=== PATIENT | male | born 1955 | race Caucasian/White ===

== ENCOUNTER 2016-04-11 23:14 | Observation (INO) | payer BC, MEDICARE ==
[~2016-04-11] VITALS: Ht 182.9 cm; Wt 139.8 kg
[~2016-04-11 23:14] MED LIST: ACTO45TA6 PO; AMBI5TAB PO; AMOX250C3 PO; ASPI81TA85 PO; ATOR1TAB18 PO; GLIM2TA PO; GLUC1000 PO; HYDR-3719 PO; INSULADS SC; LASI20TA PO; MELO15TA4 PO; NEUR300C PO; NICO21DI5 TD; PRIL40CA PO; SOMA350T PO; TOPR50TA PO; TRAD5TAB PO; ZOCO40TA PO
[2016-04-11] MEDS ORDERED: ADENOSINE 6MG/2ML INJECTION (J0153) As Ordered ONE (23:24)
[2016-04-11] MEDS ORDERED: ATENOLOL 25 MG TAB As Ordered ONE (23:41)
[2016-04-11 23:51] LABS: BASO % 0.6 % (0.0-1.0); EOS # 0.1 K/mm3 (0.0-0.50); EOS % 1.9 % (0.0-3.0); LARGE UNSTAINED CELL # 0.2 K/mm3 (0.0-0.4); LARGE UNSTAINED CELL % 3.1 % (0.0-4.0); LYMPH # 1.8 K/mm3 (1.5-4.5); LYMPH % 24.6 % (24.0-44.0); MEAN CORPUSCULAR HEMOGLOBIN 28.9 pg (27.0-33.0); MEAN CORPUSCULAR HGB CONC 33.5 g/dl (32.0-36.5); MEAN CORPUSCULAR VOLUME 86.2 fl (80.0-96.0); MONO # 0.5 K/mm3 (0.0-0.8); NEUTROPHILS # 4.5 K/mm3 (1.8-7.7); NEUTROPHILS % 62.8 % (36.0-66.0); PLATELET COUNT, AUTOMATED 167 k/mm3 (150-450); RED CELL DISTRIBUTION WIDTH 14.7 % (11.5-14.5); WHITE BLOOD COUNT 7.2 K/mm3 (4.0-10.0)
[2016-04-12 00:19] LABS: CALCIUM LEVEL 8.4 MG/DL (8.5-10.1); CREATININE FOR GFR 1.63 MG/DL (0.70-1.30); FREE T4 1.12 NG/DL (0.76-1.46); GLOMERULAR FILTRATION RATE 46.5 (>56); MAGNESIUM LEVEL 1.4 MG/DL (1.8-2.4); POTASSIUM SERUM 4.4 MEQ/L (3.5-5.1)
[2016-04-12] MEDS ORDERED: MAGNESIUM OXIDE 400 MG TAB (MAG-OX) As Ordered ONE (00:32)
[2016-04-12] MEDS ORDERED: MAGNESIUM SULFATE 1 GM/100 ML D5W BAG (10MG/ML) (J3475) As Ordered ONE (00:33)
[2016-04-12] MEDS ORDERED: ACETAMINOPHEN TAB 650MG DOSE (2X325MG) PO PRN (04:15)
[2016-04-12] MEDS ORDERED: ONDANSETRON 4MG/2ML VIAL (J2405) IV PRN (04:15)
[2016-04-12] MEDS ORDERED: META800T82 PO (04:33)
[2016-04-12] MEDS ORDERED: JANU100T PO (04:33)
[2016-04-12] MEDS ORDERED: NEXI40CA PO (04:33)
[2016-04-12] MEDS ORDERED: LYRI200C PO (04:33)
[2016-04-12] MEDS ORDERED: TORS20TA2 PO (04:33)
[2016-04-12] MEDS ORDERED: PROA1AER INH (04:33)
[2016-04-12] MEDS ORDERED: VICO10TA11 PO (04:33)
[2016-04-12] MEDS ORDERED: ASPI81TAEC PO (04:33)
[2016-04-12] MEDS ORDERED: ATOR1TAB18 PO (04:33)
[2016-04-12] MEDS ORDERED: METAXALONE 800 MG TABLET PO PRN (05:30)
[2016-04-12] MEDS ORDERED: DEXTROSE 50% 50 ML SYRINGE IV PRN (05:30)
[2016-04-12] MEDS ORDERED: GLUCOSE 4 GM CHEW TABLET PO PRN (05:30)
[2016-04-12] MEDS ORDERED: GLUCAGON FOR INJ 1 MG VIAL (J1610) SC PRN (05:30)
[2016-04-12] MEDS ORDERED: ALBUTEROL 90 MCG/ACT 8GM HFA INHALER INH PRN (05:30)
--- NOTE | 2016-04-12 05:40 | EDDOCDS ---
Nurse's Notes [facility] Name: Giancarlo Altman Age: 60 yrs Sex: Male : 1955 Arrival Date: 04/11/2016 Time: 23:14 Bed 3 Private MD: Artie Diagnosis: Supraventricular tachycardia-elevation in troponin Presentation: 04/11 23:28 Presenting complaint: Patient states: Patient was sitting in bed watching TV and kas2 started having chest pain and noticed he was dizzy and his heart was racing so he woke his up to take him to the ER. Aspirin was not taken prior to arrival. Adult Sepsis Screening: The patient does not have new or worsening altered mentation. Patient's respiratory rate is less than 22. Systolic blood pressure is greater than 100. Patient has a qSOFA score of 0- Negative Sepsis Screen. Suicide/Homicide risk assessment- the patient denies having any suicidal and/or homicidal ideations and does not present with any other emotional, behavioral or mental health complaints. Status: Patient is not a answering service operator or dependent. Transition of care: patient was not received from another setting of care. 23:28 Acuity: KURTIS Level 2 kas2 23:28 Method Of Arrival: Walkin/Carried/Asstd kas2 Triage Assessment: 23:28 General: Appears in no apparent distress, uncomfortable, well nourished, well groomed, kas2 Behavior is appropriate for age, cooperative. Pain: Location: chest Pain currently is 9 out of 10 on a pain scale. Pt Declines HIV testing. Neurological: Level of Consciousness is awake, alert, Oriented to person, place, time. Cardiovascular: Capillary refill < 3 seconds Heart tones S1 S2 present Rhythm is SVT Chest pain is described as vague, radiates Does not radiate. episodes are continuous began 30 minutes prior to arrival. Respiratory: Airway is patent Respiratory effort is even, unlabored, Respiratory pattern is regular, symmetrical, Breath sounds are clear bilaterally. Derm: Skin is intact, is healthy with good turgor, Skin is dry, Skin is pink, warm & dry. Skin temperature is warm. 04/12 00:19 Cardiovascular: Respiratory: kas2 Historical: - Home Meds: 1. pregabalin 200 mg Oral cap 1 cap 3 times per day 2. metaxalone 800 mg oral tab 1 tab 3 times per day 3. pioglitazone 30 mg oral tab 1 tab once daily 4. vicodon 10/300 every 3 hours for pain PRN 5. aspirin 81 mg Oral tab 1 tab once daily 6. Lipitor 80 mg Oral tab 1 tab once daily 7. metformin 750 mg Oral Tb24 2 tabs once daily 8. torsemide 20 mg oral tab 1 tab once daily 9. meloxicam 15 mg oral tab 1 tab once daily 10. Januvia 100 mg oral tab 1 tab once daily 11. 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 No barriers to communication noted. - Family history: Not pertinent. - : The pt / caregiver states he / she is not on anticoagulants. Home medication list is obtained from the patient. - Exposure Risk Screening:: None identified. Screenin/18 23:38 Screening information is obtained from the patient. Fall risk: No risks identified. kas2 Assistance ADL's: requires no assistance with activities of daily living. Abuse/DV Screen: The patient / caregiver reports he/she is: not in a situation that causes fear, pain or injury. Nutritional screening: No deficits noted. Advance Directives: Currently, there is no health care proxy. There is no active DNR order. There is no living will. There is no Power of Account Development Manager. home support is adequate. Assessment: 23:31 General: Patient converted to P92. Patient denies chest pain at this time. No SOB or kas2 headache. No apparent distress noted. at bedside. Call diez within reach. Will continue to monitor.. 23:33 General: See triage note.. kas2 04/12 00:17 General: Appears in no apparent distress, comfortable, well nourished, well groomed, kas2 Behavior is appropriate for age, cooperative. Pain: Denies pain. Neurological: Level of Consciousness is awake, alert, Oriented to person, place, time. Cardiovascular: Capillary refill < 3 seconds Heart tones S1 S2 present Rhythm is sinus rhythm No ectopy. Respiratory: Airway is patent Respiratory effort is even, unlabored, Respiratory pattern is regular, symmetrical, Breath sounds are clear bilaterally. Derm: Skin is intact, is healthy with good turgor, Skin is dry, Skin is pink, warm & dry. Skin temperature is warm. 01:15 General: Appears in no apparent distress, comfortable, Behavior is appropriate for age, kas2 cooperative. Pain: Denies pain. Neurological: Level of Consciousness is awake, alert, Oriented to person, place, time. Cardiovascular: Capillary refill < 3 seconds Heart tones S1 S2 present Rhythm is sinus rhythm No ectopy. Respiratory: Airway is patent Respiratory effort is even, unlabored, Respiratory pattern is regular, symmetrical, Breath sounds are clear bilaterally. Derm: Skin is intact, is healthy with good turgor, Skin is dry, Skin is pink, warm & dry. Skin temperature is warm. 02:31 General: :Patient sitting up in bed with family at bedside. Denies pain or discomfort kas2 at this time. No apparent distress. Airway patent and respiratory effort even and unlabored. Call diez within reach. Will continue to monitor.. 03:40 General: Appears in no apparent distress, comfortable, Behavior is appropriate for age, kas2 cooperative. Pain: Denies pain. Neurological: Level of Consciousness is awake, alert, Oriented to person, place, time. Cardiovascular: Rhythm is sinus rhythm No ectopy. Respiratory: Airway is patent Respiratory effort is even, unlabored, Respiratory pattern is regular, symmetrical, Breath sounds are clear bilaterally. Derm: Skin is intact, Skin is dry, Skin is pink, warm & dry. Skin temperature is warm. 04:15 General: Patient resting in bed. Denies pain or discomfort at this time. No apparent kas2 distress. Airway patent and respiratory effort even and unlabored. Call diez within reach. Will continue to monitor.. Vital Signs: 04/11 23:17 BP 64 / 44; Pulse 190; Resp 20 S; Temp 96.7(O); Weight 138.35 kg (R); Height 6 ft. 0 gr2 in. (182.88 cm) (R); Pain 4/10; 23:25 BP 101 / 45 (auto/); kas2 23:25 Pulse 191 MON; kas2 23:30 BP 92 / 44 (auto/); kas2 23:30 Pulse 190 MON; Pulse Ox 94% ; kas2 23:33 BP 132 / 66 (auto/); kas2 23:33 Pulse 101 MON; Pulse Ox 94% ; kas2 23:45 BP 113 / 57 (auto/); kas2 23:45 Pulse 96 MON; Pulse Ox 94% ; kas2 04/12 00:00 BP 118 / 71 (auto/); kas2 00:00 Pulse 91 MON; Pulse Ox 94% ; kas2 00:15 BP 121 / 63 (auto/); kas2 00:15 Pulse Ox 92% ; kas2 00:30 BP 122 / 59 (auto/); kas2 00:30 Pulse 115 MON; kas2 00:45 BP 120 / 68 (auto/); kas2 00:45 Pulse 83 MON; Pulse Ox 93% ; kas2 01:00 BP 107 / 57 (auto/); kas2 01:00 Pulse 73 MON; Pulse Ox 90% ; kas2 01:15 BP 104 / 57 (auto/); kas2 01:15 Pulse 68 MON; Pulse Ox 92% ; kas2 01:30 BP 105 / 56 (auto/); kas2 01:30 Pulse 67 MON; Pulse Ox 91% ; kas2 01:45 BP 101 / 53 (auto/); kas2 01:45 Pulse 63 MON; Pulse Ox 91% ; kas2 02:09 BP 92 / 53 (auto/); kas2 02:09 Pulse 73 MON; Pulse Ox 87% ; kas2 02:09 Resp 18; Temp 98.2(O); kas2 02:39 BP 103 / 54 (auto/); kas2 02:39 Pulse 63 MON; Pulse Ox 91% ; kas2 03:09 BP 97 / 53 (auto/); kas2 03:09 Pulse 62 MON; Pulse Ox 91% ; kas2 03:39 BP 103 / 53 (auto/); kas2 03:39 Pulse 65 MON; Pulse Ox 92% ; kas2 04:39 BP 109 / 60 (auto/); kas2 04:39 Pulse 60 MON; Pulse Ox 92% ; kas2 04:39 BP 109 / 60; Pulse 60; Resp 18; Temp 97.3(O); Pulse Ox 92% on R/A; Pain 0/10; kas2 05:00 BP 109 / 60; Pulse 60; Resp 18; Temp 97.3; Pulse Ox 92% on R/A; Pain 0/10; kas2 04/11 23:17 Body Mass Index 41.37 (138.35 kg, 182.88 cm) gr2 Vitals: 04/11 23:17 Log In Time: April 11, 2016 at 23:17. RN notified that patient meets Red Flag gr2 criteria. ED Course: 23:15 bus driver/monitor on. Sitter at bedside. NIBP on. kas2 23:16 Patient visited by hNan Smart. gr2 23:16 Artie is Private Physician. gr2 23:16 Patient moved to Waiting gr2 23:20 Patient visited by Nhan Smart. gr2 23:20 Stacey Gonzalez RN is Primary Nurse. gr2 23:20 Elizabeth Nava RN is Primary Nurse. gr2 23:20 Favian Walls DO is Attending Physician. mm11 23:20 Patient visited by Favian Walls DO. mm11 23:20 Patient moved to 3 gr2 23:20 Inserted saline lock: 18 gauge in right antecubital area and blood collected. The kas2 patient tolerated the procedure well. No procedures done that require assistance. 23:29 Triage Initiated kas2 23:36 Patient visited by Favian Walls DO. mm11 23:36 Patient visited by Gio Amato PCA. mdr 23:36 EKG done. (by ED staff). Reviewed by Favian Walls DO. mdr 23:36 EKG done. (by ED staff). Reviewed by Favian Walls DO. mdr 23:43 TSH with Free T4 Sent. kas2 23:43 Magnesium Level Sent. kas2 23:43 Basic Metabolic Profile Sent. kas2 23:43 CBC with Diff Sent. kas2 23:43 Cardiac Injury Profile Sent. kas2 23:43 Troponin Sent. kas2 23:51 Primary Nurse role handed off by Stacey Gonzalez RN sls1 23:56 Patient visited by Elizabeth Nava RN. kas2 04/12 00:19 Patient visited by Elizabeth Nava RN. kas2 00:27 [facility] Payment Agreement was scanned into [employer] and attached to record. pm4 01:12 Patient visited by Elizabeth Nava RN. kas2 01:55 Patient visited by Elizabeth Nava RN. kas2 01:57 Patient visited by Gio Amato PCA. mdr 01:57 EKG done. (by ED staff). Reviewed by Favian Walls DO. mdr 01:58 Patient visited by Elizabeth Nava RN. kas2 01:59 Patient visited by Elizabeth Nava RN. kas2 02:10 TROPONIN Sent. mdr 02:10 CARDIAC INJURY PROFILE Sent. mdr 02:33 Patient visited by Elizabeth Nava RN. kas2 03:12 Patient visited by Favian Walls DO. mm11 03:37 Eligio Doe MD is Hospitalizing Provider. mm11 03:43 Patient visited by Gio Amato PCA. mdr 03:43 Diet: Patient given water. mdr 04:34 Patient visited by Elizabeth Nava RN. kas2 05:12 Patient visited by Elizabeth Nava RN. kas2 05:27 The patient / caregiver is instructed regarding the plan of care and ED course. [facility] Administered Medications: 04/11 23:29 Drug: Adenosine 6 mg [adenosine 3 mg/mL intravenous solution (2 mL)] Route: IVP; Site: [facility] right antecubital; 23:44 Drug: Atenolol 25 mg [atenolol 25 mg tablet (1 tabs)] Route: PO; kas2 04/12 01:11 Drug: Magnesium Oxide 400 mg [magnesium oxide 400 mg tablet (1 tabs)] Route: PO; [facility]2 01:37 Drug: Magnesium Sulfate 1 grams [magnesium sulfate 1 gram/100 mL in dextrose 5 % [facility] intravenous piggyback] {Co-Signature: nn1 (Javi Carlton RN).} Route: IVPB; Infused Over: 1 hrs; Site: right antecubital; Order Results: Lab Order: Basic Metabolic Profile; SPEC'M 04/11/16 23:27 Test: GLUCOSE, FASTING; Value: 157; Range: 70-105; Abnormal: Above high normal; Units: MG/DL; Status: F Test: BLOOD UREA NITROGEN; Value: 22; Range: 7-18; Abnormal: Above high normal; Units: MG/DL; Status: F Test: CREATININE FOR GFR; Value: 1.63; Range: 0.70-1.30; Abnormal: Above high normal; Units: MG/DL; Status: F Test: GLOMERULAR FILTRATION RATE; Value: 46.5; Range: >56; Abnormal: Below low normal; Status: F Test: SODIUM LEVEL; Value: 140; Range: 136-145; Units: MEQ/L; Status: F Test: POTASSIUM SERUM; Value: 4.4; Range: 3.5-5.1; Units: MEQ/L; Status: F Test: CHLORIDE LEVEL; Value: 103; Range: 98-107; Units: MEQ/L; Status: F Test: CARBON DIOXIDE LEVEL; Value: 28; Range: 21-32; Units: MEQ/L; Status: F Test: ANION GAP; Value: 9; Range: 8-16; Units: MEQ/L; Status: F Test: CALCIUM LEVEL; Value: 8.4; Range: 8.5-10.1; Abnormal: Below low normal; Units: MG/DL; Status: F Test Note: ; Units are mL/min/1.73 m2 Chronic Kidney Disease Staging per NKF: Stage I & II GFR >=60 Normal to Mildly Decreased Stage III GFR 30-59 Moderately Decreased Stage IV GFR 15-29 Severely Decreased Stage V GFR <15 Very Little GFR Left ESRD GFR <15 on MAINTENANCE DEPARTMENT MANAGER Lab Order: CBC with Diff; SPEC'M 04/11/16 23:27 Test: WHITE BLOOD COUNT; Value: 7.2; Range: 4.0-10.0; Units: K/mm3; Status: F Test: RED BLOOD COUNT; Value: 4.10; Range: 4.30-6.10; Abnormal: Below low normal; Units: M/mm3; Status: F Test: HEMOGLOBIN; Value: 11.8; Range: 14.0-18.0; Abnormal: Below low normal; Units: g/dl; Status: F Test: HEMATOCRIT; Value: 35.4; Range: 42.0-52.0; Abnormal: Below low normal; Units: %; Status: F Test: MEAN CORPUSCULAR VOLUME; Value: 86.2; Range: 80.0-96.0; Units: fl; Status: F Test: MEAN CORPUSCULAR HEMOGLOBIN; Value: 28.9; Range: 27.0-33.0; Units: pg; Status: F Test: MEAN CORPUSCULAR HGB CONC; Value: 33.5; Range: 32.0-36.5; Units: g/dl; Status: F Test: RED CELL DISTRIBUTION WIDTH; Value: 14.7; Range: 11.5-14.5; Abnormal: Above high normal; Units: %; Status: F Test: PLATELET COUNT, AUTOMATED; Value: 167; Range: 150-450; Units: k/mm3; Status: F Test: NEUTROPHILS %; Value: 62.8; Range: 36.0-66.0; Units: %; Status: F Test: LYMPH %; Value: 24.6; Range: 24.0-44.0; Units: %; Status: F Test: MONO %; Value: 7.0; Range: 0.0-5.0; Abnormal: Above high normal; Units: %; Status: F Test: EOS %; Value: 1.9; Range: 0.0-3.0; Units: %; Status: F Test: BASO %; Value: 0.6; Range: 0.0-1.0; Units: %; Status: F Test: LARGE UNSTAINED CELL %; Value: 3.1; Range: 0.0-4.0; Units: %; Status: F Test: NEUTROPHILS #; Value: 4.5; Range: 1.8-7.7; Units: K/mm3; Status: F Test: LYMPH #; Value: 1.8; Range: 1.5-4.5; Units: K/mm3; Status: F Test: MONO #; Value: 0.5; Range: 0.0-0.8; Units: K/mm3; Status: F Test: EOS #; Value: 0.1; Range: 0.0-0.50; Units: K/mm3; Status: F Test: BASO #; Value: 0.0; Range: 0.0-0.2; Units: K/mm3; Status: F Test: LARGE UNSTAINED CELL #; Value: 0.2; Range: 0.0-0.4; Units: K/mm3; Status: F Lab Order: Cardiac Injury Profile; SPEC'M 04/11/16 23:27 Test: CPK CREATINE PHOSPHOKINASE; Value: 109; Range: 39-308; Units: U/L; Status: F Test: CK-MB VALUE MASS; Value: 2.0; Range: 0.0-3.6; Units: NG/ML; Status: F Test: MB/CK RELATIVE INDEX; Value: 1.83; Range: < OR =4; Status: F Test Note: ; DIAGNOSIS CRITERIA MMB ng/ml Relative Index (RI) NON-AMI < or = 5 N/A JONES ZONE > 5 < or = 4 AMI > 5 > 4 Lab Order: Troponin; [facility] 04/11/16 23:27 Test: TROPONIN I; Value: 0.03; Range: < 0.10; Units: NG/ML; Status: F Test Note: ; Troponin I Reference Interval for [employer]: 99th Percentile= 0.00-0.045 ng/ml Risk Stratification: <= 0.10 ng/ml Decreased Risk for Adverse Clinical Events. 0.10-1.50 ng/ml Increased Risk for Adverse Clinical Events. Evaluation of additional criterion and/or repeat testing in 2-6 hours is suggested to rule out myocardial damage. >= 1.50 ng/ml Indicative of Myocardial Injury. Lab Order: Magnesium Level; [facility] 04/11/16 23: Test: MAGNESIUM LEVEL; Value: 1.4; Range: 1.8-2.4; Abnormal: Below low normal; Units: MG/DL; Status: F Lab Order: TSH with Free T4; [facility] 04/11/16: Test: THYROID STIMULATING HORMONE; Value: 4.700; Range: 0.358-3.740; Abnormal: Above high normal; Units: uIU/ML; Status: F Test: FREE T4; Value: 1.12; Range: 0.76-1.46; Units: NG/DL; Status: F Lab Order: CARDIAC INJURY PROFILE; [facility] 04/12/16 02:06 Test: CPK CREATINE PHOSPHOKINASE; Value: 100; Range: 39-308; Units: U/L; Status: F Test: CK-MB VALUE MASS; Value: 2.5; Range: 0.0-3.6; Units: NG/ML; Status: F Test: MB/CK RELATIVE INDEX; Value: 2.50; Range: < OR =4; Status: F Test Note: ; DIAGNOSIS CRITERIA MMB ng/ml Relative Index (RI) NON-AMI < or = 5 N/A JONES ZONE > 5 < or = 4 AMI > 5 > 4 Lab Order: TROPONIN; [facility] 04/12/16 02:06 Test: TROPONIN I; Value: 0.18; Range: < 0.10; Abnormal: High; Units: NG/ML; Status: F Test Note: ; Troponin I Reference Interval for [employer] [place] LOCI: 99th Percentile= 0.00-0.045 ng/ml Risk Stratification: <= 0.10 ng/ml Decreased Risk for Adverse Clinical Events. 0.10-1.50 ng/ml Increased Risk for Adverse Clinical Events. Evaluation of additional criterion and/or repeat testing in 2-6 hours is suggested to rule out myocardial damage. >= 1.50 ng/ml Indicative of Myocardial Injury. Outcome: 03:38 Decision to Hospitalize by Provider. 11 05:26 Discharge Assessment: patient administered narcotics - no. The following High Risk [facility] Discharge criteria are identified: None. Admitted to PCU accompanied by nurse, accompanied by tech, via stretcher, on monitor, with chart. Condition: good Condition: stable Condition: improved. No special radiology studies were completed. Property :Personal belongings accompany Pt. 05:39 Patient left the ED. [facility] Signatures: Favian Walls DO DO mm11 Sangeetha Golden RN RN sls1 Nhan Smart 2 Gio Amato, PARA PROFESSIONAL PARA PROFESSIONAL Elizabeth Boss RN RN [facility]2 Reji Mendoza, Reg Reg pm4 Javi Carlton RN nn1 [facility]
--- NOTE | 2016-04-12 05:40 | EDDOCDS ---
Physician Documentation [facility] Name: Giancarlo Altman Age: 60 yrs Sex: Male : 1955 Arrival Date: 04/11/2016 Time: 23:14 Bed 3 Private MD: Artie Disposition: 04/12/16 03:38 Hospitalization ordered by Eligio Doe for Inpatient Admission. Preliminary diagnosis is Supraventricular tachycardia - elevation in troponin. - Bed requested for PCU. - Status is Inpatient Admission. sls1 - Condition is Stable. - Problem is an ongoing problem. - Symptoms have improved. Historical: - Home Meds: 1. pregabalin 200 mg Oral cap 1 cap 3 times per day 2. metaxalone 800 mg oral tab 1 tab 3 times per day 3. pioglitazone 30 mg oral tab 1 tab once daily 4. vicodon 10/300 every 3 hours for pain PRN 5. aspirin 81 mg Oral tab 1 tab once daily 6. Lipitor 80 mg Oral tab 1 tab once daily 7. metformin 750 mg Oral Tb24 2 tabs once daily 8. torsemide 20 mg oral tab 1 tab once daily 9. meloxicam 15 mg oral tab 1 tab once daily 10. Januvia 100 mg oral tab 1 tab once daily 11. 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 No barriers to communication noted. - Family history: Not pertinent. - : The pt / caregiver states he / she is not on anticoagulants. Home medication list is obtained from the patient. - Exposure Risk Screening:: None identified. Vital Signs: 04/11 23:17 BP 64 / 44; Pulse 190; Resp 20 S; Temp 96.7(O); Weight 138.35 kg / 305.01 lbs (R); gr2 Height 6 ft. 0 in. (182.88 cm) (R); Pain 4/10; 23:25 BP 101 / 45 (auto/); kas2 23:25 Pulse 191 MON; kas2 23:30 BP 92 / 44 (auto/); kas2 23:30 Pulse 190 MON; Pulse Ox 94% ; kas2 23:33 BP 132 / 66 (auto/); kas2 23:33 Pulse 101 MON; Pulse Ox 94% ; kas2 23:45 BP 113 / 57 (auto/); kas2 23:45 Pulse 96 MON; Pulse Ox 94% ; kas2 04/12 00:00 BP 118 / 71 (auto/); kas2 00:00 Pulse 91 MON; Pulse Ox 94% ; kas2 00:15 BP 121 / 63 (auto/); kas2 00:15 Pulse Ox 92% ; kas2 00:30 BP 122 / 59 (auto/); kas2 00:30 Pulse 115 MON; kas2 00:45 BP 120 / 68 (auto/); kas2 00:45 Pulse 83 MON; Pulse Ox 93% ; kas2 01:00 BP 107 / 57 (auto/); kas2 01:00 Pulse 73 MON; Pulse Ox 90% ; kas2 01:15 BP 104 / 57 (auto/); kas2 01:15 Pulse 68 MON; Pulse Ox 92% ; kas2 01:30 BP 105 / 56 (auto/); kas2 01:30 Pulse 67 MON; Pulse Ox 91% ; kas2 01:45 BP 101 / 53 (auto/); kas2 01:45 Pulse 63 MON; Pulse Ox 91% ; kas2 02:09 BP 92 / 53 (auto/); kas2 02:09 Pulse 73 MON; Pulse Ox 87% ; kas2 02:09 Resp 18; Temp 98.2(O); kas2 02:39 BP 103 / 54 (auto/); kas2 02:39 Pulse 63 MON; Pulse Ox 91% ; kas2 03:09 BP 97 / 53 (auto/); kas2 03:09 Pulse 62 MON; Pulse Ox 91% ; kas2 03:39 BP 103 / 53 (auto/); kas2 03:39 Pulse 65 MON; Pulse Ox 92% ; kas2 04:39 BP 109 / 60 (auto/); kas2 04:39 Pulse 60 MON; Pulse Ox 92% ; kas2 04:39 BP 109 / 60; Pulse 60; Resp 18; Temp 97.3(O); Pulse Ox 92% on R/A; Pain 0/10; kas2 05:00 BP 109 / 60; Pulse 60; Resp 18; Temp 97.3; Pulse Ox 92% on R/A; Pain 0/10; kas2 04/11 23:17 Body Mass Index 41.37 (138.35 kg, 182.88 cm) gr2 MDM: 04/11 23:23 ECG WITH READING ER PHYS+CARDIAG ordered. EDMS 23:35 ECG WITH READING ER PHYS+CARDIAG ordered. EDMS 23:37 Ruby Engineer/Pulse Ox/q 30 min VS ordered. mm11 23:37 IV Saline Lock ordered. mm11 23:37 Rhythm Strip to chart ordered. mm11 23:37 Undress patient appropriately for examination ordered. mm11 23:37 Adenosine 6 mg IVP once ordered. mm11 23:38 Atenolol 25 mg PO once ordered. mm11 23:38 Basic Metabolic Profile Ordered. EDMS 23:38 CBC with Diff Ordered. EDMS 23:38 Cardiac Injury Profile Ordered. EDMS 23:38 Troponin Ordered. EDMS 23:38 Magnesium Level Ordered. EDMS 23:38 TSH with Free T4 Ordered. EDMS 23:38 portable chest Ordered. EDMS 04/12 00:19 Financial registration complete. pm4 00:20 Basic Metabolic Profile Reviewed. mm11 00:20 CBC with Diff Reviewed. mm11 00:20 Magnesium Level Reviewed. mm11 00:20 Troponin Reviewed. mm11 00:21 Magnesium Sulfate 1 grams IVPB once over 1 hrs; administer over at least 1 hour ordered.mm11 00:21 Magnesium Oxide 400 mg PO once ordered. mm11 00:24 TSH with Free T4 Reviewed. mm11 00:24 Cardiac Injury Profile Reviewed. mm11 00:26 Basic Metabolic Profile Reviewed. mm11 00:26 Magnesium Level Reviewed. mm11 00:26 TSH with Free T4 Reviewed. mm11 00:26 Cardiac Injury Profile Reviewed. mm11 00:26 Troponin Reviewed. mm11 00:27 [facility] [place] Agreement was scanned into [employer] and attached to record. pm4 01:23 Redraw CIP &Troponin (put time in details section) ordered. mm11 01:23 Repeat EKG (put time details section) ordered. mm11 01:36 ELECTROCARDIOGRAM ADULT ordered. EDMS 01:36 Repeat EKG (put time details section) complete. kb5 01:36 Redraw CIP &Troponin (put time in details section) complete. kb5 01:36 CARDIAC INJURY PROFILE Ordered. EDMS 01:36 TROPONIN Ordered. EDMS 03:06 TROPONIN Reviewed. mm11 03:06 CARDIAC INJURY PROFILE Reviewed. mm11 03:27 BED REQUEST+ADM ordered. EDMS 04:18 Admission / Observation Status ordered. EDMS 04:18 ELECTROCARDIOGRAM ADULT ordered. EDMS 04:18 CONSISTENT CARBOHYDRATES ordered. EDMS 04:22 COMPLETE BLOOD COUNT Ordered. EDMS 04:23 BASIC METABOLIC PROFILE Ordered. EDMS 04:23 MAGNESIUM LEVEL Ordered. EDMS 04:23 CARDIAC MARKER PANEL Ordered. EDMS Administered Medications: 04/11 23:29 Drug: Adenosine 6 mg [adenosine 3 mg/mL intravenous solution (2 mL)] Route: IVP; Site: [facility] right antecubital; 23:44 Drug: Atenolol 25 mg [atenolol 25 mg tablet (1 tabs)] Route: PO; [facility] 04/12 01:11 Drug: Magnesium Oxide 400 mg [magnesium oxide 400 mg tablet (1 tabs)] Route: PO; [facility] 01:37 Drug: Magnesium Sulfate 1 grams [magnesium sulfate 1 gram/100 mL in dextrose 5 % [facility] intravenous piggyback] {Co-Signature: nn1 (Javi Carlton RN).} Route: IVPB; Infused Over: 1 hrs; Site: right antecubital; Signatures: Dispatcher [employer] EDNY Gerri Acuna, RN RN Nathan Kiser, GEAR TOOTH LAPPING MACHINE OPERATOR GEAR TOOTH LAPPING MACHINE OPERATOR kb5 Favian Walls, DO mm11 Sangeetha Golden RN RN sls1 Elizabeth Nava RN RN kas2 Reji Mendoza, Reg Reg pm4 Javi Carlton RN nn1 The chart was reviewed and I authenticate all verbal orders and agree with the evaluation and treatment provided.Attachments: 00:27 [facility] Payment Agreement pm4 MTDD
[2016-04-12 05:45] VITALS: BP 120/59
[2016-04-12] MEDS ORDERED: SODIUM CHLORIDE 0.9% 1000 ML IV ONE (05:46)
[2016-04-12] MEDS: MAG SULF 1GM/100ML (MAG RUN) 1 GM in APPROPRIATE DILUENT 1 EA IV SCH ×2 (06:17→07:32)
[2016-04-12] MEDS ORDERED: AMMO12CR4 EXT (06:24)
[2016-04-12] MEDS ORDERED: CLOB0.0548 TOP (06:24)
--- NOTE | 2016-04-12 07:28 | REP ---
Clinical: Chest pain . Comparison: 02/23/2014 . Findings: The mediastinum and cardiac silhouette are stable and within normal limits for portable technique. The lung marin are clear without acute consolidation, effusion, or pneumothorax. Skeletal structures are intact. Impression: No acute cardiopulmonary process appreciated Signed by Roger Miramontes MD 04/12/2016 01:42 A
[2016-04-12] MEDS: HumaLOG INSULIN (NovoLOG) PER UNIT SC SCH ×3 (07:30→18:10)
--- NOTE | 2016-04-12 07:52 | HPE ---
DATE OF ADMISSION: 04/12/[address] Alva and [facility] CHIEF COMPLAINT: Chest pain. SUMMARY OF PRESENTATION: This is a 60-year-old who thought he was having a heart attack this evening. He was sitting in bed watching TV and he had sudden onset of chest pain. He came to the emergency department for evaluation and was found to have a rapid heart rate. He does have a history of supraventricular tachycardia (SVT). He was given Adenosine and converted to normal sinus rhythm. He did have an event similar to this in the past. He did not have a sensation of palpitations before, now or the last time. He just did not feel right. He did followup once with [facility] after that event, but not since. No known history of a stress test. He has been feeling well recently. No change in his activity level. He does not normally experience chest pain. He does take an aspirin daily. PAST MEDICAL HISTORY (Notable for): 1. Reactive airway disease or asthma. 2. Degenerative disc disease with chronic pain. He reports three bulging discs at C2, C3 and C5. 3. Diabetes mellitus, not on insulin. 4. Hyperlipidemia. 5. Gastroesophageal reflux disease. 6. Psoriasis. 7. Obstructive sleep apnea, sometimes compliant with his CPAP. 8. Enlarged testicles and a small urethra. PAST SURGICAL HISTORY (Notable for): 1. Hernia repair. 2. Cystoscopy done in the last few days. 3. Two surgeries on his nose after a fracture. 4. Left shoulder surgery. 5. Cervical spine surgery involving plating and then removing of the plate as it eroded through his esophagus. MEDICATIONS AT HOME (Listed as): - albuterol - aspirin - atorvastatin - Nexium - meloxicam - metaxalone - metformin - Lyrica - Januvia - torsemide - Vicodin ALLERGIES (Listed to): - NEURONTIN FAMILY HISTORY: Unknown as he was adopted. SOCIAL HISTORY: He continues to smoke off and on. He has not used alcohol in 20 years. REVIEW OF SYSTEMS: Notable for no headache. No visual changes. No runny nose. No sore throat. No cough. No fever. No chills. He did have chest discomfort today. No abdominal pain. No change in bowel or bladder habits. No focal weakness. No history of seizures. Otherwise unremarkable. PHYSICAL EXAMINATION: Blood pressure most recently is 92/53 with a pulse of 73, respiratory rate 18, temperature 98.2. He is awake, appropriately interactive, pleasantly conversant. He was able to sit up at bedside. Head is normocephalic. Sinuses are nontender. Pupils are equally round and reactive. Anicteric. Noninjected. Nasal septum is midline, apparently a portion of it has been removed. I am unable to visualize that directly. Mucous membranes moist. Neck supple, thick. Breathing is symmetrical, rested. I:E ratio 1:3. No costovertebral (CVA) tenderness. No sacral edema. Heart is in a regular rate and rhythm, distant sounding. Normal S1, S2. Abdomen soft, doughy, nontender. There is evidence of venous stasis changes on the bilateral lower extremities with associated small crater-like ulcers. The right leg is larger than the left, which apparently is chronic. He has normal mood and affect. There are labs available for me to review which include the following: White cell count 7.2, hemoglobin 11.8 and platelets of 167. Sodium 140, BUN 22, creatinine 1.63, calcium 8.4, magnesium 1.4. CK 109, repeat still 100. Troponin I of 0.03, repeat is 0.18. TSH is 4.7. Free T4 is 1.12. Chest x-ray shows no acute disease and is relatively under penetrated. ASSESSMENT: This is a 60-year-old with supraventricular tachycardia and elevated troponin. The patient will require a progressive care unit (PCU) stay to cycle his troponins and for cardiology consultation if deemed clinically necessary. PLAN: 1. Cardiovascular. The patient was given atenolol in the emergency department. Blood pressure is relatively low at the moment, although the patient is asymptomatic. Will continue to monitor the patient on telemetry. Will need some sort of beta blockade at time of discharge if his blood pressure tolerates it. 2. The patient has electrolyte abnormalities in the form of hypomagnesemia and hypocalcemia. Will add on a liver profile. His calcium level likely corrects to normal. Will repeat magnesium at 9:00 a.m. He has received one run of magnesium in the emergency department and will receive an additional run or two when admitted. 3. The patient has diabetes in the setting of what appears to be acute renal failure. Would withhold his oral antihypoglycemics. Will give the patient some IV fluids and again repeat labs. 4. The patient has gastroesophageal reflux disease (GERD). Continue his proton pump inhibitor (PPI). 5. The patient has chronic pain. Will continue his Lyrica and we do not have the dose of Vicodin he normally takes at home, but will attempt to replicate that in the form of [place]. 6. Deep vein thrombosis (DVT) prophylaxis is ordered.
[2016-04-12 08:00] VITALS: BP 129/59
[2016-04-12] MEDS: PREGABALIN 100 MG CAP (LYRICA) PO SCH ×3 (08:06→21:35)
[2016-04-12] MEDS: ASPIRIN 81 MG ENTERIC TAB PO SCH (08:07)
[2016-04-12] MEDS: PANTOPRAZOLE 40MG TAB (PROTONIX) PO SCH ×2 (08:07→21:35)
[2016-04-12] MEDS: ANEXSIA, NORCO 7.5MG/325MG TABLET(HYDROCODONE/APAP) PO PRN ×2 (08:10→15:19)
--- NOTE | 2016-04-12 08:40 | ECGEPIP ---
Stationary ECG Study [facility] - ED Test Date: 2016-04-11 Pat Name: KADE VALIENTE Department: Room: [place] [address] Gender: M Engineer Technician: : 1955 Requested By: VIBHA Barger Order Number: [id number] Reading MD: Yasir Roca Measurements Intervals [place] Rate: 188 P: [place]: 0 QRS: 85 QRSD: 90 T: -74 QT: 233 QTc: 413 Interpretive Statements SUPRAVENTRICULAR TACHYCARDIA ST DEVIATION AND MODERATE T-WAVE ABNORMALITY, RATE-RELATED VS ISCHEMIA Electronically Signed On 04-12-2016 8:39:45 EST by Yasir Roca
--- NOTE | 2016-04-12 08:41 | ECGEPIP ---
Stationary ECG Study 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
--- NOTE | 2016-04-12 08:41 | ECGEPIP ---
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
--- NOTE | 2016-04-12 08:47 | ECGEPIP ---
Stationary ECG Study [facility] Test Date: 2016-04-12 Pat Name: KADE VALIENTE Department: Room: [place] [address] Gender: M Specialty Molder: GARRISON : 1955 Requested By: BEVERLY Adam Order Number: [id number] Reading MD: Phil Christine Measurements Intervals [place] Rate: 66 P: 73 ID: [id number] QRS: 83 QRSD: 108 T: 68 QT: 382 QTc: 401 Interpretive Statements Normal sinus rhythm Inferior ST elevation--unchanged from 04/12/2016 Correlate clinically Electronically Signed On 04-12-2016 8:46:59 EST by Phil Christine
[2016-04-12] MEDS: ENOXAPARIN 40 MG/0.4 ML SYRINGE (J1650) SC SCH (09:00)
[2016-04-12 09:11] LABS: MEAN CORPUSCULAR HEMOGLOBIN 27.6 pg (27.0-33.0); MEAN CORPUSCULAR HGB CONC 31.4 g/dl (32.0-36.5); MEAN CORPUSCULAR VOLUME 87.9 fl (80.0-96.0); RED CELL DISTRIBUTION WIDTH 14.6 % (11.5-14.5); WHITE BLOOD COUNT 5.5 K/mm3 (4.0-10.0)
[2016-04-12] MEDS: SITagliptin 50 MG TAB (JANUVIA) PO SCH (09:35)
[2016-04-12 09:54] LABS: CALCIUM LEVEL 8.2 MG/DL (8.5-10.1); CREATININE FOR GFR 1.34 MG/DL (0.70-1.30); GLOMERULAR FILTRATION RATE 58.3 (>56); MAGNESIUM LEVEL 2.2 MG/DL (1.8-2.4); POTASSIUM SERUM 4.5 MEQ/L (3.5-5.1)
--- NOTE | 2016-04-12 10:51 | CR.PDOC ---
[facility] Cardiology Consultation Date of Consultation 04/12/16 Cadiology Consultation REFERRING PHYSICIAN: Dr. Houston REASON FOR REFERRAL: SVT HISTORY OF PRESENT ILLNESS: Mr Altman is a 60 y/o male who presented to the emergency department with the complaint of chest pain, the patient was found to be in SVT on arrival and was given adenosine therapy which broke rhythm. PAST MEDICAL: History of SVT Diabetes mellitus, not on insulin, noncompliant to medical therapy. Hyperlipidemia GERD Psoriasis LINDA intermittently compliant with CPAP Asthma Degenerative disc disease/chronic pain PAST SURGICAL HISTORY: Cystoscopy procedure within the last week Surgery after fracture Left shoulder surgery Hernia repair Cervical spine surgery FAMILY HISTORY: non-contributory due to patient being adopted SOCIAL HISTORY: He does continue to smoke, denies using alcohol in greater than 15 years, denies illicit drug use. REVIEW OF SYSTEMS: All other 10 point review of systems questions negative. Cardiovascular: Patient denied chest pain, palpitations or feelings of dizziness Respiratory: Patient denied SOB, cough or wheeze GI/: Denied changes in bowel or urinary habits. HEENT: Denied headache or blurred vision PHYSICAL EXAMINATION: VITAL SIGNS: Please see below. GENERAL APPEARANCE: He appears comfortable, is sitting in a bedside chair eating his breakfast, in no apparent distress, conversant, pleasant. EYES: EOMI ENT/Mouth: Moist mucous membranes, tongue midline. NECK: No appreciable JVD, supple EXTREMITIES: Minimal swelling +1 bilateral lower extremity, otherwise no cyanosis or clubbing. SKIN: Intact NEUROLOGIC/PSYCHOLOGIC: No focal deficit appreciated, affect is appropriate. HEART: Normal S1, S2, no murmurs, gallops, rubs appreciated. Heart sounds are distant due to body habitus. ARTERIAL PULSES: +2 radial bilaterally ABDOMEN: Nondistended, nontender, obese. ALLERGIES: Please see below. HOME MEDICATIONS: Please see below. CURRENT MEDICATIONS: Please see below. Electrocardiogram: 04-12-16 Normal sinus rhythm Inferior ST elevation--unchanged from 04/12/2016 04-12-16 Normal sinus rhythm Short [place] interval Inferior ST elevation Compared to prior tracing of 04/11/2016, heart rate is slower and ST elevation is new--correlate clinically 04-11-16 SINUS TACHYCARDIA WITH SHORT AL INTERVAL 04-11-[address] DEVIATION AND MODERATE T-WAVE ABNORMALITY, RATE-RELATED VS ISCHEMIA LABORATORY DATA: Please see below. IMAGIN-18-17 No acute cardiopulmonary process appreciated ASSESSMENT/PLAN: The patient states that he was initially taking metoprolol for SVT but this was discontinued as he was having episodes of orthostatic hypotension. His heart rate has been in the 50s to 60s with blood pressure stable 120/60 range. He currently denies any shortness of breath, chest pain or experiencing palpitations. 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 Thus the patient may benefit from ablative therapy in the future, this can be discussed in further investigated on outpatient follow-up. Recommend digoxin therapy 0.125 daily. The patient did have an increase in troponin from 0.18 to 2.52, would like to see these trend down before discharge. Patient admits that he recently had cardiac catheterization in [facility] and was "" clean as a whistle". The patient did demonstrate signs of coronary ischemia on EKG, but this is not uncommon with concomitant SVT and often times does not indicate true coronary ischemic disease. However given the rise in troponin, it is advisable to keep the patient in the hospital until a downward trend in troponin is seen. No further recommendations at this time. Thank you kindly for asking me to participate in the care of your patient. 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 There is mild troponin elevation and so I recommend monitoring until the level declines. He had virtually identical presentation in 2013 followed by angiogram revealing minimal CAD. He was on BB but the medication had to be discontinued b/o hypotension. Would utilize digoxin until we can arrange for ablation. D/w the patient. Vital Signs/I&O Vital Signs Date Time Temp Pulse Resp B/P Pulse Ox O2 Delivery O2 Flow Rate FiO2 04/12/16 10:10 54 04/12/16 09:00 18 04/12/16 08:10 Room Air 04/12/16 08:00 96.0 129/59 95 I&O- Last 24 Hours up to 6 AM 04/12/16 06:00 Intake Total 0 ml Output Total 0 ml Balance 0 ml Laboratory Data Labs 24H Laboratory Tests 2 04/11/16 23:27: Anion Gap 9, White Blood Count 7.2, Red Blood Count 4.10L, Hemoglobin 11.8L, Hematocrit 35.4L, Mean Corpuscular Volume 86.2, Mean Corpuscular Hemoglobin 28.9 , Mean Corpuscular Hemoglobin Concent 33.5, Red Cell Distribution Width 14.7H, Platelet Count 167, Neutrophils (%) (Auto) 62.8, Lymphocytes (%) (Auto) 24.6, Monocytes (%) (Auto) 7.0H, Eosinophils (%) (Auto) 1.9, Basophils (%) (Auto) 0.6 , Neutrophils # (Auto) 4.5, Lymphocytes # (Auto) 1.8, Monocytes # (Auto) 0.5, Eosinophils # (Auto) 0.1, Basophils # (Auto) 0.0, Blood Urea Nitrogen 22H, Creatinine 1.63H, Sodium Level 140, Potassium Level 4.4, Chloride Level 103, Carbon Dioxide Level 28, Calcium Level 8.4L, Total Creatine Kinase 109, Creatine Kinase MB 2.0, Creatine Kinase MB Relative Index 1.83, Free Thyroxine 1.12, Glomerular Filtration Rate 46.5L, Large Unclassified Cells # 0.2, Large Unclassified Cells % 3.1, Magnesium Level 1.4L, Thyroid Stimulating Hormone (TSH ) 4.700H, Troponin I 0.03 04/12/16 02:06: Total Creatine Kinase 100, Creatine Kinase MB 2.5, Creatine Kinase MB Relative Index 2.50, Troponin I 0.18#H 04/12/16 09:01: Anion Gap 8, Blood Urea Nitrogen 20H, Creatinine 1.34H, Sodium Level 140, Potassium Level 4.5, Chloride Level 106, Carbon Dioxide Level 26, Calcium Level 8.2L, Total Creatine Kinase 109, Creatine Kinase MB 3.6, Creatine Kinase MB Relative Index 3.30, Glomerular Filtration Rate 58.3, Magnesium Level 2.2, Troponin I 0.52#H CBC/BMP Laboratory Tests 04/11/16 23:27 Calcium Level 8.4 L, Total Creatine Kinase 109, Red Blood Count 4.10 L, Mean Corpuscular Volume 86.2, Mean Corpuscular Hemoglobin 28.9, Mean Corpuscular Hemoglobin Concent 33.5, Red Cell Distribution Width 14.7 H, Neutrophils (%) ( Auto) 62.8, Lymphocytes (%) (Auto) 24.6, Monocytes (%) (Auto) 7.0 H, Eosinophils (%) (Auto) 1.9, Basophils (%) (Auto) 0.6, Neutrophils # (Auto) 4.5, Lymphocytes # (Auto) 1.8, Monocytes # (Auto) 0.5, Eosinophils # (Auto) 0.1, Basophils # (Auto) 0.0 04/12/16 09:01 Calcium Level 8.2 L, Total Creatine Kinase 109, Red Blood Count 3.72 L, Mean Corpuscular Volume 87.9, Mean Corpuscular Hemoglobin 27.6, Mean Corpuscular Hemoglobin Concent 31.4 L, Red Cell Distribution Width 14.6 H Home Medications Scheduled (Ammonium Lactate) 12 % Cre 1 DOSE EXT DAILY (Reported) USES AFTER SHOWER ON ARMS AND LEGS Alfuzosin Hydrochloride (Alfuzosin HCl ER) 10 Mg Tab 10 MG PO DAILY (Reported) Aspirin (Aspirin EC) 81 Mg Tabec 81 MG PO DAILY (Reported) Atorvastatin Calcium (Atorvastatin Calcium) 80 Mg Tab 80 MG PO DAILY (Reported ) AFTER DINNERTIME Clobetasol Propionate (Clobetasol Propionate E) 0.05 % Cre 1 DOSE TOP BID ( Reported) USES ON ARMS FOR PSORIASIS Clopidogrel Bisulfate (Clopidogrel) 75 Mg Tab 75 MG PO DAILY Digoxin (Digoxin) 0.125 Mg Tab 0.125 MG PO DAILY Meloxicam (Meloxicam) 15 Mg Tab 15 MG PO DAILY (Reported) Metformin Hydrochloride (Glucophage) 1,000 Mg Tab 1,500 MG PO DAILY (Reported) AFTER DINNERTIME Pantoprazole Sodium Sesquihydr (Protonix) 40 Mg Tab 40 MG PO DAILY Pregabalin (Lyrica) 200 Mg Cap 200 MG PO TID (Reported) Sitagliptin Phosphate (Januvia) 100 Mg Tab 100 MG PO DAILY (Reported) Torsemide (Torsemide) 20 Mg Tab 20 MG PO DAILY (Reported) Scheduled PRN Acetaminophen/Hydrocodone (Vicodin Hp 10-300 mg) 1 Tab Tab 1 TAB PO Q3HP PRN PRN PAIN (Reported) Albuterol Sulfate (Proair Hfa) 108 Mcg/Act Aer 2 PUFF INH Q4H PRN PRN SHORTNESS OF BREATH (Reported) Metaxalone (Metaxalone) 800 Mg Tab 800 MG PO TID PRN PRN MUSCLE SPASMS (Reported ) Current Medications Current Medications Acetaminophen (Tylenol) 650 mg Q4HP PRN PO MILD PAIN OR FEVER; Start 04/12/16 at 04:15; Stop 05/12/16 at 04:14 Acetaminophen/ Hydrocodone Bitart (Anexsia, [place] 7.5mg/325mg) 2 tab Q4HP PRN PO SEVERE PAIN (PS 8-10) Last administered on 04/12/16 08:10; Start 04/12/16 at 04:30; Stop 04/19/16 at 04:29 Adenosine (Adenocard) 18 mg STK-MED ONCE As Ordered ; Start 04/11/16 at 23:24; Stop 04/11/16 at 23:25; Status DC Albuterol Sulfate (Proventil, Ventolin Hfa) 2 puff Q4H PRN INH SHORTNESS OF BREATH; Start 04/12/16 at 05:30; Stop 05/12/16 at 05:29 Aspirin (Ecotrin) 81 mg DAILY PO Last administered on 04/12/16 08:07; Start at 09:00; Stop 05/12/16 at 08:59 Atenolol (Tenormin) 25 mg STK-MED ONCE As Ordered ; Start 04/11/16 at 23:41; Stop 04/11/16 at 23:42; Status DC Atorvastatin Calcium (Lipitor) 80 mg DAILY@18 PO ; Start 04/12/16 at 18:00; Stop 05/12/16 at 17:59 Dextrose (Dextrose 50%) 25 ml ASDIRECTED PRN IV SEE LABEL COMMENTS; Start 04/12 at 05:30; Stop 05/12/16 at 05:29 Digoxin (Lanoxin) 0.125 mg DAILY PO ; Start 04/12/16 at 09:00; Stop 05/12/16 at 08:59 Enoxaparin Sodium 40 mg 40 mg DAILY SC ; Start 04/12/16 at 09:00; Stop 04/17/16 at 08:59 Glucagon (Glucagon) 1 mg ASDIRECTED PRN SC SEE LABEL COMMENTS; Start 04/12/16 at 05:30; Stop 05/12/16 at 05:29 Glucose (Glucose) 16 GM ASDIRECTED PRN PO SEE LABEL COMMENTS; Start 04/12/16 at 05:30; Stop 05/12/16 at 05:29 Insulin Human Lispro (HumaLOG INSULIN) SEE PROTOCOL TABLE AC SC ; Start at 07:30; Stop 05/12/16 at 07:29 Insulin Human Lispro (HumaLOG INSULIN) SEE PROTOCOL TABLE QHS SC ; Start at 21:00; Stop 05/12/16 at 20:59 Magnesium Oxide (Mag-Ox) 400 mg STK-MED ONCE As Ordered ; Start 04/12/16 at 00: 32; Stop 04/12/16 at 00:33; Status DC Magnesium Sulfate/ Dextrose (Mag Sulf 1gm/ 100ml (Mag Run)) 1 gm STK-MED ONCE As Ordered ; Start 04/12/16 at 00:33; Stop 04/12/16 at 00:34; Status DC Magnesium Sulfate/ Dextrose/IV Miscellaneous Supplies (Mag Sulf 1gm/ 100ml (Mag Run)) 100 ml @ 100 mls/hr 1T@06,07 IV Last administered on 04/12/16 07:32; Start 04/12/16 at 06:00; Stop 04/12/16 at 12:00 Metaxalone (Skelaxin) 800 mg TID PRN PO MUSCLE SPASMS; Start 04/12/16 at 05:30 ; Stop 05/12/16 at 05:29 Ondansetron HCl (Zofran) 4 mg Q6HP PRN IV NAUSEA OR VOMITING; Start 04/12/16 at 04:15; Stop 05/12/16 at 04:14 Pantoprazole Sodium (Protonix) 40 mg BID PO Last administered on 04/12/16 08: 07; Start 04/12/16 at 09:00; Stop 05/12/16 at 08:59 Pregabalin (Lyrica) 200 mg TID PO Last administered on 04/12/16 08:06; Start 04/12/16 at 09:00; Stop 04/19/16 at 08:59 Sitagliptin Phosphate (Januvia) 100 mg DAILY PO Last administered on 04/12/16 09:35; Start 04/12/16 at 09:00; Stop 05/12/16 at 08:59 Sodium Chloride (Nacl 0.9%) 500 ml BOLUS ONCE IV ; Start 04/12/16 at 05:46; Stop 04/12/16 at 05:47; Status DC Allergies Allergies: Coded Allergies: Gabapentin (Unverified Adverse Reaction, Severe, DROPS BLOOD PRESSURE, ) GME ATTESTATION GME ATTESTATION My preceptor for this patient encounter was physically present in the building during the encounter and was fully available. As needed, all aspects of the patient interview, examination, medical decision making process, and medical care plan development were reviewed and approved by the preceptor. Preceptor is aware and concurs with the plan as stated in the body of this note and will attest to such by his/her cosignature. CHARU FRAIRE DO Apr 12, 2016 10:50 Jose Miguel Singh MD Apr 14, 2016 11:27
[2016-04-12] MEDS: DIGOXIN 0.125 MG TAB PO SCH (10:57)
[2016-04-12 12:00] VITALS: BP 117/71
[2016-04-12 16:00] VITALS: BP 168/72
[2016-04-12] MEDS ORDERED: ATORVASTATIN 20 MG TAB PO SCH (18:00)
[2016-04-12] MEDS ORDERED: ALFUZOSIN 10 MG PO SCH (18:00)
[2016-04-12] MEDS ORDERED: ALFU10TA2 PO (18:18)
--- NOTE | 2016-04-12 19:02 | IPN ---
DATE: 04/12/2016 The patient is seen and examined. Currently reported back to baseline. Denies any fevers, chills, chest pain, pressure or discomfort. Wanting to be discharged. Unfortunately, the patient's cardiac enzymes, troponin still trending. VITAL SIGNS: Temperature 96, pulse 56, respirations 18, blood pressure 168/72, pulse oximetry 93% on room air. LABORATORY DATA: WBC 5.5, hemoglobin and hematocrit 10.3/32.7, platelets 167. Chemistry: Sodium 140, potassium 4.5, chloride 106, bicarbonate 26, BUN 20, creatinine 1.34. Troponin 0.03, 0.18, 0.52, 0.73. PHYSICAL EXAMINATION: GENERAL: The patient is morbidly obese, pleasant, in no acute distress. HEENT: Normocephalic, atraumatic. PULMONARY: Bilaterally clear to auscultation. CARDIAC: Regular. S1, S2. ABDOMEN: Obese, soft, nontender, nondistended. EXTREMITIES: No edema in bilateral lower extremities. ASSESSMENT AND PLAN: This is a 60-year-old male patient with underlying medical history of asthma, degenerative disc disease with chronic pain, bulging discs at C2, C3, C5, [id number] diabetes with diabetic neuropathy, dyslipidemia, gastroesophageal reflux disease (GERD), psoriasis, obstructive sleep apnea on continuous positive airway pressure (CPAP), occasional compliance, benign prostatic hypertrophy (BPH) , who presented with chest pain and found to have SVT. 1. 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 Case discussed with cardiology, Dr. Singh, and Dr. Escobar has been consulted. The patient currently is asymptomatic. Followup cardiac enzymes. As per patient's history, the patient does not tolerate beta solomon given the patient will become severe orthostatic. The patient's current blood pressure is stable. Recommending starting the patient on digoxin, as per cardiology. Telemetry monitoring. Serial cardiac enzymes. 2. Troponin leak. Case discussed with cardiology, likely secondary to tachycardia and demand ischemia. Trend troponin to peak. 3. Hypomagnesemia. Supplement magnesium. Continue to follow electrolytes. 4. Diabetes with diabetic neuropathy. Holding metformin. Continue Januvia and insulin as per protocol. 5. Dyslipidemia. Continue statin. 6. Coronary arterial disease. Continue aspirin and statin. 7. Diabetic neuropathy. Continue current medications. 8. Chronic pain. Continue current medications. 9. Gastroesophageal reflux disease (GERD). Continue proton pump inhibitor. 10. Poor compliance. Counseling provided. The patient refused diabetic consistent carbohydrate diet and wanted to drink Pepsi. Risk has been discussed with the patient. 11. Deep vein thrombosis (DVT) prophylaxis. Lovenox subcutaneously. DISPOSITION: Trend cardiac enzymes to peak. If cardiac enzymes continue to increase, we will consider transfer to [facility] for possible catheterization. If the cardiac enzymes improve, the patient could potentially be discharged tomorrow.
[2016-04-12 20:20] VITALS: BP 145/65
[2016-04-12] MEDS ORDERED: HumaLOG INSULIN (NovoLOG) PER UNIT SC SCH (21:00)
[2016-04-12 23:21] VITALS: BP 104/54
[2016-04-13 04:21] VITALS: BP 107/65
[2016-04-13 06:00] LABS: MEAN CORPUSCULAR HEMOGLOBIN 27.7 pg (27.0-33.0); MEAN CORPUSCULAR HGB CONC 31.5 g/dl (32.0-36.5); MEAN CORPUSCULAR VOLUME 87.9 fl (80.0-96.0); RED CELL DISTRIBUTION WIDTH 14.8 % (11.5-14.5); WHITE BLOOD COUNT 5.9 K/mm3 (4.0-10.0)
[2016-04-13 06:20] LABS: ANION GAP 5 MEQ/L (8-16); BLOOD UREA NITROGEN 17 MG/DL (7-18); CALCIUM LEVEL 9.1 MG/DL (8.5-10.1); CARBON DIOXIDE LEVEL 31 MEQ/L (21-32); CHLORIDE LEVEL 108 MEQ/L (98-107); CREATININE FOR GFR 1.18 MG/DL (0.70-1.30); GLOMERULAR FILTRATION RATE > 60.0 (>56); GLUCOSE, FASTING 155 MG/DL (70-105); MAGNESIUM LEVEL 2.1 MG/DL (1.8-2.4); SODIUM LEVEL 144 MEQ/L (136-145)
[2016-04-13] MEDS: PANTOPRAZOLE 40MG TAB (PROTONIX) PO SCH (07:54)
[2016-04-13] MEDS: PREGABALIN 100 MG CAP (LYRICA) PO SCH (07:54)
[2016-04-13] MEDS: ASPIRIN 81 MG ENTERIC TAB PO SCH (07:54)
[2016-04-13] MEDS: SITagliptin 50 MG TAB (JANUVIA) PO SCH (07:54)
[2016-04-13] MEDS: ANEXSIA, NORCO 7.5MG/325MG TABLET(HYDROCODONE/APAP) PO PRN (07:57)
[2016-04-13] MEDS: HumaLOG INSULIN (NovoLOG) PER UNIT SC SCH (07:59)
[2016-04-13 08:00] VITALS: BP 135/70
[2016-04-13] MEDS: DIGOXIN 0.125 MG TAB PO SCH (08:01)
[2016-04-13] MEDS: ENOXAPARIN 40 MG/0.4 ML SYRINGE (J1650) SC SCH (08:01)
[2016-04-13] MEDS ORDERED: CLOPIDOGREL 75 MG TAB PO SCH (09:00)
[2016-04-13] MEDS ORDERED: DIGO0.12 PO (09:01)
[2016-04-13] MEDS ORDERED: CLOP75TA2 PO (09:01)
[2016-04-13] MEDS ORDERED: PROT1TAB2 PO (09:01)
--- NOTE | 2016-04-13 09:16 | IPNPDOC ---
[facility] Cardiology Progress Note Date of Service/Time The patient was seen on 04/13/16 at 09:05. Cardiology Progress Note SUBJECTIVE: Mr. Altman was seen and examined at bedside this morning, he was sitting in his bed chair, seemed pleasant and conversant, was in no distress. OBJECTIVE: PHYSICAL EXAMINATION: VITAL SIGNS: Please see below. GENERAL APPEARANCE: seemed pleasant, conversant, anxious to go home, in no distress, HEENT: NCAT, EOMI, nares patent b/l, moist mucus membranes LUNGS: CTA b/l, no wheezing, rhonchi or rales appreciated HEART: normal s1 and s1, no murmurs, rubs or gallops appreciated ABDOMEN: soft, non-tender, obese SKIN: intact EXTREMITIES: no cyanosis or clubbing, some minimal edema in LE b/l NEUROLOGICAL: no focal deficit appreciated PSYCHIATRIC: normal affect, appropriate LABORATORY WORK: Please see below. ASSESSMENT AND PLAN: Although he did have an elevation one day prior of his troponin, this is most likely secondary to his rapid heart rate and less likely to do with ischemic disease. His troponins today are.67 from .66 one day prior, his hear rate has been stable in the 50-60's and so have his blood pressure's. Would suggest he is okay to d/c from cardiac stand point, would recommend outpatient stress testing. Would also put him on aspirin, and also to begin plavix therapy for a month, would continue his current digoxin therapy. No further recommendations at this time. Vital Signs/I&O VS/I&O Vital Signs Date Time Temp Pulse Resp B/P Pulse Ox O2 Delivery O2 Flow Rate FiO2 04/13/16 08:01 70 04/13/16 08:00 Room Air 04/13/16 07:57 18 04/13/16 04:21 94.9 107/65 96 I&O- Last 24 Hours up to 6 AM 04/13/16 06:00 Intake Total 1340 ml Output Total 525 ml Balance 815 ml Laboratory Data 24H LABS Laboratory Tests 2 04/12/16 15:03: Creatine Kinase MB 4.0H, Creatine Kinase MB Relative Index 3.96, Total Creatine Kinase 101, Troponin I 0.73#H 04/12/16 18:03: Bedside Glucose (Misc Panel) 192H 04/12/16 20:12: Bedside Glucose (Misc Panel) 212H 04/12/16 21:52: Creatine Kinase MB 2.6, Creatine Kinase MB Relative Index 2.95, Total Creatine Kinase 88, Troponin I 0.66H 04/13/16 05:37: Anion Gap 5L, Blood Urea Nitrogen 17, Creatinine 1.18, Sodium Level 144, Potassium Level 5.0, Chloride Level 108H, Carbon Dioxide Level 31, Calcium Level 9.1, Total Creatine Kinase 80, Creatine Kinase MB 2.2, Creatine Kinase MB Relative Index 2.75, Glomerular Filtration Rate > 60.0, Magnesium Level 2.1, Troponin I 0.67H CBC/BMP Laboratory Tests 04/13/16 05:37 Calcium Level 9.1, Total Creatine Kinase 80, Red Blood Count 4.01 L, Mean Corpuscular Volume 87.9, Mean Corpuscular Hemoglobin 27.7, Mean Corpuscular Hemoglobin Concent 31.5 L, Red Cell Distribution Width 14.8 H FSBS Laboratory Tests Test 04/12/16 18:03 04/12/16 20:12 Range/Units Bedside Glucose (Misc Panel) 192 212 70-105 MG/DL GME ATTESTATION GME ATTESTATION My preceptor for this patient encounter was physically present in the building during the encounter and was fully available. As needed, all aspects of the patient interview, examination, medical decision making process, and medical care plan development were reviewed and approved by the preceptor. Preceptor is aware and concurs with the plan as stated in the body of this note and will attest to such by his/her cosignature. CHARU FRAIRE DO Apr 13, 2016 09:16
--- NOTE | 2016-04-14 06:40 | EDDOCDS ---
Physician Documentation [facility] Name: Giancarlo Altman Age: 60 yrs Sex: Male : 1955 Arrival Date: 04/11/2016 Time: 23:14 Bed 3 Private MD: Artie Disposition: 04/12/16 03:38 Hospitalization ordered by Eligio Doe for Inpatient Admission. Preliminary diagnosis is Supraventricular tachycardia - elevation in troponin. - Bed requested for PCU. - Status is Inpatient Admission. sls1 - Condition is Stable. - Problem is an ongoing problem. - Symptoms have improved. Historical: - Home Meds: 1. pregabalin 200 mg Oral cap 1 cap 3 times per day 2. metaxalone 800 mg oral tab 1 tab 3 times per day 3. pioglitazone 30 mg oral tab 1 tab once daily 4. vicodon 10/300 every 3 hours for pain PRN 5. aspirin 81 mg Oral tab 1 tab once daily 6. Lipitor 80 mg Oral tab 1 tab once daily 7. metformin 750 mg Oral Tb24 2 tabs once daily 8. torsemide 20 mg oral tab 1 tab once daily 9. meloxicam 15 mg oral tab 1 tab once daily 10. Januvia 100 mg oral tab 1 tab once daily 11. 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 No barriers to communication noted. - Family history: Not pertinent. - : The pt / caregiver states he / she is not on anticoagulants. Home medication list is obtained from the patient. - Exposure Risk Screening:: None identified. Vital Signs: 04/11 23:17 BP 64 / 44; Pulse 190; Resp 20 S; Temp 96.7(O); Weight 138.35 kg / 305.01 lbs (R); gr2 Height 6 ft. 0 in. (182.88 cm) (R); Pain 4/10; 23:25 BP 101 / 45 (auto/); kas2 23:25 Pulse 191 MON; kas2 23:30 BP 92 / 44 (auto/); kas2 23:30 Pulse 190 MON; Pulse Ox 94% ; kas2 23:33 BP 132 / 66 (auto/); kas2 23:33 Pulse 101 MON; Pulse Ox 94% ; kas2 23:45 BP 113 / 57 (auto/); kas2 23:45 Pulse 96 MON; Pulse Ox 94% ; kas2 04/12 00:00 BP 118 / 71 (auto/); kas2 00:00 Pulse 91 MON; Pulse Ox 94% ; kas2 00:15 BP 121 / 63 (auto/); kas2 00:15 Pulse Ox 92% ; kas2 00:30 BP 122 / 59 (auto/); kas2 00:30 Pulse 115 MON; kas2 00:45 BP 120 / 68 (auto/); kas2 00:45 Pulse 83 MON; Pulse Ox 93% ; kas2 01:00 BP 107 / 57 (auto/); kas2 01:00 Pulse 73 MON; Pulse Ox 90% ; kas2 01:15 BP 104 / 57 (auto/); kas2 01:15 Pulse 68 MON; Pulse Ox 92% ; kas2 01:30 BP 105 / 56 (auto/); kas2 01:30 Pulse 67 MON; Pulse Ox 91% ; kas2 01:45 BP 101 / 53 (auto/); kas2 01:45 Pulse 63 MON; Pulse Ox 91% ; kas2 02:09 BP 92 / 53 (auto/); kas2 02:09 Pulse 73 MON; Pulse Ox 87% ; kas2 02:09 Resp 18; Temp 98.2(O); kas2 02:39 BP 103 / 54 (auto/); kas2 02:39 Pulse 63 MON; Pulse Ox 91% ; kas2 03:09 BP 97 / 53 (auto/); kas2 03:09 Pulse 62 MON; Pulse Ox 91% ; kas2 03:39 BP 103 / 53 (auto/); kas2 03:39 Pulse 65 MON; Pulse Ox 92% ; kas2 04:39 BP 109 / 60 (auto/); kas2 04:39 Pulse 60 MON; Pulse Ox 92% ; kas2 04:39 BP 109 / 60; Pulse 60; Resp 18; Temp 97.3(O); Pulse Ox 92% on R/A; Pain 0/10; kas2 05:00 BP 109 / 60; Pulse 60; Resp 18; Temp 97.3; Pulse Ox 92% on R/A; Pain 0/10; kas2 04/11 23:17 Body Mass Index 41.37 (138.35 kg, 182.88 cm) gr2 MDM: 04/11 23:23 ECG WITH READING ER PHYS+CARDIAG ordered. EDMS 23:35 ECG WITH READING ER PHYS+CARDIAG ordered. EDMS 23:37 Side Laster Tack/Pulse Ox/q 30 min VS ordered. mm11 23:37 IV Saline Lock ordered. mm11 23:37 Rhythm Strip to chart ordered. mm11 23:37 Undress patient appropriately for examination ordered. mm11 23:37 Adenosine 6 mg IVP once ordered. mm11 23:38 Atenolol 25 mg PO once ordered. mm11 23:38 Basic Metabolic Profile Ordered. EDMS 23:38 CBC with Diff Ordered. EDMS 23:38 Cardiac Injury Profile Ordered. EDMS 23:38 Troponin Ordered. EDMS 23:38 Magnesium Level Ordered. EDMS 23:38 TSH with Free T4 Ordered. EDMS 23:38 portable chest Ordered. EDMS 04/12 00:19 Financial registration complete. pm4 00:20 Basic Metabolic Profile Reviewed. mm11 00:20 CBC with Diff Reviewed. mm11 00:20 Magnesium Level Reviewed. mm11 00:20 Troponin Reviewed. mm11 00:21 Magnesium Sulfate 1 grams IVPB once over 1 hrs; administer over at least 1 hour ordered.mm11 00:21 Magnesium Oxide 400 mg PO once ordered. mm11 00:24 TSH with Free T4 Reviewed. mm11 00:24 Cardiac Injury Profile Reviewed. mm11 00:26 Basic Metabolic Profile Reviewed. mm11 00:26 Magnesium Level Reviewed. mm11 00:26 TSH with Free T4 Reviewed. mm11 00:26 Cardiac Injury Profile Reviewed. mm11 00:26 Troponin Reviewed. mm11 00:27 [facility] [place] Payment Agreement was scanned into [employer] and attached to record. pm4 01:23 Redraw CIP &Troponin (put time in details section) ordered. mm11 01:23 Repeat EKG (put time details section) ordered. mm11 01:36 ELECTROCARDIOGRAM ADULT ordered. EDMS 01:36 Repeat EKG (put time details section) complete. kb5 01:36 Redraw CIP &Troponin (put time in details section) complete. kb5 01:36 CARDIAC INJURY PROFILE Ordered. EDMS 01:36 TROPONIN Ordered. EDMS 03:06 TROPONIN Reviewed. mm11 03:06 CARDIAC INJURY PROFILE Reviewed. mm11 03:27 BED REQUEST+ADM ordered. EDMS 04:18 Admission / Observation Status ordered. EDMS 04:18 ELECTROCARDIOGRAM ADULT ordered. EDMS 04:18 CONSISTENT CARBOHYDRATES ordered. EDMS 04:22 COMPLETE BLOOD COUNT Ordered. EDMS 04:23 BASIC METABOLIC PROFILE Ordered. EDMS 04:23 MAGNESIUM LEVEL Ordered. EDMS 04:23 CARDIAC MARKER PANEL Ordered. EDMS 10:16 T-Sheet-- Draft Copy was scanned into [employer]media and attached to record. gb 10:16 ECG/EKG was scanned into [employer] and attached to record. gb Administered Medications: 04/11 23:29 Drug: Adenosine 6 mg [adenosine 3 mg/mL intravenous solution (2 mL)] Route: IVP; Site: [facility] right antecubital; 23:44 Drug: Atenolol 25 mg [atenolol 25 mg tablet (1 tabs)] Route: PO; [facility] 04/12 01:11 Drug: Magnesium Oxide 400 mg [magnesium oxide 400 mg tablet (1 tabs)] Route: PO; [facility] 01:37 Drug: Magnesium Sulfate 1 grams [magnesium sulfate 1 gram/100 mL in dextrose 5 % [facility] intravenous piggyback] {Co-Signature: nn1 (Javi Carlton RN).} Route: IVPB; Infused Over: 1 hrs; Site: right antecubital; Signatures: Dispatcher MedHost EDCT Gerri Acuna, RN Brenda James, Reg Reg gb Nathan Yen, KASI INTERPRETER AND TRANSLATOR kb5 Favian Walls, DO mm11 Sangeetha Golden RN RN [facility] Elizabeth Nava RN RN [facility] Reji Mendoza, Reg Reg pm4 Javi Carlton RN nn1 The chart was reviewed and I authenticate all verbal orders and agree with the evaluation and treatment provided.Attachments: 00:27 [facility] Payment Agreement pm4 10:16 T-Sheet-- Draft Copy gb 10:16 ECG/EKG gb Chart Complete MTDD
--- NOTE | 2016-04-14 06:40 | EDDOCDS ---
Physician Documentation [facility] Name: Giancarlo Altman Age: 60 yrs Sex: Male : 1955 Arrival Date: 04/11/2016 Time: 23:14 Bed 3 Private MD: Artie Disposition: 04/12/16 03:38 Hospitalization ordered by Eligio Doe for Inpatient Admission. Preliminary diagnosis is Supraventricular tachycardia - elevation in troponin. - Bed requested for PCU. - Status is Inpatient Admission. sls1 - Condition is Stable. - Problem is an ongoing problem. - Symptoms have improved. Historical: - Home Meds: 1. pregabalin 200 mg Oral cap 1 cap 3 times per day 2. metaxalone 800 mg oral tab 1 tab 3 times per day 3. pioglitazone 30 mg oral tab 1 tab once daily 4. vicodon 10/300 every 3 hours for pain PRN 5. aspirin 81 mg Oral tab 1 tab once daily 6. Lipitor 80 mg Oral tab 1 tab once daily 7. metformin 750 mg Oral Tb24 2 tabs once daily 8. torsemide 20 mg oral tab 1 tab once daily 9. meloxicam 15 mg oral tab 1 tab once daily 10. Januvia 100 mg oral tab 1 tab once daily 11. 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 No barriers to communication noted. - Family history: Not pertinent. - : The pt / caregiver states he / she is not on anticoagulants. Home medication list is obtained from the patient. - Exposure Risk Screening:: None identified. Vital Signs: 04/11 23:17 BP 64 / 44; Pulse 190; Resp 20 S; Temp 96.7(O); Weight 138.35 kg / 305.01 lbs (R); gr2 Height 6 ft. 0 in. (182.88 cm) (R); Pain 4/10; 23:25 BP 101 / 45 (auto/); kas2 23:25 Pulse 191 MON; kas2 23:30 BP 92 / 44 (auto/); kas2 23:30 Pulse 190 MON; Pulse Ox 94% ; kas2 23:33 BP 132 / 66 (auto/); kas2 23:33 Pulse 101 MON; Pulse Ox 94% ; kas2 23:45 BP 113 / 57 (auto/); kas2 23:45 Pulse 96 MON; Pulse Ox 94% ; kas2 04/12 00:00 BP 118 / 71 (auto/); kas2 00:00 Pulse 91 MON; Pulse Ox 94% ; kas2 00:15 BP 121 / 63 (auto/); kas2 00:15 Pulse Ox 92% ; kas2 00:30 BP 122 / 59 (auto/); kas2 00:30 Pulse 115 MON; kas2 00:45 BP 120 / 68 (auto/); kas2 00:45 Pulse 83 MON; Pulse Ox 93% ; kas2 01:00 BP 107 / 57 (auto/); kas2 01:00 Pulse 73 MON; Pulse Ox 90% ; kas2 01:15 BP 104 / 57 (auto/); kas2 01:15 Pulse 68 MON; Pulse Ox 92% ; kas2 01:30 BP 105 / 56 (auto/); kas2 01:30 Pulse 67 MON; Pulse Ox 91% ; kas2 01:45 BP 101 / 53 (auto/); kas2 01:45 Pulse 63 MON; Pulse Ox 91% ; kas2 02:09 BP 92 / 53 (auto/); kas2 02:09 Pulse 73 MON; Pulse Ox 87% ; kas2 02:09 Resp 18; Temp 98.2(O); kas2 02:39 BP 103 / 54 (auto/); kas2 02:39 Pulse 63 MON; Pulse Ox 91% ; kas2 03:09 BP 97 / 53 (auto/); kas2 03:09 Pulse 62 MON; Pulse Ox 91% ; kas2 03:39 BP 103 / 53 (auto/); kas2 03:39 Pulse 65 MON; Pulse Ox 92% ; kas2 04:39 BP 109 / 60 (auto/); kas2 04:39 Pulse 60 MON; Pulse Ox 92% ; kas2 04:39 BP 109 / 60; Pulse 60; Resp 18; Temp 97.3(O); Pulse Ox 92% on R/A; Pain 0/10; kas2 05:00 BP 109 / 60; Pulse 60; Resp 18; Temp 97.3; Pulse Ox 92% on R/A; Pain 0/10; kas2 04/11 23:17 Body Mass Index 41.37 (138.35 kg, 182.88 cm) gr2 MDM: 04/11 23:23 ECG WITH READING ER PHYS+CARDIAG ordered. EDMS 23:35 ECG WITH READING ER PHYS+CARDIAG ordered. EDMS 23:37 Residential Appliance Repair Technician/Pulse Ox/q 30 min VS ordered. mm11 23:37 IV Saline Lock ordered. mm11 23:37 Rhythm Strip to chart ordered. mm11 23:37 Undress patient appropriately for examination ordered. mm11 23:37 Adenosine 6 mg IVP once ordered. mm11 23:38 Atenolol 25 mg PO once ordered. mm11 23:38 Basic Metabolic Profile Ordered. EDMS 23:38 CBC with Diff Ordered. EDMS 23:38 Cardiac Injury Profile Ordered. EDMS 23:38 Troponin Ordered. EDMS 23:38 Magnesium Level Ordered. EDMS 23:38 TSH with Free T4 Ordered. EDMS 23:38 portable chest Ordered. EDMS 04/12 00:19 Financial registration complete. pm4 00:20 Basic Metabolic Profile Reviewed. mm11 00:20 CBC with Diff Reviewed. mm11 00:20 Magnesium Level Reviewed. mm11 00:20 Troponin Reviewed. mm11 00:21 Magnesium Sulfate 1 grams IVPB once over 1 hrs; administer over at least 1 hour ordered.mm11 00:21 Magnesium Oxide 400 mg PO once ordered. mm11 00:24 TSH with Free T4 Reviewed. mm11 00:24 Cardiac Injury Profile Reviewed. mm11 00:26 Basic Metabolic Profile Reviewed. mm11 00:26 Magnesium Level Reviewed. mm11 00:26 TSH with Free T4 Reviewed. mm11 00:26 Cardiac Injury Profile Reviewed. mm11 00:26 Troponin Reviewed. mm11 00:27 [facility] Agreement was scanned into [employer] and attached to record. pm4 01:23 Redraw CIP &Troponin (put time in details section) ordered. mm11 01:23 Repeat EKG (put time details section) ordered. mm11 01:36 ELECTROCARDIOGRAM ADULT ordered. EDMS 01:36 Repeat EKG (put time details section) complete. kb5 01:36 Redraw CIP &Troponin (put time in details section) complete. kb5 01:36 CARDIAC INJURY PROFILE Ordered. EDMS 01:36 TROPONIN Ordered. EDMS 03:06 TROPONIN Reviewed. mm11 03:06 CARDIAC INJURY PROFILE Reviewed. mm11 03:27 BED REQUEST+ADM ordered. EDMS 04:18 Admission / Observation Status ordered. EDMS 04:18 ELECTROCARDIOGRAM ADULT ordered. EDMS 04:18 CONSISTENT CARBOHYDRATES ordered. EDMS 04:22 COMPLETE BLOOD COUNT Ordered. EDMS 04:23 BASIC METABOLIC PROFILE Ordered. EDMS 04:23 MAGNESIUM LEVEL Ordered. EDMS 04:23 CARDIAC MARKER PANEL Ordered. EDMS 10:16 T-Sheet-- Draft Copy was scanned into [employer] and attached to record. gb 10:16 ECG/EKG was scanned into [employer] and attached to record. gb Administered Medications: 04/11 23:29 Drug: Adenosine 6 mg [adenosine 3 mg/mL intravenous solution (2 mL)] Route: IVP; Site: [facility] right antecubital; 23:44 Drug: Atenolol 25 mg [atenolol 25 mg tablet (1 tabs)] Route: PO; [facility] 04/12 01:11 Drug: Magnesium Oxide 400 mg [magnesium oxide 400 mg tablet (1 tabs)] Route: PO; [facility] 01:37 Drug: Magnesium Sulfate 1 grams [magnesium sulfate 1 gram/100 mL in dextrose 5 % [facility] intravenous piggyback] {Co-Signature: nn1 (Javi Carlton RN).} Route: IVPB; Infused Over: 1 hrs; Site: right antecubital; Signatures: Dispatcher MedHost EDMO Gerri Acuna, RN Brenda James, Reg Reg gb Nathan Yen, KASI EPOXY FABRICATION SUPERVISOR kb5 Favian Walls, DO mm11 Sangeetha Golden RN RN [facility] Elizabeth Nava RN RN [facility] Reji Mendoza, Reg Reg pm4 Javi Carlton RN nn1 The chart was reviewed and I authenticate all verbal orders and agree with the evaluation and treatment provided.Attachments: 00:27 [facility] Payment Agreement pm4 10:16 T-Sheet-- Draft Copy gb 10:16 ECG/EKG gb Chart Complete MTDD
--- NOTE | 2016-04-14 06:40 | EDDOCDS ---
Nurse's Notes [facility] Name: Giancarlo Altman Age: 60 yrs Sex: Male : 1955 Arrival Date: 04/11/2016 Time: 23:14 Bed 3 Private MD: Artie Diagnosis: Supraventricular tachycardia-elevation in troponin Presentation: 04/11 23:28 Presenting complaint: Patient states: Patient was sitting in bed watching TV and kas2 started having chest pain and noticed he was dizzy and his heart was racing so he woke his up to take him to the ER. Aspirin was not taken prior to arrival. Adult Sepsis Screening: The patient does not have new or worsening altered mentation. Patient's respiratory rate is less than 22. Systolic blood pressure is greater than 100. Patient has a qSOFA score of 0- Negative Sepsis Screen. Suicide/Homicide risk assessment- the patient denies having any suicidal and/or homicidal ideations and does not present with any other emotional, behavioral or mental health complaints. 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 Transition of care: patient was not received from another setting of care. 23:28 Acuity: KURTIS Level 2 kas2 23:28 Method Of Arrival: Walkin/Carried/Asstd kas2 Triage Assessment: 23:28 General: Appears in no apparent distress, uncomfortable, well nourished, well groomed, kas2 Behavior is appropriate for age, cooperative. Pain: Location: chest Pain currently is 9 out of 10 on a pain scale. Pt Declines HIV testing. Neurological: Level of Consciousness is awake, alert, Oriented to person, place, time. Cardiovascular: Capillary refill < 3 seconds Heart tones S1 S2 present Rhythm is SVT Chest pain is described as vague, radiates Does not radiate. episodes are continuous began 30 minutes prior to arrival. Respiratory: Airway is patent Respiratory effort is even, unlabored, Respiratory pattern is regular, symmetrical, Breath sounds are clear bilaterally. Derm: Skin is intact, is healthy with good turgor, Skin is dry, Skin is pink, warm & dry. Skin temperature is warm. 04/12 00:19 Cardiovascular: Respiratory: kas2 Historical: - Home Meds: 1. pregabalin 200 mg Oral cap 1 cap 3 times per day 2. metaxalone 800 mg oral tab 1 tab 3 times per day 3. pioglitazone 30 mg oral tab 1 tab once daily 4. vicodon 10/300 every 3 hours for pain PRN 5. aspirin 81 mg Oral tab 1 tab once daily 6. Lipitor 80 mg Oral tab 1 tab once daily 7. metformin 750 mg Oral Tb24 2 tabs once daily 8. torsemide 20 mg oral tab 1 tab once daily 9. meloxicam 15 mg oral tab 1 tab once daily 10. Januvia 100 mg oral tab 1 tab once daily 11. 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 No barriers to communication noted. - Family history: Not pertinent. - : The pt / caregiver states he / she is not on anticoagulants. Home medication list is obtained from the patient. - Exposure Risk Screening:: None identified. Screenin/18 23:38 Screening information is obtained from the patient. Fall risk: No risks identified. kas2 Assistance ADL's: requires no assistance with activities of daily living. Abuse/DV Screen: The patient / caregiver reports he/she is: not in a situation that causes fear, pain or injury. Nutritional screening: No deficits noted. Advance Directives: Currently, there is no health care proxy. There is no active DNR order. There is no living will. There is no Power of Personnel Associate. home support is adequate. Assessment: 23:31 General: Patient converted to P92. Patient denies chest pain at this time. No SOB or kas2 headache. No apparent distress noted. at bedside. Call diez within reach. Will continue to monitor.. 23:33 General: See triage note.. kas2 04/12 00:17 General: Appears in no apparent distress, comfortable, well nourished, well groomed, kas2 Behavior is appropriate for age, cooperative. Pain: Denies pain. Neurological: Level of Consciousness is awake, alert, Oriented to person, place, time. Cardiovascular: Capillary refill < 3 seconds Heart tones S1 S2 present Rhythm is sinus rhythm No ectopy. Respiratory: Airway is patent Respiratory effort is even, unlabored, Respiratory pattern is regular, symmetrical, Breath sounds are clear bilaterally. Derm: Skin is intact, is healthy with good turgor, Skin is dry, Skin is pink, warm & dry. Skin temperature is warm. 01:15 General: Appears in no apparent distress, comfortable, Behavior is appropriate for age, kas2 cooperative. Pain: Denies pain. Neurological: Level of Consciousness is awake, alert, Oriented to person, place, time. Cardiovascular: Capillary refill < 3 seconds Heart tones S1 S2 present Rhythm is sinus rhythm No ectopy. Respiratory: Airway is patent Respiratory effort is even, unlabored, Respiratory pattern is regular, symmetrical, Breath sounds are clear bilaterally. Derm: Skin is intact, is healthy with good turgor, Skin is dry, Skin is pink, warm & dry. Skin temperature is warm. 02:31 General: :Patient sitting up in bed with family at bedside. Denies pain or discomfort kas2 at this time. No apparent distress. Airway patent and respiratory effort even and unlabored. Call diez within reach. Will continue to monitor.. 03:40 General: Appears in no apparent distress, comfortable, Behavior is appropriate for age, kas2 cooperative. Pain: Denies pain. Neurological: Level of Consciousness is awake, alert, Oriented to person, place, time. Cardiovascular: Rhythm is sinus rhythm No ectopy. Respiratory: Airway is patent Respiratory effort is even, unlabored, Respiratory pattern is regular, symmetrical, Breath sounds are clear bilaterally. Derm: Skin is intact, Skin is dry, Skin is pink, warm & dry. Skin temperature is warm. 04:15 General: Patient resting in bed. Denies pain or discomfort at this time. No apparent kas2 distress. Airway patent and respiratory effort even and unlabored. Call diez within reach. Will continue to monitor.. Vital Signs: 04/11 23:17 BP 64 / 44; Pulse 190; Resp 20 S; Temp 96.7(O); Weight 138.35 kg (R); Height 6 ft. 0 gr2 in. (182.88 cm) (R); Pain 4/10; 23:25 BP 101 / 45 (auto/); kas2 23:25 Pulse 191 MON; kas2 23:30 BP 92 / 44 (auto/); kas2 23:30 Pulse 190 MON; Pulse Ox 94% ; kas2 23:33 BP 132 / 66 (auto/); kas2 23:33 Pulse 101 MON; Pulse Ox 94% ; kas2 23:45 BP 113 / 57 (auto/); kas2 23:45 Pulse 96 MON; Pulse Ox 94% ; kas2 04/12 00:00 BP 118 / 71 (auto/); kas2 00:00 Pulse 91 MON; Pulse Ox 94% ; kas2 00:15 BP 121 / 63 (auto/); kas2 00:15 Pulse Ox 92% ; kas2 00:30 BP 122 / 59 (auto/); kas2 00:30 Pulse 115 MON; kas2 00:45 BP 120 / 68 (auto/); kas2 00:45 Pulse 83 MON; Pulse Ox 93% ; kas2 01:00 BP 107 / 57 (auto/); kas2 01:00 Pulse 73 MON; Pulse Ox 90% ; kas2 01:15 BP 104 / 57 (auto/); kas2 01:15 Pulse 68 MON; Pulse Ox 92% ; kas2 01:30 BP 105 / 56 (auto/); kas2 01:30 Pulse 67 MON; Pulse Ox 91% ; kas2 01:45 BP 101 / 53 (auto/); kas2 01:45 Pulse 63 MON; Pulse Ox 91% ; kas2 02:09 BP 92 / 53 (auto/); kas2 02:09 Pulse 73 MON; Pulse Ox 87% ; kas2 02:09 Resp 18; Temp 98.2(O); kas2 02:39 BP 103 / 54 (auto/); kas2 02:39 Pulse 63 MON; Pulse Ox 91% ; kas2 03:09 BP 97 / 53 (auto/); kas2 03:09 Pulse 62 MON; Pulse Ox 91% ; kas2 03:39 BP 103 / 53 (auto/); kas2 03:39 Pulse 65 MON; Pulse Ox 92% ; kas2 04:39 BP 109 / 60 (auto/); kas2 04:39 Pulse 60 MON; Pulse Ox 92% ; kas2 04:39 BP 109 / 60; Pulse 60; Resp 18; Temp 97.3(O); Pulse Ox 92% on R/A; Pain 0/10; kas2 05:00 BP 109 / 60; Pulse 60; Resp 18; Temp 97.3; Pulse Ox 92% on R/A; Pain 0/10; kas2 04/11 23:17 Body Mass Index 41.37 (138.35 kg, 182.88 cm) gr2 Vitals: 04/11 23:17 Log In Time: April 11, 2016 at 23:17. RN notified that patient meets Red Flag gr2 criteria. ED Course: 23:15 monitoring coordinator on. Sitter at bedside. NIBP on. kas2 23:16 Patient visited by Nhan Smart. gr2 23:16 Artie is Private Physician. gr2 23:16 Patient moved to Waiting gr2 23:20 Patient visited by Nhan Smart. gr2 23:20 Stacey Gonzalez RN is Primary Nurse. gr2 23:20 Elizabeth Nava RN is Primary Nurse. gr2 23:20 Favian Walls DO is Attending Physician. mm11 23:20 Patient visited by Favian Walls DO. mm11 23:20 Patient moved to 3 gr2 23:20 Inserted saline lock: 18 gauge in right antecubital area and blood collected. The kas2 patient tolerated the procedure well. No procedures done that require assistance. 23:29 Triage Initiated kas2 23:36 Patient visited by Favian Walls DO. mm11 23:36 Patient visited by Gio Amato PCA. mdr 23:36 EKG done. (by ED staff). Reviewed by Favian Walls DO. mdr 23:36 EKG done. (by ED staff). Reviewed by Favian Walls DO. mdr 23:43 TSH with Free T4 Sent. kas2 23:43 Magnesium Level Sent. kas2 23:43 Basic Metabolic Profile Sent. kas2 23:43 CBC with Diff Sent. kas2 23:43 Cardiac Injury Profile Sent. kas2 23:43 Troponin Sent. kas2 23:51 Primary Nurse role handed off by Stacey Gonzalez RN sls1 23:56 Patient visited by Elizabeth Nava RN. kas2 04/12 00:19 Patient visited by Elizabeth Nava RN. kas2 00:27 [facility] Payment Agreement was scanned into [employer] and attached to record. pm4 01:12 Patient visited by Elizabeth Nava RN. kas2 01:55 Patient visited by Elizabeth Nava RN. kas2 01:57 Patient visited by Gio Amato PCA. mdr 01:57 EKG done. (by ED staff). Reviewed by Favian Walls DO. mdr 01:58 Patient visited by Elizabeth Nava RN. kas2 01:59 Patient visited by Elizabeth Nava RN. kas2 02:10 TROPONIN Sent. mdr 02:10 CARDIAC INJURY PROFILE Sent. mdr 02:33 Patient visited by Elizabeth Nava RN. kas2 03:12 Patient visited by Favian Walls DO. mm11 03:37 Eligio Doe MD is Hospitalizing Provider. mm11 03:43 Patient visited by Gio Amato PCA. mdr 03:43 Diet: Patient given water. mdr 04:34 Patient visited by Elizabeth Nava RN. kas2 05:12 Patient visited by Elizabeth Nava RN. kas2 05:27 The patient / caregiver is instructed regarding the plan of care and ED course. kas2 10:16 T-Sheet-- Draft Copy was scanned into [employer] and attached to record. gb 10:16 ECG/EKG was scanned into [employer] and attached to record. gb Administered Medications: 04/11 23:29 Drug: Adenosine 6 mg [adenosine 3 mg/mL intravenous solution (2 mL)] Route: IVP; Site: [facility] right antecubital; 23:44 Drug: Atenolol 25 mg [atenolol 25 mg tablet (1 tabs)] Route: PO; [facility] 04/12 01:11 Drug: Magnesium Oxide 400 mg [magnesium oxide 400 mg tablet (1 tabs)] Route: PO; [facility] 01:37 Drug: Magnesium Sulfate 1 grams [magnesium sulfate 1 gram/100 mL in dextrose 5 % [facility] intravenous piggyback] {Co-Signature: nn1 (Javi Carlton RN).} Route: IVPB; Infused Over: 1 hrs; Site: right antecubital; Order Results: Lab Order: Basic Metabolic Profile; SPEC'M 04/11/16 23:27 Test: GLUCOSE, FASTING; Value: 157; Range: 70-105; Abnormal: Above high normal; Units: MG/DL; Status: F Test: BLOOD UREA NITROGEN; Value: 22; Range: 7-18; Abnormal: Above high normal; Units: MG/DL; Status: F Test: CREATININE FOR GFR; Value: 1.63; Range: 0.70-1.30; Abnormal: Above high normal; Units: MG/DL; Status: F Test: GLOMERULAR FILTRATION RATE; Value: 46.5; Range: >56; Abnormal: Below low normal; Status: F Test: SODIUM LEVEL; Value: 140; Range: 136-145; Units: MEQ/L; Status: F Test: POTASSIUM SERUM; Value: 4.4; Range: 3.5-5.1; Units: MEQ/L; Status: F Test: CHLORIDE LEVEL; Value: 103; Range: 98-107; Units: MEQ/L; Status: F Test: CARBON DIOXIDE LEVEL; Value: 28; Range: 21-32; Units: MEQ/L; Status: F Test: ANION GAP; Value: 9; Range: 8-16; Units: MEQ/L; Status: F Test: CALCIUM LEVEL; Value: 8.4; Range: 8.5-10.1; Abnormal: Below low normal; Units: MG/DL; Status: F Test Note: ; Units are mL/min/1.73 m2 Chronic Kidney Disease Staging per NKF: Stage I & II GFR >=60 Normal to Mildly Decreased Stage III GFR 30-59 Moderately Decreased Stage IV GFR 15-29 Severely Decreased Stage V GFR <15 Very Little GFR Left ESRD GFR <15 on BOAT CREW DECK HAND Lab Order: CBC with Diff; SPEC'M 04/11/16 23:27 Test: WHITE BLOOD COUNT; Value: 7.2; Range: 4.0-10.0; Units: K/mm3; Status: F Test: RED BLOOD COUNT; Value: 4.10; Range: 4.30-6.10; Abnormal: Below low normal; Units: M/mm3; Status: F Test: HEMOGLOBIN; Value: 11.8; Range: 14.0-18.0; Abnormal: Below low normal; Units: g/dl; Status: F Test: HEMATOCRIT; Value: 35.4; Range: 42.0-52.0; Abnormal: Below low normal; Units: %; Status: F Test: MEAN CORPUSCULAR VOLUME; Value: 86.2; Range: 80.0-96.0; Units: fl; Status: F Test: MEAN CORPUSCULAR HEMOGLOBIN; Value: 28.9; Range: 27.0-33.0; Units: pg; Status: F Test: MEAN CORPUSCULAR HGB CONC; Value: 33.5; Range: 32.0-36.5; Units: g/dl; Status: F Test: RED CELL DISTRIBUTION WIDTH; Value: 14.7; Range: 11.5-14.5; Abnormal: Above high normal; Units: %; Status: F Test: PLATELET COUNT, AUTOMATED; Value: 167; Range: 150-450; Units: k/mm3; Status: F Test: NEUTROPHILS %; Value: 62.8; Range: 36.0-66.0; Units: %; Status: F Test: LYMPH %; Value: 24.6; Range: 24.0-44.0; Units: %; Status: F Test: MONO %; Value: 7.0; Range: 0.0-5.0; Abnormal: Above high normal; Units: %; Status: F Test: EOS %; Value: 1.9; Range: 0.0-3.0; Units: %; Status: F Test: BASO %; Value: 0.6; Range: 0.0-1.0; Units: %; Status: F Test: LARGE UNSTAINED CELL %; Value: 3.1; Range: 0.0-4.0; Units: %; Status: F Test: NEUTROPHILS #; Value: 4.5; Range: 1.8-7.7; Units: K/mm3; Status: F Test: LYMPH #; Value: 1.8; Range: 1.5-4.5; Units: K/mm3; Status: F Test: MONO #; Value: 0.5; Range: 0.0-0.8; Units: K/mm3; Status: F Test: EOS #; Value: 0.1; Range: 0.0-0.50; Units: K/mm3; Status: F Test: BASO #; Value: 0.0; Range: 0.0-0.2; Units: K/mm3; Status: F Test: LARGE UNSTAINED CELL #; Value: 0.2; Range: 0.0-0.4; Units: K/mm3; Status: F Lab Order: Cardiac Injury Profile; SPEC'M 04/11/16 23:27 Test: CPK CREATINE PHOSPHOKINASE; Value: 109; Range: 39-308; Units: U/L; Status: F Test: CK-MB VALUE MASS; Value: 2.0; Range: 0.0-3.6; Units: NG/ML; Status: F Test: MB/CK RELATIVE INDEX; Value: 1.83; Range: < OR =4; Status: F Test Note: ; DIAGNOSIS CRITERIA MMB ng/ml Relative Index (RI) NON-AMI < or = 5 N/A JONES ZONE > 5 < or = 4 AMI > 5 > 4 Lab Order: Troponin; [facility] 04/11/16 23: Test: TROPONIN I; Value: 0.03; Range: < 0.10; Units: NG/ML; Status: F Test Note: ; Troponin I Reference Interval for Siemens [place] LOCI: 99th Percentile= 0.00-0.045 ng/ml Risk Stratification: <= 0.10 ng/ml Decreased Risk for Adverse Clinical Events. 0.10-1.50 ng/ml Increased Risk for Adverse Clinical Events. Evaluation of additional criterion and/or repeat testing in 2-6 hours is suggested to rule out myocardial damage. >= 1.50 ng/ml Indicative of Myocardial Injury. Lab Order: Magnesium Level; [facility] 04/11/16 23: Test: MAGNESIUM LEVEL; Value: 1.4; Range: 1.8-2.4; Abnormal: Below low normal; Units: MG/DL; Status: F Lab Order: TSH with Free T4; [facility] 04/11/16 23:27 Test: THYROID STIMULATING HORMONE; Value: 4.700; Range: 0.358-3.740; Abnormal: Above high normal; Units: uIU/ML; Status: F Test: FREE T4; Value: 1.12; Range: 0.76-1.46; Units: NG/DL; Status: F Lab Order: CARDIAC INJURY PROFILE; [facility] 04/12/16 02:06 Test: CPK CREATINE PHOSPHOKINASE; Value: 100; Range: 39-308; Units: U/L; Status: F Test: CK-MB VALUE MASS; Value: 2.5; Range: 0.0-3.6; Units: NG/ML; Status: F Test: MB/CK RELATIVE INDEX; Value: 2.50; Range: < OR =4; Status: F Test Note: ; DIAGNOSIS CRITERIA MMB ng/ml Relative Index (RI) NON-AMI < or = 5 N/A JONES ZONE > 5 < or = 4 AMI > 5 > 4 Lab Order: TROPONIN; [facility] 04/12/16 02:06 Test: TROPONIN I; Value: 0.18; Range: < 0.10; Abnormal: High; Units: NG/ML; Status: F Test Note: ; Troponin I Reference Interval for Siemens [employer] LOCI: 99th Percentile= 0.00-0.045 ng/ml Risk Stratification: <= 0.10 ng/ml Decreased Risk for Adverse Clinical Events. 0.10-1.50 ng/ml Increased Risk for Adverse Clinical Events. Evaluation of additional criterion and/or repeat testing in 2-6 hours is suggested to rule out myocardial damage. >= 1.50 ng/ml Indicative of Myocardial Injury. Outcome: 03:38 Decision to Hospitalize by Provider. mm11 05:26 Discharge Assessment: patient administered narcotics - no. The following High Risk [facility] Discharge criteria are identified: None. Admitted to PCU accompanied by nurse, accompanied by tech, via stretcher, on monitor, with chart. Condition: good Condition: stable Condition: improved. No special radiology studies were completed. Property :Personal belongings accompany Pt. 05:39 Patient left the ED. [facility] Signatures: Brenda Chung, Reg Reg gb Favian Walls, DO DO mm11 Sangeetha Golden, RN RN sls1 Nhan Smart gr2 Gio Amato, GLUE SIZE MACHINE OPERATOR GLUE SIZE MACHINE OPERATOR Elizabeth Boss,MARIVEL RN [facility]2 Reji Mendoza, Reg Reg pm4 Javi Carlton RN nn1 Chart Complete MTDD
--- NOTE | 2016-04-14 08:57 | ECGEPIP ---
Stationary ECG Study [facility] Test Date: 2016-04-13 Pat Name: KADE VALIENTE Department: Room: [place] [address] Gender: M Billing Supervisor: GARRISON : 1955 Requested By: CHARU FRAIRE Order Number: [id number] Reading MD: Phil Christine Measurements Intervals [place] Rate: 53 P: 26 [place]: 115 QRS: 79 QRSD: 113 T: 60 QT: 393 QTc: 371 Interpretive Statements Sinus bradycardia Inferior ST elevation is unchanged from 04/12/2016 Electronically Signed On 04-14-2016 8:57:12 EST by Phil Christine
--- NOTE | 2016-04-14 09:26 | DSES ---
DATE OF ADMISSION: 04/12/2016 DATE OF DISCHARGE: 04/13/2016 BLASTING MACHINE OPERATOR: Dr. Singh PRIMARY CARE PROVIDER: Dr. 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 Troponin leak secondary to demand ischemia. Hypomagnesemia. Type 2 diabetes with diabetic neuropathy. Dyslipidemia. Coronary arterial disease. Diabetic neuropathy. Chronic pain. Gastroesophageal reflux disease (GERD). Poor compliance. HISTORY OF PRESENT ILLNESS: This is a 60-year-old male patient with underlying medical history of asthma, degenerative disc disease with chronic pain, type 2 diabetes, not on insulin with diabetic neuropathy, dyslipidemia, GERD, psoriasis, obstructive sleep apnea, occasional compliance with CPAP, enlarged testicles and small urethra, and history of tachycardia. The patient thought he was having a heart attack this evening. He was sitting in bed watching TV and had sudden onset chest pain, came to the emergency room for evaluation and found to have rapid heart rate. Has a history of supraventricular tachycardia and was given Adenosine and converted to normal sinus rhythm. He did have an event similar to this in the past, was initially prescribed on beta blockers as per patient, though was really orthostatic. Subsequently, beta solomon was discontinued. The patient denies any palpitation at this time or prior, but just reported that he did not feel right. Denies history of having a stress test. No change in recent activities. He does take an aspirin daily. HOSPITAL COURSE: The patient was admitted to the hospital, telemetry monitoring was done. The patient was placed on digoxin. Cardiac enzyme was trend to peak. Cardiology, Dr. Singh was consulted. Plavix was added to the patient's regimen. The patient received consistent carbohydrate diet, wanted a regular diet and Pepsi, stating that he is aware of the risk of diabetes, he is not going change his habits and lifestyle. The patient initially demanded to be signed out against medical advise. After a conversation, the patient is agreeable to stay for close monitoring of the cardiac enzymes. Currently, the patient is comfortable, asymptomatic, back on sinus. Case was discussed with cardiology, Dr. Singh. The patient will need outpatient followup with cardiology for possible stress test and possible ablation. Subsequently, the patient is ready for discharge. Reported back to baseline. Tolerating oral. VITAL SIGNS: Temperature 96.8, pulse 70, respirations 18, blood pressure 135/70, pulse oximetry 98% on room air. LABORATORY: WBC 5.9, hemoglobin and hematocrit 11.1 over 35.3. Platelets 167. Chemistry: Sodium 144, potassium 5, chloride 108, bicarbonate 31, BUN 17, creatinine 1.18. DISCHARGE MEDICATIONS: - Plavix 75 mg by mouth daily - digoxin 0.125 mg by mouth daily - Protonix 40 mg by mouth daily - Vicodin 300 mg, one tablet by mouth every 3 hours as needed - ProAir inhalation every 4 hours as needed - alfuzosin 10 mg by mouth daily - ammonia lactate 12% cream external use - aspirin 81 mg by mouth daily - Lipitor 80 mg by mouth daily - clobetasol cream 0.05% topical twice a day - Meloxicam 15 mg by mouth daily - metaxalone 800 mg by mouth three times a day as needed - metformin 1500 mg by mouth daily - Lyrica 200 mg by mouth three times a day - Januvia 100 mg by mouth daily - torsemide 20 mg by mouth daily - Nexium discontinued, switch to Protonix for possible interaction with Plavix. DISCHARGE INSTRUCTIONS: The patient is instructed to followup with primary care provider in 7 days. Followup with pie crust mixer in 7 to 10 days for further followup and treatment of patient's supraventricular tachycardia (SVT) and possible ablation and also possible cardiac stress test. Return to the hospital if symptoms return.
== END 2016-04-13 10:15 | disposition home or self-care (01) ==
LOC: M ED 23:14 → M ED INP 23:15 → UNDOADMOB 04-12 04:13 → M ED INP 04-12 04:13 → M PCU 04-12 05:40 → M ED INP 04-12 05:40 → UNDODISOB 04-13 10:15
PROVIDERS: ADMIT Internal Medicine; ATTEND Hospitalist
DX: I49.8 Other specified cardiac arrhythmias (principal); I24.8 Other forms of acute ischemic heart disease; E87.6 Hypokalemia; E11.21 Type 2 diabetes mellitus with diabetic nephropathy; E78.5 Hyperlipidemia, unspecified; I25.10 Atherosclerotic heart disease of native coronary artery without angina pectoris; G89.29 Other chronic pain; K21.9 Gastro-esophageal reflux disease without esophagitis; J45.909 Unspecified asthma, uncomplicated; Z79.82 Long term (current) use of aspirin; Z79.899 Other long term (current) drug therapy; Z79.02 Long term (current) use of antithrombotics/antiplatelets; F17.210 Nicotine dependence, cigarettes, uncomplicated
CPT/HCPCS: 36415; 71010; 80048; 82550; 82553; 83735; 84439; 84443; 85025; 85027; 93005; 93041; 96374; 96375; 99285; J0153; J3475

== ENCOUNTER → 2016-05-15 | Outpatient (REF) | payer BC, MEDICARE ==
[~2016-05-15] MED LIST changes: +ALFU10TA2 PO; +AMMO12CR4 EXT; +ASPI81TAEC PO; +CLOB0.0548 TOP; +CLOP75TA2 PO; +DIGO0.12 PO; +JANU100T PO; +LYRI200C PO; +META800T82 PO; +NEXI40CA PO; +PROA1AER INH; +PROT1TAB2 PO; +TORS20TA2 PO; +VICO10TA11 PO
== END ==
LOC: M LAB REF 16:26
PROVIDERS: ATTEND Nurse Practitioner Adult Health
DX: I47.1 Supraventricular tachycardia (principal); I83.009 Varicose veins of unspecified lower extremity with ulcer of unspecified site

== ENCOUNTER → 2016-05-28 | Outpatient (REF) | payer BC, MEDICARE | LOC: M LAB REF 09:38 | PROVIDERS: ATTEND Nurse Practitioner Adult Health | DX: L02.212 Cutaneous abscess of back [any part, except buttock and flank] (principal) ==

== ENCOUNTER → 2016-08-15 | Outpatient (REF) | payer BC, MEDICARE | LOC: M LAB REF 16:20 | PROVIDERS: ATTEND Nurse Practitioner Adult Health | DX: L02.212 Cutaneous abscess of back [any part, except buttock and flank] (principal) ==

== ENCOUNTER → 2018-10-27 | Outpatient (CLI) | payer BC, MEDICARE ==
[~2018-10-27] MED LIST changes: +ACTO45TA12 PO; -ACTO45TA6 PO; -AMMO12CR4 EXT; +AMMO12CR7 EXT; -ATOR1TAB18 PO; +ATOR80TA59 PO; -GLIM2TA PO; +GLIM2TAB29 PO; -LASI20TA PO; +LASI20TA3 PO; +MELO15TA28 PO; -MELO15TA4 PO; +META1TAB22 PO; -META800T82 PO; -NICO21DI5 TD; +NICO21DI6 TD; -PROA1AER INH; +PROAAER10 INH
--- NOTE | 2018-11-05 01:48 | ECWPNPC ---
PATIENT NAME: KADE VALIENTE : 1955 GENDER: MALE VISIT DATE: 10/27/2018 DISCHARGE DATE: 10/27/18 1048 VISIT LOCKED DATE TIME: PHYSICIAN: NESTOR SAMANO MD RESOURCE: NESTOR SAMANO MD REASON FOR APPOINTMENT 1. REFER FOR INJECTIONS HISTORY OF PRESENT ILLNESS PAIN SCREENING: PATIENT HAS A COMPLAINT OF ACUTE OR CHRONIC PAIN :YES 63 YEAR OLD MALE PATIENT WITH A HISTORY OF CHRONIC LOW BACK AND LEG PAIN. THE PATIENT DESCRIBES THE PAIN SHARP, SHOOTING, AND INTERMITTENT WITH A PAIN SCORE OF 4-9/10 DEPENDING ON PHYSICAL ACTIVITY. THE PATIENT STATES HIS PAIN BEGINS IN HIS LOW BACK AND RADIATES DOWN MAINLY HIS RIGHT LEG. THE PATIENT SAYS HE HAS BEEN SUFFERING FROM THIS PAIN FOR MANY YEARS. THE PATIENT SAYS HIS PAIN INCREASES WITH ACTIVITIES AND THE MORE HE MOVES THE MORE HIS PAIN INCREASES. THE PATIENT SAYS HIS PAIN MAKES IT DIFFICULT TO PERFORM HIS DAILY ACTIVITIES SUCH CLEANING, WALKING, AND SITTING, WHERE HE OFTEN NEEDS HELP FROM OTHERS TO GET BACK UP. THE PATIENT SAYS HE HAS DIABETES. PATIENT DENIES UNEXPLAINABLE WEIGHT LOSS, FEVER, CHILLS, NEW CHANGES ON HIS URINARY OR BOWEL CONTROL. FALL RISK SCREENING: SCREENING :NO FALLS REPORTED IN THE LAST YEAR CURRENT MEDICATIONS TAKING JANUVIA 100 MG TABLET 1 TABLET ORALLY ONCE A DAY TAKING GLIMEPIRIDE 2 MG TABLET 1 TABLET WITH BREAKFAST OR THE FIRST MAIN MEAL OF THE DAY ORALLY ONCE A DAY TAKING PIOGLITAZONE HCL 30 MG TABLET 1 TABLET ORALLY ONCE A DAY TAKING PANTOPRAZOLE SODIUM 40 MG TABLET DELAYED RELEASE 1 TABLET ORALLY ONCE A DAY TAKING ALFUZOSIN HCL ER 10 MG TABLET EXTENDED RELEASE 24 HOUR 1 TABLET IMMEDIATELY AFTER THE SAME MEAL ORALLY ONCE A DAY TAKING METFORMIN HCL 1000 MG TABLET 1 TABLET WITH A MEAL ORALLY BID TAKING ASPIR-LOW 81 MG TABLET DELAYED RELEASE 1 TABLET ORALLY ONCE A DAY TAKING PREGABALIN 200 MG CAPSULE 1 CAPSULE 1 TO 3 HOURS BEFORE BEDTIME ORALLY TID TAKING CLOPIDOGREL BISULFATE 75 MG TABLET 1 TABLET ORALLY ONCE A DAY TAKING LASIX 20 MG TABLET 1 TABLET ORALLY ONCE A DAY TAKING ATORVASTATIN CALCIUM 80 MG TABLET 1 TABLET ORALLY ONCE A DAY TAKING NORCO 10-325 MG TABLET 1 TABLET NEEDED ORALLY EVERY 6 HRS TAKING ANORO ELLIPTA 62.5-25 MCG/INH AEROSOL POWDER BREATH ACTIVATED 1 PUFF INHALATION ONCE A DAY TAKING NOVOLOG 100 UNIT/ML SOLUTION DIRECTED SUBCUTANEOUS TAKING LANTUS 100 UNIT/ML SOLUTION DIRECTED SUBCUTANEOUS MEDICATION LIST REVIEWED AND RECONCILED WITH THE PATIENT PAST MEDICAL HISTORY GERD BPH DM HYPERLIPIDEMIA HTN INSOMNIA LOOP RECORDER SLEEP APNEA ALLERGIES GABAPENTIN: LIGHTHEADED - SIDE EFFECTS FENTANYL: FEELS LIKE HES GOING TO - ALLERGY SURGICAL HISTORY SOFT PALATE/THROAT BX CARDIAC CATH ABLATION CERVICAL VERTEBRAL FUSION C4-5 DEBRIDMENT OF CERVICAL SPINE TISSUE HERNIA REPAIR LOOP RECORDER INSERTION AND REMOVAL NASAL SEPTAL DEVIATION REPAIR LEFT SHOULDER REPAIR LEFT WRIST SKIN TRANSPLANTATION AUGMENTATION FAMILY HISTORY FATHER: MOTHER: 3DAUGHTER(S) - HEALTHY. PT IS ADOPTED. SOCIAL HISTORY GENERAL: TOBACCO USE ARE YOU A:CURRENT SMOKER ARE YOU INTERESTED IN QUITTING?NOT READY TO QUIT COUNSELED THE PATIENT ON SMOKING EFFECTS, EDUCATION [id number] HOW MANY CIGARETTES A DAY DO YOU SMOKE?31 OR MORE PAIN CLINIC PFS, CLERGY, PUBLIC HEALTH REFERRALS HAS THE PATIENT BEEN EDUCATED REGARDING HIS/HER PLAN OF CARE?YES HAS THE PATIENT BEEN EDUCATED REGARDING PAIN, THE RISK FOR PAIN, THE IMPORTANCE OF EFFECTIVE PAIN MANAGEMENT, AND THE PAIN ASSESSMENT PROCESS?YES ADVANCE DIRECTIVE ADVANCE DIRECTIVE DISCUSSED WITH PATIENT:YES DECLINED FAITH [id number] CATHOLIC LANGUAGE LANGUAGES SPOKEN:BELARUSIAN LEARNING BARRIERS / SPECIAL NEEDS BARRIERS TO LEARNING?NO HEARING IMPAIRED?NO VISION IMPAIRED?YES :CORRECTIVE LENSES COGNITIVELY IMPAIRED?NO READINESS TO LEARN?YES LEARNING PREFERENCES?NO LEARNING CAPABILITIES PRESENT?YES EMOTIONAL BARRIERS?NO SPECIAL DEVICES?YES :CANE HOSPITALIZATION/MAJOR DIAGNOSTIC PROCEDURE SURGERIES REVIEW OF SYSTEMS REVIEWED BY: PROVIDER: NESTOR SAMANO MD . CONSTITUTIONAL: ANY CHANGE IN YOUR MEDICAL CONDITION? NO . CHILLS NO . FEVER NO . INFECTION: DO YOU HAVE NEW INFECTIONS? NO . DO YOU HAVE HISTORY OF MRSA? NO . MUSCULOSKELETAL: ANY NEW PATTERNS OF PAIN OR NUMBNESS? NO . SYTEMIC LUPUS NO . GASTROENTEROLOGY: ANY NEW CHANGE IN BOWEL CONTROL? NO . BARRETTS ESOPHAGUS NO . CIRRHOSIS NO . HEPATITIS NO . LIVER FAILURE NO . ACID REFLUX YES . UNEXPLAINED WEIGHT LOSS NO . GENITOURINARY: ANY NEW CHANGE IN BLADDER CONTROL? YES, HX OF NOCTURNAL URINATION W/O WAKING UP IN BED, BUT HAS STOPPED . IS THERE A CHANCE YOU COULD BE ? NO . HEMATOLOGY/LYMPH: DO YOU TAKE ANY BLOOD THINNERS? (FOR EXAMPLE- COUMADIN, PLAVIX, AGGRENOX, PLATEL, PRADAXA, OR XARELTO) YES, PLAVIX . WHEN WAS YOUR LAST DOSE? DATE: TIME: . LOW PLATELET COUNT NO . SICKLE CELL DISEASE NO . VON WILLIEBRANDS NO . FACTOR V LEIDEN NO . THALLASEMIA NO . ANEMIA NO . EASY BRUISING NO . NEUROLOGY: HAVE YOU FALLEN IN THE PAST 12 MONTHS? YES, FELL 2 WEEKS AGO FROM LOSS OF BALANCE PT DENIES INJURIES . ANY NEW EXTREMITY NUMBNESS OR WEAKNESS? YES, SOMETIMES WAKES UP AND ARMA ARE NUMB . HEAD INJURY NO . DEMENTIA NO . CEREBRAL PALSY NO . MULTIPLE SCLEROSIS NO . DIZZINESS NO . HEADACHE NO . STROKES NO . VERTIGO NO . CARDIOLOGY: DO YOU HAVE A PACEMAKER OR DEFIBRILLATOR? NO . ANGINA NO . HEART ATTACK NO . HEART SURGERY NO . CONGESTIVE HEART FAILURE/FLUID OVERLOAD NO . CHEST PAIN NO . HIGH BLOOD PRESSURE ON MEDICATION(S) . IRREGULAR HEART BEAT NO, CARDIAC ABLATION DONE, PT ON PLAVIX . RESPIRATORY: HAVE YOU BEEN SICK IN THE PAST WEEK? YES, URI RESOLVED . FEVER NO . FLU LIKE SYMPTOMS? NO . CPAP YES ,ITS BROKEN AND HES GETTING A NEW ONE . BYPAP NO . ASTHMA NO . EMPHYSEMA NO . CHRONIC LUNG DISEASES NO . SHORTNESS OF BREATH ON EXERTION NO . COUGH YES, WHITE SPUTUM . SNORING NO . INTEGUMENTARY: DO YOU HAVE ANY RASHES OR OPEN SORES? YES, BLISTERS TO BILAT LOWER LEGS BLISTERS POP AND LEAK FLUID . ALLERGIC/IMMUNO: ARE YOU ALLERGIC TO IV DYE? NO . ANY NEW ALLERGIES? NO . PSYCHIATRIC: DO YOU HAVE THOUGHTS OF HURTING YOURSELF OR SOMEONE ELSE? NO . ARE YOU ABUSED, NEGLECTED, OR IN AN UNSAFE ENVIRONMENT? NO . ENDOCRINOLOGY: ARE YOU DIABETIC? YES . THYROID DISORDER NO . OTHER: DO YOU NEED ANY PRESCRIPTIONS? YES, TO DISCUSS WITH DR SAMANO . IF YES, PLEASE LIST: ____ . ANY NEW PROBLEMS WITH YOUR MEDICATIONS? NO . WHEN DID YOU LAST EAT? ____ . WHEN DID YOU LAST DRINK? ____ . WHAT DID YOU LAST DRINK? ____ . NAME OF PERSON DRIVING YOU HOME? ____ . DO YOU HAVE ANY OTHER QUESTIONS OR CONCERNS NO . VITAL SIGNS WT 258.4 LBS, HT 60 IN, BMI 50.46 INDEX, BMI PERCENTILE 104/51, HR 70 /MIN, RR 20 /MIN, TEMP 97.5 F, OXYGEN SAT % 90%, NA INITIALS AW 0945, REVIEWED BY: EM. EXAMINATION GENERAL EXAMINATION: PATIENT IS ALERT O X 3 AND COOPERATIVE. LUNGS CLEAR, TO AUSCULTATION. HEART: NO MURMURS OR GALLOPS; FACIAL CRANIAL NERVES ARE GROSSLY NORMAL. GOOD SYMMETRY OF FACIAL MUSCLE MOVEMENT. NORMAL VISUAL HOOK. ANTALGIC WALK. PATIENT IS LIMPING FROM THE LEFT LEG. EVIDENCE OF SOME ULCERS IN BOTH LEGS. RIGHT LEG IS WEAKER AT EXTENSION AND FLEXION. STRAIGHT LEG RAISE OF THE RIGHT LEG IS POSITIVE AT 50 DEGREES. MRI OF THE LUMBAR SPINE DONE ON 08/06/2018 SHOWS RIGHT FORAMINAL NARROWING AT L4-L5 AND DISC PROTRUSION AT MULTIPLE LEVELS THAT HAVE PROGRESSED SINCE 2015. 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 VALIENTE'S PAIN MANAGEMENT CASE. DUE TO THE LUMBAR RADICULOPATHY, I WOULD LIKE TO MOVE FORWARD WITH A LUMBAR EPIDURAL STEROID INJECTION AT THIS TIME. WE DISCUSSED THE BENEFITS, RISKS, AND ALTERNATIVES OF THE INJECTION AND THE PATIENT WOULD LIKE TO PROCEED. WE DISCUSSED THE DIFFERENT APPROACHES AND AGREED ON GOING WITH THE INTRALAMINAR APPROACH FOR THE PROCEDURE. WE MAY CONSIDER A TRANSFORAMINAL INJECTION IN THE FUTURE. THE PATIENT WAS ADVISED TO ENSURE HIS ULCERS ARE HEALED BEFORE HIS PROCEDURE DAY, OTHERWISE HIS PROCEDURE WILL HAVE TO BE RESCHEDULED. THE PATIENT WILL FOLLOW UP IN SEVERAL WEEKS AFTER HIS PROCEDURE. INSTRUCTIONS WERE GIVEN, QUESTIONS WERE ANSWERED, PATIENT REPORTS UNDERSTANDING AND AGREES WITH THE PLAN. I, RICK MARTINEZ, DOCUMENTED THE ABOVE INFORMATION ACTING A SCRIBE FOR DR. SAMANO. I HAVE REVIEWED THE ABOVE DOCUMENT, WRITTEN BY RICK SAWYERIBGrupo AND I VERIFY THAT IT IS ACCURATE. DEAR ANIKA SCHWAB ANP: THANK YOU FOR YOUR KIND REFERRAL OF KADE VALIENTE. IF YOU WANT TO DISCUSS HIS CASE WITH ME PLEASE CALL ME AT THE [facility]IN [facility]ENTER AT [phone]. SINCERELY, NESTOR SAMANO MD PAIN MEDICINE . OTHERS NOTES: LUMBAR EPIDURAL STEROID INFORMATION REVIEWED AND A COPY GIVEN TO PT. OLGA LIDIA ORTA. PROCEDURE CODES FA211 ESTABILISHED PATIENT [facility] CHARGE G8427 CURRENT MEDS W/DOSAGES DOCUMENTED G0930 PAIN ASSESS POS TOOL F/U PLAN DOC DISPOSITION & COMMUNICATION FOLLOW UP 3 WEEKS (REASON: LESI) ELECTRONICALLY SIGNED BY NESTOR SAMANO MD, MD ON 11/04/2018 AT 12:47 PM EDT DISCLAIMER : THIS IS A VISIT SUMMARY EXTRACTED FROM THE [employer] CHART. IT IS NOT A COPY OF THE [employer] PROGRESS NOTE. [place]
== END ==
LOC: M PAIN 09:30
PROVIDERS: ATTEND Anesthesiology
DX: M51.16 Intervertebral disc disorders with radiculopathy, lumbar region (principal); M51.17 Intervertebral disc disorders with radiculopathy, lumbosacral region; G89.29 Other chronic pain; Z86.39 Personal history of other endocrine, nutritional and metabolic disease; K21.9 Gastro-esophageal reflux disease without esophagitis; E11.9 Type 2 diabetes mellitus without complications; E78.5 Hyperlipidemia, unspecified; I10 Essential (primary) hypertension; G47.00 Insomnia, unspecified; G47.30 Sleep apnea, unspecified; F17.210 Nicotine dependence, cigarettes, uncomplicated; Z88.5 Allergy status to narcotic agent; Z88.8 Allergy status to other drugs, medicaments and biological substances; E66.01 Morbid (severe) obesity due to excess calories; Z68.43 Body mass index [BMI] 50.0-59.9, adult; Z79.82 Long term (current) use of aspirin; Z79.51 Long term (current) use of inhaled steroids; Z79.4 Long term (current) use of insulin; Z79.899 Other long term (current) drug therapy

== ENCOUNTER 2018-12-03 12:11 | Observation (INO) | payer BC, MEDICARE ==
[~2018-12-03] VITALS: Ht 182.9 cm; Wt 180.4 kg
[~2018-12-03 12:11] MED LIST changes: -AMMO12CR7 EXT; +AMMO12CR7 TOP
[2018-12-03] MEDS ORDERED: GLIM2TAB29 PO (12:40)
[2018-12-03] MEDS ORDERED: CYCL5TAB PO (12:40)
[2018-12-03] MEDS ORDERED: PIOG1TAB37 PO (12:40)
[2018-12-03] MEDS ORDERED: FURO20TA2 PO (12:40)
[2018-12-03 13:33] LABS: BASO % 0.6 % (0.0-1.0); EOS % 0.2 % (0.0-3.0); HEMATOCRIT 33.2 % (42.0-52.0); LYMPH # 0.6 10^3/uL (1.5-5.0); LYMPH % 12.5 % (24.0-44.0); MEAN CORPUSCULAR HEMOGLOBIN 28.1 pg (27.0-33.0); MEAN CORPUSCULAR HGB CONC 30.1 g/dl (32.0-36.5); MEAN CORPUSCULAR VOLUME 93.3 fl (80.0-96.0); MONO # 0.5 10^3/uL (0.0-0.8); MONO % 10.3 % (0.0-5.0); NEUTROPHILS # 3.8 10^3/uL (1.5-8.5); NEUTROPHILS % 75.6 % (36.0-66.0); PLATELET COUNT, AUTOMATED 189 10^3/uL (150-450); RED BLOOD COUNT 3.56 10^6/uL (4.30-6.10)
[2018-12-03 13:46] LABS: CALCIUM LEVEL 8.8 MG/DL (8.8-10.2); CK-MB VALUE MASS 3.4 NG/ML (<3.6); CREATININE FOR GFR 1.39 MG/DL (0.70-1.30); GLOMERULAR FILTRATION RATE 55.3 (>49); MB/CK RELATIVE INDEX 2.02 (< OR =4); POTASSIUM SERUM 5.5 MEQ/L (3.5-5.1); TROPONIN I 0.13 NG/ML (< 0.10)
[2018-12-03 14:03] LABS: ABG BASE EXCESS 6.8 (-2.0-2.0); ABG HCO3 32.6 MEQ/L (22.0-26.0); ABG O2 SATURATION 77.5 % (95.0-99.0); ABG PARTIAL PRESSURE CO2 52.8 mmHg (35.0-45.0); ABG STANDARD HCO3 30.3 MEQ/L (22.0-26.0); ABG TOTAL CO2 34.3 MEQ/L (23.0-31.0); ABG pH (ARTERIAL) 7.409 UNITS (7.350-7.450)
[2018-12-03 14:06] LABS: ABG PARTIAL PRESSURE O2 42.4 mmHg (75.0-100.0)
[2018-12-03] MEDS ORDERED: FUROSEMIDE 40 MG/4 ML VIAL (J1940) IV ONE (14:15)
--- NOTE | 2018-12-03 14:51 | REP ---
PORTABLE CHEST X-RAY: Single view. HISTORY: Dyspnea and cough. COMPARISON CHEST X-RAY: April 11, 2016. FINDINGS: The patient is rotated to the right. The inferior pleural angles are excluded from the field of view. There is increased density in the right base which may be fluid, atelectasis, and/or infiltrate. Heart is enlarged. Left lung is clear. IMPRESSION: The patient is rotated and the lateral pleural angles are excluded from the field of view. There is increased density in the right base. Atelectasis versus infiltrate with some fissural fluid suspected. Recommend chest x-ray or repeat portable exam. Electronically Signed by Anthony Benson MD 12/03/2018 03:28 P
--- NOTE | 2018-12-03 15:10 | REP ---
CT of the head without contrast Indication: AMS. Comparison: None Technique: Axial CT of the head was performed without contrast. Findings: There is no visible soft tissue swelling or calvarial fracture. There is no evidence of acute intracranial hemorrhage or extra-axial fluid collection. There are scattered hypodensities within the periventricular and subcortical white matter which are nonspecific but suggestive of microvascular ischemic disease in a patient of this age. There is no mass effect or midline shift. The basal cisterns are patent. There is no hydrocephalus. The visualized paranasal sinuses and mastoid air cells are clear. Impression: No acute intracranial hemorrhage. Nonspecific white matter changes. Electronically Signed by Ar Barth MD 12/03/2018 03:02 P
--- NOTE | 2018-12-03 18:32 | REP ---
CT chest without contrast: History: Question right lower lobe infiltrate. Comparison is made with today's chest x-ray. Comparison is also made with prior PET-CT from June 30, 2015. CT findings: There is a small right pleural effusion layering posteriorly. There is coarse discoid atelectasis visible in the right lower lobe and right middle lobe. No focal infiltrate is appreciated. There is no pleural effusion visible on the left. The diaphragms are somewhat flattened. There is some vascular calcification. No mass or adenopathy is seen. No bony destructive lesion is seen. No pericardial effusion is seen. No adrenal lesion is observed. The visualized upper abdominal structures are unremarkable. Impression: Small right pleural effusion with atelectatic changes in the right lower lobe and to a lesser extent right middle lobe. Electronically Signed by Anthony Benson MD 12/04/2018 07:52 A
[2018-12-03] MEDS ORDERED: LANTINJ4 SC (18:47)
[2018-12-03] MEDS ORDERED: HYDR-4517 PO (18:47)
[2018-12-03] MEDS ORDERED: INSUHUMDS SC (18:47)
[2018-12-03] MEDS ORDERED: PROAAER10 INH (18:47)
[2018-12-03] MEDS ORDERED: TREL1AER PO (18:47)
[2018-12-03] MEDS ORDERED: PLAV1TAB2 PO (18:47)
[2018-12-03] MEDS ORDERED: PROT1TAB2 PO (18:47)
[2018-12-03] MEDS ORDERED: ALBU83IN NEB (18:47)
[2018-12-03] MEDS ORDERED: IPRATROPIUM 0.5MG/ALBUTEROL 2.5MG INH SOL UD 3ML (DUONEB)(J7620) NEB PRN (19:15)
[2018-12-03] MEDS ORDERED: GLUCOSE 4 GM CHEW TABLET PO PRN (19:45)
[2018-12-03] MEDS ORDERED: GLUCAGON FOR INJ 1 MG VIAL (J1610) SC PRN (19:45)
[2018-12-03] MEDS ORDERED: CLOBETASOL PROPIONATE EMOLLIENT 0.05% CR 60 GM TOP PRN (19:45)
[2018-12-03] MEDS ORDERED: DEXTROSE 50% 50 ML SYRINGE IV PRN (19:45)
[2018-12-03] MEDS ORDERED: MELOXICAM (MOBIC) 7.5 MG TAB PO PRN (19:45)
[2018-12-03] MEDS: IPRATROPIUM 0.5MG/ALBUTEROL 2.5MG INH SOL UD 3ML (DUONEB)(J7620) NEB SCH (20:00)
--- NOTE | 2018-12-03 20:36 | HPEPDOC ---
General Date of Admission 12/03/2018 Date of Service: Dec 03, 2018 Attending Physician: ANAHI LAZARO MD Chief Complaint The patient is a 63-year-old male admitted with a reason for visit of Shortness Of Breath. Source: Patient, Family Exam Limitations: Clinical conditions Timing/Duration: Getting worse Associated Symptoms: Shortness of breath, Mechanical fall, Other History of Present Illness 63 year old morbidly obese man with insulin dependent diabetes, LINDA non complia nt on CPAP (reports that it is broken), OHS, COPD, diabetic neuropathy on lyrica, multiple muscle relaxants, chronic pain in hydrocodone who presents with family reporting a recent history of increasing frequent falls, somnolence, shortness of breath and declining exercise tolerance. In addition the family (daughter and ) also report increased LE edema and abdominal girth despite his daily 20mg of lasix. Due to his falls he has several abrasions and skin tears and the family was concerned for his safety given the countless falls as well as increasing dyspnea and sleepiness thus the decision to bring him in. Pertinent positives in review of systems are noted above. He otherwise denied any recent fever, chills, URI, cough, chest pain, palpitations, dizziness/vertigo, ringing in his ears, headaches, visual changes. The family is very concerned about his multiple pain medications having a cumulative psychotropic effect and contributing to his somnolence and possibly falls. Home Medications Scheduled Alfuzosin HCl (Alfuzosin HCl ER) 10 Mg Tab, 10 MG PO DAILY, (Reported) Ammonium Lactate (Ammonium Lactate) 12 % Cre, 1 APPLIC TOP DAILY, (Reported) USES AFTER SHOWER ON ARMS AND LEGS Aspirin (Aspirin EC) 81 Mg Tabec, 81 MG PO DAILY, (Reported) Atorvastatin Calcium (Atorvastatin Calcium) 80 Mg Tab, 80 MG PO DAILY, (Reported) AFTER DINNERTIME Clopidogrel Bisulfate (Plavix) 75 Mg Tablet, 75 MG PO DAILY, (Reported) Fluticasone/Umeclidin/Vilanter (Trelegy Ellipta 100-62.5-25) 1 Each Blst.w.dev, 1 PUFF PO DAILY, (Reported) Furosemide (Furosemide) 20 Mg Tablet, 10 MG PO DAILY, (Reported) Glimepiride (Glimepiride) 2 Mg Tablet, 2 MG PO DAILY, (Reported) Insulin Glargine,Hum.rec.anlog (Lantus Solostar) 100 Unit/1 Ml Insuln.pen, 40 UNITS SC QAM, (Reported) Insulin Human Lispro (Humalog) 100 Unit/1 Ml Vial, SC QPM, (Reported) PER SLIDING SCALE Metformin HCl (Glucophage) 1,000 Mg Tab, 2,000 MG PO QPM, (Reported) AFTER DINNERTIME Pantoprazole Sodium (Protonix) 40 Mg Tablet.dr, 40 MG PO DAILY, (Reported) Pioglitazone HCl (Pioglitazone HCl) 30 Mg Tablet, 30 MG PO DAILY, (Reported) Pregabalin (Lyrica) 200 Mg Cap, 200 MG PO TID, (Reported) Sitagliptin Phosphate (Januvia) 100 Mg Tab, 100 MG PO DAILY, (Reported) Scheduled PRN Albuterol Sulf (Albuterol Sulfate) 2.5 Mg/3 Ml Vial.neb, 1 VIAL NEB Q4H PRN for SOB/WHEEZING, (Reported) Albuterol Sulfate (Proair Hfa) 8.5 Gm Hfa.aer.ad, 2 PUFF INH Q4H PRN for SOB/WHEEZING, (Reported) Clobetasol Propionate/Emoll (Clobetasol Emollient 0.05% Crm) 0.05 % Cre, 1 APPLIC TOP BID PRN for PSORIASIS, (Reported) USES ON ARMS FOR PSORIASIS Cyclobenzaprine HCl (Cyclobenzaprine HCl) 5 Mg Tablet, 5 MG PO QPM PRN for muscle spasms, (Reported) Hydrocodone/Acetaminophen (Hydrocodone-Acetamin 10-325 mg) 1 Each Tablet, 1 TAB PO 5XD PRN for PAIN, (Reported) Meloxicam (Meloxicam) 15 Mg Tab, 15 MG PO DAILY PRN for PAIN, (Reported) Metaxalone (Metaxalone) 800 Mg Tab, 800 MG PO TID PRN for MUSCLE SPASMS, (Reported) Allergies Coded Allergies: gabapentin (Verified Adverse Reaction, Mild, Lowers Blood pressure, 12/03/18) Past Medical History Medical History SVTs L inguinal hernia Enlarged testicles Hypertension Hyperlipidemia Diabetes mellitus Smoker Asthma COPD Psoriasis Toe, finger nad nose fractures Surgical History Neck mass surgery L inguinal hernia surgery L shoulder arthroscopy Family History Significant Family History: No pertinent family hx Social History * Smoker: current smoker Alcohol: Denies Drugs: denies Recent Travel/Sick Contacts: Denies: Recent travel, Recent sick contacts A-FIB/CHADSVASC A-FIB History Current/History of A-Fib/PAF?: No Current PO Anticoag Therapy: No Age/Risk Factor Scoring CHADSVASC: CHADSVASC Response (Comments) Value Age Risk Factor Age < 65 years old 0 Gender Risk Factor Male 0 Hx of CHF Yes 1 Hx of HTN Yes 1 Hx of Diabetes Yes 1 Hx of Vascular Disease Yes 1 Total 4 Treatment Treatment ordered: NONE Reason Anticoagulant not given: Not indicated/[id number] Review of Systems Constitutional: Reports: Lethargy; Denies: Chills, Fever, Night Sweats Eyes: Denies: Pain, Vision change ENT: Denies: Head Aches, Ear Pain, Dysphagia, Sinus Congestion, Post Nasal Drip, Sore Throat Skin: Reports: Rash, Lesions, Bruising, Dry, Breakdown, Nail Changes Pulmonary: Reports: Dyspnea, Cough; Denies: Pleuritic Chest Pain Cardiovascular: Reports: Orthopnea, Edema; Denies: Chest Pain, Palpitations, Paroxysmal Noc. Dyspnea, Lt Headedness Gastrointestinal: Reports: Nausea; Denies: Vomiting, Abdominal Pain, Diarrhea, Constipation, Melena, Hematochezia, Other Symptoms Genitourinary: Denies: Dysuria, Frequency, Incontinence, Hematuria, Retention, Other Symptoms Hematologic: Reports: Bruising; Denies: Bleeding Excessively, Petecchia, Purpura, Enlarged Lymph Nodes, Other Hematologic Endocrine: Denies: Polydipsia, Polyphagia, Polyuria, Heat Intolerance, Cold Intolerance Musculoskeletal: Reports: Back Pain, Leg Pain, Foot Pain, Muscle Pain, Spasms; Denies: Neck Pain, Shoulder Pain, Arm Pain, Hand Pain, Joint Pain, Other Symptoms Neurological: Reports: Other Symptoms (increasingly somnolent) Psych: Reports: Mood Normal; Denies: Anxiety, Depression, Memory Issues, Thoughts of Self Harm, Anger, Thoughts of Harming Other Physical Examination General Exam: Positive: Alert (however, falls asleep while we are conversing), Cooperative, No Acute Distress; Negative: Mild Distress, Moderate Distress, Severe Distress Eye Exam: Positive: PERRLA, Conjunctiva & lids normal, EOMI; Negative: Sclera icteric, Ptosis ENT Exam: Positive: Mucous membr. moist/pink; Negative: Pinna Normal (R ear with significant brusing and laceration from a fall) Neck Exam: Positive: Other (thick, difficult to assess JVD) Chest Exam: Positive: Rales, Wheezing, Diminished (at the bases) Heart Exam: Positive: Rate Normal, Regular Rhythm, Normal S1, Normal S2; Negative: Murmurs Abdomen Exam: Positive: Normal bowel sounds, Soft; Negative: Tenderness Extremity Exam: Positive: Edema, Swelling, Other (skin breakdown with some hemosiderosis) Skin Exam: Positive: Rash, Breakdown, Lesion Neuro Exam: Positive: Normal Speech, Normal Tone, Cranial Nerves 3-12 NL, Other (strength 5/5 in UE, not moving LE well in the bed due to body habitus); Negative: Sensation Intact Psych Exam: Positive: Mental status NL, Oriented x 3 Vital Signs Vital Signs Date Time Temp Pulse Resp B/P (MAP) Pulse Ox O2 Delivery O2 Flow Rate FiO2 12/03/18 19:20 85 20 149/67 (94) 98 Nasal Cannula 3.0 12/03/18 12:49 97.9 Laboratory Data Labs 24H Laboratory Tests 2 12/03/18 12:27: Immature Granulocyte % (Auto) 0.8, White Blood Count 5.0, Red Blood Count 3.56L, Hemoglobin 10.0L, Hematocrit 33.2L, Mean Corpuscular Volume 93.3, Mean Corpuscular Hemoglobin 28.1, Mean Corpuscular Hemoglobin Concent 30.1L, Red Cell Distribution Width 20.1H, Platelet Count 189, Neutrophils (%) (Auto) 75.6H, Lymphocytes (%) (Auto) 12.5L, Monocytes (%) (Auto) 10.3H, Eosinophils (%) (Auto) 0.2, Basophils (%) (Auto) 0.6, Neutrophils # (Auto) 3.8, Lymphocytes # (Auto) 0.6L, Monocytes # (Auto) 0.5, Eosinophils # (Auto) 0.0, Basophils # (Auto) 0.0, Nucleated Red Blood Cells % (auto) 0.6H, Anion Gap 5L, Glomerular Filtration Rate 55.3, Lactic Acid Level 1.5, Blood Urea Nitrogen 21H, Creatinine 1.39H, Sodium Level 139, Potassium Level 5.5H, Chloride Level 101, Carbon Dioxide Level 33H, Calcium Level 8.8, Total Creatine Kinase 168, Creatine Kinase MB 3.4, Creatine Kinase MB Relative Index 2.02, Troponin I 0.13H, RI-Bmg-A-Type Natriuretic Peptide 5490H 12/03/18 13:46: Blood Gas Bicarbonate Standard 30.3H, Arterial Blood pH 7.409, Arterial Blood Partial Pressure CO2 52.8H, Arterial Blood Partial Pressure O2 42.4*L, Arterial Blood Total CO2 34.3H, Arterial Blood HCO3 32.6H, Arterial Blood Base Excess 6.8H, Arterial Blood Oxygen Saturation 77.5L 12/03/18 19:27: Bedside Glucose (Misc Panel) 90 CBC/BMP Laboratory Tests 12/03/18 12:27 Red Blood Count 3.56 L, Mean Corpuscular Volume 93.3, Mean Corpuscular Hemoglobin 28.1, Mean Corpuscular Hemoglobin Concent 30.1 L, Red Cell Distribution Width 20.1 H, Neutrophils (%) (Auto) 75.6 H, Lymphocytes (%) (Auto) 12.5 L, Monocytes (%) (Auto) 10.3 H, Eosinophils (%) (Auto) 0.2, Basophils (%) (Auto) 0.6, Neutrophils # (Auto) 3.8, Lymphocytes # (Auto) 0.6 L, Monocytes # (Auto) 0.5, Eosinophils # (Auto) 0.0, Basophils # (Auto) 0.0, Calcium Level 8.8, Total Creatine Kinase 168 Microbiology Microbiology 12/03/18 Blood Culture, Received Pending 12/03/18 Blood Culture, Received Pending Assessment/Plan 63 year old morbidly obese man with insulin dependent diabetes, LINDA non compliant on CPAP (reports that it is broken), presumed OHS, COPD, diabetic neuropathy on lyrica, chronic pain on hydrocodone and multiple muscle relaxants, history if SVTs who presents with family reporting a recent history of inc reasing frequent falls, somnolence, shortness of breath and declining exercise tolerance with worsening LE edema and abdominal girth despite his daily 20mg of lasix. Mr. Altman has two prominent issues 1. polypharmacy leading to significant somnolence and falls 2. Volume overload that suggests decompensated heart failure in this gentleman with a history of SVTs, HTN and hyperlipidemia. Somnolence with frequent falls: -non con head CT was negative for acute intracranial abnormality -Blood gas that was per ED physician actually a VBG only had a CO2 in the 40s making it unlikely to be due to hypercarbia -LINDA and probable OHS without CPAP at home likely contribute and so will start CPAP -Loss of proprioception in the setting of diabetic neuropathy could possibly contribute to falls, though more likely is polypharmacy -Therefore, hold lyrica, hydrocodone and muscle relaxants for now Volume overload: Abdominal girth, noted pleural effusions, crackles and LE edema -Lasix 40 IV in the ED, expect to dose higher doses on the floor -TTE to evaluate pump, valves and wall motion abnormalities in the setting of new onset volume overload at baseline diuretic dosing -Monitor lytes and replete PRN Pulm: Duonebs Q6H while awake Albuterol nebs Q4H PRN for wheezing Hold home inhalers for now Supplemental oxygen CPAP at 8 at night Diabetes: -continue home levemir -continue januvia -SSI -hypoglycemia panel -FSBG AC/HS -hold metformin Hyperlipidemia and CAD? -ASA -lipitor -plavix (indication still to be noted) DVT prophylaxis: heparin Q8H Diet: Consistent carb, 2g salt Plan / VTE VTE Prophylaxis Ordered?: Yes VTE Exclusion Mechanical Proph: N/A:VTE Prophy Ordered VTE Exclusion Pharmacological: N/A:VTE Prophy Ordered Plan Activity: Encourage Ambulation Therapy: PT, OT, Wound Consult Diagnostics: Repeat Labs in AM, EKG, ALEXANDRA ANAHI LAZARO MD Dec 03, 2018 20:35
[2018-12-03 21:45] VITALS: BP 138/74
[2018-12-03] MEDS: HumaLOG INSULIN (NovoLOG) PER UNIT SC SCH (22:21)
[2018-12-03] MEDS: HEPARIN SOD (PORCINE) 5000 UNITS/ML VIAL SC SCH (22:32)
[2018-12-03] MEDS: ATORVASTATIN 20 MG TAB PO SCH (22:33)
[2018-12-04] MEDS: IPRATROPIUM 0.5MG/ALBUTEROL 2.5MG INH SOL UD 3ML (DUONEB)(J7620) NEB SCH ×5 (01:34→23:37)
[2018-12-04 06:00] VITALS: BP 148/81
[2018-12-04 06:41] LABS: HEMATOCRIT 33.2 % (42.0-52.0); MEAN CORPUSCULAR HEMOGLOBIN 27.2 pg (27.0-33.0); MEAN CORPUSCULAR HGB CONC 30.1 g/dl (32.0-36.5); MEAN CORPUSCULAR VOLUME 90.5 fl (80.0-96.0); PLATELET COUNT, AUTOMATED 169 10^3/uL (150-450); RED BLOOD COUNT 3.67 10^6/uL (4.30-6.10); WHITE BLOOD COUNT 5.6 10^3/uL (4.0-10.0)
[2018-12-04] MEDS: HEPARIN SOD (PORCINE) 5000 UNITS/ML VIAL SC SCH ×3 (06:55→22:28)
[2018-12-04 07:21] LABS: ALBUMIN 2.5 GM/DL (3.2-5.2); ALT/SGPT 20 U/L (12-78); BILIRUBIN,TOTAL 0.6 MG/DL (0.2-1.0); BLOOD UREA NITROGEN 26 MG/DL (7-18); CALCIUM LEVEL 8.8 MG/DL (8.8-10.2); CARBON DIOXIDE LEVEL 32 MEQ/L (21-32); CHLORIDE LEVEL 101 MEQ/L (98-107); CREATININE FOR GFR 1.28 MG/DL (0.70-1.30); GLOMERULAR FILTRATION RATE > 60.0 (>49); GLUCOSE, FASTING 134 MG/DL (70-100); POTASSIUM SERUM 5.3 MEQ/L (3.5-5.1); SODIUM LEVEL 139 MEQ/L (136-145)
--- NOTE | 2018-12-04 07:23 | ECGEPIP ---
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
--- NOTE | 2018-12-04 08:52 | ECGEPIP ---
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
[2018-12-04] MEDS: LEVEMIR (INSULIN DETEMIR) 1 UNITS/0.01ML SC SCH (09:33)
[2018-12-04] MEDS: ASPIRIN 81 MG ENTERIC TAB PO SCH (09:33)
[2018-12-04] MEDS: SITagliptin 50 MG TAB (JANUVIA) PO SCH (09:33)
[2018-12-04] MEDS: PANTOPRAZOLE 40MG TAB (PROTONIX) PO SCH (09:33)
[2018-12-04] MEDS: CLOPIDOGREL 75 MG TAB PO SCH (09:33)
[2018-12-04] MEDS: HumaLOG INSULIN (NovoLOG) PER UNIT SC SCH ×5 (09:34→21:00)
[2018-12-04] MEDS: LACTIC ACID 12% LOTION 225 GM BTL TOP SCH (09:37)
[2018-12-04] MEDS ORDERED: oxyCODONE 5MG TAB PO PRN (13:00)
[2018-12-04 14:00] VITALS: BP 149/65
[2018-12-04] MEDS ORDERED: FUROSEMIDE 100 MG/10 ML VIAL (J1940) IV ONE (14:00)
[2018-12-04 14:09] LABS: VENOUS BASE EXCESS 8.2 (-2.0-2.0); VENOUS HCO3 33.4 MEQ/L (23.0-27.0); VENOUS O2 SATURATION 99.7 % (60.0-80.0); VENOUS PARTIAL PRESSURE CO2 49.9 mmHg (38.0-50.0); VENOUS PARTIAL PRESSURE O2 265.3 mmHg (30.0-50.0); VENOUS PH 7.444 UNITS (7.330-7.430)
--- NOTE | 2018-12-04 19:04 | ECHO ---
DATE OF PROCEDURE:12/04/2018 REFERRING PHYSICIAN: Dr. Rocha DIAGNOSIS: Edema. Height 182 cm Weight 158 kg. DIMENSIONS: IVS 1.5 LV 5.0 LVPW 1.5 LA 4.9 Aorta 3.3 IVC 2.6 Mitral E wave velocity 80, A wave 118 E prime septal 8.1 E prime lateral 9.9 FINDINGS: The study is a very limited technical quality. It was only sitting examination. The patient is in sinus rhythm. Left ventricle is normal size. Moderate left ventricular hypertrophy is noted. LV systolic function is hyperdynamic, LV EF around 70-75%. I certainly cannot rule out segmental wall motion abnormalities. Right ventricle was poorly visualized. Left atrium is at least moderately enlarged. Right atrium was not well seen. Aortic and mitral valve both exhibit mild degenerative abnormalities. Right-sided heart valves were not well visualized. No pericardial effusion is noted. Inferior vena cava is dilated, indicative of likely very high central venous pressure. Aortic root is normal. Aortic arch and abdominal aorta were not visualized. Doppler interrogation of aortic valve reveals no significant stenosis or insufficiency. Same applies to mitral valve. Mitral inflow pattern and tissue Doppler imaging of mitral annulus reveal grade 1 diastolic dysfunction. CONCLUSIONS: 1. Study is of markedly limited technical quality corresponding to patient's body habitus and only sitting exam being performed. 2. Normal LV size with moderate left ventricular hypertrophy and likely hyperdynamic LV systolic function. Grade 1 diastolic dysfunction. 3. No significant aortic and mitral valvular disease. 4. Right-sided heart chambers and valves were not well seen. 5. Very high central venous pressure. COMMENT: SBE prophylaxis is not recommended. The study is consistent with hypertensive heart disease. MTDD
[2018-12-04] MEDS: oxyCODONE 5MG TAB PO PRN (20:10)
[2018-12-04 22:00] VITALS: BP 119/54
[2018-12-04] MEDS: ATORVASTATIN 20 MG TAB PO SCH (22:28)
--- NOTE | 2018-12-04 23:50 | IPNPDOC ---
Text Note Date of Service The patient was seen on 12/04/18. NOTE Subjective: Continues to be somnolent and falling asleep during conversation from time to time despite holding all typical psychotropes Did not complaint about pain this morning but asked for medication by mid afternoon. Objective: Vitals: See below General Exam: Alert (however, falls asleep while we are conversing), Cooperative, No Acute Distress; Eye Exam: PERRLA, Conjunctiva & lids normal, EOMI; ENT Exam: Mucous membr. moist/pink; Pinna Normal (R ear with significant brusing and laceration from a fall) Chest Exam: Basilar crackles, Wheezing, Diminished (at the bases) Heart Exam: RRR, no murmurs Abdomen Exam: Obese, nontender, normal bowel sounds Extremity Exam: Edema, Swelling, skin breakdown with some hemosiderosis Skin Exam: Has multiple places with rash, Breakdown, Lesion Neuro Exam: Positive: Normal Speech, Normal Tone, Cranial Nerves 3-12 NL, Other (strength 5/5 in UE, not moving LE well in the bed due to body habitus); Psych Exam: Mental status NL, Oriented x 3 Labs: see below Imaging: pending TTE read 63 year old morbidly obese man with insulin dependent diabetes, LINDA non compliant on CPAP (reports that it is broken), presumed OHS, COPD, diabetic neuropathy on lyrica, chronic pain on hydrocodone and multiple muscle relaxants, history if SVTs who presents with family reporting a recent history of increasing frequent falls, somnolence, shortness of breath and declining exercise tolerance with worsening LE edema and abdominal girth despite his daily 20mg of lasix. Mr. Altman has two prominent issues 1. polypharmacy leading to significant somnolence and falls 2. Volume overload that suggests decompensated heart failure in this gentleman with a history of SVTs, HTN and hyperlipidemia. Somnolence with frequent falls: -non con head CT was negative for acute intracranial abnormality -Blood gas that was per ED physician actually a VBG only had a CO2 in the 40s making it unlikely to be due to hypercarbia -LINDA and probable OHS without CPAP at home likely contribute and so will start CPAP -Loss of proprioception in the setting of diabetic neuropathy could possibly contribute to falls, though more likely is polypharmacy -Therefore, hold lyrica, hydrocodone and muscle relaxants for now -Had to restart patient on oxycodone 5Q6H PRN for pain Volume overload: Abdominal girth, noted pleural effusions, crackles and LE edema -Lasix 40 IV in the ED, expect to dose higher doses on the floor -TTE to evaluate pump, valves and wall motion abnormalities in the setting of new onset volume overload at baseline diuretic dosing -Monitor lytes and replete PRN Pulm: Duonebs Q6H while awake Albuterol nebs Q4H PRN for wheezing Hold home inhalers for now Supplemental oxygen CPAP at 8 at night Diabetes: -continue home levemir -continue januvia -SSI -hypoglycemia panel -FSBG AC/HS -hold metformin Hyperlipidemia and CAD? -ASA -lipitor -plavix (indication still to be noted) DVT prophylaxis: heparin Q8H Diet: Consistent carb, 2g salt VS,Fishbone, I+O VS, Fishbone, I+O Laboratory Tests 12/04/18 05:43 Red Blood Count 3.67 L, Mean Corpuscular Volume 90.5, Mean Corpuscular Hemoglobin 27.2, Mean Corpuscular Hemoglobin Concent 30.1 L, Red Cell Distribution Width 19.6 H, Calcium Level 8.8, Aspartate Amino Transf (AST/SGOT) 23, Alanine Aminotransferase (ALT/SGPT) 20, Alkaline Phosphatase 81, Total Bilirubin 0.6, Total Protein 6.0 L, Albumin 2.5 L Vital Signs Date Time Temp Pulse Resp B/P (MAP) Pulse Ox O2 Delivery O2 Flow Rate FiO2 12/04/18 20:40 20 12/04/18 20:10 3.0 12/04/18 14:00 98.0 91 149/65 (93) 95 12/03/18 21:05 Nasal Cannula I&O- Last 24 Hours up to 6 AM 12/04/18 06:00 Intake Total 150 ml Output Total 0 ml Balance 150 ml ANAHI LAZARO MD Dec 04, 2018 23:50
[2018-12-05] MEDS: oxyCODONE 5MG TAB PO PRN ×2 (02:55→11:39)
[2018-12-05 06:00] VITALS: BP 118/55
[2018-12-05] MEDS: HEPARIN SOD (PORCINE) 5000 UNITS/ML VIAL SC SCH ×2 (06:02→13:17)
[2018-12-05] MEDS: IPRATROPIUM 0.5MG/ALBUTEROL 2.5MG INH SOL UD 3ML (DUONEB)(J7620) NEB SCH ×2 (07:18→13:28)
[2018-12-05] MEDS: HumaLOG INSULIN (NovoLOG) PER UNIT SC SCH ×2 (07:30→13:17)
[2018-12-05] MEDS: PANTOPRAZOLE 40MG TAB (PROTONIX) PO SCH (08:24)
[2018-12-05] MEDS: SITagliptin 50 MG TAB (JANUVIA) PO SCH (08:24)
[2018-12-05] MEDS: ASPIRIN 81 MG ENTERIC TAB PO SCH (08:24)
[2018-12-05] MEDS: CLOPIDOGREL 75 MG TAB PO SCH (08:24)
[2018-12-05] MEDS: LEVEMIR (INSULIN DETEMIR) 1 UNITS/0.01ML SC SCH (08:25)
[2018-12-05] MEDS: LACTIC ACID 12% LOTION 225 GM BTL TOP SCH (08:25)
[2018-12-05] MEDS ORDERED: FURO20TA2 PO (15:02)
--- NOTE | 2018-12-05 16:42 | DS.PDOC ---
Discharge Summary General Date of Admission Dec 03, 2018 at 12:12 Date of Discharge 12/05/2018 Attending Physician: ANAHI LAZARO MD Discharge Summary PROCEDURES PERFORMED DURING STAY: [None]. ADMITTING DIAGNOSES: 1. Altered mental status DISCHARGE DIAGNOSES: 1. metabolic encephalopathy secondary to polypharmacy 2. Volume overload with diastolic heart failure 3. diabetes mellitus 4. diabetic neuropathy 5. COPD 6. SOTO 7. Hypertension 8. Hyperlipidemia 9. Chronic back pain COMPLICATIONS/CHIEF COMPLAINT: Ams,Noncompliance,Soto,Obesity Hypoventilation Synd. HISTORY OF PRESENT ILLNESS: 63 year old morbidly obese man with insulin depend ent diabetes, SOTO non compliant on CPAP (reports that it is broken), OHS, COPD, diabetic neuropathy on lyrica, multiple muscle relaxants, chronic pain in hydrocodone who presented to the ED with family reporting a recent history of increasing frequent falls, somnolence, shortness of breath and declining exercise tolerance. In addition the family (daughter and ) also reported in creased LE edema and abdominal girth despite his daily 20mg of lasix, later admitted that he was taking only 1/2 of the dose. Due to his falls he has several abrasions and skin tears and the family was concerned for his safety given the countless falls as well as increasing dyspnea and sleepiness thus the decision to bring him in. Pertinent positives in review of systems are noted above. He otherwise denied any recent fever, chills, URI, cough, chest pain, palpitations, dizziness/vertigo, ringing in his ears, headaches, visual changes. The family was very concerned about his multiple pain medications having a cumulative psychotropic effect and contributing to his somnolence and possibly falls. HOSPITAL COURSE: On admission, all lyrica, vicodin, flexeril were held. He was placed on supplemental oxygen and diuresed with 40 IV lasix daily with eventual improvement of his mentation and alertness. He was non compliant with the idea of CPAP and outright declined to use it. He was therefore offered a nasal cannula that he tolerated well and used consistently. On day 2 of his admission he requested his pain medication that we discussed at length and decided to give one time doses of oxycodone 5mg. He is now fully awake, and breathing comfortably on his baseline home 3L and we discussed that he will be discharged with just the Lyrica for his diabetic neuropathy and the muscle relaxant but will discontinue vicodin altogether. The rest of his hospital course by issue was as follows: Metabolic encephalopathy with frequent falls: -non con head CT was negative for acute intracranial abnormality -VBG per ED physician only had a CO2 in the 40s making it unlikely to be due to hypercarbia -SOTO and probable OHS without CPAP at home likely contribute but he declined CPAP -Loss of proprioception in the setting of diabetic neuropathy could possibly contribute to falls, though more likely culprit is polypharmacy in this scenario -We therefore held lyrica, hydrocodone and muscle relaxants throughout the hospitalization, and restarted the lyrica and flexeril at discharge but decided with the patient's permission to discontinue hydrocodone altogether. Volume overload: Abdominal girth, noted pleural effusions, crackles and LE edema -Had TTE to evaluate pump, valves and wall motion abnormalities in the setting of volume overload. TTE showed mild diastolic dysfunction but otherwise unrevealing. -Responded well to diuresis with 40 IV lasix daily and felt great by discharge. Now discharging home to take 20 lasix PO daily, double of what he was actually taking which was 10mg daily. Pulm: Duonebs Q6H while awake Albuterol nebs Q4H PRN for wheezing Hold home inhalers for now Supplemental oxygen CPAP at 8 at night Diabetes: -continued home levemir -continued januvia -started a SSI -held metformin Hyperlipidemia and CAD -continued home ASA -continued home lipitor -continued home plavix DISCHARGE MEDICATIONS: Please see below. ALLERGIES: Please see below. PHYSICAL EXAMINATION ON DISCHARGE: VITAL SIGNS: Please see below. LABORATORY DATA: Please see below. IMAGIN/11: CT chest with no contrast: Small right pleural effusion with atelectatic changes in the right lower lobe and to a lesser extent right middle lobe. 12/03: CXR: The inferior pleural angles are excluded from the field of view. There is increased density in the right base which may be fluid, atelectasis, and/or infiltrate. Heart is enlarged. Left lung is clear. 12/03: CT head, no contrast: No acute intracranial hemorrhage. Nonspecific white matter changes. 12/03: TTE FINDINGS: The study is a very limited technical quality. It was only sitting examination. The patient is in sinus rhythm. Left ventricle is normal size. Moderate left ventricular hypertrophy is noted. Overall LVEF is likely hyperdynamic around 70-75%. I certainly cannot rule out segmental wall motion abnormalities. Right ventricle was poorly visualized. Left atrium is at least moderately enlarged. Right atrium was not well seen. Aortic and mitral valve both exhibit mild degenerative abnormalities. Right-alfred ed heart valves were not well visualized. No pericardial effusion is noted. Inferior vena cava is dilated, indicative of likely very high central venous pressure. Aortic root is normal. Aortic arch and abdominal aorta were not visualized. Doppler interrogation of aortic valve reveals no significant stenosis or insufficiency. Same applies to mitral valve. Mitral inflow pattern and tissue Doppler imaging of mitral annulus reveal grade 1 diastolic dysfunction. PROGNOSIS: Good ACTIVITY: As tolerated DIET: Cardiac , consistent carb DISCHARGE PLAN: Home with PCP follow up DISPOSITION: 01 Home, Self-Care. DISCHARGE INSTRUCTIONS: 1. TO have PCP follow up within 1 week of discharge ITEMS TO FOLLOWUP ON ON OUTPATIENT: 1. Pain management - To discuss alternatives to reduce psychotropic sedating medications as they are providing detrimental to his wellness 2. Morbid obesity 3. Volume overload with hypertensive disease and diastolic dysfunction DISCHARGE CONDITION: [Stable]. TIME SPENT ON DISCHARGE: Greater than 45 minutes. Vital Signs/I&Os Vital Signs Date Time Temp Pulse Resp B/P (MAP) Pulse Ox O2 Delivery O2 Flow Rate FiO2 12/05/18 12:10 18 2.0 12/05/18 06:00 97.1 80 118/55 (76) 94 12/03/18 21:05 Nasal Cannula I&O- Last 24 Hours up to 6 AM 12/05/18 06:00 Intake Total 1325 ml Output Total 0 ml Balance 1325 ml Laboratory Data Labs 24H Laboratory Tests 2 12/04/18 16:51: Bedside Glucose (Misc Panel) 129H 12/04/18 20:53: Bedside Glucose (Misc Panel) 156H 12/05/18 06:26: Bedside Glucose (Misc Panel) 161H 12/05/18 11:42: Methicillin-Resist S.aureus DNA PCR NOT DETECTED 12/05/18 12:03: Bedside Glucose (Misc Panel) 144H FSBS Laboratory Tests Test 12/04/18 16:51 12/04/18 20:53 12/05/18 06:26 12/05/18 12:03 Range/Units Bedside Glucose (Misc Panel) 129 156 161 144 80-115 MG/DL Microbiology Microbiology 12/03/18 Blood Culture - Preliminary, Resulted No Growth after 48 hours. All Specime... 12/03/18 Blood Culture - Preliminary, Resulted No Growth after 48 hours. All Specime... Discharge Medications Scheduled Alfuzosin HCl (Alfuzosin HCl ER) 10 Mg Tab, 10 MG PO DAILY, (Reported) Ammonium Lactate (Ammonium Lactate) 12 % Cre, 1 APPLIC TOP DAILY, (Reported) USES AFTER SHOWER ON ARMS AND LEGS Aspirin (Aspirin EC) 81 Mg Tabec, 81 MG PO DAILY, (Reported) Atorvastatin Calcium (Atorvastatin Calcium) 80 Mg Tab, 80 MG PO DAILY, (Reported) AFTER DINNERTIME Clopidogrel Bisulfate (Plavix) 75 Mg Tablet, 75 MG PO DAILY, (Reported) Fluticasone/Umeclidin/Vilanter (Trelegy Ellipta 100-62.5-25) 1 Each Blst.w.dev, 1 PUFF PO DAILY, (Reported) Furosemide (Furosemide) 20 Mg Tablet, 20 MG PO DAILY Glimepiride (Glimepiride) 2 Mg Tablet, 2 MG PO DAILY, (Reported) Insulin Glargine,Hum.rec.anlog (Lantus Solostar) 100 Unit/1 Ml Insuln.pen, 40 UNITS SC QAM, (Reported) Insulin Human Lispro (Humalog) 100 Unit/1 Ml Vial, SC QPM, (Reported) PER SLIDING SCALE Metformin HCl (Glucophage) 1,000 Mg Tab, 2,000 MG PO QPM, (Reported) AFTER DINNERTIME Pantoprazole Sodium (Protonix) 40 Mg Tablet.dr, 40 MG PO DAILY, (Reported) Pioglitazone HCl (Pioglitazone HCl) 30 Mg Tablet, 30 MG PO DAILY, (Reported) Pregabalin (Lyrica) 200 Mg Cap, 200 MG PO TID, (Reported) Sitagliptin Phosphate (Januvia) 100 Mg Tab, 100 MG PO DAILY, (Reported) Scheduled PRN Albuterol Sulf (Albuterol Sulfate) 2.5 Mg/3 Ml Vial.neb, 1 VIAL NEB Q4H PRN for SOB/WHEEZING, (Reported) Albuterol Sulfate (Proair Hfa) 8.5 Gm Hfa.aer.ad, 2 PUFF INH Q4H PRN for SOB/WHEEZING, (Reported) Clobetasol Propionate/Emoll (Clobetasol Emollient 0.05% Crm) 0.05 % Cre, 1 APPLIC TOP BID PRN for PSORIASIS, (Reported) USES ON ARMS FOR PSORIASIS Cyclobenzaprine HCl (Cyclobenzaprine HCl) 5 Mg Tablet, 5 MG PO QPM PRN for muscle spasms, (Reported) Meloxicam (Meloxicam) 15 Mg Tab, 15 MG PO DAILY PRN for PAIN, (Reported) Metaxalone (Metaxalone) 800 Mg Tab, 800 MG PO TID PRN for MUSCLE SPASMS, (Reported) Allergies Coded Allergies: gabapentin (Verified Adverse Reaction, Mild, Lowers Blood pressure, 12/03/18) ANAHI LAZARO MD Dec 05, 2018 16:42
== END 2018-12-05 15:51 | disposition home or self-care (01) ==
LOC: M ED 12:11 → M ED INP 12:12 → M MSPAV 21:39
PROVIDERS: ADMIT Internal Medicine; ATTEND Internal Medicine
DX: G93.41 Metabolic encephalopathy (principal); E87.70 Fluid overload, unspecified; E11.40 Type 2 diabetes mellitus with diabetic neuropathy, unspecified; J44.9 Chronic obstructive pulmonary disease, unspecified; I25.10 Atherosclerotic heart disease of native coronary artery without angina pectoris; I11.0 Hypertensive heart disease with heart failure; I50.30 Unspecified diastolic (congestive) heart failure; E78.49 Other hyperlipidemia; M54.5 Low back pain; Z79.4 Long term (current) use of insulin; E66.2 Morbid (severe) obesity with alveolar hypoventilation; Z91.128 Patient's intentional underdosing of medication regimen for other reason; Z91.19 Patient's noncompliance with other medical treatment and regimen; Z79.899 Other long term (current) drug therapy; Z79.84 Long term (current) use of oral hypoglycemic drugs; Z79.02 Long term (current) use of antithrombotics/antiplatelets; Z88.8 Allergy status to other drugs, medicaments and biological substances; L40.9 Psoriasis, unspecified; F17.210 Nicotine dependence, cigarettes, uncomplicated; R29.6 Repeated falls
CPT/HCPCS: 36415; 36600; 70450; 71045; 71250; 80048; 80053; 82140; 82550; 82553; 82803; 83605; 83880; 84484; 85025; 85027; 87040; 87641; 93005; 93041; 93306; 94640; 96372; 96374; 96376; 97116; 97161; 97165; 97530; 99285; J1940

== ENCOUNTER 2019-04-15 15:22 | Inpatient (IN) | payer BC, MEDICARE ==
[~2019-04-15] VITALS: Ht 182.9 cm; Wt 154.2 kg
[~2019-04-15 15:22] MED LIST changes: +ALBU83IN NEB; -ALFU10TA2 PO; +ALFU10TA3 PO; +CYCL5TAB PO; +FURO20TA2 PO; +HYDR-4517 PO; +INSUHUMDS SC; +LANTINJ4 SC; +PIOG1TAB37 PO; +PLAV1TAB2 PO; +TREL1AER PO
[2019-04-15 16:09] LABS: BASO % 0.5 % (0.0-1.0); EOS % 0.4 % (0.0-3.0); HEMATOCRIT 36.8 % (42.0-52.0); LYMPH # 0.9 10^3/uL (1.5-5.0); LYMPH % 15.2 % (24.0-44.0); MEAN CORPUSCULAR HGB CONC 27.2 g/dl (32.0-36.5); MONO # 0.4 10^3/uL (0.0-0.8); MONO % 7.1 % (0.0-5.0); NEUTROPHILS # 4.3 10^3/uL (1.5-8.5); NEUTROPHILS % 75.9 % (36.0-66.0); PLATELET COUNT, AUTOMATED 112 10^3/uL (150-450); WHITE BLOOD COUNT 5.6 10^3/uL (4.0-10.0)
[2019-04-15 16:17] LABS: INR 1.11
[2019-04-15] MEDS ORDERED: IPRATROPIUM 0.5MG/ALBUTEROL 2.5MG INH SOL UD 3ML (DUONEB)(J7620) NEB ONE (16:30)
--- NOTE | 2019-04-15 16:31 | REP ---
Portable chest x-ray: Single view. History: Dyspnea and cough. Comparison chest x-ray: December 03, 2018. Findings: There is hazy opacity in the right base on today's chest x-ray consistent with an infiltrate, and/or effusion. There is slight blunting of the right lateral pleural angle. The left lung is free of infiltrate. Pulmonary vasculature is cephalized. The heart is mildly enlarged. Impression: Infiltrate versus effusion and right base. Cardiomegaly. Vascular cephalization. Electronically Signed by Anthony Benson MD 04/15/2019 07:07 P
[2019-04-15 16:44] LABS: ALBUMIN 2.7 GM/DL (3.2-5.2); BILIRUBIN,DIRECT 0.4 MG/DL (0.0-0.2); BILIRUBIN,TOTAL 0.8 MG/DL (0.2-1.0); CALCIUM LEVEL 8.4 MG/DL (8.8-10.2); CK-MB VALUE MASS 2.7 NG/ML (<3.6); CREATININE FOR GFR 1.3 MG/DL (0.70-1.30); GLOMERULAR FILTRATION RATE 59.7 (>49); POTASSIUM SERUM 5.1 MEQ/L (3.5-5.1); THYROID STIMULATING HORMONE 3.17 uIU/ML (0.358-3.740); TOTAL PROTEIN 6.2 GM/DL (6.4-8.2); TROPONIN I 0.19 NG/ML (< 0.10)
[2019-04-15] MEDS ORDERED: FUROSEMIDE 40 MG/4 ML VIAL (J1940) IV ONE (16:45)
[2019-04-15] MEDS ORDERED: FURO20TA2 PO (17:05)
[2019-04-15] MEDS ORDERED: DICL1GEL3 TOP ×2 (17:05)
[2019-04-15] MEDS ORDERED: MAGN64TASA PO (17:05)
[2019-04-15] MEDS ORDERED: NITR4TASL SL (17:05)
[2019-04-15] MEDS ORDERED: HYDR-3713 PO (17:05)
[2019-04-15] MEDS ORDERED: GLUCAGON FOR INJ 1 MG VIAL (J1610) SC PRN ×2 (17:45→18:15)
[2019-04-15] MEDS ORDERED: MOM 30ML SUSPENSION UDC PO PRN (17:45)
[2019-04-15] MEDS ORDERED: GLUCOSE 4 GM CHEW TABLET PO PRN ×2 (17:45→18:15)
[2019-04-15] MEDS ORDERED: IPRATROPIUM 0.5MG/ALBUTEROL 2.5MG INH SOL UD 3ML (DUONEB)(J7620) NEB PRN (17:45)
[2019-04-15] MEDS ORDERED: ACETAMINOPHEN TAB 650MG DOSE (2X325MG) PO PRN (17:45)
[2019-04-15] MEDS ORDERED: MAALOX 30 ML SUSP *UDC PO PRN (17:45)
[2019-04-15] MEDS ORDERED: DEXTROSE 50% 50 ML SYRINGE IV PRN ×2 (17:45→18:15)
[2019-04-15] MEDS ORDERED: NITROGLYCERIN 0.4 MG SUBL TABLET SL PRN (18:00)
--- NOTE | 2019-04-15 18:10 | HPEPDOC ---
General Date of Admission 04/15/19 Date of Service: Apr 15, 2019 Primary Care Physician: Angelina Braswell Chief Complaint The patient is a 63-year-old male admitted with a reason for visit of General Medical Complaint. Source: Family, RN/MD, Old records, Caregiver Exam Limitations: Other Timing/Duration: Other Severity: Other (she is clinically status) Associated Symptoms: Other (, frequent falls, lethargy, visual hallucinations) History of Present Illness This is a 63 years old, morbidly obese, white male with past medical history of diabetes mellitus, insulin-requiring, obstructive sleep apnea, noncompliant with CPAP. Also noncompliant with the insulin regimen, COPD, diabetic neuropathy, chronic pain syndrome, frequent falls, hyperlipidemia, asthma, COPD, psoriasis was sent from his PMDs office with the chief complaints of possible CHF. As as per patient's and 2 daughters. He has been weak, lethargic, increased somnolence sleeping 20 hours a day, also has a visual hallucination seeing people in his room, decreased appetite since last few days and also has frequent falls staggering walk since last few weeks and 2 weeks ago he fell with this, hitting his head, but no loss of consciousness. Unable to obtained history from patient as he is lethargic and somnolent. History was obtained from patient's , 2 daughters, M.D., in ED and reviewing his medical records including previous admissions. Home Medications Scheduled Alfuzosin HCl (Alfuzosin HCl ER) 10 Mg Tab, 10 MG PO QPM, (Reported) Ammonium Lactate (Ammonium Lactate) 12 % Cre, 1 DOSE TOP BID, (Reported) APPLY TO LEGS Aspirin (Aspirin EC) 81 Mg Tabec, 81 MG PO DAILY, (Reported) Atorvastatin Calcium (Atorvastatin Calcium) 80 Mg Tab, 80 MG PO QPM, (Reported) Clopidogrel Bisulfate (Plavix) 75 Mg Tablet, 75 MG PO DAILY, (Reported) Diclofenac Sodium (Diclofenac Sodium) 1% 100GM Gel..gram., 2 GM TOP QHS, (Reported) APPLY TO SHOULDERS AND BACK OF NECK Fluticasone/Umeclidin/Vilanter (Trelegy Ellipta 100-62.5-25) 1 Each Blst.w.dev, 1 PUFF PO DAILY, (Reported) Furosemide (Furosemide) 20 Mg Tablet, 20 MG PO DAILY, (Reported) Glimepiride (Glimepiride) 2 Mg Tablet, 2 MG PO DAILY, (Reported) Insulin Glargine,Hum.rec.anlog (Lantus Solostar) 100 Unit/1 Ml Insuln.pen, 40 UNITS SC DAILY, (Reported) HAS NOT BEEN USING Insulin Human Lispro (Humalog) 100 Unit/1 Ml Vial, 6 UNITS SC ACS, (Reported) Magnesium Chloride (Mag64) 64 Mg Tablet.dr, 64 MG PO TID, (Reported) Metformin HCl (Glucophage) 1,000 Mg Tab, 1,000 MG PO BID, (Reported) Pantoprazole Sodium (Protonix) 40 Mg Tablet.dr, 40 MG PO DAILY, (Reported) Pioglitazone HCl (Pioglitazone HCl) 30 Mg Tablet, 30 MG PO DAILY, (Reported) Pregabalin (Lyrica) 200 Mg Cap, 200 MG PO TID, (Reported) Sitagliptin Phosphate (Januvia) 100 Mg Tab, 100 MG PO DAILY, (Reported) Scheduled PRN Albuterol Sulf (Albuterol Sulfate) 2.5 Mg/3 Ml Vial.neb, 1 VIAL NEB Q4H PRN for SOB/WHEEZING, (Reported) Albuterol Sulfate (Proair Hfa) 8.5 Gm Hfa.aer.ad, 2 PUFF INH Q4H PRN for SOB/WHEEZING, (Reported) Clobetasol Propionate/Emoll (Clobetasol Emollient 0.05% Crm) 0.05 % Cre, 1 APPLI C TOP BID PRN for PSORIASIS, (Reported) USES ON ARMS FOR PSORIASIS Cyclobenzaprine HCl (Cyclobenzaprine HCl) 5 Mg Tablet, 5 MG PO TID PRN for MUSCLE SPASMS, (Reported) Diclofenac Sodium (Diclofenac Sodium) 1% 100GM Gel..gram., 2 GRAM TOP BID PRN for PAIN, (Reported) APPLY TO SHOULDERS AND NECK Hydrocodone/Acetaminophen (Hydrocodone-Acetamin 5-325 mg) 1 Each Tablet, 1 TAB PO Q4H PRN for PAIN, (Reported) Metaxalone (Metaxalone) 800 Mg Tab, 800 MG PO TID PRN for MUSCLE SPASMS, (Reported) Nitroglycerin (Nitrostat) 0.4 Mg Tab.subl, 0.4 MG SL NITRO PRN for CHEST PAIN, (Reported) Allergies Coded Allergies: gabapentin (Verified Adverse Reaction, Mild, Lowers Blood pressure, ) Past Medical History Medical History SVT, hypertension, hyperlipidemia, diabetes mellitus, asthma, COPD, psoriasis Surgical History Neck mass surgery, left inguinal hernia surgery a left shoulder arthroscopic Family History Significant Family History: No pertinent family hx Social History * Smoker: Denies, other Alcohol: other (none, as per family) Drugs: other (, none as per family) A-FIB/CHADSVASC A-FIB History Current/History of A-Fib/PAF?: No Review of Systems Constitutional: Reports: Other (, unable to obtained review of systems second perfecto to patient's mental and physical status) Physical Examination General Exam: Positive: Other (. Patient is somnolent and lethargic, very difficult to arouse) Eye Exam: Positive: Other Eye Symptoms (. Pupils are equal, sluggish to light) ENT Exam: Positive: Atraumatic, Mucous membr. moist/pink Chest Exam: Positive: Other (wheezing audible on the left side of the lung with decreased breath sounds bilaterally) Heart Exam: Positive: Rate Normal, Normal S1, Normal S2 Abdomen Exam: Positive: Normal bowel sounds, Soft Extremity Exam: Positive: Other (, chronic skin changes in bilateral lower extremities) Skin Exam: Positive: Other skin issue (. As above) Neuro Exam: Positive: Other Psych Exam: Positive: Other (unable to do psych exam) Vital Signs Vital Signs Date Time Temp Pulse Resp B/P (MAP) Pulse Ox O2 Delivery O2 Flow Rate FiO2 04/15/19 17:03 131/60 (83) 04/15/19 17:00 97 04/15/19 16:45 89 Nasal Cannula 2.0 04/15/19 15:23 97.0 20 Laboratory Data Labs 24H Laboratory Tests 2 04/15/19 15:53: Immature Granulocyte % (Auto) 0.9, Neutrophils (%) (Auto) 75.9H, Lymphocytes (%) (Auto) 15.2L, Monocytes (%) (Auto) 7.1H, Eosinophils (%) (Auto) 0.4, Basophils (%) (Auto) 0.5, Neutrophils # (Auto) 4.3, Lymphocytes # (Auto) 0.9L, Monocytes # (Auto) 0.4, Eosinophils # (Auto) 0.0, Basophils # (Auto) 0.0, Nucleated Red Blood Cells % (auto) 0.4H, Prothrombin Time 14.0, Prothromb Time International Ratio 1.11, Anion Gap 5L, Glomerular Filtration Rate 59.7, Lactic Acid Level 1.7, Calcium Level 8.4L, Total Bilirubin 0.8, Direct Bilirubin 0.4H, Aspartate Amino Transf (AST/SGOT) 9, Alanine Aminotransferase (ALT/SGPT) 11L, Alkaline P hosphatase 85, Total Creatine Kinase 54, Creatine Kinase MB 2.7, Creatine Kinase MB Relative Index 5.00H, Troponin I 0.19H, YT-Hoz-B-Type Natriuretic Peptide 7403H, Total Protein 6.2L, Albumin 2.7L, Albumin/Globulin Ratio 0.77L, Thyroid Stimulating Hormone (TSH) 3.170 04/15/19 16:01: POC pH (Misc Panel) 7.318L, POC Base Excess (Misc Panel) 13.0H, POC Saturated Percent O2 (Misc) 94L, POC pO2 (Misc Panel) 82.0, POC pCO2 (Misc Panel) 76.9*H, POC HCO3 (Misc Panel) 39.5H, POC Total CO2 (Misc Panel) 42.0H CBC/BMP Laboratory Tests 04/15/19 15:53 Microbiology Microbiology 04/15/19 Respiratory Virus Panel (PCR) ([facility]) - Final, Complete 04/15/19 Blood Culture, Received Pending Problems (1) Acute and chronic respiratory failure with hypercapnia Status: Acute Problem Text: Acute on chronic respiratory failure, most likely secondary to ob structive sleep apnea, COPD and CHF Patient chest x-ray is consistent with infiltrate versus effusion and right base, cardiomegaly, vascular cephalization Blood gas shows pH 7.31, PCO2 82, PCO2 76.9 and 94% on 2 L nasal cannula Patient is noncompliant to CPAP 5, his optic to sleep apnea at home and also noncompliant to many of his meds including needing insulin as well his diet Admit patient to PCU with telemetry monitoring Oxygen support by 2 L nasal cannula to keep pulse ox about 88% DuoNeb every 4-6 hours and every 2 hours when necessary Patient will be started on Rocephin 1 g IV every 24 hours and Zithromax 5 mg IV every 24 hours for questionable infiltrate at right base on chest x-ray . Also patient will be started on Lasix 60 mg IV every 12 hours for possible CHF . We will do daily weights, I&O's and continuous pulse ox Pro calcitonin also has been ordered. If is negative, then we'll DC antibiotics Patient needs a CT of the chest without contrast to further assess the pathology and his lungs DVT prophylaxis with heparin Consistent carbohydrate diet Activity out of bed to bathroom Continue home meds except multiple muscle relaxants and lyrica (2) Acute on chronic diastolic (congestive) heart failure Status: Acute Problem Text: Patient had a 2-D echo done on 12/04/2018 which showed normal LV size with moderate left ventricular hypertrophy and likely hyperdynamic left ventricle systolic function, grade 1 diastolic dysfunction Chest x-ray is consistent with the vascular cephalization CT of the chest has been ordered to further assess infiltrate versus CHF Start Lasix 60 mg IV twice a day patient already got one dose of Lasix 40 mg IV in ED Oxygen support There is a slight elevation in fast troponin which was 0.19, most likely secondary to demand ischemia, but will trend the troponins and monitor patient clinically Daily weights I&O's (3) Altered mental status Status: Acute Problem Text: As per family, patient began having increasing lethargy, somnolence sleeping more than 20 hours a day since last 2 weeks with a stat walking and falls Patient is on multiple muscle relaxants, narcotics and lyrica, which can cause all these neurological symptoms including visual hallucination and I will hold all his medication at the present time MRI of the brain without contrast to rule out any bleed or a stroke Neuro check every 4 hours for 24 hours Pro calcitonin order to rule out pneumonia. UA ordered to rule out UTI as cause of altered mental status Urine for urine tox screen Follow-up MRI of the brain and CT of the chest Will monitor clinically (4) HTN (hypertension) Status: Chronic Problem Text: Continue home meds EKG is normal sinus rhythm, no acute ST-T changes (5) Diabetes mellitus Status: Chronic Problem Text: Fingerstick blood sugar Yesterday and a chest Will restart her basal insulin once he is awake, alert, and a eating regular diet Fingerstick blood sugars every 6 hours with coverage. In the meantime (6) COPD (chronic obstructive pulmonary disease) Status: Chronic Problem Text: DuoNeb every 4-6 hours and every 2 hours when necessary (7) LINDA (obstructive sleep apnea) Status: Chronic Problem Text: Will group home counselor patient regarding use of CPAP. Once he is awake, alert Monitor pulse ox O2 support (8) Morbid obesity Status: Chronic Plan / VTE VTE Prophylaxis Ordered?: Yes DONNA DEL TORO MD Apr 15, 2019 18:10
--- NOTE | 2019-04-15 18:37 | REPVR ---
PROCEDURE INFORMATION: Exam: CT Chest Without Contrast Exam date and time: 04/15/2019 5:59 PM Age: 63 years old Clinical indication: Chest pain; Additional info: Pna vs chf TECHNIQUE: Imaging protocol: Computed tomography of the chest without contrast. 3D rendering: MIP and/or 3D reconstructed images were created by the technologist. Radiation optimization: All CT scans at this facility use at least one of these dose optimization techniques: automated exposure control; mA and/or kV adjustment per patient size (includes targeted exams where dose is matched to clinical indication); or iterative reconstruction. COMPARISON: CT Chest without contrast 12/03/2018 4:02 PM FINDINGS: Lungs: Compressive atelectasis of the right lung base. No pneumothorax is demonstrated which might suggest a pneumonitis although pneumonia or occult mass is not excluded. Mild pleural thickening and compressive atelectasis left lung base. Pleural space: Moderate right pleural effusion. Heart: There is mild atherosclerotic calcification of the coronary arteries. Aorta: The aorta demonstrates mild atherosclerotic calcification. Lymph nodes: Unremarkable. No enlarged lymph nodes. Bones/joints: The spine demonstrates mild degenerative changes. Soft tissues: Unremarkable. IMPRESSION: 1. Moderate right pleural effusion. 2. Compressive atelectasis of the right lung base. No pneumothorax is demonstrated which might suggest a pneumonitis although pneumonia or occult mass is not excluded. Follow-up after treatment is suggested. Electronically signed by: Reji Cloud On 04/15/2019 18:36:41 PM
[2019-04-15] MEDS: IPRATROPIUM 0.5MG/ALBUTEROL 2.5MG INH SOL UD 3ML (DUONEB)(J7620) NEB SCH (20:00)
--- NOTE | 2019-04-15 20:07 | ECGEPIP ---
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
[2019-04-15] MEDS ORDERED: HumaLOG INSULIN (NovoLOG) PER UNIT SC SCH (21:00)
--- NOTE | 2019-04-15 21:01 | REPVR ---
PROCEDURE INFORMATION: Exam: MR Head Without Contrast Exam date and time: 04/15/2019 8:38 PM Age: 63 years old Clinical indication: Alteration of consciousness and coma or unconsciousness; Transient alteration of awareness; Patient HX: PT is in and out of consciousness and confusion, best images due to PT condition and pain; Additional info: AMS TECHNIQUE: Imaging protocol: MR of the head without contrast. COMPARISON: CT Head without contrast 12/03/2018 2:46 PM FINDINGS: Brain: Diffusion-weighted images demonstrate the 'so called' bright cerebellar sign. Increased cortical signal demonstrated in the occipital lobes and posterior parietal lobe on the right and more superiorly in both centrum semiovale and subcortical white matter regions. Increased signal also demonstrated in the basal ganglia bilaterally. Findings are worrisome for anoxic brain injury. No significant abnormalities demonstrated on T1, FLAIR, or T2 weighted imaging. Ventricles: Normal. No ventriculomegaly. Bones/joints: Unremarkable. Soft tissues: Unremarkable. Sinuses: Normal as visualized. No acute sinusitis. Mastoid air cells: Normal as visualized. No mastoid effusion. Orbits: Unremarkable. IMPRESSION: Diffusion-weighted images demonstrate the 'so called' bright cerebellar sign. Increased cortical signal demonstrated in the occipital lobes and posterior parietal lobe on the right and more superiorly in both centrum semiovale and subcortical white matter regions. Increased signal also demonstrated in the basal ganglia bilaterally. Findings are worrisome for anoxic brain injury. Electronically signed by: Reji Cloud On 04/15/2019 21:01:42 PM
[2019-04-15 21:30] VITALS: BP 143/61
[2019-04-15 22:00] VITALS: O2SAT 93
[2019-04-15] MEDS: cefTRIAXone SOD 1 GM in D5W MINI-BAG PLUS 50 ML IV SCH (22:00)
[2019-04-15] MEDS: HEPARIN SOD (PORCINE) 5000 UNITS/ML VIAL SC SCH (22:01)
[2019-04-15] MEDS: DOCUSATE SODIUM 100 MG CAP PO SCH (22:04)
[2019-04-15] MEDS: ATORVASTATIN 20 MG TAB PO SCH (22:05)
[2019-04-15] MEDS: HumaLOG INSULIN (NovoLOG) PER UNIT SC SCH (22:09)
[2019-04-15 23:00] VITALS: O2SAT 92
[2019-04-16] VITALS (19 sets, daily range): BP systolic 117–141; BP diastolic 55–71; O2SAT 91–96
[2019-04-16] MEDS: AZITHROMYCIN INJ 500 MG, VIAL MATE ADAPTER 1 EACH in D5W 250 ML IV SCH ×2 (00:41→19:53)
[2019-04-16 01:06] LABS: ABG BASE EXCESS 10.9 (-2.0-2.0); ABG HCO3 40.8 MEQ/L (22.0-26.0); ABG O2 SATURATION 92.7 % (95.0-99.0); ABG PARTIAL PRESSURE O2 70.6 mmHg (75.0-100.0); ABG STANDARD HCO3 34.6 MEQ/L (22.0-26.0); ABG TOTAL CO2 43.5 MEQ/L (23.0-31.0)
[2019-04-16 01:07] LABS: ABG PARTIAL PRESSURE CO2 90.8 mmHg (35.0-45.0)
[2019-04-16 01:39] LABS: AMPHETAMINES LEVEL URINE NEGATIVE (NEGATIVE); BARBITURATES URINE NEGATIVE (NEGATIVE); BENZODIAZEPINES URINE NEGATIVE (NEGATIVE); CANNABINOIDS URINE NEGATIVE (NEGATIVE); COCAINE METABOLITE URINE NEGATIVE (NEGATIVE); METHADONE URINE NEGATIVE (NEGATIVE); OPIATES URINE POSITIVE (NEGATIVE); PHENCYCLIDINE URINE NEGATIVE (NEGATIVE)
[2019-04-16] MEDS: IPRATROPIUM 0.5MG/ALBUTEROL 2.5MG INH SOL UD 3ML (DUONEB)(J7620) NEB SCH ×4 (02:31→19:30)
[2019-04-16 03:25] LABS: ABG BASE EXCESS 13.1 (-2.0-2.0); ABG HCO3 42.6 MEQ/L (22.0-26.0); ABG O2 SATURATION 97.2 % (95.0-99.0); ABG PARTIAL PRESSURE O2 102.8 mmHg (75.0-100.0); ABG STANDARD HCO3 36.8 MEQ/L (22.0-26.0); ABG TOTAL CO2 45.3 MEQ/L (23.0-31.0); ABG pH (ARTERIAL) 7.299 UNITS (7.350-7.450)
[2019-04-16 03:26] LABS: ABG PARTIAL PRESSURE CO2 88.7 mmHg (35.0-45.0)
[2019-04-16 04:39] LABS: HEMATOCRIT 37.7 % (42.0-52.0); HEMOGLOBIN 10.1 g/dl (13.5-17.5); MEAN CORPUSCULAR HEMOGLOBIN 24.5 pg (27.0-33.0); MEAN CORPUSCULAR HGB CONC 26.8 g/dl (32.0-36.5); MEAN CORPUSCULAR VOLUME 91.5 fl (80.0-96.0); RED BLOOD COUNT 4.12 10^6/uL (4.30-6.10)
[2019-04-16 05:10] LABS: ALBUMIN 2.7 GM/DL (3.2-5.2); ALT/SGPT 10 U/L (12-78); BILIRUBIN,TOTAL 0.7 MG/DL (0.2-1.0); BLOOD UREA NITROGEN 24 MG/DL (7-18); CALCIUM LEVEL 8.1 MG/DL (8.8-10.2); CARBON DIOXIDE LEVEL 38 MEQ/L (21-32); CHLORIDE LEVEL 99 MEQ/L (98-107); CREATININE FOR GFR 1.14 MG/DL (0.70-1.30); GLOMERULAR FILTRATION RATE > 60.0 (>49); GLUCOSE, FASTING 65 MG/DL (70-100); MAGNESIUM LEVEL 1.4 MG/DL (1.8-2.4); POTASSIUM SERUM 5.1 MEQ/L (3.5-5.1); SODIUM LEVEL 140 MEQ/L (136-145); TOTAL PROTEIN 5.9 GM/DL (6.4-8.2); TROPONIN I 0.17 NG/ML (< 0.10)
[2019-04-16 05:30] LABS: PLATELET COUNT, AUTOMATED 98 10^3/uL (150-450)
[2019-04-16] MEDS: HumaLOG INSULIN (NovoLOG) PER UNIT SC SCH ×5 (06:00→23:32)
[2019-04-16] MEDS ORDERED: HumaLOG INSULIN (NovoLOG) PER UNIT SC SCH (07:30)
[2019-04-16] MEDS: PANTOPRAZOLE 40MG TAB (PROTONIX) PO SCH (08:50)
[2019-04-16] MEDS: ASPIRIN 81 MG ENTERIC TAB PO SCH (08:50)
[2019-04-16] MEDS: CLOPIDOGREL 75 MG TAB PO SCH (08:50)
[2019-04-16] MEDS: DOCUSATE SODIUM 100 MG CAP PO SCH ×2 (08:50→19:57)
[2019-04-16 08:52] LABS: ABG O2 SATURATION 93.2 % (95.0-99.0)
[2019-04-16 08:55] LABS: ABG BASE EXCESS 13.5 (-2.0-2.0); ABG HCO3 40.8 MEQ/L (22.0-26.0); ABG PARTIAL PRESSURE O2 67.1 mmHg (75.0-100.0); ABG STANDARD HCO3 37.2 MEQ/L (22.0-26.0); ABG TOTAL CO2 42.9 MEQ/L (23.0-31.0); ABG pH (ARTERIAL) 7.396 UNITS (7.350-7.450)
[2019-04-16] MEDS: HEPARIN SOD (PORCINE) 5000 UNITS/ML VIAL SC SCH (09:00)
[2019-04-16] MEDS ORDERED: FUROSEMIDE 100 MG/10 ML VIAL (J1940) IV SCH (09:00)
[2019-04-16] MEDS ORDERED: LEVEMIR (INSULIN DETEMIR) 1 UNITS/0.01ML SC SCH (09:00)
[2019-04-16] MEDS ORDERED: SITagliptin 50 MG TAB (JANUVIA) PO SCH (09:00)
--- NOTE | 2019-04-16 09:30 | IPNPDOC ---
Date Seen The patient was seen on 04/16/19. Progress Note I was called by nursing at 0047 this morning for there was a change in mentation, for he was more somnolent, and barely responsive to sternal rub. Stat ABG was ordered and pH was 7.27 and PCO2 was 90.8. He transferred to ICU for BIPAP managment and Dr. Faustin was called as consult for management of NIPPV. VS, I&O, 24H, Fishbone Vital Signs/I&O Vital Signs Date Time Temp Pulse Resp B/P (MAP) Pulse Ox O2 Delivery O2 Flow Rate FiO2 04/16/19 08:11 75 25 04/16/19 08:11 30 04/16/19 06:00 96 BIPAP/CPAP 04/16/19 04:00 97.8 140/57 (84) 04/16/19 01:15 15.0 I&O- Last 24 Hours up to 6 AM 04/16/19 06:00 Intake Total 0 ml Output Total 1425 ml Balance -1425 ml Laboratory Data 24H LABS Laboratory Tests 2 04/15/19 15:53: Immature Granulocyte % (Auto) 0.9, Neutrophils (%) (Auto) 75.9H, Lymphocytes (%) (Auto) 15.2L, Monocytes (%) (Auto) 7.1H, Eosinophils (%) (Auto) 0.4, Basophils (%) (Auto) 0.5, Neutrophils # (Auto) 4.3, Lymphocytes # (Auto) 0.9L, Monocytes # (Auto) 0.4, Eosinophils # (Auto) 0.0, Basophils # (Auto) 0.0, Nucleated Red Blood Cells % (auto) 0.4H, Prothrombin Time 14.0, Prothromb Time International Ratio 1.11, Anion Gap 5L, Glomerular Filtration Rate 59.7, Lactic Acid Level 1.7, Calcium Level 8.4L, Total Bilirubin 0.8, Direct Bilirubin 0.4H, Aspartate Amino Transf (AST/SGOT) 9, Alanine Aminotransferase (ALT/SGPT) 11L, Alkaline Phosphatase 85, Total Creatine Kinase 54, Creatine Kinase MB 2.7, Creatine Kinase MB Relative Index 5.00H, Troponin I 0.19H, TK-Kbx-[id number]-Type Natriuretic Peptide 7403H, Total Protein 6.2L, Albumin 2.7L, Albumin/Globulin Ratio 0.77L, Thyroid Stimulating Hormone (TSH) 3.170 04/15/19 16:01: POC pH (Misc Panel) 7.318L, POC Base Excess (Misc Panel) 13.0H, POC Saturated Percent O2 (Misc) 94L, POC pO2 (Misc Panel) 82.0, POC pCO2 (Misc Panel) 76.9*H, POC HCO3 (Misc Panel) 39.5H, POC Total CO2 (Misc Panel) 42.0H 04/15/19 21:00: Troponin I 0.17H 04/15/19 21:46: Bedside Glucose (Misc Panel) 64L 04/15/19 22:24: Bedside Glucose (Misc Panel) 100 04/16/19 00:50: Bedside Glucose (Misc Panel) 84 04/16/19 01:00: Urine Color STRAW, Urine Appearance CLEAR, Urine pH 5.0, Urine Specific [place] 1.008, Urine Protein NEGATIVE, Urine Glucose (UA) NEGATIVE, Urine Ketones NEGATIVE, Urine Blood 1+H, Urine Nitrite NEGATIVE, Urine Bilirubin NEGATIVE, Urine Urobilinogen 0.2, Urine Leukocyte Esterase NEGATIVE, Urine WBC (Auto) 0, Urine RBC (Auto) 3, Urine Hyaline Casts (Auto) 0, Urine Bacteria (Auto) NEGATIVE, Urine Squamous Epithelial Cells 0, Urine Mucus (Auto) SMALL, Urine Sperm (Auto) , Urine Opiates Screen POSITIVEH, Urine Methadone Screen NEGATIVE, Urine Barbiturates Screen NEGATIVE, Urine Phencyclidine Screen NEGATIVE, Urine Amphetamines Screen NEGATIVE, Urine Benzodiazepines Screen NEGATIVE, Urine Cocaine Metabolite Screen NEGATIVE, Urine Cannabinoids Screen NEGATIVE 04/16/19 01:01: Blood Gas Bicarbonate Standard 34.6H, Arterial Blood pH 7.270L, Arterial Blood Partial Pressure CO2 90.8*H, Arterial Blood Partial Pressure O2 70.6L, Arterial Blood Total CO2 43.5H, Arterial Blood HCO3 40.8H, Arterial Blood Base Excess 10.9H, Arterial Blood Oxygen Saturation 92.7L 04/16/19 03:05: Blood Gas Bicarbonate Standard 36.8H, Arterial Blood pH 7.299L, Arterial Blood Partial Pressure CO2 88.7*H, Arterial Blood Partial Pressure O2 102.8H, Arterial Blood Total CO2 45.3H, Arterial Blood HCO3 42.6H, Arterial Blood Base Excess 13.1H, Arterial Blood Oxygen Saturation 97.2 04/16/19 04:21: Nucleated Red Blood Cells % (auto) 0.6H, Immature Platelet Fraction 4.0, Anion Gap 3L, Glomerular Filtration Rate > 60.0, Calcium Level 8.1L, Magnesium Level 1.4L, Total Bilirubin 0.7, Aspartate Amino Transf (AST/SGOT) 18, Alanine Aminotransferase (ALT/SGPT) 10L, Alkaline Phosphatase 73, Ammonia 19, Troponin I 0.17H, Total Protein 5.9L, Albumin 2.7L, Albumin/Globulin Ratio 0.84L 04/16/19 06:20: Bedside Glucose (Misc Panel) 72L 04/16/19 08:40: Blood Gas Bicarbonate Standard 37.2H, Arterial Blood pH 7.396, Arterial Blood Partial Pressure CO2 68.0*H, Arterial Blood Partial Pressure O2 67.1L, Arterial Blood Total CO2 42.9H, Arterial Blood HCO3 40.8H, Arterial Blood Base Excess 13.5H, Arterial Blood Oxygen Saturation 93.2L CBC/BMP Laboratory Tests 04/15/19 15:53 04/16/19 04:21 Microbiology Microbiology 04/15/19 Blood Culture, Received Pending 04/15/19 Respiratory Virus Panel (PCR) ([facility]) - Final, Complete 04/15/19 Blood Culture, Received Pending GME ATTESTATION GME ATTESTATION My faculty preceptor for this patient encounter was physically present during the encounter and was fully available. All aspects of the patient interview, examination, medical decision making process, and medical care plan development were reviewed and approved by the faculty preceptor. The faculty preceptor is aware and concurs with the plan as stated in the body of this note and will attest to such by his/her cosignature. ATTENDING NOTE patient was moved to the ICU for BiPAP after noted somnolence acidosis with significant hypercarbia on ABG. Dr. Faustin was made aware. SHERLEY BRANDT DO Apr 16, 2019 09:30 ANAHI LAZARO MD Apr 17, 2019 06:57
--- NOTE | 2019-04-16 10:49 | CCN ---
DATE: 04/16/2019 START TIME: 944 STOP TIME: 10:20 I attended Giancarlo Altman here in the intensive care unit. Patient has been examined and the chart reviewed. I spoke at length with the nurse at bedside as well as the patient and family. In essence, he is a gentleman with diabetes and sleep apnea with underlying congestive heart failure and long-standing tobacco abuse with morbid obesity. He said he has been noncompliant with CPAP as his machine broke and he has been unable to get it repaired or to get supplies. He is supposed to be on CPAP of 11 he tells me. He is anxious to get back to wearing it. He recently quite smoking. He was admitted with increasing shortness of breath and somnolence. He was being treated for heart failure. Through the evening, he had a further decline in his mental status and a blood gas was done at that point. A pH of 7.270, pCO2 90.8, pO2 70. He was placed on noninvasive mask. Repeat blood gas showed a pH of 7.299, pO2 80.7 and pO2 102.8. Changes were made and repeat blood gas now at 0840 is pH 7.396, pCO2 68.0 and a pO2 of 67. Currently on exam, he is awake, alert, and appropriate. We have taken him off noninvasive support for now. Plan for that is with nighttime and naps. Maximum temperature (T-max) overnight 97.9, blood pressure 120-140s systolic, heart rate generally 60-70s, respiratory rate currently about 16-18 and unlabored. Pupils do react. Sclerae are clear. Trachea is midline. Chest shows some dependent crackles though with decreased breath sound intensity. There are rare areas of rhonchi that clear with cough. No other focal adventitious breath sounds are identified. Cardiac exam distant, generally regular. Peripheral pulse is markedly diminished. There at least 2-3+ pitting lower extremity edema bilaterally with chronic venostasis changes. Abdomen morbidly obese, soft with active bowel sounds. Extremities: No cyanosis or clubbing. Neurologically, he is awake, alert and appropriate. Psychiatric exam currently with normal mood and affect. All laboratories have been reviewed and are in the electronic record. Chest x-ray clearly shows decreased vasculature. CT scan of the chest shows a right-sided pleural effusion and I do believe atelectasis or early consolidation at the right base. Most pressing problems requiring my presence at the bedside include: 1. Acute on chronic respiratory failure with hypoxemia and hypercapnic. 2. Obstructive sleep apnea (LINDA) with what is most likely unintentional noncompliance. 3. Longstanding continued tobacco abuse. 4. Congestive heart failure. 5. Chronic venostasis changes. 6. Heart failure decompensated. At this point, we will monitor him on and off the noninvasive support. It would be beneficial to have him out-of-bed at the table. Smoking cessation needs to be discussed. I am in agreement with the rest of his regimen as outlined above. He currently is on empiric antibiotics in the form of Rocephin and azithromycin and I believe this is not at all unreasonable. At this point, we will proceed as outlined above. I left the bedside at 1020. 35 minutes of critical care time was at the bedside not including procedures.
--- NOTE | 2019-04-16 12:27 | IPNPDOC ---
Subjective Date Seen The patient was seen on 04/16/19. Subjective Chief Complaint/HPI Patient is much better. He is more awake, alert, oriented 3. After the bypass therapy General: Denies: ROS Unobtainable, Chills, Night Sweats, Fatigue, Malaise, Normal Appetite, Other Symptoms Constitutional: Denies: Chills, Fever, Malaise, Night Sweats, Weakness, Fatigue, Weight Loss, Lethargy, Other Pulmonary: Denies: Dyspnea, Cough, Pleuritic Chest Pain, Other Symptoms Cardiovascular: Denies: Chest Pain, Palpitations, Orthopnea, Paroxysmal Noc. Dyspnea, Edema, Lt Headedness, Other Symptoms Gastrointestinal: Denies: Nausea, Vomiting, Abdominal Pain, Diarrhea, Constipation, Melena, Hematochezia, Other Symptoms Musculoskeletal: Denies: Neck Pain, Back Pain, Shoulder Pain, Arm Pain, Hand Pain, Leg Pain, Foot Pain, Joint Pain, Muscle Pain, Spasms, Other Symptoms Neurological: Denies: Weakness, Numbness, Incoordination, Change in speech, Confusion, Seizures, Other Symptoms Objective Physical Examination General Exam: Positive: Alert, Cooperative Eye Exam: Positive: PERRLA, Conjunctiva & lids normal ENT Exam: Positive: Atraumatic, Mucous membr. moist/pink Neck Exam: Positive: Supple Chest Exam: Positive: Clear to auscultation, Wheezing (. Scattered wheezing) Heart Exam: Positive: Rate Normal, Normal S1, Normal S2 Abdomen Exam: Positive: Normal bowel sounds, Soft Extremity Exam: Positive: Normal pulses Skin Exam: Positive: Nl turgor and temperature Neuro Exam: Positive: Cranial Nerves 3-12 NL Psych Exam: Positive: Mental status NL, Oriented x 3 Assessment /Plan Problems (1) Acute and chronic respiratory failure with hypercapnia Status: Acute Problem Text: Improving very well with BiPAP . Continue nebs and steroids as per orders Continue IV antibiotics Further, as per pulmonary's recommendations (2) Acute on chronic diastolic (congestive) heart failure Status: Acute Problem Text: CT chest shows a right pleural effusion and atelectasis right base, plus no congestion Was DC IV diuresis Will monitor clinically (3) LINDA (obstructive sleep apnea) Status: Chronic Problem Text: Patient needs to start his CPAP during sleep as he has not used it in last 2 years Try to arrange CPAP at home before he is discharged (4) HTN (hypertension) Status: Chronic Problem Text: Under control. Continue present meds (5) Morbid obesity Status: Chronic Problem Text: Weight loss. Counseling done with family around (6) Diabetes mellitus Status: Chronic Problem Text: Fingerstick blood sugars every before meals and at bedtime with coverage (7) COPD (chronic obstructive pulmonary disease) Status: Chronic Problem Text: Continue present meds, improving (8) Acute metabolic encephalopathy Status: Resolved Problem Text: Patient presented with acute metabolic encephalopathy which was multifactorial secondary to multiple medications, COPD, chronic respiratory failure as well as adverse effects of multiple muscle relaxant and pain medications Metabolic encephalopathy has resolved with BiPAP and patient is awake, alert, oriented at the present time Pulmonary consultation appreciated Plan/VTE VTE Prophylaxis Ordered?: Yes VS, I&O, 24H, Fishbone Vital Signs/I&O Vital Signs Date Time Temp Pulse Resp B/P (MAP) Pulse Ox O2 Delivery O2 Flow Rate FiO2 04/16/19 08:11 75 25 04/16/19 08:11 30 04/16/19 06:00 96 BIPAP/CPAP 04/16/19 04:00 97.8 140/57 (84) 04/16/19 01:15 15.0 I&O- Last 24 Hours up to 6 AM 04/16/19 06:00 Intake Total 0 ml Output Total 1425 ml Balance -1425 ml Laboratory Data 24H LABS Laboratory Tests 2 04/15/19 15:53: Immature Granulocyte % (Auto) 0.9, Neutrophils (%) (Auto) 75.9H, Lymphocytes (%) (Auto) 15.2L, Monocytes (%) (Auto) 7.1H, Eosinophils (%) (Auto) 0.4, Basophils (%) (Auto) 0.5, Neutrophils # (Auto) 4.3, Lymphocytes # (Auto) 0.9L, Monocytes # (Auto) 0.4, Eosinophils # (Auto) 0.0, Basophils # (Auto) 0.0, Nucleated Red Blood Cells % (auto) 0.4H, Prothrombin Time 14.0, Prothromb Time International Ratio 1.11, Anion Gap 5L, Glomerular Filtration Rate 59.7, Lactic Acid Level 1.7, Calcium Level 8.4L, Total Bilirubin 0.8, Direct Bilirubin 0.4H, Aspartate Amino Transf (AST/SGOT) 9, Alanine Aminotransferase (ALT/SGPT) 11L, Alkaline Phosphatase 85, Total Creatine Kinase 54, Creatine Kinase MB 2.7, Creatine Kinase MB Relative Index 5.00H, Troponin I 0.19H, VM-Edd-E-Type Natriuretic P eptide 7403H, Total Protein 6.2L, Albumin 2.7L, Albumin/Globulin Ratio 0.77L, Thyroid Stimulating Hormone (TSH) 3.170 04/15/19 16:01: POC pH (Misc Panel) 7.318L, POC Base Excess (Misc Panel) 13.0H, POC Saturated Percent O2 (Misc) 94L, POC pO2 (Misc Panel) 82.0, POC pCO2 (Misc Panel) 76.9*H, POC HCO3 (Misc Panel) 39.5H, POC Total CO2 (Misc Panel) 42.0H 04/15/19 21:00: Troponin I 0.17H 04/15/19 21:46: Bedside Glucose (Misc Panel) 64L 04/15/19 22:24: Bedside Glucose (Misc Panel) 100 04/16/19 00:50: Bedside Glucose (Misc Panel) 84 04/16/19 01:00: Urine Color STRAW, Urine Appearance CLEAR, Urine pH 5.0, Urine Specific [place] 1.008, Urine Protein NEGATIVE, Urine Glucose (UA) NEGATIVE, Urine Ketones NEGATIVE, Urine Blood 1+H, Urine Nitrite NEGATIVE, Urine Bilirubin NEGATIVE, Urine Urobilinogen 0.2, Urine Leukocyte Esterase NEGATIVE, Urine WBC (Auto) 0, Urine RBC (Auto) 3, Urine Hyaline Casts (Auto) 0, Urine Bacteria (Auto) NEGATIVE, Urine Squamous Epithelial Cells 0, Urine Mucus (Auto) SMALL, Urine Sperm (Auto) , Urine Opiates Screen POSITIVEH, Urine Methadone Screen NEGATIVE, Urine Barbiturates Screen NEGATIVE, Urine Phencyclidine Screen NEGATIVE, Urine Amphetamines Screen NEGATIVE, Urine Benzodiazepines Screen NEGATIVE, Urine Cocaine Metabolite Screen NEGATIVE, Urine Cannabinoids Screen NEGATIVE 04/16/19 01:01: Blood Gas Bicarbonate Standard 34.6H, Arterial Blood pH 7.270L, Arterial Blood Partial Pressure CO2 90.8*H, Arterial Blood Partial Pressure O2 70.6L, Arterial Blood Total CO2 43.5H, Arterial Blood HCO3 40.8H, Arterial Blood Base Excess 10.9H, Arterial Blood Oxygen Saturation 92.7L 04/16/19 03:05: Blood Gas Bicarbonate Standard 36.8H, Arterial Blood pH 7.299L, Arterial Blood Partial Pressure CO2 88.7*H, Arterial Blood Partial Pressure O2 102.8H, Arterial Blood Total CO2 45.3H, Arterial Blood HCO3 42.6H, Arterial Blood Base Excess 13.1H, Arterial Blood Oxygen Saturation 97.2 04/16/19 04:21: Nucleated Red Blood Cells % (auto) 0.6H, Immature Platelet Fraction 4.0, Anion Gap 3L, Glomerular Filtration Rate > 60.0, Calcium Level 8.1L, Magnesium Level 1.4L, Total Bilirubin 0.7, Aspartate Amino Transf (AST/SGOT) 18, Alanine Aminotransferase (ALT/SGPT) 10L, Alkaline Phosphatase 73, Ammonia 19, Troponin I 0.17H, Total Protein 5.9L, Albumin 2.7L, Albumin/Globulin Ratio 0.84L 04/16/19 06:20: Bedside Glucose (Misc Panel) 72L 04/16/19 08:40: Blood Gas Bicarbonate Standard 37.2H, Arterial Blood pH 7.396, Arterial Blood Partial Pressure CO2 68.0*H, Arterial Blood Partial Pressure O2 67.1L, Arterial Blood Total CO2 42.9H, Arterial Blood HCO3 40.8H, Arterial Blood Base Excess 13.5H, Arterial Blood Oxygen Saturation 93.2L 04/16/19 11:43: Bedside Glucose (Misc Panel) 72L CBC/BMP Laboratory Tests 04/15/19 15:53 04/16/19 04:21 Microbiology Microbiology 04/15/19 Blood Culture, Received Pending 04/15/19 Respiratory Virus Panel (PCR) ([facility]) - Final, Complete 04/15/19 Blood Culture, Received Pending DONNA DEL TORO MD Apr 16, 2019 12:27
[2019-04-16] MEDS: PREGABALIN 100 MG CAP (LYRICA) PO SCH ×3 (13:21→20:30)
[2019-04-16] MEDS: cefTRIAXone SOD 1 GM in D5W MINI-BAG PLUS 50 ML IV SCH (18:31)
[2019-04-16] MEDS: ATORVASTATIN 20 MG TAB PO SCH (20:30)
[2019-04-17] VITALS: BP 120/60
[2019-04-17] MEDS: IPRATROPIUM 0.5MG/ALBUTEROL 2.5MG INH SOL UD 3ML (DUONEB)(J7620) NEB SCH ×4 (02:00→20:10)
[2019-04-17 04:00] VITALS: BP 113/68; O2SAT 94
[2019-04-17 04:19] LABS: BASO % 0.5 % (0.0-1.0); EOS % 0.2 % (0.0-3.0); HEMATOCRIT 36.7 % (42.0-52.0); LYMPH # 0.8 10^3/uL (1.5-5.0); LYMPH % 13.5 % (24.0-44.0); MEAN CORPUSCULAR HGB CONC 27.2 g/dl (32.0-36.5); MEAN CORPUSCULAR VOLUME 91.8 fl (80.0-96.0); MONO # 0.5 10^3/uL (0.0-0.8); MONO % 8.9 % (0.0-5.0); NEUTROPHILS # 4.3 10^3/uL (1.5-8.5); NEUTROPHILS % 76.2 % (36.0-66.0); PLATELET COUNT, AUTOMATED 100 10^3/uL (150-450); WHITE BLOOD COUNT 5.7 10^3/uL (4.0-10.0)
[2019-04-17 04:44] LABS: ALBUMIN 2.5 GM/DL (3.2-5.2); ALT/SGPT 10 U/L (12-78); BILIRUBIN,TOTAL 0.7 MG/DL (0.2-1.0); BLOOD UREA NITROGEN 19 MG/DL (7-18); CALCIUM LEVEL 8.1 MG/DL (8.8-10.2); CARBON DIOXIDE LEVEL 40 MEQ/L (21-32); CHLORIDE LEVEL 100 MEQ/L (98-107); CREATININE FOR GFR 1.02 MG/DL (0.70-1.30); GLOMERULAR FILTRATION RATE > 60.0 (>49); GLUCOSE, FASTING 138 MG/DL (70-100); POTASSIUM SERUM 4.4 MEQ/L (3.5-5.1); SODIUM LEVEL 141 MEQ/L (136-145); TOTAL PROTEIN 6.1 GM/DL (6.4-8.2)
[2019-04-17] MEDS: HumaLOG INSULIN (NovoLOG) PER UNIT SC SCH ×5 (05:35→20:14)
[2019-04-17 06:03] LABS: ABG BASE EXCESS 14.3 (-2.0-2.0); ABG HCO3 41.9 MEQ/L (22.0-26.0); ABG O2 SATURATION 94.9 % (95.0-99.0); ABG PARTIAL PRESSURE O2 75.8 mmHg (75.0-100.0); ABG TOTAL CO2 44.1 MEQ/L (23.0-31.0); ABG pH (ARTERIAL) 7.385 UNITS (7.350-7.450)
[2019-04-17 06:08] LABS: ABG PARTIAL PRESSURE CO2 71.7 mmHg (35.0-45.0)
--- NOTE | 2019-04-17 07:54 | REP ---
Portable chest, 06:59 a.m., single AP view with the patient semi upright: Comparison is 04/15/2019. There is a right pleural effusion. The left lung is clear. Cardiac size is normal. The donavan, mediastinum, skeletal structures are unremarkable. Next line impression: Right pleural effusion. Electronically Signed by Chuy Gomez MD 04/17/2019 07:46 A
[2019-04-17 08:00] VITALS: BP 136/68
[2019-04-17] MEDS ORDERED: FUROSEMIDE 20 MG TAB PO SCH (09:00)
[2019-04-17] MEDS ORDERED: metFORMIN (GLUCOPHAGE) 1000 MG TABLET PO SCH ×2 (09:00→18:00)
[2019-04-17] MEDS ORDERED: CLOBETASOL PROPIONATE EMOLLIENT 0.05% CR 60 GM TOP PRN (09:00)
[2019-04-17] MEDS: MAGNESIUM CHLORIDE 64 MG TABCR (SLO MAG) PO SCH ×3 (09:13→20:12)
[2019-04-17] MEDS: ASPIRIN 81 MG ENTERIC TAB PO SCH (09:14)
[2019-04-17] MEDS: DOCUSATE SODIUM 100 MG CAP PO SCH ×2 (09:14→20:13)
[2019-04-17] MEDS: PREGABALIN 100 MG CAP (LYRICA) PO SCH ×3 (09:15→20:13)
[2019-04-17] MEDS: PANTOPRAZOLE 40MG TAB (PROTONIX) PO SCH (09:15)
[2019-04-17] MEDS: GLIMEPIRIDE 2 MG TAB PO SCH (09:16)
[2019-04-17] MEDS: CLOPIDOGREL 75 MG TAB PO SCH (09:16)
[2019-04-17] MEDS: HEPARIN SOD (PORCINE) 5000 UNITS/ML VIAL SC SCH ×2 (10:09→20:13)
--- NOTE | 2019-04-17 11:59 | IPNPDOC ---
Subjective Date Seen The patient was seen on 04/17/19. Subjective Chief Complaint/HPI pt offers no complaints, feels a lot better with O2 support, sitting in her chair. General: Denies: ROS Unobtainable, Chills, Night Sweats, Fatigue, Malaise, Normal Appetite, Other Symptoms Skin: Denies: Rash, Lesions, Jaundice, Bruising, Itching, Dry, Breakdown, Nail Changes, Other Pulmonary: Denies: Dyspnea, Cough, Pleuritic Chest Pain, Other Symptoms Cardiovascular: Denies: Chest Pain, Palpitations, Orthopnea, Paroxysmal Noc. Dyspnea, Edema, Lt Headedness, Other Symptoms Gastrointestinal: Denies: Nausea, Vomiting, Abdominal Pain, Diarrhea, Constipation, Melena, Hematochezia, Other Symptoms Endocrine: Denies: Polydipsia, Polyphagia, Polyuria, Heat Intolerance, Cold Intolerance, Other Endocrine Sx Musculoskeletal: Denies: Neck Pain, Back Pain, Shoulder Pain, Arm Pain, Hand Pain, Leg Pain, Foot Pain, Joint Pain, Muscle Pain, Spasms, Other Symptoms Neurological: Denies: Weakness, Numbness, Incoordination, Change in speech, Confusion, Seizures, Other Symptoms Objective Physical Examination ENT Exam: Positive: Atraumatic, Mucous membr. moist/pink Neck Exam: Positive: Supple Chest Exam: Positive: Clear to auscultation, Wheezing (no more wheezing) Heart Exam: Positive: Rate Normal, Normal S1, Normal S2 Abdomen Exam: Positive: Normal bowel sounds, Soft Extremity Exam: Positive: Normal pulses Skin Exam: Positive: Nl turgor and temperature Neuro Exam: Positive: Cranial Nerves 3-12 NL Assessment /Plan Problems (1) Acute and chronic respiratory failure with hypercapnia Status: Acute Problem Text: Patient is improved very well. He is off BiPAP. He is awake, aler t, oriented 3. His oxygenation is very well with SUPPORT. He tends to drop his pulse ox when he is ambulating Continue nebs and steroids as per orders Continue present IV antibiotics Is for her to [facility] floor Possible DC in a.m. once the home CPAP has been secured Patient also has his home oxygen and oxygen concentrator which he will start using once discharged (2) Acute on chronic diastolic (congestive) heart failure Status: Acute Problem Text: CT chest shows a right pleural effusion and atelectasis right base, plus no congestion Was DC IV diuresis Restarted by mouth diuretics. We'll continue all his present meds Clinically stable, not decompensated (3) LINDA (obstructive sleep apnea) Status: Chronic Problem Text: Patient needs to start his CPAP during sleep as he has not used it in last 2 years CPAP in the process of being arranged before his discharge (4) HTN (hypertension) Status: Chronic Problem Text: Under control. Continue present meds (5) Morbid obesity Status: Chronic Problem Text: Weight loss. Counseling done with family around (6) Diabetes mellitus Status: Chronic Problem Text: Fingerstick blood sugars every before meals and at bedtime with coverage (7) COPD (chronic obstructive pulmonary disease) Status: Chronic Problem Text: Continue present meds, improving (8) Acute metabolic encephalopathy Status: Resolved Problem Text: Patient presented with acute metabolic encephalopathy which was m ultifactorial secondary to multiple medications, COPD, chronic respiratory failure as well as adverse effects of multiple muscle relaxant and pain medications Metabolic encephalopathy has resolved with BiPAP and patient is awake, alert, oriented at the present time Pulmonary consultation appreciated Plan/VTE VTE Prophylaxis Ordered?: Yes VS, I&O, 24H, Fishbone Vital Signs/I&O Vital Signs Date Time Temp Pulse Resp B/P (MAP) Pulse Ox O2 Delivery O2 Flow Rate FiO2 04/17/19 08:00 3.0 04/17/19 04:00 97.8 87 24 113/68 (83) 94 Nasal Cannula 04/17/19 04:00 30 I&O- Last 24 Hours up to 6 AM 04/17/19 05:59 Intake Total 2165 ml Output Total 2300 ml Balance -135 ml Laboratory Data 24H LABS Laboratory Tests 2 04/16/19 18:04: Bedside Glucose (Misc Panel) 91 04/16/19 23:31: Bedside Glucose (Misc Panel) 136H 04/17/19 04:05: Immature Granulocyte % (Auto) 0.7, Neutrophils (%) (Auto) 76.2H, Lymphocytes (%) (Auto) 13.5L, Monocytes (%) (Auto) 8.9H, Eosinophils (%) (Auto) 0.2, Basophils (%) (Auto) 0.5, Neutrophils # (Auto) 4.3, Lymphocytes # (Auto) 0.8L, Monocytes # (Auto) 0.5, Eosinophils # (Auto) 0.0, Basophils # (Auto) 0.0, Nucleated Red Blo od Cells % (auto) 0.0, Anion Gap 1L, Glomerular Filtration Rate > 60.0, Calcium Level 8.1L, Total Bilirubin 0.7, Aspartate Amino Transf (AST/SGOT) 8, Alanine Aminotransferase (ALT/SGPT) 10L, Alkaline Phosphatase 71, Total Protein 6.1L, Albumin 2.5L, Albumin/Globulin Ratio 0.69L 04/17/19 05:51: Blood Gas Bicarbonate Standard 38.0H, Arterial Blood pH 7.385, Arterial Blood Partial Pressure CO2 71.7*H, Arterial Blood Partial Pressure O2 75.8, Arterial Blood Total CO2 44.1H, Arterial Blood HCO3 41.9H, Arterial Blood Base Excess 14.3H, Arterial Blood Oxygen Saturation 94.9L CBC/BMP Laboratory Tests 04/17/19 04:05 Microbiology Microbiology 04/15/19 Blood Culture - Preliminary, Resulted No growth after 24 hours . All specim... 04/15/19 Respiratory Virus Panel (PCR) ([facility]) - Final, Complete 04/15/19 Blood Culture - Preliminary, Resulted No growth after 24 hours . All specim... DONNA DEL TORO MD Apr 17, 2019 11:59
[2019-04-17 12:00] VITALS: BP 104/51
--- NOTE | 2019-04-17 12:19 | IPN ---
DATE: Subjectively the patient reports he is feeling much better today. He was able to sleep about 5-6 hours last night on the BiPAP at the settings of 18/4. He reports "I slept like a log." He is not having any increased shortness of breath (SOB) at rest this morning. He is not having any dyspnea as well. There were no fevers, chills reports from overnight. He is seen ambulating the halls with his nurse and with physical therapy this morning and he states he is eager to go home. His is present in the room with him and reports that she is working with P[facility]ja to have another CPAP delivered to the hospital and they are eager to know what the settings will be and how to set it up properly. According to him he had his last sleep study 5 years ago in [place] and he did do a titration study as well, but his CPAP has been broken for the past 4 years or so, so he has not been using it. Otherwise, he has no complaints this morning, and he is likely suitable to be transferred out of the ICU. Objectively, is vitals overnight were temperature 97.8, pulse 87 and regular, respiratory rate of 24, blood pressure 113/68, pulse oximetry 94% on 3 liters nasal cannula. Generally, he appears to be doing well. He is sitting up in the chair. He is calm, pleasant, not using any accessory muscles, looks comfortable. HEENT: He has moist mucous membranes. His extraocular movements are intact. Pupils are equally, round and reactive to light. NECK: Supple with no lymphadenopathy or thyromegaly. RESPIRATORY EXAM: He has some scattered rhonchi in the left lower lobe, otherwise clear to auscultation bilaterally. His expiratory phase and greater than his inspiratory phase. No accessory muscles, speaking full sentences. CARDIAC EXAM: Regular rate and rhythm with no murmurs, rubs or gallops. Jugular venous distention (JVD) is somewhat elevated at 7 cm above the sternal border. ABDOMINAL EXAM: Obese, protuberant, soft, nontender to palpation. Positive bowel sounds. No discernible organomegaly although difficult to determine due to his size and no lymphadenopathy. EXTREMITIES: Lower extremities are very tense, edematous, evidence of chronic lower extremity edema bilaterally. Very red, thickened skin changes. Painful to palpation and 2+ pitting edema bilaterally. SKIN: No new rashes, lumps or bumps. LYMPHATICS: No enlarged lymph nodes. ENDOCRINE: He does report decreased tolerability to cold temperatures. Otherwise normal. LABORATORIES: Labs today CBC demonstrates a white blood cell count of 5.7, hemoglobin of 10.0, hematocrit of 36.7, and a platelet count of 100. His chemistries demonstrate a sodium of 141, potassium 4.4, chloride of 100, CO2 40, and his BUN is 19 and creatinine is 1.02. Fasting glucose was 138, calcium was 8.1. His most recent blood gas drawn this morning at 5:51 a.m. show a pH of 7.385, pCO2 of 71.7, pO2 of 75.8, bicarb of 41.9 with a base excess of +14.3. His blood sugars have been ranging 70 to 84 to 91 and now 136. On imaging he did get a chest x-ray done this morning at 6 a.m. which demonstrated that the left lung is clear. There is still a right pleural effusion, but it is smaller compared to the chest x-ray done on April 15. His cardiac size is normal. The donavan, mediastinum, skeletal structures are all unremarkable. Therefore the impression shows a right pleural effusion which is improved since admission. ASSESSMENT: 1. Acute on chronic respiratory failure with hypoxemia and hypercapnia. 2. Obstructive sleep apnea. 3. Diastolic congestive heart failure. 4. Chronic venous stasis changes. 5. Continued tobacco abuse. PLAN: At this point the patient's respiratory failure and hypoxemia seems to have resolved. His ABG this morning demonstrates normal pH and his CO2 has gone down with the use of the BiPAP. BiPAP settings that were used were 18/14. I do not know what his settings were at home on his CPAP which he has not been using for several years since it was broken. In speaking with the patient, as stated before, his last sleep study was done 5 years and [facility] [place] is sending him a new CPAP machine to the hospital today. We will attempt to titrate the settings of the CPAP so that he can be sent home on the proper settings, however this patient most likely will need another in-lab formal sleep study, as his last one was so long ago. In addition, we do believe that he has more to go in the way of aggressive diuresis due to his decompensated congestive heart failure. He may benefit from an increased dose of Lasix as he is only 4 liters out at this time and he is on 20 mg by mouth Lasix at this time. He may benefit from increased dose, perhaps 40 mg daily or 20 mg twice daily. We will increase it. We have also stopped his azithromycin and Rocephin as this is less likely a pneumonia picture and more likely an LINDA versus COPD exacerbation and most likely the diastolic congestive heart failure. As shown on the chest x-ray his right pleural effusion has significantly decreased, however he still does have some fluid in his lungs bilaterally that needs to be diuresed. Other than that, we discussed with the patient his need to quit smoking at this time and to remain compliant with his CPAP. He may also benefit from being referred to pulmonology in the outpatient setting. Otherwise, the patient is suitable to be transferred out of the ICU. He is ambulating well on his home dose of oxygen which is 3 liters, so it seems as though his hospitalization will now focus on the use of his CPAP and adjusting of his settings and with aggressive diuresis. I (Dr. Ozuna) have seen the patient and participated in the reyes aspects of the history, physical, and decision making. He is significantly improved, has been up ambulating in the [facility]. I suspect there is still significant fluid overload and would continue diuresis. His home CPAP will be set to 18 which has been working for him here. He can be transferred out of ICU anytime. [place]
[2019-04-17] MEDS: SLF 3 ML SYR IV SCH ×2 (14:50→22:42)
[2019-04-17] MEDS ORDERED: SLF 3 ML SYR IV PRN (15:00)
[2019-04-17] MEDS: NORCO, ANEXSIA 5/325MG TABLET (HYDROcodone/ACETAMINOPHEN) PO PRN (15:04)
[2019-04-17 16:00] VITALS: BP 97/69
[2019-04-17 20:00] VITALS: BP 127/57
[2019-04-17] MEDS: ATORVASTATIN 20 MG TAB PO SCH (20:13)
[2019-04-17] MEDS ORDERED: LEVEMIR (INSULIN DETEMIR) 1 UNITS/0.01ML SC SCH (21:00)
[2019-04-18] VITALS: BP 129/58
[2019-04-18] MEDS: IPRATROPIUM 0.5MG/ALBUTEROL 2.5MG INH SOL UD 3ML (DUONEB)(J7620) NEB SCH ×2 (02:03→07:15)
[2019-04-18 04:00] VITALS: BP 100/50
[2019-04-18 04:49] LABS: BASO % 0.9 % (0.0-1.0); EOS % 0.2 % (0.0-3.0); HEMATOCRIT 32.5 % (42.0-52.0); HEMOGLOBIN 9.3 g/dl (13.5-17.5); LYMPH # 0.9 10^3/uL (1.5-5.0); LYMPH % 20.4 % (24.0-44.0); MEAN CORPUSCULAR HEMOGLOBIN 25.5 pg (27.0-33.0); MEAN CORPUSCULAR HGB CONC 28.6 g/dl (32.0-36.5); MONO # 0.4 10^3/uL (0.0-0.8); MONO % 9.2 % (0.0-5.0); NEUTROPHILS # 3.1 10^3/uL (1.5-8.5); NEUTROPHILS % 68.6 % (36.0-66.0); PLATELET COUNT, AUTOMATED 106 10^3/uL (150-450); RED BLOOD COUNT 3.65 10^6/uL (4.30-6.10); WHITE BLOOD COUNT 4.5 10^3/uL (4.0-10.0)
[2019-04-18 05:11] LABS: ALBUMIN 2.6 GM/DL (3.2-5.2); ALT/SGPT 11 U/L (12-78); BILIRUBIN,TOTAL 0.5 MG/DL (0.2-1.0); BLOOD UREA NITROGEN 20 MG/DL (7-18); CALCIUM LEVEL 7.9 MG/DL (8.8-10.2); CARBON DIOXIDE LEVEL 37 MEQ/L (21-32); CHLORIDE LEVEL 102 MEQ/L (98-107); CREATININE FOR GFR 0.98 MG/DL (0.70-1.30); GLOMERULAR FILTRATION RATE > 60.0 (>49); GLUCOSE, FASTING 73 MG/DL (70-100); SODIUM LEVEL 143 MEQ/L (136-145); TOTAL PROTEIN 5.7 GM/DL (6.4-8.2)
[2019-04-18] MEDS: NORCO, ANEXSIA 5/325MG TABLET (HYDROcodone/ACETAMINOPHEN) PO PRN (06:26)
[2019-04-18] MEDS: SLF 3 ML SYR IV SCH (06:27)
[2019-04-18] MEDS: HumaLOG INSULIN (NovoLOG) PER UNIT SC SCH (07:30)
[2019-04-18 08:00] VITALS: BP 120/85
[2019-04-18] MEDS: CLOPIDOGREL 75 MG TAB PO SCH (08:19)
[2019-04-18] MEDS: MAGNESIUM CHLORIDE 64 MG TABCR (SLO MAG) PO SCH (08:19)
[2019-04-18] MEDS: PREGABALIN 100 MG CAP (LYRICA) PO SCH (08:19)
[2019-04-18] MEDS: ASPIRIN 81 MG ENTERIC TAB PO SCH (08:19)
[2019-04-18] MEDS: DOCUSATE SODIUM 100 MG CAP PO SCH (08:20)
[2019-04-18] MEDS: GLIMEPIRIDE 2 MG TAB PO SCH (08:20)
[2019-04-18] MEDS: HEPARIN SOD (PORCINE) 5000 UNITS/ML VIAL SC SCH (08:20)
[2019-04-18] MEDS: PANTOPRAZOLE 40MG TAB (PROTONIX) PO SCH (08:20)
[2019-04-18] MEDS ORDERED: FUROSEMIDE 40 MG TAB PO SCH (09:00)
--- NOTE | 2019-04-18 11:20 | DS.PDOC ---
Discharge Summary General Date of Admission Apr 15, 2019 at 17:36 Date of Discharge 04/18/19 Discharge Summary PROCEDURES PERFORMED DURING STAY: None. ADMITTING DIAGNOSES: 1. Acute on chronic respiratory failure with hypercapnia Chronic Diastolic Heart Failure. DISCHARGE DIAGNOSES: 1. Acute on chronic respiratory failure with hypercapnia, acute on chronic diastolic congestive heart failure, obstructive sleep apnea, hypertension, morbid obesity, diabetes mellitus, COPD, acute metabolic encephalopathy. COMPLICATIONS/CHIEF COMPLAINT: Lethargy, shortness of breath HISTORY OF PRESENT ILLNESS: This is a 63 years old, morbidly obese, white male with past medical history of diabetes mellitus, insulin-requiring, obstructive sleep apnea, noncompliant with CPAP. Also noncompliant with the insulin regimen, COPD, diabetic neuropathy, chronic pain syndrome, frequent falls, hyperlipidemia, asthma, COPD, psoriasis was sent from his PMDs office with the chief complaints of possible CHF. As as per patient's and 2 daughters. He has been weak, lethargic, increased somnolence sleeping 20 hours a day, also has a visual hallucination seeing people in his room, decreased appetite since last few days and also has frequent falls staggering walk since last few weeks and 2 weeks ago he fell with this, hitting his head, but no loss of consciousness. Unable to obtained history from patient as he is lethargic and somnolent. History was obtained from patient's , 2 daughters, M.D., in ED and reviewing his medical records including previous admissions.. HOSPITAL COURSE: Acute and chronic respiratory failure with hypercapnia Patient is a history of chronic respiratory failure with hypercapnia and he has not used his CPAP since last 2 years was brought in with lethargy and acute metabolic encephalopathy. She was subsequently admitted to ICU, And is started on BiPAP support, also HAS muscle relaxant and narcotic medications were placed on hold Patient is improved very well. He is off BiPAP. He is awake, alert, oriented 3. His oxygenation is very well with SUPPORT. He tends to drop his pulse ox when he is ambulating Spoke with [facility] and CPAP has been arranged in her outpatient pt will be discharged home today on all his present medications, except muscle relaxants and follow with Dr. Bledsoe as an outpatient Patient will continue using his home oxygen to keep pulse ox more than 88% and CPAP during naps and sleeping Further, as per pulmonary as an outpatient Acute on chronic diastolic (congestive) heart failure CT chest shows a right pleural effusion and atelectasis right base, plus no congestion Patient is to initially was started IV diuresed diuresis, but there was no evidence of pulmonary condition has much changed back to's by mouth diuretic dose Clinically stable, not decompensated, will continue his present meds and follow with his PCP LINDA (obstructive sleep apnea) Patient needs to start his CPAP during sleep as he has not used it in last 2 years CPAP in the process of being arranged before his discharge HTN (hypertension) Under control. Continue present med Morbid Obesity Weight loss. Counseling done with family around Diabetes mellitus Fingerstick blood sugars every before meals and at bedtime with coverage COPD (chronic obstructive pulmonary disease) Continue present meds, improving Acute metabolic encephalopathy Patient presented with acute metabolic encephalopathy which was multifactorial secondary to multiple medications, COPD, chronic respiratory failure as well as adverse effects of multiple muscle relaxant and pain medications Metabolic encephalopathy has resolved with BiPAP and patient is awake, alert, oriented at the present time, MRI was considered with possible anoxic encephalopathy. Again patient was highly stressed that he needs to use this supplemental oxygen and CPAP at all times and follow with pulmonary as soon as possible . DISCHARGE MEDICATIONS: Please see below. ALLERGIES: Please see below. PHYSICAL EXAMINATION ON DISCHARGE: VITAL SIGNS: Please see below. GENERAL: Normal. Afebrile HEENT: Janett extraocular muscles intact NECK: Supple CARDIOVASCULAR EXAMINATION: S1, S2, regular RESPIRATORY EXAMINATION: Decreased breath sounds bilaterally but no wheezing, rales or rhonchi ABDOMINAL EXAMINATION: Benign EXTREMITIES: Minimal bipedal edema SKIN: Normal NEUROLOGICAL EXAMINATION: . No focal motor sensory deficit PSYCHIATRIC EXAMINATION: Normal LABORATORY DATA: Please see below. IMAGING: Chest x-ray:There is a right pleural effusion. The left lung is clear. Cardiac size is normal. The donavan, mediastinum, skeletal structures are unremarkable. Next line impression: Right pleural effusion PROGNOSIS: Good ACTIVITY: As tolerated. DIET: Diabetic diet DISCHARGE PLAN: Follow with Dr. Bledsoe as an outpatient DISPOSITION: 01 Home, Self-Care. DISCHARGE INSTRUCTIONS: 1. As per discharge instructions. ITEMS TO FOLLOWUP ON ON OUTPATIENT: 1. Also Dr. Bledsoe as outpatient. DISCHARGE CONDITION: Stable. TIME SPENT ON DISCHARGE: 45 minutes. Vital Signs/I&Os Vital Signs Date Time Temp Pulse Resp B/P (MAP) Pulse Ox O2 Delivery O2 Flow Rate FiO2 04/18/19 08:00 98.3 85 18 120/85 (97) 98 Nasal Cannula 3.0 04/17/19 04:00 30 I&O- Last 24 Hours up to 6 AM 04/18/19 06:00 Intake Total 1680 ml Output Total 0 ml Balance 1680 ml Laboratory Data Labs 24H Laboratory Tests 2 04/17/19 12:01: Bedside Glucose (Misc Panel) 113 04/17/19 16:53: Bedside Glucose (Misc Panel) 112 04/17/19 19:54: Bedside Glucose (Misc Panel) 114 04/18/19 04:19: Immature Granulocyte % (Auto) 0.7, Neutrophils (%) (Auto) 68.6H, Lymphocytes (%) (Auto) 20.4L, Monocytes (%) (Auto) 9.2H, Eosinophils (%) (Auto) 0.2, Basophils (%) (Auto) 0.9, Neutrophils # (Auto) 3.1, Lymphocytes # (Auto) 0.9L, Monocytes # (Auto) 0.4, Eosinophils # (Auto) 0.0, Basophils # (Auto) 0.0, Nucleated Red Blood Cells % (auto) 0.0, Anion Gap 4L, Glomerular Filtration Rate > 60.0, Calcium Level 7.9L, Total Bilirubin 0.5, Aspartate Amino Transf (AST/SGOT) 8, Alanine Aminotransferase (ALT/SGPT) 11L, Alkaline Phosphatase 68, Total Protein 5.7L, Albumin 2.6L, Albumin/Globulin Ratio 0.84L 04/18/19 07:38: Bedside Glucose (Misc Panel) 89 CBC/BMP Laboratory Tests 04/18/19 04:19 FSBS Laboratory Tests Test 04/17/19 12:01 04/17/19 16:53 04/17/19 19:54 04/18/19 07:38 Range/Units Bedside Glucose (Misc Panel) 113 112 114 89 80-115 MG/DL Microbiology Microbiology 04/15/19 Blood Culture - Preliminary, Resulted No Growth after 48 hours. All Specime... 04/15/19 Respiratory Virus Panel (PCR) ([facility]) - Final, Complete 04/15/19 Blood Culture - Preliminary, Resulted No Growth after 48 hours. All Specime... Discharge Medications Scheduled Alfuzosin HCl (Alfuzosin HCl ER) 10 Mg Tab, 10 MG PO QPM, (Reported) Ammonium Lactate (Ammonium Lactate) 12 % Cre, 1 DOSE TOP BID, (Reported) APPLY TO LEGS Aspirin (Aspirin EC) 81 Mg Tabec, 81 MG PO DAILY, (Reported) Atorvastatin Calcium (Atorvastatin Calcium) 80 Mg Tab, 80 MG PO QPM, (Reported) Clopidogrel Bisulfate (Plavix) 75 Mg Tablet, 75 MG PO DAILY, (Reported) Diclofenac Sodium (Diclofenac Sodium) 1% 100GM Gel..gram., 2 GM TOP QHS, (Reported) APPLY TO SHOULDERS AND BACK OF NECK Fluticasone/Umeclidin/Vilanter (Trelegy Ellipta 100-62.5-25) 1 Each Blst.w.dev, 1 PUFF PO DAILY, (Reported) Furosemide (Furosemide) 20 Mg Tablet, 20 MG PO DAILY, (Reported) Glimepiride (Glimepiride) 2 Mg Tablet, 2 MG PO DAILY, (Reported) Insulin Glargine,Hum.rec.anlog (Lantus Solostar) 100 Unit/1 Ml Insuln.pen, 40 UNITS SC DAILY, (Reported) HAS NOT BEEN USING Insulin Human Lispro (Humalog) 100 Unit/1 Ml Vial, 6 UNITS SC ACS, (Reported) Magnesium Chloride (Mag64) 64 Mg Tablet.dr, 64 MG PO TID, (Reported) Metformin HCl (Glucophage) 1,000 Mg Tab, 1,000 MG PO BID, (Reported) Pantoprazole Sodium (Protonix) 40 Mg Tablet.dr, 40 MG PO DAILY, (Reported) Pioglitazone HCl (Pioglitazone HCl) 30 Mg Tablet, 30 MG PO DAILY, (Reported) Pregabalin (Lyrica) 200 Mg Cap, 200 MG PO TID, (Reported) Sitagliptin Phosphate (Januvia) 100 Mg Tab, 100 MG PO DAILY, (Reported) Scheduled PRN Albuterol Sulf (Albuterol Sulfate) 2.5 Mg/3 Ml Vial.neb, 1 VIAL NEB Q4H PRN for SOB/WHEEZING, (Reported) Albuterol Sulfate (Proair Hfa) 8.5 Gm Hfa.aer.ad, 2 PUFF INH Q4H PRN for SOB /WHEEZING, (Reported) Clobetasol Propionate/Emoll (Clobetasol Emollient 0.05% Crm) 0.05 % Cre, 1 APPLIC TOP BID PRN for PSORIASIS, (Reported) USES ON ARMS FOR PSORIASIS Diclofenac Sodium (Diclofenac Sodium) 1% 100GM Gel..gram., 2 GRAM TOP BID PRN for PAIN, (Reported) APPLY TO SHOULDERS AND NECK Hydrocodone/Acetaminophen (Hydrocodone-Acetamin 5-325 mg) 1 Each Tablet, 1 TAB PO Q4H PRN for PAIN, (Reported) Nitroglycerin (Nitrostat) 0.4 Mg Tab.subl, 0.4 MG SL NITRO PRN for CHEST PAIN, (Reported) Allergies Coded Allergies: gabapentin (Verified Adverse Reaction, Mild, Lowers Blood pressure, 12/03/18) DONNA DEL TORO MD Apr 18, 2019 11:20
== END 2019-04-18 10:36 | disposition home or self-care (01) | DRG 133 ==
LOC: M ED 15:22 → M ED INP 17:36 → EEVIPCON 17:36 → ENRESERVTM 18:43 → ENRESERVDT 18:43 → M PCU 21:05 → M ICU 04-16 01:41
PROVIDERS: ADMIT Internal Medicine; ATTEND Internal Medicine
DX: J96.22 Acute and chronic respiratory failure with hypercapnia (principal); I50.33 Acute on chronic diastolic (congestive) heart failure; G93.41 Metabolic encephalopathy; E11.42 Type 2 diabetes mellitus with diabetic polyneuropathy; I11.0 Hypertensive heart disease with heart failure; Z68.42 Body mass index [BMI] 45.0-49.9, adult; E66.01 Morbid (severe) obesity due to excess calories; J90 Pleural effusion, not elsewhere classified; J44.9 Chronic obstructive pulmonary disease, unspecified; Z79.4 Long term (current) use of insulin; G47.33 Obstructive sleep apnea (adult) (pediatric); Z91.14 Patient's other noncompliance with medication regimen; Z91.19 Patient's noncompliance with other medical treatment and regimen; R29.6 Repeated falls; G89.4 Chronic pain syndrome; E78.5 Hyperlipidemia, unspecified; L40.9 Psoriasis, unspecified; Z79.82 Long term (current) use of aspirin; Z79.899 Other long term (current) drug therapy; Z88.8 Allergy status to other drugs, medicaments and biological substances; R41.82 Altered mental status, unspecified; Z87.891 Personal history of nicotine dependence; Z79.84 Long term (current) use of oral hypoglycemic drugs; J98.11 Atelectasis; J96.21 Acute and chronic respiratory failure with hypoxia

== ENCOUNTER 2019-05-07 11:07 | Emergency (ER) | payer BC, MEDICARE ==
[~2019-05-07] VITALS: Ht 182.9 cm; Wt 153.6 kg
[~2019-05-07 11:07] MED LIST changes: +DICL1GEL3 TOP; +HYDR-3713 PO; +MAGN64TASA PO; +NITR4TASL SL
[2019-05-07] MEDS ORDERED: ACET-908 PO (12:08)
[2019-05-07] MEDS ORDERED: TORS10TA3 (12:08)
[2019-05-07 12:14] LABS: INFLUENZA A AMPLIFICATION NEGATIVE (NEGATIVE); INFLUENZA B AMPLIFICATION NEGATIVE (NEGATIVE)
[2019-05-07] MEDS ORDERED: methylPREDNISolone INJ 125 MG/2 ML VIAL (J2930) IV ONE (12:15)
[2019-05-07] MEDS ORDERED: IPRATROPIUM 0.5MG/ALBUTEROL 2.5MG INH SOL UD 3ML (DUONEB)(J7620) NEB ONE (12:15)
--- NOTE | 2019-05-07 12:33 | REP ---
Clinical: Cough and dyspnea. Comparison: 04/17/2019. Findings: Small to moderate right pleural effusion and bibasilar atelectasis noted. Stable cardiomegaly. Underlying pulmonary vascular congestion and interstitial edema cannot be excluded. Impression: Small to moderate right pleural effusion and mild basilar atelectasis. Pulmonary vascular congestion/interstitial edema cannot be excluded as well. Electronically Signed by Roger Miramontes MD 05/07/2019 12:25 P
[2019-05-07 13:07] LABS: BASO % 0.3 % (0.0-1.0); HEMATOCRIT 30.3 % (42.0-52.0); LYMPH # 0.4 10^3/uL (1.5-5.0); LYMPH % 3.2 % (24.0-44.0); MEAN CORPUSCULAR HEMOGLOBIN 26.2 pg (27.0-33.0); MEAN CORPUSCULAR HGB CONC 29.7 g/dl (32.0-36.5); MEAN CORPUSCULAR VOLUME 88.3 fl (80.0-96.0); MONO # 0.8 10^3/uL (0.0-0.8); MONO % 7.4 % (0.0-5.0); NEUTROPHILS # 9.9 10^3/uL (1.5-8.5); NEUTROPHILS % 88.7 % (36.0-66.0); PLATELET COUNT, AUTOMATED 181 10^3/uL (150-450); RED BLOOD COUNT 3.43 10^6/uL (4.30-6.10); WHITE BLOOD COUNT 11.1 10^3/uL (4.0-10.0)
[2019-05-07 13:47] LABS: ALT/SGPT 14 U/L (12-78); BILIRUBIN,DIRECT 0.2 MG/DL (0.0-0.2); BILIRUBIN,TOTAL 0.5 MG/DL (0.2-1.0); BLOOD UREA NITROGEN 24 MG/DL (7-18); CALCIUM LEVEL 7.9 MG/DL (8.8-10.2); CARBON DIOXIDE LEVEL 31 MEQ/L (21-32); CHLORIDE LEVEL 102 MEQ/L (98-107); CK-MB VALUE MASS 2.5 NG/ML (<3.6); CPK CREATINE PHOSPHOKINASE 74 U/L (39-308); CREATININE FOR GFR 1.22 MG/DL (0.70-1.30); GLOMERULAR FILTRATION RATE > 60.0 (>49); GLUCOSE, FASTING 49 MG/DL (70-100); MAGNESIUM LEVEL 1.3 MG/DL (1.8-2.4); MB/CK RELATIVE INDEX 3.38 (< OR =4); NT-PRO BNP 1335 PG/ML (<125); POTASSIUM SERUM 4.4 MEQ/L (3.5-5.1); SODIUM LEVEL 138 MEQ/L (136-145); TOTAL PROTEIN 6.2 GM/DL (6.4-8.2); TROPONIN I 0.11 NG/ML (< 0.10)
[2019-05-07] MEDS ORDERED: LevoFLOXacin IV 750 MG in IV 1 EA IV ONE (14:00)
[2019-05-07] MEDS ORDERED: NS 500 ML IV ONE (14:00)
[2019-05-07] MEDS ORDERED: AZITHROMYCIN INJ 500 MG, VIAL MATE ADAPTER 1 EACH in D5W 250 ML IV ONE (14:00)
[2019-05-07] MEDS ORDERED: cefTRIAXone SOD 2 GM in D5W MINI-BAG PLUS 50 ML IV ONE (14:00)
[2019-05-07] MEDS ORDERED: AZIT500T5 PO (14:16)
[2019-05-07] MEDS ORDERED: PRED20TA PO (14:16)
[2019-05-07 14:43] VITALS: BP 102/50
[2019-05-07] MEDS ORDERED: AZITHROMYCIN 250 MG TAB PO ONE (15:00)
--- NOTE | 2019-05-08 04:55 | ECGEPIP ---
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
== END 2019-05-07 14:46 | disposition home or self-care (01) ==
LOC: M ED 11:07
DX: J20.9 Acute bronchitis, unspecified (principal); J44.1 Chronic obstructive pulmonary disease with (acute) exacerbation; I50.9 Heart failure, unspecified; J90 Pleural effusion, not elsewhere classified; E66.9 Obesity, unspecified; I10 Essential (primary) hypertension; E78.5 Hyperlipidemia, unspecified; F17.200 Nicotine dependence, unspecified, uncomplicated; Z79.82 Long term (current) use of aspirin; Z79.899 Other long term (current) drug therapy; Z88.8 Allergy status to other drugs, medicaments and biological substances
CPT/HCPCS: 71045; 80048; 80076; 82550; 82553; 82803; 83605; 83735; 83880; 84443; 84484; 85025; 87040; 87502; 93005; 93041; 96374; 99285; J2930

== ENCOUNTER 2019-09-24 05:38 | Inpatient (IN) | payer BC, MEDICARE ==
[~2019-09-24] VITALS: Ht 182.9 cm; Wt 158.5 kg
[~2019-09-24 05:38] MED LIST changes: +ACET-908 PO; +AZIT500T5 PO; +PRED20TA PO; +TORS10TA3 PO
[2019-09-24] MEDS ORDERED: IBUPROFEN 800 MG TAB PO ONE (06:15)
[2019-09-24] MEDS ORDERED: ACETAMINOPHEN 325 MG TAB PO ONE (06:15)
[2019-09-24 06:40] LABS: BASO % 0.3 % (0.0-1.0); HEMATOCRIT 33.8 % (42.0-52.0); HEMOGLOBIN 10.6 g/dl (13.5-17.5); LYMPH # 0.5 10^3/uL (1.5-5.0); LYMPH % 3.3 % (24.0-44.0); MEAN CORPUSCULAR HGB CONC 31.4 g/dl (32.0-36.5); MONO # 0.8 10^3/uL (0.0-0.8); NEUTROPHILS # 14.1 10^3/uL (1.5-8.5); NEUTROPHILS % 90.2 % (36.0-66.0); PLATELET COUNT, AUTOMATED 236 10^3/uL (150-450); RED BLOOD COUNT 4.07 10^6/uL (4.30-6.10); WHITE BLOOD COUNT 15.7 10^3/uL (4.0-10.0)
[2019-09-24] MEDS ORDERED: NS 1,000 ML IV ONE ×2 (06:45→09:45)
[2019-09-24 06:56] LABS: ALBUMIN 3.1 GM/DL (3.2-5.2); BILIRUBIN,DIRECT 0.3 MG/DL (0.0-0.2); BILIRUBIN,TOTAL 0.7 MG/DL (0.2-1.0); TOTAL PROTEIN 7.3 GM/DL (6.4-8.2)
[2019-09-24] MEDS ORDERED: PIPERACILLIN/TAZOBACTAM SOD 3.375 GM in D5W MINI-BAG PLUS 50 ML IV ONE (07:00)
[2019-09-24] MEDS ORDERED: PIOG1TAB36 PO (07:15)
[2019-09-24] MEDS ORDERED: LANTINJ4 SC (07:15)
[2019-09-24] MEDS ORDERED: INSUHUMDS SC (07:15)
--- NOTE | 2019-09-24 08:00 | REP ---
Clinical: Fever. Comparison: 06/15/2019. Findings: Cardiomegaly is again appreciated. Trace basilar atelectasis (left greater than right) suggested. No definite effusion. No pneumothorax. Skeletal structures intact. Impression: Left basilar atelectasis. Electronically Signed by Roger Miramontes MD 09/24/2019 07:52 A
[2019-09-24] MEDS: LEVEMIR (INSULIN DETEMIR) 1 UNITS/0.01ML SC SCH (09:00)
[2019-09-24] MEDS: MAGNESIUM CHLORIDE 64 MG TABCR (SLO MAG) PO SCH ×3 (09:00→20:38)
[2019-09-24] MEDS ORDERED: PREGABALIN 100 MG CAP (LYRICA) PO SCH ×2 (09:00→16:00)
[2019-09-24] MEDS ORDERED: GLUCOSE 4GM CHEW TABLET PO PRN (09:30)
[2019-09-24] MEDS ORDERED: CLOBETASOL PROPIONATE EMOLLIENT 0.05% CR 60 GM TOP PRN (09:30)
[2019-09-24] MEDS ORDERED: GLUCAGON INJ 1MG VIAL SC PRN (09:30)
[2019-09-24] MEDS ORDERED: LACTIC ACID 12% LOTION 225 GM BTL TOP PRN (09:30)
[2019-09-24] MEDS ORDERED: NITROGLYCERIN 0.4 MG SUBL TABLET SL PRN (09:30)
[2019-09-24] MEDS ORDERED: ACETAMINOPHEN TAB 650MG DOSE (2X325MG) PO PRN (09:30)
[2019-09-24] MEDS ORDERED: DEXTROSE 50% 50 ML SYRINGE IV PRN (09:30)
[2019-09-24 09:58] LABS: CK-MB VALUE MASS 7.1 NG/ML (<3.6); MB/CK RELATIVE INDEX 0.55 (< OR =4); TROPONIN I 0.04 NG/ML (< 0.10)
--- NOTE | 2019-09-24 10:40 | REP ---
Clinical: Lethargy and confusion. Comparison: 12/03/2018 . Findings: Age-related atrophy and microvascular ischemic changes are appreciated. The ventricles and sulci are symmetric. Xiong-white differentiation is maintained. There is no evidence for acute intracranial hemorrhage, mass/mass effect, pathology or infarction. No extra-axial fluid collection. Calvarium is intact. Paranasal sinuses and mastoid air cells are clear. Impression: Age related atrophy and microvascular ischemic changes. No acute intracranial hemorrhage, infarction, or mass/mass effect. Electronically Signed by Roger Miramontes MD 09/24/2019 10:32 A
[2019-09-24] MEDS: NS 1,000 ML IV SCH ×2 (10:44→20:40)
--- NOTE | 2019-09-24 10:56 | REP ---
Clinical: Sepsis. Technique: Axial noncontrast images from the lung bases to the pubic symphysis with coronal and sagittal re-formations. Comparison: None. Findings: The liver, spleen, pancreas, gallbladder, and bilateral adrenal glands are normal. The kidneys demonstrate rounded hypodense and isointense lesions suggesting simple and complex cysts without acute perinephric stranding or hydronephrosis. The enteric system is without obstruction or acute inflammatory process. The pelvis demonstrates normal bladder and age appropriate prostate/seminal vesicles. No ascites. No free air. No adenopathy. Abdominal aorta without aneurysm. Musculoskeletal structures demonstrate age-related degenerative changes. Impression: 1. No acute abdominopelvic pathology appreciated. 2. No ascites, focal inflammatory stranding, or adenopathy. 3. Few scattered renal lesions likely representing simple and complex cysts. Electronically Signed by Roger Miramontes MD 09/24/2019 10:48 A
--- NOTE | 2019-09-24 10:59 | REP ---
Clinical: Shortness of breath. Technique: Axial noncontrast images from the thoracic inlet to the upper abdomen with coronal and sagittal re-formations. Comparison: 04/15/2019. Findings: Current examination demonstrates a lingular, low left lower lobe, and right lower lobe atelectasis and minimal pleural reactions. No significant effusion. No pneumothorax. Tracheobronchial tree is patent. No obvious adenopathy. Mediastinum demonstrates stable atherosclerotic changes to the thoracic aorta and coronary arteries without aortic aneurysm or cardiomegaly. No pericardial effusion. Surrounding musculoskeletal structures demonstrate age-related changes. Impression: 1. Left lower lobe, lingular, and right lower lobe atelectasis with minimal small pleural reactions. Electronically Signed by Roger Miramontes MD 09/24/2019 10:50 A
[2019-09-24 12:50] VITALS: BP 114/49
[2019-09-24 13:03] LABS: BASO % 0.2 % (0.0-1.0); HEMATOCRIT 31.7 % (42.0-52.0); HEMOGLOBIN 9.9 g/dl (13.5-17.5); LYMPH # 0.7 10^3/uL (1.5-5.0); LYMPH % 3.8 % (24.0-44.0); MEAN CORPUSCULAR HEMOGLOBIN 26.3 pg (27.0-33.0); MEAN CORPUSCULAR HGB CONC 31.2 g/dl (32.0-36.5); MEAN CORPUSCULAR VOLUME 84.3 fl (80.0-96.0); MONO # 0.7 10^3/uL (0.0-0.8); MONO % 3.9 % (0.0-5.0); NEUTROPHILS # 16.8 10^3/uL (1.5-8.5); NEUTROPHILS % 91.1 % (36.0-66.0); PLATELET COUNT, AUTOMATED 204 10^3/uL (150-450); RED BLOOD COUNT 3.76 10^6/uL (4.30-6.10); WHITE BLOOD COUNT 18.4 10^3/uL (4.0-10.0)
[2019-09-24] MEDS: ASPIRIN 81 MG ENTERIC TAB PO SCH (13:18)
[2019-09-24] MEDS: CLOPIDOGREL 75 MG TAB PO SCH (13:18)
[2019-09-24] MEDS: PIPERACILLIN/TAZOBACTAM SOD 3.375 GM in D5W MINI-BAG PLUS 50 ML IV SCH ×2 (13:18→18:40)
[2019-09-24] MEDS: PANTOPRAZOLE 40MG TAB (PROTONIX) PO SCH (13:18)
[2019-09-24 13:34] LABS: ALBUMIN 2.6 GM/DL (3.2-5.2); BILIRUBIN,TOTAL 0.6 MG/DL (0.2-1.0); CALCIUM LEVEL 7.5 MG/DL (8.8-10.2); CREATININE FOR GFR 2.55 MG/DL (0.70-1.30); GLOMERULAR FILTRATION RATE 27.4 (>49); MAGNESIUM LEVEL 1.3 MG/DL (1.8-2.4); POTASSIUM SERUM 4.7 MEQ/L (3.5-5.1); TOTAL PROTEIN 6.3 GM/DL (6.4-8.2)
[2019-09-24 13:51] LABS: CK-MB VALUE MASS 19.2 NG/ML (<3.6); MB/CK RELATIVE INDEX 0.54 (< OR =4); TROPONIN I 0.05 NG/ML (< 0.10)
[2019-09-24] MEDS: HumaLOG INSULIN (NovoLOG) PER UNIT SC SCH ×3 (13:52→20:40)
[2019-09-24] MEDS: HEPARIN SOD (PORCINE) 5000UNITS/ML VIAL (J1644 PER 1000UNITS) SC SCH ×2 (13:52→20:40)
[2019-09-24] MEDS: NORCO, ANEXSIA 5/325MG TABLET (HYDROcodone/ACETAMINOPHEN) PO SCH ×3 (13:53→20:39)
[2019-09-24] MEDS ORDERED: ALBUTEROL SULFATE 2.5 MG/0.5 ML INH NEB SOLN INH PRN (14:00)
--- NOTE | 2019-09-24 14:27 | HPEPDOC ---
General Date of Admission Sep 24, 2019 at 11:50 Date of Service: Sep 24, 2019 Chief Complaint The patient is a 64-year-old male who presented to the hospital with complaints of confusion and fever History of Present Illness Patient is a 64-year-old male with a PMHx of IDDM2, DLP, LINDA (non- compliant with CPAP), COPD, Neuropathy, Chronic back/neck pain (on opiates), Psoriasis, Morbid obesity, who presented to the hospital after hes found to be confused with fever at home. Upon arrival to emergency room, patient was found to have a fever and sepsis protocol was partially started with 1 L of normal saline and a dose of Zosyn. Hospitalist service was contacted for admission. Upon evaluation, patient emergency room, he was unable to answer any specific questions secondary to lethargy / somnolence. Patient was unable to provide any specific details to his history. He did report urinary discomfort. Majority of information was collected through the medical record. I have contac raghav his , Lee Ann Altman ([phone]). As per the , they noted he was experiencing weakness while at home. Home Medications Scheduled Alfuzosin HCl (Alfuzosin HCl ER) 10 Mg Tab, 10 MG PO QHS, (Reported) Aspirin (Aspirin EC) 81 Mg Tabec, 81 MG PO DAILY, (Reported) Atorvastatin Calcium (Atorvastatin Calcium) 80 Mg Tab, 80 MG PO QHS, (Reported) Clopidogrel Bisulfate (Plavix) 75 Mg Tablet, 75 MG PO DAILY, (Reported) Diclofenac Sodium (Diclofenac Sodium) 1% 100GM Gel..gram., 2 GM TOP QHS, (Reported) APPLY TO SHOULDERS AND BACK OF NECK Fluticasone/Umeclidin/Vilanter (Trelegy Ellipta 100-62.5-25) 1 Each Blst.w.dev, 1 PUFF PO QHS, (Reported) Glimepiride (Glimepiride) 2 Mg Tablet, 2 MG PO DAILY, (Reported) Hydrocodone/Acetaminophen (Hydrocodone-Acetamin 5-325 mg) 1 Each Tablet, 1 TAB PO QID, (Reported) Insulin Glargine,Hum.rec.anlog (Lantus Solostar) 100 Unit/1 Ml Insuln.pen, 30 UNIT SC DAILY, (Reported) Insulin Human Lispro (Humalog) 100 Unit/1 Ml Vial, 10 UNITS SC ACB, (Reported) Magnesium Chloride (Mag64) 64 Mg Tablet.dr, 64 MG PO TID, (Reported) Metformin HCl (Glucophage) 1,000 Mg Tab, 2,000 MG PO QPM, (Reported) WITH DINNER Pantoprazole Sodium (Protonix) 40 Mg Tablet.dr, 40 MG PO DAILY, (Reported) Pioglitazone HCl (Pioglitazone HCl) 15 Mg Tablet, 15 MG PO DAILY, (Reported) Pregabalin (Lyrica) 200 Mg Cap, 200 MG PO TID, (Reported) Sitagliptin Phosphate (Januvia) 100 Mg Tab, 100 MG PO DAILY, (Reported) Torsemide (Torsemide) 10 Mg Tablet, 10 MG PO DAILY, (Reported) Scheduled PRN Acetaminophen (Acetaminophen) 325 Mg Tablet, 650 MG PO Q6H PRN for PAIN / FEVER, (Reported) Albuterol Sulf (Albuterol Sulfate) 2.5 Mg/3 Ml Vial.neb, 1 VIAL NEB Q4H PRN for SOB/WHEEZING, (Reported) Albuterol Sulfate (Proair Hfa) 8.5 Gm Hfa.aer.ad, 2 PUFF INH Q4H PRN for SOB/WHEEZING, (Reported) Ammonium Lactate (Ammonium Lactate) 12 % Cre, 1 DOSE TOP BID PRN for DRY SKIN, (Reported) APPLY TO LEGS Clobetasol Propionate/Emoll (Clobetasol Emollient 0.05% Crm) 0.05 % Cre, 1 APPLIC TOP BID PRN for PSORIASIS, (Reported) USES ON ARMS FOR PSORIASIS Nitroglycerin (Nitrostat) 0.4 Mg Tab.subl, 0.4 MG SL NITRO PRN for CHEST PAIN, (Reported) Allergies Coded Allergies: gabapentin (Verified Adverse Reaction, Mild, Lowers Blood pressure, 05/07/19) Past Medical History Medical History IDDM2, DLP, LINDA (non-compliant with CPAP), COPD, Neuropathy, Chronic back/neck pain (on opiates), Psoriasis, Morbid obesity Surgical History Neck mass surgery Left inguinal hernia surgery Left shoulder arthroscopy Left forearm surgery Family History - No history of malignancies Social History - Denies the use of alcohol, tobacco or illicit drugs - Denies recent travel or sick contacts - Lives with Review of Systems Other systems Unable to be obtained, as patient is confused Vital Signs - Vitals: BP 114/49, HR 89, RR 18, Sat 96%NC3L, Temp 98.1F - General: Lying in bed, Able to answer simple questions, Awake / Alert, Oriented to person - HEENT: NC, AT, PERRLA - CVS: RRR, +S1S2 - Lungs: Fair air entry bilaterally, Bilateral wheezing appreciated, No rales / rhonchi - Abdomen: Soft, Non-distended, Non-tender - Extremities: No lower extremity edema, No calf tenderness - Neuro: No focal motor or sensory deficit - Skin: No visible rashes Laboratory Data Labs 24H Laboratory Tests 2 09/24/19 06:18: Immature Granulocyte % (Auto) 1.2, Neutrophils (%) (Auto) 90.2H, Lymphocytes (%) (Auto) 3.3L, Monocytes (%) (Auto) 5.0, Eosinophils (%) (Auto) 0.0, Basophils (%) (Auto) 0.3, Neutrophils # (Auto) 14.1H, Lymphocytes # (Auto) 0.5L, Monocytes # (Auto) 0.8, Eosinophils # (Auto) 0.0, Basophils # (Auto) 0.0, Nucleated Red Blood Cells % (auto) 0.0, Lactic Acid Level 3.4*H, Total Bilirubin 0.7, Direct Bilirubin 0.3H, Aspartate Amino Transf (AST/SGOT) 30, Alanine Aminotransferase (ALT/SGPT) 16, Alkaline Phosphatase 121H, Total Creatine Kinase 1297H, Creatine Kinase MB 7.1H, Creatine Kinase MB Relative Index 0.55, Troponin I 0.04, Total Protein 7.3, Albumin 3.1L, Albumin/Globulin Ratio 0.7, Lipase 48L 09/24/19 06:32: POC Glucose (Misc Panel) 259H, POC Sodium (Misc Panel) 135L, POC Potassium (Misc Panel) 4.8, POC Chloride (Misc Panel) 94L, POC Total CO2 (Misc Panel) 30.0H, POC Blood Urea Nitrogen (Misc Panel 25, POC Ionized Calcium (Misc Panel) 3.7L, POC Creatinine (Misc Panel) 2.1H, POC Hematocrit (Misc Panel) 34.0L 09/24/19 10:17: Lactic Acid Level 1.9 09/24/19 11:25: Urine Color YELLOW, Urine Appearance CLOUDYH, Urine pH 5.0, Urine Specific Trail 1.013, Urine Protein NEGATIVE, Urine Glucose (UA) NEGATIVE, Urine Ketones NEGATIVE, Urine Blood 3+H, Urine Nitrite POSITIVEH, Urine Bilirubin NEGATIVE, Urine Urobilinogen 0.2, Urine Leukocyte Esterase 3+H, Urine WBC (Auto) 47H, Urine RBC (Auto) 5H, Urine Hyaline Casts (Auto) 0, Urine Bacteria (Auto) 3+H, Urine Squamous Epithelial Cells 1, Urine Amorphous Sediment SMALLH, Urine Sperm (Auto) 09/24/19 12:52: Total Creatine Kinase 3579#H, Creatine Kinase MB 19.2H, Creatine Kinase MB Relative Index 0.54, Troponin I 0.05# 09/24/19 12:53: Immature Granulocyte % (Auto) 1.0, Neutrophils (%) (Auto) 91.1H, Lymphocytes (%) (Auto) 3.8L, Monocytes (%) (Auto) 3.9, Eosinophils (%) (Auto) 0.0, Basophils (%) (Auto) 0.2, Neutrophils # (Auto) 16.8H, Lymphocytes # (Auto) 0.7L, Monocytes # (Auto) 0.7, Eosinophils # (Auto) 0.0, Basophils # (Auto) 0.0, Nucleated Red Blood Cells % (auto) 0.0, Anion Gap 5L, Glomerular Filtration Rate 27.4L, Lactic Acid Followup at 4 Hours 1.9, Calcium Level 7.5L, Magnesium Level 1.3L, Total Bilirubin 0.6, Aspartate Amino Transf (AST/SGOT) 76H, Alanine Aminotransferase (ALT/SGPT) 20, Alkaline Phosphatase 93, Total Protein 6.3L, Albumin 2.6L, Albumin/Globulin Ratio 0.7 09/24/19 13:54: CBC/BMP Laboratory Tests 09/24/19 06:18 09/24/19 12:53 Microbiology Microbiology 09/24/19 Urine Culture, Received Pending 09/24/19 Respiratory Virus Panel (PCR) ([facility]) - Final, Complete 09/24/19 Blood Culture, Received Pending 09/24/19 Blood Culture, Received Pending Plan / VTE VTE Prophylaxis Ordered?: Yes Plan Plan Acute metabolic encephalopathy - Patient agrees to be confused, but is able to answer questions - Physical without any focal neurologic deficits; moving all 4 extremities - Will check CT head without contrast - Will adjust dose of pain medications - c/w Telemetry monitoring / LINDA protocol Sepsis - Patient presented to the ER with complaints of weakness as per the - In the ER patient was noted to have a fever - No urine sample has been collected in ER - Leukocytosis / Lactic acidosis - Respiratory panel 09/23: Negative - CXR 09/23: Left basilar atelectasis. - Will Check CT Chest / Abdomen / Pelvis - Will check UA / Reflex Culture - will place Lombardi catheter for critical monitoring - Will check Procalcitonin / MRSA screen - Will c/w broad spectrum antibiotics and IV fluid hydration Lactic acidosis - Will follow up repeat lactic acid within 4 hours - Will continue with IV fluid hydration (re: patient has a recent admission for CHF exacerbation) Acute renal failure - Baseline Cr of 1-1.3 - Cr on admission of 2.3 - Avoid nephrotoxic medications - Will continue with IV fluid hydration - Will check CT abdomen / pelvis - Will place Lombardi catheter IDDM2 - Will start ISS and adjusted dose of Levemir DLP - c/w Atorvastatin and ASA 81 LINDA - May allow home CPAP use while inpatient COPD - Wheezing noted on exam - Will check CT chest - c/w inhaled therapy as ordered Neuropathy - c/w Adjusted dose of Pregabalin Chronic back/neck pain - Patient was on opiates) as an outpatient; will continue if mentation improves Psoriasis - c/w topical therapy Morbid obesity - BMI of 46 - Complicating medical care GERD - c/w Protonix DVT prophylaxis - Will start Heparin URIEL YOUNG MD Sep 24, 2019 14:27
[2019-09-24] MEDS: MAG SULF 1GM/100ML (MAG RUN) 1 GM in IV 1 EA IV SCH ×3 (14:28→16:28)
[2019-09-24 14:33] LABS: ABG BASE EXCESS 0.2 (-2.0-2.0); ABG HCO3 26.4 MEQ/L (22.0-26.0); ABG PARTIAL PRESSURE CO2 50.1 mmHg (35.0-45.0); ABG STANDARD HCO3 24.6 MEQ/L (22.0-26.0); ABG TOTAL CO2 27.9 MEQ/L (23.0-31.0); ABG pH (ARTERIAL) 7.339 UNITS (7.350-7.450)
[2019-09-24] MEDS: ALBUTEROL SULFATE 2.5 MG/0.5 ML INH NEB SOLN INH SCH ×2 (14:52→20:27)
[2019-09-24 16:00] VITALS: BP 92/53
[2019-09-24] MEDS: PREGABALIN 100 MG CAP (LYRICA) PO SCH ×2 (16:28→20:38)
[2019-09-24] MEDS ORDERED: NYSTATIN 100,000 UNITS/GM TOPICAL PWD 15 GM TOP PRN (18:00)
--- NOTE | 2019-09-24 18:57 | REPVR ---
PROCEDURE INFORMATION: Exam: MR Head Without Contrast Exam date and time: 09/24/2019 5:44 PM Age: 64 years old Clinical indication: Weakness, extremity; Right; Patient HX: RT side weakness; Additional info: R leg numbness TECHNIQUE: Imaging protocol: MR of the head without contrast. COMPARISON: MRI-Brain without Contrast 04/15/2019 8:02 PM FINDINGS: Brain: Normal. No acute infarct. No hemorrhage. No significant white matter disease. No edema. Ventricles: Normal. No ventriculomegaly. Bones/joints: Unremarkable. Sinuses: Normal as visualized. No acute sinusitis. Mastoid air cells: Normal as visualized. No mastoid effusion. Orbits: Unremarkable. Soft tissues: Unremarkable. IMPRESSION: No acute intracranial abnormality. Electronically signed by: Henry Cruz On 09/24/2019 18:56:57 PM
[2019-09-24 19:49] LABS: CK-MB VALUE MASS 20.4 NG/ML (<3.6); MB/CK RELATIVE INDEX 0.47 (< OR =4); TROPONIN I 0.04 NG/ML (< 0.10)
--- NOTE | 2019-09-24 19:52 | REPVR ---
PROCEDURE INFORMATION: Exam: MR Cervical Spine Without Contrast Exam date and time: 09/24/2019 5:54 PM Age: 64 years old Clinical indication: Patient HX: RT side numbness/weakness; Additional info: R leg numbness / no contrast TECHNIQUE: Imaging protocol: Multiplanar magnetic resonance images of the cervical spine without contrast. COMPARISON: CT Neck with contrast 08/30/2015 3:05 PM FINDINGS: Vertebrae: Straightening of the cervical spine. Spinal cord: Normal signal. No cord compression. C2-C3: No significant disc disease. No significant spinal stenosis. C3-C4: Uncovertebral and facet hypertrophy. Moderate spinal canal stenosis. Severe bilateral neural foraminal narrowing. C4-C5: Intervertebral disc spacer at C4-C5, C5-C6 and C6-C7 levels. Anterior approach Micro screws at the level of C4-C5 level. Uncovertebral hypertrophy. Moderate spinal canal stenosis. Severe bilateral neural foraminal narrowing. C5-C6: Uncovertebral hypertrophy. Moderate bilateral neural foraminal narrowing. Mild to moderate spinal canal stenosis. C6-C7: No significant disc disease. No significant spinal stenosis. C7-T1: No significant disc disease. No significant spinal stenosis. Vertebral arteries: Expected flow voids in the vertebral arteries. Soft tissues: Unremarkable. Other findings: Motion artifact degrading the images. IMPRESSION: Multilevel uncovertebral and facet hypertrophy with neural foraminal narrowing. Severe bilateral neural foraminal narrowing at C3-C4, C4-C5, moderate bilateral C5-C6. Moderate spinal canal stenosis at C3-C4, C4-C5, mild to moderate at C5-C6. Electronically signed by: Henry Cruz On 09/24/2019 19:52:16 PM
[2019-09-24 20:00] VITALS: BP 131/59
[2019-09-24] MEDS: ATORVASTATIN 20 MG TAB PO SCH (20:38)
[2019-09-25] VITALS: BP 126/57
[2019-09-25] MEDS: PIPERACILLIN/TAZOBACTAM SOD 3.375 GM in D5W MINI-BAG PLUS 50 ML IV SCH ×4 (01:05→18:43)
[2019-09-25 04:00] VITALS: BP 142/75
[2019-09-25 04:51] LABS: BASO % 0.3 % (0.0-1.0); HEMATOCRIT 31.3 % (42.0-52.0); HEMOGLOBIN 9.6 g/dl (13.5-17.5); LYMPH # 0.4 10^3/uL (1.5-5.0); LYMPH % 3.6 % (24.0-44.0); MEAN CORPUSCULAR HEMOGLOBIN 25.9 pg (27.0-33.0); MEAN CORPUSCULAR HGB CONC 30.7 g/dl (32.0-36.5); MEAN CORPUSCULAR VOLUME 84.4 fl (80.0-96.0); MONO # 0.4 10^3/uL (0.0-0.8); MONO % 4.1 % (0.0-5.0); NEUTROPHILS # 9.7 10^3/uL (1.5-8.5); NEUTROPHILS % 90.8 % (36.0-66.0); PLATELET COUNT, AUTOMATED 178 10^3/uL (150-450); RED BLOOD COUNT 3.71 10^6/uL (4.30-6.10); WHITE BLOOD COUNT 10.7 10^3/uL (4.0-10.0)
[2019-09-25 05:11] LABS: CALCIUM LEVEL 7.2 MG/DL (8.8-10.2); CREATININE FOR GFR 2.21 MG/DL (0.70-1.30); GLOMERULAR FILTRATION RATE 32.3 (>49); MAGNESIUM LEVEL 1.7 MG/DL (1.8-2.4); POTASSIUM SERUM 4.4 MEQ/L (3.5-5.1)
[2019-09-25] MEDS: HEPARIN SOD (PORCINE) 5000UNITS/ML VIAL (J1644 PER 1000UNITS) SC SCH ×3 (06:31→20:24)
--- NOTE | 2019-09-25 06:35 | ECHO ---
DATE OF PROCEDURE: 09/24/2019 AGE: 64 GENDER: Male. HEIGHT: 72 inches WEIGHT: 339 pounds BODY SURFACE AREA: 2.66 sq m INPATIENT: Progressive care unit (PCU), room 3217. REFERRING PHYSICIAN: Dr. Billy Samson INDICATION: Dyspnea. MEASUREMENTS: 2D measurements: RV: 4.3 cm LV: 4.1 cm Septum: 1.3 cm Posterior wall: 1.3 cm Aortic root: 3.4 cm LA: 4.0 cm LVEF: 65% Doppler measurements: AV: 1.64 m/s LVOT: 1.1 m/s LVOT diameter: 1.8 cm MV-E: 105 A: 96 E/A ratio: 1.1 Early mitral deceleration time: 153 ms E prime medial: 6.1 A prime medial: 10.3 E prime lateral: 6.1 Average E/E prime ratio: 17.2/PCWP: 23 mmHg PV: 0.75 m/s Pulmonary artery acceleration time: 114 ms PASP: 34 mmHg IVC: 2.0 cm COMMENTS: Normal sinus rhythm without intraventricular conduction disturbance. Technically challenging study in light of the patient's body habitus, but diagnostically useful information was still obtained. M-mode and two-dimensional echocardiography was performed with pulsed, continuous wave, color flow, and tissue Doppler studies. Mild concentric left ventricle hypertrophy with normal wall motion. Mildly dilated left atrium with grade 2 left ventricle (LV) diastolic dysfunction and elevated estimated mean left atrial pressure. Mildly dilated right heart chambers with normal wall motion and Doppler evidence of at least mild pulmonary hypertension. Normal inferior vena cava (IVC) size and respiratory collapse against an elevated central venous pressure at this time. Normal aortic diameters. Slightly thickened aortic cusps with normal cusp separation and no insufficiency. Normal appearing mitral valvular apparatus and leaflet excursion with no posterior systolic buckling and no more than trace insufficiency. Normal appearing tricuspid valve, but assessment of tricuspid insufficiency was challenging in light of the patient's body habitus. Unable to detect any intracardiac mass or pericardial effusion.
[2019-09-25 07:49] VITALS: BP 129/73
[2019-09-25] MEDS: HumaLOG INSULIN (NovoLOG) PER UNIT SC SCH ×4 (07:59→20:23)
[2019-09-25] MEDS: LEVEMIR (INSULIN DETEMIR) 1 UNITS/0.01ML SC SCH (08:00)
[2019-09-25] MEDS: PANTOPRAZOLE 40MG TAB (PROTONIX) PO SCH (08:00)
[2019-09-25] MEDS ORDERED: MAG SULF 1GM/100ML (MAG RUN) 1 GM in IV 1 EA IV ONE (08:00)
[2019-09-25] MEDS: CLOPIDOGREL 75 MG TAB PO SCH (08:00)
[2019-09-25] MEDS: MAGNESIUM CHLORIDE 64 MG TABCR (SLO MAG) PO SCH ×3 (08:00→20:25)
[2019-09-25] MEDS: ASPIRIN 81 MG ENTERIC TAB PO SCH (08:01)
[2019-09-25] MEDS: PREGABALIN 100 MG CAP (LYRICA) PO SCH ×3 (08:01→20:25)
[2019-09-25] MEDS: NORCO, ANEXSIA 5/325MG TABLET (HYDROcodone/ACETAMINOPHEN) PO SCH ×4 (08:01→20:25)
[2019-09-25] MEDS: ALBUTEROL SULFATE 2.5 MG/0.5 ML INH NEB SOLN INH SCH ×4 (08:55→21:07)
--- NOTE | 2019-09-25 10:47 | IPNPDOC ---
Text Note Date of Service The patient was seen on 09/25/19. NOTE Subjective: Patient is a 64-year-old male with a PMHx of IDDM2, DLP, LINDA (non- compliant with CPAP), COPD, Neuropathy, Chronic back/neck pain (on opiates), Psoriasis, Morbid obesity, who presented to the hospital after hes found to be confused with fever at home. Hospitalist service was contacted for admission for suspected infection / KARMEN. Patient was seen and examined at the bedside. . Currently, patient is awake, alert and oriented to person, place and time. He denies any chest pain, shortness of breath or palpitations. Denies nausea, vomiting, abdominal pain, diarrhea. Patient has Lombardi catheter that has since been placed, but will be discontinued today. Objective: Vitals (See below) General: Lying in bed, appears comfortable, AAOx3 HEENT: NC, AT CVS: +S1S2 Lungs: Fair air entry b/l, no appreciable rhonchi or crackles, mild wheezing Abdomen: Soft, nondistended and nontender, obese Extremities: No evidence of LE edema, - Calf tenderness Assessment and plan: Sepsis - likely 2/2 urinary tract infection - Patient presented to the hospital with complaints of weakness and fever - On discussion with patient. He did report discomfort with urination - Leukocytosis improving / s/p Lactic acidosis - Respiratory panel 7/: Negative - UA with evidence of infection - Urine culture /2: Pending; Blood cultures /: No growth at 24 hours - CXR /: Left basilar atelectasis. - CT Chest /2: 1. Left lower lobe, lingular, and right lower lobe atelectasis with minimal small pleural reactions. - CT Abdomen / Pelvis 7/2: 1. No acute abdominopelvic pathology appreciated. 2. No ascites, focal inflammatory stranding, or adenopathy. 3. Few scattered renal lesions likely representing simple and complex cysts. - Will DC Lombardi catheter - c/w Zosyn (Day #2); will adjust antibiotics based on urine culture s/p Acute metabolic encephalopathy - Patient is fully oriented to person, place and time - No focal neurologic deficits; does complain of R foot numbness - CT head /: Age related atrophy and microvascular ischemic changes. No acute intracranial hemorrhage, infarction, or mass/mass effect. - MRI brain 7/: No acute intracranial abnormality. - MRI cervical spine 09/24: Multilevel uncovertebral and facet hypertrophy with neural foraminal narrowing. Severe bilateral neural foraminal narrowing at C3- C4, C4-C5, moderate bilateral C5-C6. Moderate spinal canal stenosis at C3-C4, C4-C5, mild to moderate at C5-C6. - c/w adjusted dose of pain medications - c/w Telemetry monitoring / LINDA protocol s/p Lactic acidosis Acute renal failure - likely 2/2 pre-renal etiology - Baseline Cr of 1-1.3 - Cr on admission of 2.3; mild improvement noted - Avoid nephrotoxic medications - c/w IV fluid hydration - Will DC Lombardi catheter IDDM2 - c/w ISS and adjusted dose of Levemir DLP - c/w Atorvastatin and ASA 81 LINDA - May allow home CPAP use while inpatient COPD - Mild wheezing noted; improved relative to yesterday - ABG noted - c/w inhaled therapy as ordered Neuropathy - c/w Adjusted dose of Pregabalin Chronic back/neck pain - Patient was on opiates) as an outpatient; will continue if mentation improves Psoriasis - c/w topical therapy Morbid obesity - BMI of 46 - Complicating medical care GERD - c/w Protonix DVT prophylaxis - c/w Heparin VS,Fishbone, I+O VS, Fishbone, I+O Laboratory Tests 09/24/19 12:53 09/25/19 04:35 Vital Signs Date Time Temp Pulse Resp B/P (MAP) Pulse Ox O2 Delivery O2 Flow Rate FiO2 09/25/19 08:31 18 Nasal Cannula 3.0 09/25/19 07:49 99.8 100 129/73 (91) 95 I&O- Last 24 Hours up to 6 AM 09/25/19 06:00 Intake Total 4205 ml Output Total 850 ml Balance 3355 ml URIEL YOUNG MD Sep 25, 2019 10:47
[2019-09-25 12:00] VITALS: BP 124/85
[2019-09-25] MEDS: NS 1,000 ML IV SCH ×3 (12:13→23:27)
[2019-09-25 16:11] VITALS: BP 129/61
--- NOTE | 2019-09-25 16:37 | ECGEPIP ---
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
[2019-09-25 20:00] VITALS: BP 136/61
[2019-09-25] MEDS: ATORVASTATIN 20 MG TAB PO SCH (20:24)
[2019-09-26] VITALS: BP 132/71
[2019-09-26] MEDS: PIPERACILLIN/TAZOBACTAM SOD 3.375 GM in D5W MINI-BAG PLUS 50 ML IV SCH ×2 (00:27→06:14)
[2019-09-26 04:00] VITALS: BP 140/73
[2019-09-26] MEDS: HEPARIN SOD (PORCINE) 5000UNITS/ML VIAL (J1644 PER 1000UNITS) SC SCH ×3 (06:14→22:07)
[2019-09-26 06:22] LABS: BASO % 0.4 % (0.0-1.0); EOS # 0.1 10^3/uL (0.0-0.5); EOS % 1.2 % (0.0-3.0); HEMATOCRIT 29.2 % (42.0-52.0); HEMOGLOBIN 8.9 g/dl (13.5-17.5); LYMPH # 0.5 10^3/uL (1.5-5.0); MEAN CORPUSCULAR HEMOGLOBIN 25.9 pg (27.0-33.0); MEAN CORPUSCULAR HGB CONC 30.5 g/dl (32.0-36.5); MEAN CORPUSCULAR VOLUME 84.9 fl (80.0-96.0); MONO # 0.3 10^3/uL (0.0-0.8); MONO % 4.8 % (0.0-5.0); NEUTROPHILS # 5.9 10^3/uL (1.5-8.5); NEUTROPHILS % 85.7 % (36.0-66.0); PLATELET COUNT, AUTOMATED 180 10^3/uL (150-450); RED BLOOD COUNT 3.44 10^6/uL (4.30-6.10); WHITE BLOOD COUNT 6.9 10^3/uL (4.0-10.0)
[2019-09-26 06:49] LABS: CALCIUM LEVEL 7.7 MG/DL (8.8-10.2); CREATININE FOR GFR 1.83 MG/DL (0.70-1.30); GLOMERULAR FILTRATION RATE 40.1 (>49); POTASSIUM SERUM 4.4 MEQ/L (3.5-5.1)
[2019-09-26] MEDS: HumaLOG INSULIN (NovoLOG) PER UNIT SC SCH ×4 (07:30→20:28)
[2019-09-26] MEDS: NS 1,000 ML IV SCH ×2 (07:46→16:04)
[2019-09-26 08:00] VITALS: BP 144/62
[2019-09-26] MEDS: LEVEMIR (INSULIN DETEMIR) 1 UNITS/0.01ML SC SCH (08:06)
[2019-09-26] MEDS: MAGNESIUM CHLORIDE 64 MG TABCR (SLO MAG) PO SCH ×3 (08:06→22:07)
[2019-09-26] MEDS: ASPIRIN 81 MG ENTERIC TAB PO SCH (08:07)
[2019-09-26] MEDS: CEFDINIR 300 MG CAP (OMNICEF) PO SCH ×2 (08:07→22:07)
[2019-09-26] MEDS: PREGABALIN 100 MG CAP (LYRICA) PO SCH ×3 (08:08→22:07)
[2019-09-26] MEDS: PANTOPRAZOLE 40MG TAB (PROTONIX) PO SCH (08:08)
[2019-09-26] MEDS: NORCO, ANEXSIA 5/325MG TABLET (HYDROcodone/ACETAMINOPHEN) PO SCH ×4 (08:08→22:09)
[2019-09-26] MEDS: CLOPIDOGREL 75 MG TAB PO SCH (08:08)
[2019-09-26] MEDS: ALBUTEROL SULFATE 2.5 MG/0.5 ML INH NEB SOLN INH SCH ×4 (08:54→20:24)
[2019-09-26] MEDS ORDERED: CEFD300CAP PO (08:55)
[2019-09-26] MEDS ORDERED: LYRI200C PO (08:55)
--- NOTE | 2019-09-26 09:48 | DS.PDOC ---
Discharge Summary General Date of Admission Sep 24, 2019 at 11:50 Date of Discharge 09/26/2019 Discharge Summary PROCEDURES PERFORMED DURING STAY: [None]. ADMITTING DIAGNOSES / DISCHARGE DIAGNOSES: Sepsis - likely 2/2 urinary tract infection s/p Acute metabolic encephalopathy s/p Lactic acidosis Acute renal failure - likely 2/2 pre-renal etiology IDDM2 DLP LINDA COPD Neuropathy Chronic back/neck pain Psoriasis Morbid obesity GERD DVT prophylaxis COMPLICATIONS/CHIEF COMPLAINT: Weakness. HISTORY OF PRESENT ILLNESS: Patient is a 64-year-old male with a PMHx of IDDM2, DLP, LINDA (non-compliant with CPAP), COPD, Neuropathy, Chronic back/neck pain (on opiates), Psoriasis, Morbid obesity, who presented to the hospital after hes found to be confused with fever at home. Hospitalist service was contacted for admission for suspected infection / KARMEN. HOSPITAL COURSE: Sepsis - likely 2/2 urinary tract infection - Presented to the ER with weakness and noted urinary discomfort - Currently, patient remains asymptomatic - s/p Leukocytosis / Lactic acidosis - Respiratory panel 09/23: Negative - UA with evidence of infection - Urine culture 09/23: Pending; Blood cultures 09/23: No growth at 24 hours - CXR 09/23: Left basilar atelectasis. - CT Chest 09/23: 1. Left lower lobe, lingular, and right lower lobe atelectasis with minimal small pleural reactions. - CT Abdomen / Pelvis 09/23: 1. No acute abdominopelvic pathology appreciated. 2. No ascites, focal inflammatory stranding, or adenopathy. 3. Few scattered renal lesions likely representing simple and complex cysts. - DC Lombardi catheter today - Will start Cefdinir; Will DC Zosyn (Antibiotic day #3) s/p Acute metabolic encephalopathy - Patient is fully oriented to person, place and time - No focal neurologic deficits; does complain of R foot numbness - CT head 09/24: Age related atrophy and microvascular ischemic changes. No acute intracranial hemorrhage, infarction, or mass/mass effect. - MRI brain 09/24: No acute intracranial abnormality. - MRI cervical spine 09/24: Multilevel uncovertebral and facet hypertrophy with neural foraminal narrowing. Severe bilateral neural foraminal narrowing at C3- C4, C4-C5, moderate bilateral C5-C6. Moderate spinal canal stenosis at C3-C4, C4-C5, mild to moderate at C5-C6. - c/w adjusted dose of pain medications - c/w Telemetry monitoring / LINDA protocol - Has not cleared PT - Patient has been strongly advised to follow-up with his orthopedic surgeon for further evaluation of this neck and back pain s/p Lactic acidosis Acute renal failure - likely 2/2 pre-renal etiology - Baseline Cr of 1-1.3 - Cr has been trending down to baseline - Avoid nephrotoxic medications - Will DC IV fluid hydration; patient has been advised to increase oral hydration and stop consumption of caffeine - Patient has been advised to hold diuresis with Torsemide until Saturday - He has been advised to follow up with PCP within 7 days IDDM2 - c/w ISS and adjusted dose of Levemir - Will return to home regimen on discharge DLP - c/w Atorvastatin and ASA 81 LINDA - May allow home CPAP use while inpatient COPD - Mild wheezing noted; improved relative to yesterday - ABG noted - c/w inhaled therapy as ordered Neuropathy - c/w Adjusted dose of Pregabalin on discharge - Has not cleared PT Chronic back/neck pain - Patient was on opiates as an outpatient; will continue with home regimen - Has not cleared PT Psoriasis - c/w topical therapy Morbid obesity - BMI of 46 - Complicating medical care GERD - c/w Protonix DVT prophylaxis - c/w Heparin DISCHARGE MEDICATIONS: Please see below. ALLERGIES: Please see below. PHYSICAL EXAMINATION ON DISCHARGE: Vitals (See below) General: Lying in bed, no acute distress, AAOx3 HEENT: NC, AT CVS: +S1S2 Lungs: Air entry is fair bilaterally without evidence of rhonchi, crackles or wheezing Abdomen: Soft, morbid obesity, nondistended, nontender Extremities: LE are free of pitting edema, - Calf tenderness Skin: Psoriatic chronic skin changes LABORATORY DATA: Please see below. ACTIVITY: [As tolerated]. DISCHARGE PLAN: Patient will be leaving the hospital AGAINST MEDICAL ADVICE as he is not cleared physical therapy Patient has been advised to follow-up with his primary care provider and orthopedic surgeon, within 7 days Remain compliant with treatment plan and medications Return to the ER if you experience any problems DISPOSITION: AGAINST MEDICAL ADVICE, has gone home - Patient has been advised against risks of leaving AGAINST MEDICAL ADVICE including but not limited to, worsening of medical condition, disability, and/or DISCHARGE CONDITION: [Stable]. TIME SPENT ON DISCHARGE: 35 minutes. Vital Signs/I&Os Vital Signs Date Time Temp Pulse Resp B/P (MAP) Pulse Ox O2 Delivery O2 Flow Rate FiO2 09/26/19 08:38 18 Room Air 09/26/19 08:00 99.2 102 144/62 (89) 97 3.0 I&O- Last 24 Hours up to 6 AM 09/26/19 06:00 Intake Total 2000 ml Output Total 2225 ml Balance -225 ml Laboratory Data Labs 24H Laboratory Tests 2 09/25/19 11:48: Bedside Glucose (Misc Panel) 201H 09/25/19 16:37: Bedside Glucose (Misc Panel) 253H 09/25/19 20:05: Bedside Glucose (Misc Panel) 305H 09/26/19 06:06: Immature Granulocyte % (Auto) 0.9, Neutrophils (%) (Auto) 85.7H, Lymphocytes (%) (Auto) 7.0L, Monocytes (%) (Auto) 4.8, Eosinophils (%) (Auto) 1.2, Basophils (%) (Auto) 0.4, Neutrophils # (Auto) 5.9, Lymphocytes # (Auto) 0.5L, Monocytes # (Auto) 0.3, Eosinophils # (Auto) 0.1, Basophils # (Auto) 0.0, Nucleated Red Blood Cells % (auto) 0.0, Anion Gap 9, Glomerular Filtration Rate 40.1L, Calcium Level 7.7L, Magnesium Level 2.0 CBC/BMP Laboratory Tests 09/26/19 06:06 FSBS Laboratory Tests Test 09/25/19 11:48 09/25/19 16:37 09/25/19 20:05 Range/Units Bedside Glucose (Misc Panel) 201 253 305 80-115 MG/DL Microbiology Microbiology 09/24/19 Urine Culture - Final, Complete Escherichia Coli 09/24/19 Respiratory Virus Panel (PCR) (HARIS) - Final, Complete 09/24/19 Blood Culture - Preliminary, Resulted No Growth after 48 hours. All Specime... 09/24/19 Blood Culture - Preliminary, Resulted No Growth after 48 hours. All Specime... Discharge Medications Scheduled Alfuzosin HCl (Alfuzosin HCl ER) 10 Mg Tab, 10 MG PO QHS, (Reported) Aspirin (Aspirin EC) 81 Mg Tabec, 81 MG PO DAILY, (Reported) Atorvastatin Calcium (Atorvastatin Calcium) 80 Mg Tab, 80 MG PO QHS, (Reported) Cefdinir (Cefdinir) 300 Mg Capsule, 300 MG PO BID Clopidogrel Bisulfate (Plavix) 75 Mg Tablet, 75 MG PO DAILY, (Reported) Diclofenac Sodium (Diclofenac Sodium) 1% 100GM Gel..gram., 2 GM TOP QHS, (Reported) APPLY TO SHOULDERS AND BACK OF NECK Fluticasone/Umeclidin/Vilanter (Trelegy Ellipta 100-62.5-25) 1 Each Blst.w.dev, 1 PUFF PO QHS, (Reported) Glimepiride (Glimepiride) 2 Mg Tablet, 2 MG PO DAILY, (Reported) Hydrocodone/Acetaminophen (Hydrocodone-Acetamin 5-325 mg) 1 Each Tablet, 1 TAB PO QID, (Reported) Insulin Glargine,Hum.rec.anlog (Lantus Solostar) 100 Unit/1 Ml Insuln.pen, 30 UNIT SC DAILY, (Reported) Insulin Human Lispro (Humalog) 100 Unit/1 Ml Vial, 10 UNITS SC ACB, (Reported) Magnesium Chloride (Mag64) 64 Mg Tablet.dr, 64 MG PO TID, (Reported) Metformin HCl (Glucophage) 1,000 Mg Tab, 2,000 MG PO QPM, (Reported) WITH DINNER Pantoprazole Sodium (Protonix) 40 Mg Tablet.dr, 40 MG PO DAILY, (Reported) Pioglitazone HCl (Pioglitazone HCl) 15 Mg Tablet, 15 MG PO DAILY, (Reported) Pregabalin (Lyrica) 200 Mg Cap, 200 MG PO BID Sitagliptin Phosphate (Januvia) 100 Mg Tab, 100 MG PO DAILY, (Reported) Scheduled PRN Acetaminophen (Acetaminophen) 325 Mg Tablet, 650 MG PO Q6H PRN for PAIN / FEVER, (Reported) Albuterol Sulf (Albuterol Sulfate) 2.5 Mg/3 Ml Vial.neb, 1 VIAL NEB Q4H PRN for SOB/WHEEZING, (Reported) Albuterol Sulfate (Proair Hfa) 8.5 Gm Hfa.aer.ad, 2 PUFF INH Q4H PRN for SOB/WHEEZING, (Reported) Ammonium Lactate (Ammonium Lactate) 12 % Cre, 1 DOSE TOP BID PRN for DRY SKIN, (Reported) APPLY TO LEGS Clobetasol Propionate/Emoll (Clobetasol Emollient 0.05% Crm) 0.05 % Cre, 1 APPLIC TOP BID PRN for PSORIASIS, (Reported) USES ON ARMS FOR PSORIASIS Nitroglycerin (Nitrostat) 0.4 Mg Tab.subl, 0.4 MG SL NITRO PRN for CHEST PAIN, (Reported) Allergies Coded Allergies: gabapentin (Verified Adverse Reaction, Mild, Lowers Blood pressure, 05/07/19) URIEL YOUNG MD Sep 26, 2019 09:48
[2019-09-26 11:39] VITALS: BP 140/63
[2019-09-26 16:15] VITALS: BP 117/61
[2019-09-26 22:00] VITALS: BP 144/60
[2019-09-26] MEDS: ATORVASTATIN 20 MG TAB PO SCH (22:07)
[2019-09-27] MEDS: NS 1,000 ML IV SCH ×2 (00:26→08:46)
[2019-09-27 06:00] VITALS: BP 147/61
[2019-09-27] MEDS: HEPARIN SOD (PORCINE) 5000UNITS/ML VIAL (J1644 PER 1000UNITS) SC SCH ×3 (06:12→21:14)
[2019-09-27 06:33] LABS: BASO % 0.4 % (0.0-1.0); EOS % 0.6 % (0.0-3.0); HEMATOCRIT 30.4 % (42.0-52.0); HEMOGLOBIN 9.4 g/dl (13.5-17.5); LYMPH # 0.7 10^3/uL (1.5-5.0); LYMPH % 9.9 % (24.0-44.0); MEAN CORPUSCULAR HEMOGLOBIN 25.8 pg (27.0-33.0); MEAN CORPUSCULAR HGB CONC 30.9 g/dl (32.0-36.5); MEAN CORPUSCULAR VOLUME 83.3 fl (80.0-96.0); MONO # 0.6 10^3/uL (0.0-0.8); MONO % 8.5 % (0.0-5.0); NEUTROPHILS # 5.4 10^3/uL (1.5-8.5); NEUTROPHILS % 79.7 % (36.0-66.0); PLATELET COUNT, AUTOMATED 190 10^3/uL (150-450); RED BLOOD COUNT 3.65 10^6/uL (4.30-6.10); WHITE BLOOD COUNT 6.8 10^3/uL (4.0-10.0)
[2019-09-27 06:50] LABS: CALCIUM LEVEL 8.2 MG/DL (8.8-10.2); CREATININE FOR GFR 1.57 MG/DL (0.70-1.30); GLOMERULAR FILTRATION RATE 47.9 (>49); MAGNESIUM LEVEL 1.8 MG/DL (1.8-2.4); POTASSIUM SERUM 4.4 MEQ/L (3.5-5.1)
[2019-09-27] MEDS: ALBUTEROL SULFATE 2.5 MG/0.5 ML INH NEB SOLN INH SCH ×4 (08:14→18:27)
[2019-09-27] MEDS: LEVEMIR (INSULIN DETEMIR) 1 UNITS/0.01ML SC SCH (08:50)
[2019-09-27] MEDS: HumaLOG INSULIN (NovoLOG) PER UNIT SC SCH ×4 (08:50→21:00)
[2019-09-27] MEDS: PREGABALIN 100 MG CAP (LYRICA) PO SCH ×3 (08:51→21:12)
[2019-09-27] MEDS: CEFDINIR 300 MG CAP (OMNICEF) PO SCH ×2 (08:51→21:12)
[2019-09-27] MEDS: ASPIRIN 81 MG ENTERIC TAB PO SCH (08:51)
[2019-09-27] MEDS: CLOPIDOGREL 75 MG TAB PO SCH (08:51)
[2019-09-27] MEDS: PANTOPRAZOLE 40MG TAB (PROTONIX) PO SCH (08:51)
[2019-09-27] MEDS: MAGNESIUM CHLORIDE 64 MG TABCR (SLO MAG) PO SCH ×3 (08:52→21:12)
[2019-09-27] MEDS: NORCO, ANEXSIA 5/325MG TABLET (HYDROcodone/ACETAMINOPHEN) PO SCH ×4 (08:52→21:13)
--- NOTE | 2019-09-27 10:31 | IPNPDOC ---
Text Note Date of Service The patient was seen on 09/27/19. NOTE Subjective: Patient is a 64-year-old male with a PMHx of IDDM2, DLP, LINDA (non- compliant with CPAP), COPD, Neuropathy, Chronic back/neck pain (on opiates), Psoriasis, Morbid obesity, who presented to the hospital after hes found to be confused with fever at home. Hospitalist service was contacted for admission for suspected infection / KARMEN. Patient was seen and examined at the bedside. Patient reports that his breathing is doing relatively fine. Denies any chest pain or palpitations. Denies nausea, vomiting, abdominal pain or diarrhea. Has been able to urinate without difficulty since Lombardi catheter removal. Reports that yesterday his lower ext remities were slightly swollen, but have improved this morning after having his legs elevated in bed overnight. Objective: Vitals (See below) General: Lying in bed, appears comfortable, AAOx3 HEENT: NC, AT CVS: +S1S2 Lungs: Air entry appears to be fair bilaterally without evidence of rhonchi or crackles. There is faint wheezing appreciated bilaterally Abdomen: Soft, does not appear to have any distention or tenderness. He is obese Extremities: There is trace/1+ pitting edema, - Calf tenderness Assessment and plan: Sepsis - likely 2/2 urinary tract infection - Presented with weakness / fever / dysuria; currently reports resolution of urinary discomfort - Low-grade fever noted this morning - s/p Leukocytosis and Lactic acidosis - Respiratory panel 09/23: Negative - UA with evidence of infection; Urine culture 09/23: E. Coli; Blood cultures 09/23: No growth at 72 hours - CXR 09/23: Left basilar atelectasis. - CT Chest 09/23: 1. Left lower lobe, lingular, and right lower lobe atelectasis with minimal small pleural reactions. - CT Abdomen / Pelvis /: 1. No acute abdominopelvic pathology appreciated. 2. No ascites, focal inflammatory stranding, or adenopathy. 3. Few scattered renal lesions likely representing simple and complex cysts. - s/p Lombardi catheter - c/w Cefdinir; s/p Zosyn (Day #2) s/p Acute metabolic encephalopathy - No focal neurologic deficits; does complain of R foot numbness - improving - CT head 09/24: Age related atrophy and microvascular ischemic changes. No acute intracranial hemorrhage, infarction, or mass/mass effect. - MRI brain 09/24: No acute intracranial abnormality. - MRI cervical spine 09/24: Multilevel uncovertebral and facet hypertrophy with neural foraminal narrowing. Severe bilateral neural foraminal narrowing at C3- C4, C4-C5, moderate bilateral C5-C6. Moderate spinal canal stenosis at C3-C4, C4-C5, mild to moderate at C5-C6. - c/w adjusted dose of pain medications - c/w Telemetry monitoring / LINDA protocol s/p Lactic acidosis Acute renal failure - likely 2/2 pre-renal etiology - Baseline Cr of 1-1.3 - Creatinine appears to be approaching baseline - Will resume diuretic therapy by tomorrow morning - s/p IV fluids IDDM2 - c/w ISS and adjusted dose of Levemir DLP - c/w Atorvastatin and ASA 81 LINDA - May allow home CPAP use while inpatient COPD - Mild wheezing noted - ABG noted - c/w inhaled therapy as ordered Neuropathy - c/w Adjusted dose of Pregabalin Chronic back/neck pain - Patient was on opiates) as an outpatient; will continue if mentation improves Psoriasis - c/w topical therapy Morbid obesity - BMI of 46 - Complicating medical care GERD - c/w Protonix DVT prophylaxis - c/w Heparin Disposition: - Patient was testing to leave against medical billing supervisor yesterday - Will remain inpatient until cleared by physical therapy Saurabh RAY, I+O VSSaurabh I+O Laboratory Tests 09/27/19 06:16 Vital Signs Date Time Temp Pulse Resp B/P (MAP) Pulse Ox O2 Delivery O2 Flow Rate FiO2 09/27/19 09:22 18 Nasal Cannula 3.0 09/27/19 09:00 84 95 09/27/19 08:49 99.5 09/27/19 06:00 147/61 (89) I&O- Last 24 Hours up to 6 AM 09/27/19 06:00 Intake Total 3280 ml Output Total 1400 ml Balance 1880 ml URIEL YOUNG MD Sep 27, 2019 10:31
[2019-09-27 14:00] VITALS: BP 115/52
[2019-09-27] MEDS: ATORVASTATIN 20 MG TAB PO SCH (21:12)
[2019-09-27 22:00] VITALS: BP 159/66
[2019-09-28 06:00] VITALS: BP 156/63
[2019-09-28] MEDS: HEPARIN SOD (PORCINE) 5000UNITS/ML VIAL (J1644 PER 1000UNITS) SC SCH (06:00)
[2019-09-28 06:36] LABS: BASO % 0.2 % (0.0-1.0); EOS # 0.2 10^3/uL (0.0-0.5); HEMATOCRIT 30.1 % (42.0-52.0); HEMOGLOBIN 9.1 g/dl (13.5-17.5); LYMPH # 0.7 10^3/uL (1.5-5.0); LYMPH % 12.3 % (24.0-44.0); MEAN CORPUSCULAR HEMOGLOBIN 25.5 pg (27.0-33.0); MEAN CORPUSCULAR HGB CONC 30.2 g/dl (32.0-36.5); MEAN CORPUSCULAR VOLUME 84.3 fl (80.0-96.0); MONO # 0.5 10^3/uL (0.0-0.8); MONO % 8.1 % (0.0-5.0); NEUTROPHILS # 4.5 10^3/uL (1.5-8.5); NEUTROPHILS % 75.4 % (36.0-66.0); PLATELET COUNT, AUTOMATED 202 10^3/uL (150-450); RED BLOOD COUNT 3.57 10^6/uL (4.30-6.10)
[2019-09-28 06:58] LABS: CALCIUM LEVEL 8.7 MG/DL (8.8-10.2); CREATININE FOR GFR 1.39 MG/DL (0.70-1.30); GLOMERULAR FILTRATION RATE 55.1 (>49); MAGNESIUM LEVEL 1.7 MG/DL (1.8-2.4); POTASSIUM SERUM 4.6 MEQ/L (3.5-5.1)
[2019-09-28] MEDS: ALBUTEROL SULFATE 2.5 MG/0.5 ML INH NEB SOLN INH SCH (07:17)
[2019-09-28] MEDS: MAGNESIUM CHLORIDE 64 MG TABCR (SLO MAG) PO SCH (08:12)
[2019-09-28] MEDS: CLOPIDOGREL 75 MG TAB PO SCH (08:12)
[2019-09-28] MEDS: PANTOPRAZOLE 40MG TAB (PROTONIX) PO SCH (08:13)
[2019-09-28] MEDS: PREGABALIN 100 MG CAP (LYRICA) PO SCH (08:13)
[2019-09-28] MEDS: NORCO, ANEXSIA 5/325MG TABLET (HYDROcodone/ACETAMINOPHEN) PO SCH (08:13)
[2019-09-28] MEDS: ASPIRIN 81 MG ENTERIC TAB PO SCH (08:14)
[2019-09-28] MEDS: HumaLOG INSULIN (NovoLOG) PER UNIT SC SCH (08:14)
[2019-09-28] MEDS: CEFDINIR 300 MG CAP (OMNICEF) PO SCH (08:14)
[2019-09-28] MEDS: LEVEMIR (INSULIN DETEMIR) 1 UNITS/0.01ML SC SCH (08:15)
[2019-09-28] MEDS ORDERED: MAGNESIUM OXIDE 400 MG TAB (MAG-OX) PO ONE (10:45)
--- NOTE | 2019-09-28 11:18 | DS.PDOC ---
Discharge Summary General Date of Admission Sep 24, 2019 at 11:50 Date of Discharge 09/28/2019 Discharge Summary PROCEDURES PERFORMED DURING STAY: [None]. ADMITTING DIAGNOSES / DISCHARGE DIAGNOSES: Sepsis - likely 2/2 urinary tract infection s/p Acute metabolic encephalopathy s/p Lactic acidosis Acute renal failure - likely 2/2 pre-renal etiology IDDM2 DLP LINDA COPD Neuropathy Chronic back/neck pain Psoriasis Morbid obesity GERD DVT prophylaxis COMPLICATIONS/CHIEF COMPLAINT: Weakness. HISTORY OF PRESENT ILLNESS: Patient is a 64-year-old male with a PMHx of IDDM2, DLP, LINDA (non-compliant with CPAP), COPD, Neuropathy, Chronic back/neck pain (on opiates), Psoriasis, Morbid obesity, who presented to the hospital after hes found to be confused with fever at home. Hospitalist service was contacted for admission for suspected infection / KARMEN. HOSPITAL COURSE: Sepsis - likely 2/2 urinary tract infection - Presented with weakness / fever / dysuria; currently reports resolution of urinary discomfort - Low-grade fever noted this morning - s/p Leukocytosis and Lactic acidosis - Respiratory panel 09/23: Negative - UA with evidence of infection; Urine culture 09/23: E. Coli; Blood cultures 09/23: No growth at 72 hours - CXR 09/23: Left basilar atelectasis. - CT Chest 09/23: 1. Left lower lobe, lingular, and right lower lobe atelectasis with minimal small pleural reactions. - CT Abdomen / Pelvis 09/23: 1. No acute abdominopelvic pathology appreciated. 2. No ascites, focal inflammatory stranding, or adenopathy. 3. Few scattered renal lesions likely representing simple and complex cysts. - s/p Lombardi catheter - c/w Cefdinir; s/p Zosyn (Day #3) - will complete antibiotic course as an outpatient - Patient has been advised to follow-up with his primary care provider within 7 days s/p Acute metabolic encephalopathy - No focal neurologic deficits; does complain of R foot numbness - improving - CT head 09/24: Age related atrophy and microvascular ischemic changes. No acute intracranial hemorrhage, infarction, or mass/mass effect. - MRI brain 09/24: No acute intracranial abnormality. - MRI cervical spine 09/24: Multilevel uncovertebral and facet hypertrophy with neural foraminal narrowing. Severe bilateral neural foraminal narrowing at C3- C4, C4-C5, moderate bilateral C5-C6. Moderate spinal canal stenosis at C3-C4, C4-C5, mild to moderate at C5-C6. - c/w adjusted dose of pain medications - c/w Telemetry monitoring / LINDA protocol s/p Lactic acidosis Acute renal failure - likely 2/2 pre-renal etiology - Baseline Cr of 1-1.3 - Creatinine has now reached baseline - Patient has been advised to resume diuresis; he is noted that he will take this medication at home today and does not want to take it while at the hospital because he wont be able to urinate in time - s/p IV fluids IDDM2 - c/w ISS and adjusted dose of Levemir DLP - c/w Atorvastatin and ASA 81 LINDA - May allow home CPAP use while inpatient COPD - Mild wheezing noted; patient attests that this is baseline - ABG noted - c/w inhaled therapy as ordered Neuropathy - c/w Adjusted dose of Pregabalin on discharge Chronic back/neck pain - Patient was on opiates as an outpatient; will continue home regimen Psoriasis - c/w topical therapy Morbid obesity - BMI of 46 - Complicating medical care GERD - c/w Protonix DVT prophylaxis - c/w Heparin DISCHARGE MEDICATIONS: Please see below. ALLERGIES: Please see below. PHYSICAL EXAMINATION ON DISCHARGE: Vitals (See below) General: Lying in bed, appears comfortable, AAOx3 HEENT: NC, AT CVS: +S1S2 Lungs: Air entry appears to be fair bilaterally. Mild wheezing can be appreciated bilaterally. No evidence of rhonchi or crackles Abdomen: Soft, obese, without any distention or tenderness Extremities: Trace pitting edema appears to be slightly improved compared to yesterday, - Calf tenderness LABORATORY DATA: Please see below. ACTIVITY: [As tolerated]. DISCHARGE PLAN: Follow-up with primary care provider and orthopedic surgeon, within 7 days Remain compliant with treatment plan and medications Return to the ER if you experience any problems DISPOSITION: Home DISCHARGE CONDITION: [Stable]. TIME SPENT ON DISCHARGE: 35 minutes Vital Signs/I&Os Vital Signs Date Time Temp Pulse Resp B/P (MAP) Pulse Ox O2 Delivery O2 Flow Rate FiO2 09/28/19 08:50 18 09/28/19 06:00 98.5 97 156/63 (94) 94 Nasal Cannula 3.0 I&O- Last 24 Hours up to 6 AM 09/28/19 06:00 Intake Total 1656 ml Output Total 500 ml Balance 1156 ml Laboratory Data Labs 24H Laboratory Tests 2 09/27/19 11:55: Bedside Glucose (Misc Panel) 251H 09/27/19 16:27: Bedside Glucose (Misc Panel) 237H 09/27/19 20:41: Bedside Glucose (Misc Panel) 188H 09/28/19 06:20: Immature Granulocyte % (Auto) 1.0, Neutrophils (%) (Auto) 75.4H, Lymphocytes (%) (Auto) 12.3L, Monocytes (%) (Auto) 8.1H, Eosinophils (%) (Auto) 3.0, Basophils (%) (Auto) 0.2, Neutrophils # (Auto) 4.5, Lymphocytes # (Auto) 0.7L, Monocytes # (Auto) 0.5, Eosinophils # (Auto) 0.2, Basophils # (Auto) 0.0, Nucleated Red Blood Cells % (auto) 0.0, Anion Gap 6L, Glomerular Filtration Rate 55.1, Calcium Level 8.7L, Magnesium Level 1.7L CBC/BMP Laboratory Tests 09/28/19 06:20 FSBS Laboratory Tests Test 09/27/19 11:55 09/27/19 16:27 09/27/19 20:41 Range/Units Bedside Glucose (Misc Panel) 251 237 188 80-115 MG/DL Microbiology Microbiology 09/24/19 Urine Culture - Final, Complete Escherichia Coli 09/24/19 Respiratory Virus Panel (PCR) ([facility]) - Final, Complete 09/24/19 Blood Culture - Preliminary, Resulted No Growth after 72 hours. All specime... 09/24/19 Blood Culture - Preliminary, Resulted No Growth after 72 hours. All specime... Discharge Medications Scheduled Alfuzosin HCl (Alfuzosin HCl ER) 10 Mg Tab, 10 MG PO QHS, (Reported) Aspirin (Aspirin EC) 81 Mg Tabec, 81 MG PO DAILY, (Reported) Atorvastatin Calcium (Atorvastatin Calcium) 80 Mg Tab, 80 MG PO QHS, (Reported) Cefdinir (Cefdinir) 300 Mg Capsule, 300 MG PO BID Clopidogrel Bisulfate (Plavix) 75 Mg Tablet, 75 MG PO DAILY, (Reported) Diclofenac Sodium (Diclofenac Sodium) 1% 100GM Gel..gram., 2 GM TOP QHS, (Reported) APPLY TO SHOULDERS AND BACK OF NECK Fluticasone/Umeclidin/Vilanter (Trelegy Ellipta 100-62.5-25) 1 Each Blst.w.dev, 1 PUFF PO QHS, (Reported) Glimepiride (Glimepiride) 2 Mg Tablet, 2 MG PO DAILY, (Reported) Hydrocodone/Acetaminophen (Hydrocodone-Acetamin 5-325 mg) 1 Each Tablet, 1 TAB PO QID, (Reported) Insulin Glargine,Hum.rec.anlog (Lantus Solostar) 100 Unit/1 Ml Insuln.pen, 30 UNIT SC DAILY, (Reported) Insulin Human Lispro (Humalog) 100 Unit/1 Ml Vial, 10 UNITS SC ACB, (Reported) Magnesium Chloride (Mag64) 64 Mg Tablet.dr, 64 MG PO TID, (Reported) Metformin HCl (Glucophage) 1,000 Mg Tab, 2,000 MG PO QPM, (Reported) WITH DINNER Pantoprazole Sodium (Protonix) 40 Mg Tablet.dr, 40 MG PO DAILY, (Reported) Pioglitazone HCl (Pioglitazone HCl) 15 Mg Tablet, 15 MG PO DAILY, (Reported) Pregabalin (Lyrica) 200 Mg Cap, 200 MG PO BID Sitagliptin Phosphate (Januvia) 100 Mg Tab, 100 MG PO DAILY, (Reported) Scheduled PRN Acetaminophen (Acetaminophen) 325 Mg Tablet, 650 MG PO Q6H PRN for PAIN / FEVER, (Reported) Albuterol Sulf (Albuterol Sulfate) 2.5 Mg/3 Ml Vial.neb, 1 VIAL NEB Q4H PRN for SOB/WHEEZING, (Reported) Albuterol Sulfate (Proair Hfa) 8.5 Gm Hfa.aer.ad, 2 PUFF INH Q4H PRN for SOB/WHEEZING, (Reported) Ammonium Lactate (Ammonium Lactate) 12 % Cre, 1 DOSE TOP BID PRN for DRY SKIN, (Reported) APPLY TO LEGS Clobetasol Propionate/Emoll (Clobetasol Emollient 0.05% Crm) 0.05 % Cre, 1 APPLIC TOP BID PRN for PSORIASIS, (Reported) USES ON ARMS FOR PSORIASIS Nitroglycerin (Nitrostat) 0.4 Mg Tab.subl, 0.4 MG SL NITRO PRN for CHEST PAIN, (Reported) Allergies Coded Allergies: gabapentin (Verified Adverse Reaction, Mild, Lowers Blood pressure, 05/07/19) URIEL YOUNG MD Sep 28, 2019 11:18
== END 2019-09-28 12:31 | disposition home or self-care (01) | DRG 720 ==
LOC: M ED 05:38 → M ED INP 11:50 → ENRESERV 12:02 → M PCU 12:34 → M MSPAV 09-26 16:10
PROVIDERS: ADMIT Internal Medicine; ATTEND Internal Medicine
DX: A41.9 Sepsis, unspecified organism (principal); G93.41 Metabolic encephalopathy; N17.9 Acute kidney failure, unspecified; E87.2 Acidosis; E11.40 Type 2 diabetes mellitus with diabetic neuropathy, unspecified; E66.01 Morbid (severe) obesity due to excess calories; Z68.42 Body mass index [BMI] 45.0-49.9, adult; N39.0 Urinary tract infection, site not specified; K21.9 Gastro-esophageal reflux disease without esophagitis; J44.9 Chronic obstructive pulmonary disease, unspecified; G47.33 Obstructive sleep apnea (adult) (pediatric); M54.5 Low back pain; M54.2 Cervicalgia; L40.8 Other psoriasis; Z79.82 Long term (current) use of aspirin; Z79.899 Other long term (current) drug therapy; Z88.8 Allergy status to other drugs, medicaments and biological substances; Z91.19 Patient's noncompliance with other medical treatment and regimen

== ENCOUNTER → 2019-12-21 | Outpatient (REF) | payer BC, MEDICARE ==
[~2019-12-21] MED LIST changes: -ASPI81TA85 PO; +ASPI81TA86 PO; +CEFD300CAP PO; +PIOG1TAB36 PO
== END ==
LOC: M LAB REF 16:31
PROVIDERS: ATTEND Nurse Practitioner Adult Health
DX: L40.9 Psoriasis, unspecified (principal); Z79.899 Other long term (current) drug therapy

== ENCOUNTER 2020-02-11 21:27 | Emergency (ER) | payer BC, MEDICARE ==
[~2020-02-11] VITALS: Ht 182.9 cm; Wt 154.6 kg
[2020-02-11] MEDS ORDERED: TORS10TA3 PO (21:49)
[2020-02-11 23:03] LABS: VENOUS BASE EXCESS 0.2 (-2.0-2.0); VENOUS HCO3 26.6 MEQ/L (23.0-27.0); VENOUS O2 SATURATION 84.7 % (60.0-80.0); VENOUS PARTIAL PRESSURE CO2 51.1 mmHg (38.0-50.0); VENOUS PH 7.335 UNITS (7.330-7.430); VENOUS STANDARD HCO3 24.4 MEQ/L; VENOUS TOTAL CO2 28.2 MEQ/L (24.0-28.0)
[2020-02-11 23:04] LABS: BASO % 0.3 % (0.0-1.0); EOS # 0.1 10^3/uL (0.0-0.5); HEMATOCRIT 35.9 % (42.0-52.0); HEMOGLOBIN 11.4 g/dl (13.5-17.5); LYMPH % 14.7 % (24.0-44.0); MEAN CORPUSCULAR HEMOGLOBIN 28.6 pg (27.0-33.0); MEAN CORPUSCULAR HGB CONC 31.8 g/dl (32.0-36.5); MEAN CORPUSCULAR VOLUME 90.2 fl (80.0-96.0); MONO # 0.5 10^3/uL (0.0-0.8); NEUTROPHILS # 5.4 10^3/uL (1.5-8.5); NEUTROPHILS % 76.3 % (36.0-66.0); PLATELET COUNT, AUTOMATED 218 10^3/uL (150-450); RED BLOOD COUNT 3.98 10^6/uL (4.30-6.10)
--- NOTE | 2020-02-11 23:29 | REPVR ---
PROCEDURE INFORMATION: Exam: XR Chest, 1 View Exam date and time: 02/11/20 (11:14pm Age: 64 years old Clinical indication: Dyspnea and cough TECHNIQUE: Imaging protocol: Portable CXR Views: 1 view COMPARISON: CT CHEST of 09/24/19 FINDINGS: Lungs: Unremarkable. No consolidation. Pleural space: Unremarkable. No pleural effusions. No pneumothorax. Heart/Mediastinum: Unremarkable. No cardiomegaly. Bones/joints: Unremarkable. IMPRESSION: No acute findings. Clear lung marin. Electronically signed by: Harriett Keating On 02/11/2020 23:28:30 PM
[2020-02-11 23:42] LABS: BILIRUBIN,DIRECT 0.2 MG/DL (0.0-0.2); BILIRUBIN,TOTAL 0.5 MG/DL (0.2-1.0); CALCIUM LEVEL 8.2 MG/DL (8.8-10.2); CK-MB VALUE MASS 3.2 NG/ML (<3.6); CREATININE FOR GFR 1.65 MG/DL (0.70-1.30); GLOMERULAR FILTRATION RATE 45.2 (>49); MB/CK RELATIVE INDEX 3.76 (< OR =4); POTASSIUM SERUM 3.9 MEQ/L (3.5-5.1); TOTAL PROTEIN 6.5 GM/DL (6.4-8.2); TROPONIN I 0.02 NG/ML (< 0.10)
--- NOTE | 2020-02-12 00:37 | REPVR ---
PROCEDURE INFORMATION: Exam: US Duplex Left Lower Extremity Veins, Limited Exam date and time: 02/12/2020 12:28 AM Age: 64 years old Clinical indication: Edema, localized; Lower extremity, left; Additional info: Left leg swelling TECHNIQUE: Imaging protocol: Real-time Duplex ultrasound of the Left Lower Extremity with 2-D trejo scale, color Doppler flow and spectral waveform analysis with image documentation. Limited exam focused on the left lower extremity veins. COMPARISON: No relevant prior studies available. FINDINGS: Left deep veins: Unremarkable. The common femoral, femoral, proximal profunda femoral and popliteal veins are patent without thrombus. Normal Doppler waveforms. Normal compressibility and/or augmentation response. Left superficial veins: Unremarkable. Saphenofemoral junction is patent without thrombus. Soft tissues: Unremarkable. IMPRESSION: No evidence of deep vein thrombosis. Electronically signed by: Jamel Johnson On 02/12/2020 00:37:30 AM
[2020-02-12] MEDS ORDERED: methylPREDNISolone 125MG 2ML VIAL IV ONE (01:00)
[2020-02-12] MEDS ORDERED: COMBIVENT RESPIMAT 100-20MCG INHALER 4GM INH ONE (01:00)
[2020-02-12] MEDS ORDERED: PRED20TA PO (02:21)
[2020-02-12 03:03] VITALS: BP 143/68
--- NOTE | 2020-02-12 21:34 | ECGEPIP ---
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
== END 2020-02-12 03:05 | disposition home or self-care (01) ==
LOC: M ED 21:27
DX: J44.1 Chronic obstructive pulmonary disease with (acute) exacerbation (principal); I51.9 Heart disease, unspecified; I50.9 Heart failure, unspecified; F17.200 Nicotine dependence, unspecified, uncomplicated; Z79.82 Long term (current) use of aspirin; Z79.4 Long term (current) use of insulin; Z79.899 Other long term (current) drug therapy; Z88.8 Allergy status to other drugs, medicaments and biological substances
CPT/HCPCS: 71045; 80048; 80076; 82550; 82553; 82803; 83605; 83880; 84484; 85025; 87040; 87486; 87581; 87633; 87798; 93005; 93041; 93971; 94640; 96374; 99285; J2930

== ENCOUNTER → 2020-03-02 | Outpatient (CLI) | payer BC, MEDICARE ==
--- NOTE | 2020-03-02 13:46 | REP ---
INDICATION: ADEMA AND PAIN OF LEFT LEG, RO DVT. COMPARISON: 02/12/2020. TECHNIQUE: Multiple duplex ultrasound images of the left lower extremity deep veins. FINDINGS: The deep veins demonstrate normal compression, normal Doppler color flow and normal Doppler wave forms with respiration augmentation at multiple levels. IMPRESSION: There is no evidence of left lower extremity deep vein thrombus. This is unchanged from the prior study. <Electronically signed by Chuy Gomez > 03/02/20 [id number]
== END ==
LOC: M RAD 13:06
PROVIDERS: ATTEND Nurse Practitioner Adult Health
DX: M79.605 Pain in left leg (principal); R22.42 Localized swelling, mass and lump, left lower limb

== ENCOUNTER 2020-08-26 05:55 | Inpatient (IN) | payer BC, MEDICARE ==
[~2020-08-26] VITALS: Ht 182.9 cm; Wt 156.8 kg
[~2020-08-26 05:55] MED LIST changes: -ACET-908 PO; +ACET-910 PO; +ASPI-569 PO; -ASPI81TAEC PO
[2020-08-26 06:29] LABS: BASO # 0.1 10^3/uL (0.0-0.2); BASO % 0.5 % (0.0-1.0); HEMOGLOBIN 11.3 g/dl (13.5-17.5); LYMPH # 0.6 10^3/uL (1.5-5.0); MEAN CORPUSCULAR HEMOGLOBIN 27.4 pg (27.0-33.0); MEAN CORPUSCULAR HGB CONC 31.4 g/dl (32.0-36.5); MEAN CORPUSCULAR VOLUME 87.2 fl (80.0-96.0); MONO # 0.8 10^3/uL (0.0-0.8); MONO % 6.2 % (2.0-8.0); NEUTROPHILS # 10.7 10^3/uL (1.5-8.5); NEUTROPHILS % 87.6 % (36.0-66.0); PLATELET COUNT, AUTOMATED 179 10^3/uL (150-450); RED BLOOD COUNT 4.13 10^6/uL (4.30-6.10); WHITE BLOOD COUNT 12.2 10^3/uL (4.0-10.0)
[2020-08-26 06:54] LABS: ALBUMIN 2.9 GM/DL (3.2-5.2); BILIRUBIN,DIRECT 0.2 MG/DL (0.0-0.2); BILIRUBIN,TOTAL 0.6 MG/DL (0.2-1.0); CALCIUM LEVEL 8.2 MG/DL (8.8-10.2); CK-MB VALUE MASS 1.2 NG/ML (<3.6); CREATININE FOR GFR 1.69 MG/DL (0.70-1.30); GLOMERULAR FILTRATION RATE 43.8 (>49); MB/CK RELATIVE INDEX 0.7 (< OR =4); POTASSIUM SERUM 3.9 MEQ/L (3.5-5.1); TOTAL PROTEIN 6.5 GM/DL (6.4-8.2); TROPONIN I 0.04 NG/ML (< 0.10)
[2020-08-26] MEDS ORDERED: NS 500 ML IV ONE (07:25)
--- NOTE | 2020-08-26 07:30 | REPVR ---
PROCEDURE INFORMATION: Exam: XR Chest Exam date and time: 08/26/2020 6:56 AM Age: 65 years old Clinical indication: Other: Cough, weakness TECHNIQUE: Imaging protocol: XR of the chest. Views: 1 view. COMPARISON: CR PORTABLE CHEST X-RAY 02/11/2020 11:14 PM FINDINGS: Lungs: There is low lung volume with bibasilar atelectatic changes versus infiltrates. Pleural spaces: Unremarkable. No pleural effusion. No pneumothorax. Heart/Mediastinum: Unremarkable. No cardiomegaly. Bones/joints: Unremarkable. IMPRESSION: Bibasilar atelectatic changes versus infiltrates. Electronically signed by: Olayinka Carrasco On 08/26/2020 07:30:12 AM
--- NOTE | 2020-08-26 09:18 | REP ---
INDICATION: ?infiltrates on CXR COMPARISON: 09/24/2019 TECHNIQUE: Axial noncontrast images from the thoracic inlet to the upper abdomen with coronal and sagittal reformations. This CT examination was performed using the following dose reduction techniques: Automated exposure control, adjustment of mA and/or kv according to the patient's size, and use of iterative reconstruction technique. FINDINGS: Lung marin demonstrate very minimal chronic appearing bibasilar fibroatelectatic changes essentially stable compared to 2020. There is a small chronic benign 3 cm fat containing left-sided Bochdalek's hernia. No acute consolidation, effusion or pneumothorax. Tracheobronchial tree is patent. The mediastinum demonstrates atherosclerotic changes to the thoracic aorta and coronary arteries without aortic aneurysm or cardiomegaly. No pericardial effusion. No significant axillary, hilar, or mediastinal adenopathy. Surrounding musculoskeletal structures demonstrate age-related changes without acute osseous abnormality. IMPRESSION: Minimal chronic stable changes. No acute mediastinal or pleuroparenchymal process appreciated. <Electronically signed by Roger Miramontes > 08/26/20 0914
--- NOTE | 2020-08-26 09:20 | REP ---
INDICATION: urinary retention r/o obstruction COMPARISON: 09/24/2019 TECHNIQUE: Axial noncontrast images from the lung bases to the pubic symphysis with coronal and sagittal reformations. This CT examination was performed using the following dose reduction techniques: Automated exposure control, adjustment of mA and/or kv according to the patient's size, and use of iterative reconstruction technique. FINDINGS: Liver, spleen, pancreas, gallbladder, bilateral adrenal glands and kidneys are essentially normal/stable. Kidneys demonstrate few small bilateral isodense and hypodense round lesions suggesting simple and complex cysts. No acute perinephric stranding or hydroureteronephrosis. The enteric system is without obstruction or acute inflammatory process. Scattered sigmoid diverticula noted without acute diverticulitis. Normal terminal ileum and appendix identified in the right lower quadrant. Pelvis demonstrates normal bladder and age-appropriate prostate/seminal vesicles. No pelvic fluid. No ascites. No free air. No adenopathy. Atherosclerotic changes to the aorta without aneurysm. Musculoskeletal structures demonstrate age-related degenerative changes. IMPRESSION: 1. The kidneys demonstrate small rounded hypodense and isodense lesions which likely represent simple and complex cysts. Consider outpatient follow-up ultrasound for confirmation. There is no evidence for hydronephrosis. Bladder is unremarkable. Prostate is normal in size. 2. Scattered sigmoid diverticula without acute diverticulitis. 3. No further acute abdominopelvic pathology appreciated. <Electronically signed by Roger Miramontes > 08/26/20 [id number]
--- NOTE | 2020-08-26 09:34 | ECGEPIP ---
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
[2020-08-26] MEDS ORDERED: HYDR-3713 PO (10:57)
[2020-08-26] MEDS ORDERED: OZEM2INJ2 SC (10:57)
[2020-08-26] MEDS ORDERED: PREG200C PO (10:57)
[2020-08-26] MEDS ORDERED: MIDO2.5T PO (10:57)
[2020-08-26] MEDS ORDERED: LACTIC ACID 12% LOTION 225 GM BTL TOP PRN (13:10)
[2020-08-26] MEDS ORDERED: ALBUTEROL SULFATE 2.5 MG/0.5 ML INH NEB SOLN NEB PRN (13:10)
[2020-08-26] MEDS ORDERED: ALBUTEROL 90 MCG/ACT 8GM HFA INHALER INH PRN (13:10)
[2020-08-26] MEDS ORDERED: NITROGLYCERIN 0.4 MG SUBL TABLET SL PRN (13:10)
[2020-08-26] MEDS ORDERED: CLOBETASOL PROPIONATE EMOLLIENT 0.05% CR 60 GM TOP PRN (13:10)
[2020-08-26] MEDS ORDERED: GLUCAGON INJ 1MG VIAL SC PRN (13:20)
[2020-08-26] MEDS ORDERED: DEXTROSE 50% 50 ML SYRINGE IV PRN (13:20)
[2020-08-26] MEDS ORDERED: GLUCOSE 4GM CHEW TABLET PO PRN (13:20)
[2020-08-26] MEDS ORDERED: TRELEGY INH SCH (13:35)
[2020-08-26] MEDS: NORCO, ANEXSIA 5/325MG TABLET (HYDROcodone/ACETAMINOPHEN) PO PRN ×2 (14:20→21:04)
[2020-08-26] MEDS: PREGABALIN 100 MG CAP (LYRICA) PO SCH ×2 (14:21→21:04)
[2020-08-26 15:48] VITALS: BP 139/83
--- NOTE | 2020-08-26 16:35 | HPEPDOC ---
[facility] Medical History & Physical Date of Admission Aug 26, 2020 Date of Service: Aug 26, 2020 Primary Care Physician: Angelina Braswell Other Provider Dr. Faustin (Pulmonology); Dr. Singh (Cardiology) Attending Physician: TIFFANY FAITH MD History and Physical CHIEF COMPLAINT: Full body weakness HISTORY OF PRESENT ILLNESS: Sav is a pleasant 65yo male with notable PMHx of COPD on HS 2L O2, LINDA w/ CPAP, IDDM II w/ neuropathy, HLD, morbid obesity, chronic neck & back pain, and E. coli UTI 09/24/2019, who presented to the [facility] ED via EMS early in the morning on 08/26/20 with a chief complaint of significant generalized weakness. He reports that around 9 PM the evening before (08/25), he began to have shakes of both his right upper and right lower extremities. The shakes continued and limited his ability to fall asleep. Around 1 AM on 08/26, patient developed chills, got out of bed, and managed to walk to a chair with great difficulty. He remained sitting in the chair for another two hours due to the continued fatigue. Around 4 AM, patient called out for his , who attempted to assist the patient to standing position, but ultimately he was unable to stand. Patient's states home oral temperature around this time was 100.2. The patient's subsequently called EMS. Per report from the ED, EMS administered 300 mL of normal saline prior to bringing him to the ED. Upon presentation to the ED, patient was saturating at 92% on 3 L of nasal cannula and afebrile. He had a leukocytosis (WBC 12.2) and positive orthostatic vital signs per heart rate (went from 75 BPM supine to 105 BPM standing). Relevant lab results: serum creatinine 1.69 (baseline approximately 1.3-1.5); BNP 1336; ABG 7.36/PCO2 50.1/bicarbonate 29; lactic acid 1.8. A respiratory viral panel was negative, two blood cultures were obtained and are pending, a chest x-ray read potential for bibasilar atelectasis versus infiltrates but chest CT was negative for any acute abnormalities. Urinalysis was ordered but patient was having trouble voiding. A CT abdomen and pelvis was ordered to assess for any obstruction, which was not evident, but patient did have complex cysts in the kidneys. Ultimately patient was able to urinate and subsequent urinalysis revealed 1+ leukocyte esterase with 1+ urine bacteria and a reflex to culture was pending. Patient was subsequently admitted under the care of the hospitalist service for continued infection workup in the setting of multifactorial weakness. The patient's , Lee Ann Altman ([phone]), was present at the time of admission from the ED and supplied a decent amount of history. Patient verbally confirmed in the ED that he is full code. He reports an allergy to gabapentin in the form of "dizziness," yet takes pregabalin (Lyrica) at home for his diabetic neuropathy. His PCP is Angelina Braswell (mid-level provider at [facility]). Recent medical history significant only for addition of 2.5 mg bid, midodrine by his PCP due to lower pressures. Patient had some dizziness prior to starting midodrine, which he says has since improved after beginning the medication. PAST MEDICAL HISTORY: COPD on home night time 3L oxygen bled into his CPAP machine (patient reported being compliant, although admission in September 2019 documented noncompliance with CPAP) Obstructive sleep apnea with home CPAP use and pressure settings around 1516 with oxygen bled in. 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 Singh of cardiology on average every year; patient reported possibly having atrial fibrillation, but is not home anticoagulation and denied any stent placement or CABG despite taking both aspirin and Plavix) Chronic neck and back pain status post spinal fusion surgery on home Vicodin (5- 325) BPH Morbid obesity GERD PsoriasisMuscle cramps on home magnesium. PAST SURGICAL HISTORY: Spinal fusion surgery Left shoulder arthroscopic surgery. Left inguinal hernia surgery. Left forearm surgery SOCIAL HISTORY: Patient is and lives with his and grandson in town. He has 3 daughters. 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 Denies tobacco, alcohol, or illicit drug use FAMILY HISTORY: Patient was adopted. He reports one of his daughters has Chiari syndrome, while another daughter has complex migraine/seizures. ALLERGIES: Please see below. REVIEW OF SYSTEMS: CONSTITUTIONAL: Reports intermittent chills and subjective fever overnight. He denies any recent unintentional change in weight or night sweats. EYES: Denies visual changes, double vision, or blurry vision ENT: Denies rhinorrhea, dysphagia, or odynophagia CARDIOVASCULAR: Denies chest pain, chest pressure, or palpitations. RESPIRATORY: Reports shortness of breath that is at his baseline, as well as ch ronic productive cough of clear sputum. Denies any increased respiratory muscle use from baseline or pleuritic chest pain. GASTROINTESTINAL: Denies abdominal pain, nausea, vomiting, diarrhea, constipa tion, blood in stool GENITOURINARY: Reports difficulty urinating as his baseline. Denies dysuria or hematuria MSK: Reports chronic neck and back pain unchanged from baseline, with restricted rotational neck motion looking to the left INTEGUMENTARY: Reports psoriasis that is unchanged from recent baseline with no areas of skin breakdown, excessive pruritus, or bleeding. NEUROLOGY: Reports recent baseline of intermittent dizziness remains, but has improved over the past month. Also reports occasional urinary incontinence. Denies saddle anesthesia. PSYCHIATRIC: Denies depression, anxiety, paranoia, anhedonia, or episodes of katiana ENDOCRINE: Reports some cold intolerance overnight that has improved. Denies heat intolerance. HEMATOLOGIC: Denies any recent easy bleeding or bruising LYMPHATIC: Denies any new lumps or bumps HOME MEDICATIONS: Please see below. PHYSICAL EXAMINATION: VITAL SIGNS: Please see below GENERAL APPEARANCE: Pleasant, morbidly obese male lying in bed, accom panied by in room. Appears slightly older than stated age. On supplement oxygen with audible respiratory wheezes. HEENT: Normocephalic, atraumatic. Noninjected, anicteric sclera. Pupils react to light and accommodation. There is some mild aniscoria with non-spherical left pupil. Mild conjunctival pallor. ORAL CAVITY: Patient is edentulous. Moist mucous membranes with no pharyngeal erythema or exudate. NECK: Wide and thick, yet still supple. Trachea is midline. Difficult to assess for JVD secondary to habitus. CARDIOVASCULAR: Heart sounds are somewhat diminished with regular rate and regul ar rhythm. Normal S1, S2. No murmurs or rubs were appreciated, but again heart sounds were distant. CHEST: No chest wall tenderness LUNGS: Patient is receiving 3 L supplemental oxygen via nasal cannula. There are audible inspiratory and expiratory wheezes diffusely, both anteriorly and posteriorly, right side greater than left. There was no significant rhonchi or crackles appreciated. Breath sounds were slightly diminished with a decreased tidal volume. No double accessory muscle use. Speaking full sentences. ABDOMEN: Morbidly obese, soft, nontender. Hypoactive bowel sounds. Difficult to assess for hepatosplenomegaly or palpable masses secondary to habitus. There is abdominal striae present. MUSCULOSKELETAL: 3/5 right lower extremity strength, 5/5 left lower extremity muscle strength. Limited motion with left rotation of neck. EXTREMITIES: 1+ bilateral lower extremity pitting edema. There are signs of chronic venous stasis with associated darkened pigmentation of distal lower extremities and dorsum of feet. Bilateral onychomycosis. 2+ radial pulses bilaterally. SKIN: There are scattered areas of erythematous plaques over her extremities, abdomen, and back. NEUROLOGICAL: No focal deficits were appreciated. Nondistended dysarthric speech. Responded to all questions and commands appropriately. PSYCHIATRIC: Pleasant mood. Affect appears appropriate. LABORATORY DATA: Please see below. IMAGING: Chest x-ray (1 view), 08/26/20 FINDINGS: Lungs: There is low lung volume with bibasilar atelectatic changes versus infiltrates. Pleural spaces: Unremarkable. No pleural effusion. No pneumothorax. Heart/Mediastinum: Unremarkable. No cardiomegaly. Bones/joints: Unremarkable. IMPRESSION: Bibasilar atelectatic changes versus infiltrates. CT chest without contrast, 08/26/20 FINDINGS: Lung marin demonstrate very minimal chronic appearing bibasilar fibroatelectatic changes essentially stable compared to 2020. There is a small chronic benign 3 cm fat containing left-sided Bochdalek's hernia. No acute consolidation, effusion or pneumothorax. Tracheobronchial tree is patent. The mediastinum demonstrates atherosclerotic changes to the thoracic aorta and coronary arteries without aortic aneurysm or cardiomegaly. No pericardial effusion. No significant axillary, hilar, or mediastinal adenopathy. Surrounding musculoskeletal structures demonstrate age-related changes without acute osseous abnormality. IMPRESSION: Minimal chronic stable changes. No acute mediastinal or pleuroparenchymal process appreciated. CT abdomen and pelvis without contrast, 08/26/20 FINDINGS: Liver, spleen, pancreas, gallbladder, bilateral adrenal glands and kidneys are essentially normal/stable. Kidneys demonstrate few small bilateral isodense and hypodense round lesions suggesting simple and complex cysts. No acute perinephric stranding or hydroureteronephrosis. The enteric system is without obstruction or acute inflammatory process. Scattered sigmoid diverticula noted without acute diverticulitis. Normal terminal ileum and appendix identified in the right lower quadrant. Pelvis demonstrates normal bladder and age-appropriate prostate/seminal vesicles. No pelvic fluid. No ascites. No free air. No adenopathy. Atherosclerotic changes to the aorta without aneurysm. Musculoskeletal structures demonstrate age-related degenerative changes. IMPRESSION: 1. The kidneys demonstrate small rounded hypodense and isodense lesions which likely represent simple and complex cysts. Consider outpatient follow-up ultrasound for confirmation. There is no evidence for hydronephrosis. Bladder is unremarkable. Prostate is normal in size. 2. Scattered sigmoid diverticula without acute diverticulitis. 3. No further acute abdominopelvic pathology appreciated. MICROBIOLOGY: Please see below. ASSESSMENT & PLAN: Sav is a 65yo male w/notable h/o COPD w/ hs O2, LINDA w/ home CPAP, IDDMII w/ neuropathy, HLD, morbid obesity, hld, E. coli UTI (09/2019), and chronic neck and back pain who presented to the ED in the morning of 08/26/20 with the chief complaint of significant diffuse weakness beginning the night before with accompanying right sided shakes, chills, and subjective fever. He had a mild leukocytosis with a positive UA and positive orthostatics (per heart rate). He was admitted for further rule out of infection in the setting of multifactorial weakness. #Multifactorial generalized weakness. -We're continuing to with infection workup: mild leukocytosis (WBC 12.2) on px w/ left shift. Positive UA. Urine culture is pending. He did have Escherichia coli UTI in September 2019. Intravenous ceftriaxone 1 g/24h started. Initial lactic was 1.8. Negative respiratory panel. CT chest was unremarkable for acute abnormalities, as was CT abdomen/pelvis. 2 initial blood cultures obtained in the ED are pending -TSH, B12, B1 (thiamine), and folic acid levels all ordered in setting of we akness; multivitamin ordered #COPD on home nighttime O2 -ABG in the ED was relatively unremarkable, although did show potential for chronic CO2 retention with PCO2 of 50; this is likely secondary to his obesity hypoventilation syndrome/LINDA -Chest CT is negative for any acute abnormalities -Patient uses 3 L daily at bedtime of O2, that's bled into his CPAP machine. Also reports using intermittent daytime 3 L supplemental oxygen after considerable exertion. He follows with Dr. Faustin for outpatient pulmonary care. -His home trelegy inhaler was continued, along with other home inhalers. Brigitte miller pulse oximetry monitoring ordered with oxygen titration of 88-92%. #LINDA on home CPAP -Patient likely has a component of obesity hypoventilation syndrome due to morbid obesity. -Orders placed for patient to use own CPAP. Patient's reports home setting is about 1516 mmHg. #Insulin-dependent diabetes mellitus type 2 with neuropathy, poorly controlled -Initial serum glucose of 338. A1c was 11.6. -Sliding-scale insulin ordered with hypoglycemic protocol. -Patient takes 60 mg every night of long-acting insulin at home. We have ordered 20 mg twice a day of Levemir. We are holding his home glimepiride. Consistent carb diet. -Home pre-gadolinium was continued for neuropathy. #Grade II LV diastolic dysfunctionm -high suspicion for cor pulmonale secondary to COPD, prior noncompliance with CPAP for LINDA, and likely obesity hypoventilation syndrome -Echo from 09/24/19: EF 65% with mildly dilated right heart chambers and at least mild pulmonary hypertension and grade 2 left ventricular diastolic dysfunction -Patient is on home torsemide 10 mg. This is initially being held and potentially can be resumed tomorrow. Patient reports he is on this because of lower extremity swelling, likely secondary to diastolic CHF/cor pulmonale. -Patient 1+ pitting edema that he says this is chronic baseline with no appreciated crackles. His heart to assess for JVD secondary to habitus. BNP on admission was 1336, but review of records shows he's had prior levels in the 800s to thousands. I and O monitoring with daily weights. -Telemetry ordered #Unspecified cardiac history -Both patient and his are unsure whether or not he definitively has been diagnosed with atrial fibrillation. He is not on anticoagulation Oertli. He follows with Dr. Singh for outpatient cardiology care roughly every year. He denies any bypass surgery, ACS history, catheterization, or stent placement, although being on home aspirin, Plavix, and as needed nitroglycerin. Both the aspirin and Plavix were continued. -Patient is on telemetry -Initial troponins were negative in the ED #Presence of complex renal cysts on imaging -CT abdomen and pelvis showed complex cysts in the kidneys. This will require outpatient follow-up with urology. #Serum creatinine 1.69 on presentation -Patient has a approximate baseline of 1.31.5. We will continue to monitor on repeat metabolic panels. At this time, his home torsemide of 10 mg daily is being held. Can reassess tomorrow whether or not to continue torsemide. #HLD -Home statin medication continued #Recent history of low blood pressure -Last month, patient's PCP began administering midodrine 2.5 mg twice a day. Patient reports this is helped with his pressures as well as some recent dizziness. Midodrine was continued. Since admission, pressures have been normotensive. He was administered 300 mL of normal saline by EMS in the field pe r ED report. #Chronic neck and back pain -Patient is status post spinal fusion surgery. He takes Vicodin 5325 as outpatient, which was continued upon admission. #GERD -Esophagitis presence unspecified -Home PPI continued #BPH -Patient's home alpha one solomon medication (alfuzosin) is not on hospital formulary. As a result, tamsulosin was ordered. #Morbid obesity -Presenting BMI of 46.2 -This significantly complicates patient's care and also is likely sizable component to his sleep apnea, COPD, diastolic heart failure/cor pulmonale, diabetes, and chronic pain #DVT prophylaxis: sc heparin tid Disposition: Admitted to [facility] with telemetry with expected 2 midnight stay and pending further infection workup in the setting of weakness. Vital Signs Vital Signs Date Time Temp Pulse Resp B/P (MAP) Pulse Ox O2 Delivery O2 Flow Rate FiO2 08/26/20 15:48 99.1 106 24 139/83 (101) 92 Nasal Cannula 3.0 Laboratory Data Labs 24H Laboratory Tests 2 08/26/20 06:11: Lactic Acid Level 1.8 08/26/20 06:13: Immature Granulocyte % (Auto) 0.7, Neutrophils (%) (Auto) 87.6H, Lymphocytes (%) (Auto) 5.0L, Monocytes (%) (Auto) 6.2, Eosinophils (%) (Auto) 0.0, Basophils (%) (Auto) 0.5, Neutrophils # (Auto) 10.7H, Lymphocytes # (Auto) 0.6L, Monocytes # (Auto) 0.8, Eosinophils # (Auto) 0.0, Basophils # (Auto) 0.1, Nucleated Red Blood Cells % (auto) 0.0, Anion Gap 7L, Glomerular Filtration Rate 43.8L, Calcium Level 8.2L, Total Bilirubin 0.6, Direct Bilirubin 0.2, Aspartate Amino Transf (AST/SGOT) 9, Alanine Aminotransferase (ALT/SGPT) 18, Alkaline Phosphatase 111, Total Creatine Kinase 172, Creatine Kinase MB 1.2, Creatine Kinase MB Relative Index 0.70, Troponin I 0.04, TQ-Rvf-M-Type Natriuretic Peptide 1336H, Total Protein 6.5, Albumin 2.9L, Albumin/Globulin Ratio 0.8, Lipase 22L 08/26/20 07:48: POC pH (Misc Panel) 7.368, POC Base Excess (Misc Panel) 4.0H, POC Saturated Percent O2 (Misc) 98, POC pO2 (Misc Panel) 106.0H, POC pCO2 (Misc Panel) 50.1H, POC HCO3 (Misc Panel) 28.9H, POC Total CO2 (Misc Panel) 30.0H 08/26/20 12:38: Urine Color YELLOW, Urine Appearance HAZY, Urine pH 5.0, Urine Specific [place] 1.011, Urine Protein NEGATIVE, Urine Glucose (UA) 3+H, Urine Ketones NEGATIVE, Urine Blood 1+H, Urine Nitrite NEGATIVE, Urine Bilirubin NEGATIVE, Urine Urobilinogen 0.2, Urine Leukocyte Esterase 1+H, Urine WBC (Auto) 8H, Urine RBC (Auto) 3, Urine Hyaline Casts (Auto) 3, Urine Bacteria (Auto) 1+H, Urine S quamous Epithelial Cells 1, Urine Mucus (Auto) SMALL, Urine Sperm (Auto) 08/26/20 15:52: CBC/BMP Laboratory Tests 08/26/20 06:13 Microbiology Microbiology 08/26/20 Urine Culture, Received Pending 08/26/20 Blood Culture, Received Pending 08/26/20 Blood Culture, Received Pending 08/26/20 Respiratory Virus Panel (PCR) ([facility]) - Final, Complete Home Medications Scheduled Alfuzosin HCl (Alfuzosin HCl ER) 10 Mg Tab, 10 MG PO DAILY Aspirin (Aspirin EC) 81 Mg Tabec, 81 MG PO DAILY Atorvastatin Calcium (Atorvastatin Calcium) 80 Mg Tab, 80 MG PO DAILY Clopidogrel Bisulfate (Plavix) 75 Mg Tablet, 75 MG PO DAILY Fluticasone/Umeclidin/Vilanter (Trelegy Ellipta 100-62.5-25) 1 Each Blst.w.dev, 1 PUFF PO DAILY Glimepiride (Glimepiride) 2 Mg Tablet, 2 MG PO DAILY Insulin Glargine,Hum.rec.anlog (Lantus Solostar) 100 Unit/1 Ml Insuln.pen, 60 UNIT SC DAILY Insulin Human Lispro (Humalog) 100 Unit/1 Ml Vial, 1 DOSE SC ACHS PER SLIDING SCALE Magnesium Chloride (Mag64) 64 Mg Tablet.dr, 64 MG PO TID Midodrine HCl (Midodrine HCl) 2.5 Mg Tablet, 2.5 MG PO BID Pantoprazole Sodium (Protonix) 40 Mg Tablet.dr, 40 MG PO DAILY Pregabalin (Pregabalin) 200 Mg Capsule, 200 MG PO TID Semaglutide (Ozempic) 1 Mg/0.75 Ml Pen.injctr, 1 MG SC QWEEK SATURDAYS Torsemide (Torsemide) 10 Mg Tablet, 10 MG PO DAILY Scheduled PRN Acetaminophen (Acetaminophen) 325 Mg Tablet, 650 MG PO Q6H PRN for PAIN / FEVER Albuterol Sulf (Albuterol Sulfate) 2.5 Mg/3 Ml Vial.neb, 1 VIAL NEB Q4H PRN for SOB/WHEEZING Albuterol Sulfate (Proair Hfa) 8.5 Gm Hfa.aer.ad, 2 PUFF INH Q4H PRN for SOB/WHEEZING Ammonium Lactate (Ammonium Lactate) 12 % Cre, 1 DOSE TOP BID PRN for DRY SKIN APPLY TO LEGS Clobetasol Propionate/Emoll (Clobetasol Emollient 0.05% Crm) 0.05 % Cre, 1 APPLIC TOP BID PRN for PSORIASIS USES ON ARMS FOR PSORIASIS Hydrocodone/Acetaminophen (Hydrocodone-Acetamin 5-325 mg) 1 Each Tablet, 1 TAB PO Q6H PRN for PAIN Nitroglycerin (Nitrostat) 0.4 Mg Tab.subl, 0.4 MG SL NITRO PRN for CHEST PAIN Allergies Coded Allergies: gabapentin (Verified Adverse Reaction, Mild, Lowers Blood pressure, 04/25 06/11) A-FIB/CHADSVASC A-FIB History Current/History of A-Fib/PAF?: No Current PO Anticoag Therapy: No LARRY SIMMS D.O. Aug 26, 2020 16:34
[2020-08-26 16:36] LABS: THYROID STIMULATING HORMONE 0.419 uIU/ML (0.358-3.740)
[2020-08-26 16:37] LABS: FOLATE 6.2 NG/ML (>5.4)
[2020-08-26 17:00] LABS: HEMOGLOBIN A1c 11.6 %
[2020-08-26 17:10] VITALS: O2SAT 92
[2020-08-26] MEDS: HumaLOG INSULIN (NovoLOG) PER UNIT SC SCH ×2 (17:30→21:00)
[2020-08-26] MEDS ORDERED: ACETAMINOPHEN TAB 650MG DOSE (2X325MG) PO PRN (17:40)
[2020-08-26] MEDS: MIDODRINE 2.5 MG TAB PO SCH (18:00)
[2020-08-26] MEDS: CLOPIDOGREL 75 MG TAB PO SCH (18:11)
[2020-08-26] MEDS: ATORVASTATIN 20 MG TAB PO SCH (18:11)
[2020-08-26] MEDS: ASPIRIN 81MG ENTERIC TABLET PO SCH (18:11)
[2020-08-26] MEDS: TAMSULOSIN 0.4 MG CAP PO SCH (18:11)
[2020-08-26] MEDS: MULTIVITAMINS/MINERALS THERAP 1 TAB PO SCH (18:11)
[2020-08-26] MEDS: PANTOPRAZOLE 40MG TAB (PROTONIX) PO SCH (18:12)
[2020-08-26] MEDS: cefTRIAXone SOD 1 GM in D5W MINI-BAG PLUS 50 ML IV SCH (18:13)
[2020-08-26] MEDS: HEPARIN SOD (PORCINE) 5000UNITS/ML 1ML VIAL/SYRINGE SC SCH (21:04)
[2020-08-26 22:00] VITALS: BP 131/82
[2020-08-26 22:49] VITALS: O2SAT 90
[2020-08-27 05:51] LABS: BASO % 0.3 % (0.0-1.0); HEMOGLOBIN 10.6 g/dl (13.5-17.5); LYMPH # 0.6 10^3/uL (1.5-5.0); LYMPH % 8.7 % (24.0-44.0); MEAN CORPUSCULAR HEMOGLOBIN 27.7 pg (27.0-33.0); MEAN CORPUSCULAR HGB CONC 31.2 g/dl (32.0-36.5); MEAN CORPUSCULAR VOLUME 88.8 fl (80.0-96.0); MONO # 0.2 10^3/uL (0.0-0.8); NEUTROPHILS # 6.4 10^3/uL (1.5-8.5); NEUTROPHILS % 87.6 % (36.0-66.0); PLATELET COUNT, AUTOMATED 152 10^3/uL (150-450); RED BLOOD COUNT 3.83 10^6/uL (4.30-6.10); WHITE BLOOD COUNT 7.3 10^3/uL (4.0-10.0)
[2020-08-27 06:00] VITALS: BP 133/61
[2020-08-27] MEDS: MIDODRINE 2.5 MG TAB PO SCH ×2 (06:00→17:07)
[2020-08-27 06:14] LABS: ALBUMIN 2.5 GM/DL (3.2-5.2); BILIRUBIN,TOTAL 0.6 MG/DL (0.2-1.0); CALCIUM LEVEL 7.9 MG/DL (8.8-10.2); CREATININE FOR GFR 1.54 MG/DL (0.70-1.30); GLOMERULAR FILTRATION RATE 48.8 (>49); TOTAL PROTEIN 5.6 GM/DL (6.4-8.2)
[2020-08-27] MEDS: HEPARIN SOD (PORCINE) 5000UNITS/ML 1ML VIAL/SYRINGE SC SCH ×3 (06:15→21:21)
[2020-08-27] MEDS: HumaLOG INSULIN (NovoLOG) PER UNIT SC SCH ×5 (08:09→21:22)
[2020-08-27] MEDS: PREGABALIN 100 MG CAP (LYRICA) PO SCH ×3 (08:10→21:19)
[2020-08-27] MEDS: NORCO, ANEXSIA 5/325MG TABLET (HYDROcodone/ACETAMINOPHEN) PO PRN ×2 (08:10→21:20)
[2020-08-27] MEDS: ATORVASTATIN 20 MG TAB PO SCH (09:44)
[2020-08-27] MEDS: ASPIRIN 81MG ENTERIC TABLET PO SCH (09:44)
[2020-08-27] MEDS: PANTOPRAZOLE 40MG TAB (PROTONIX) PO SCH (09:44)
[2020-08-27 09:45] VITALS: BP 100/58
[2020-08-27] MEDS: CLOPIDOGREL 75 MG TAB PO SCH (09:45)
[2020-08-27] MEDS: MULTIVITAMINS/MINERALS THERAP 1 TAB PO SCH (09:45)
[2020-08-27] MEDS: TAMSULOSIN 0.4 MG CAP PO SCH (09:45)
[2020-08-27] MEDS: TORSEMIDE 10 MG TABLET PO SCH (10:01)
[2020-08-27 11:38] VITALS: O2SAT 94
[2020-08-27 14:00] VITALS: BP 111/56
--- NOTE | 2020-08-27 14:28 | IPNPDOC ---
Date Seen The patient was seen on 08/27/20. Progress Note SUBJECTIVE: This is hospital day 1. The patient reports feeling a lot better today. He reports that he is not feeling as weak and denies any shaking of the arms or legs overnight. Nursing staff had to use ice packs and acetaminophen to bring the patient's fever down. The patient is not feeling febrile and denies chills or night sweats. The patient also reports that he feels less tired today. He expresses good appetite. He denies feeling nausea, vomiting, diarrhea or constipation at this time. The patient denies heart palpitations and chest pain. Patient denies dysuria at this time. OBJECTIVE PHYSICAL EXAMINATION: VITAL SIGNS: Please see below. GENERAL: The patient is a pleasant, obese 65-year-old male who appears older than stated age, he is lying in no acute distress on the gurney HEENT: No scleral icterus, conjunctiva and lids appear normal, nares patent, oral mucosa moist, alert and oriented 3 CARDIOVASCULAR: Limited by body habitus, faint heart sounds auscultated, regular rate and rhythm, normal S1, S2, no murmurs, rubs or gallops appreciated. RESPIRATORY: Limited by body habitus, bilateral coarse breath sounds appreciated. ABDOMINAL: Soft, nontender, nondistended, obese, bowel sounds unable to be appreciated due to body habitus EXTREMITIES: Bilateral trace pedal edema, right greater than left, bilateral lower extremities show dermatologic hyperpigmentation, a sign of chronic venous stasis up to the mid lower leg bilaterally PSYCHOLOGICAL: Alert and oriented 3, cooperative on exam LABORATORY DATA, IMAGING STUDIES, MICROBIOLOGY: Please see below. 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 The patient presented to the ED via EMS due to generalized weakness. #Fatigue. Given patient's history of right goers and leukocytosis. This may be secondary to an infectious etiology. Urinalysis was positive. Urine culture pending. Continue ceftriaxone today. B12 levels are low. #Volume overload secondary to heart failure exacerbation Patient has a history of grade 2 left ventricular diastolic dysfunction with high suspicion of cor pulmonale. Continue telemetry. Continue torsemide 10 mg home medication. BNP was relatively close to patient's prior levels which have been in the 800s to 1000s. Continue intake and output monitoring with daily weights #UTI Continue ceftriaxone. Follow-up on pending urine culture. #COPD on home night time oxygen. ABG in the ED showed chronic carbon dioxide retention changes likely secondary to pickwickian syndrome/LINDA. Chest CT negative for acute cardiopulmonary process. Continue nighttime CPAP from home. Continue home medications including inhalers. Maintain oxygen saturation between 88-92% #LINDA on home CPAP. Continue CPAP at night with home settings according to patient's , these are 15-16 mmHg #IDDM, T2 with neuropathy, poorly controlled Initial serum glucose of 338 A1c 11.6. Continue sliding scale insulin with hypoglycemic protocol. Continue 20 units of Levemir twice daily. Hold home medication, glimepiride. Continue consistent carbohydrate diet. Continue pregabalin for neuropathy. #Unspecified cardiac history. Patient is on Plavix, however, he does not recollect bypass surgery or acute coronary syndrome history. Troponins were negative. Continue telemetry monitoring. #Elevated serum creatinine. Patient's baseline creatinine is between 1.3-1.5. Torsemide could be continued because of patient being at baseline creatinine level #Abnormal CT abdomen, pelvis. Presence of complex renal cysts appear on CT imaging. We'll require outpatient follow-up with urology. #Hyperlipidemia. Continue home statin medication. #Recent history of low blood pressure. Patient's primary care provider began administering [place] drain 2.5 mg twice a day. Patient reports feeling dizzy after menstruation of this medication, although that it has helped with his blood pressures. [place] drain is being continued with holding parameters. Patient is currently normotensive but required 300 mL normal saline bolus administration by EMS before hospitalization. #Chronic neck and back pain. Patient is status post spinal fusion surgery. Continue outpatient home medication, Vicodin 5325 #GERD. Continue home PPI. #BPH. Continue tamsulosin. #Morbid obesity. BMI 46.2. This complicates patient's care due to other comorbidities including LINDA, COPD, diastolic heart failure/cor pulmonale, diabetes, and chronic pain. DVT prophylaxis ordered: Subcutaneous heparin 3 times a day DISPOSITION: Continue telemetry pending urine culture results before considering further management and discharge from hospital. VS, I&O, 24H, Fishbone Vital Signs/I&O Vital Signs Date Time Temp Pulse Resp B/P (MAP) Pulse Ox O2 Delivery O2 Flow Rate FiO2 08/27/20 11:38 94 Nasal Cannula 3.0 08/27/20 10:00 93 08/27/20 09:45 98.7 92 20 100/58 (72) I&O- Last 24 Hours up to 6 AM 08/27/20 06:00 Intake Total 1800 ml Output Total 350 ml Balance 1450 ml Laboratory Data 24H LABS Laboratory Tests 2 08/26/20 15:48: Estimated Mean Plasma Glucose 286H, Hemoglobin A1c 11.6 08/26/20 15:52: Vitamin B12 Level 161L, Folate 6.2, Thyroid Stimulating Hormone (TSH) 0.419 08/26/20 17:04: Bedside Glucose (Misc Panel) 123H 08/26/20 17:57: Lactic Acid Level 1.7, Procalcitonin 0.51 08/26/20 19:54: Bedside Glucose (Misc Panel) 197H 08/27/20 05:40: Immature Granulocyte % (Auto) 0.4, Neutrophils (%) (Auto) 87.6H, Lymphocytes (%) (Auto) 8.7L, Monocytes (%) (Auto) 3.0, Eosinophils (%) (Auto) 0.0, Basophils (%) (Auto) 0.3, Neutrophils # (Auto) 6.4, Lymphocytes # (Auto) 0.6L, Monocytes # (Auto) 0.2, Eosinophils # (Auto) 0.0, Basophils # (Auto) 0.0, Nucleated Red Blood Cells % (auto) 0.0, Anion Gap 4L, Glomerular Filtration Rate 48.8L, Calcium Level 7.9L, Total Bilirubin 0.6, Aspartate Amino Transf (AST/SGOT) 25, Alanine Aminotransferase (ALT/SGPT) 18, Alkaline Phosphatase 94, Total Protein 5.6L, Albumin 2.5L, Albumin/Globulin Ratio 0.8 08/27/20 11:51: Bedside Glucose (Misc Panel) 279H CBC/BMP Laboratory Tests 08/27/20 05:40 Microbiology Microbiology 08/26/20 Urine Culture - Final, Complete 08/26/20 Blood Culture - Preliminary, Resulted No growth after 24 hours . All specim... 08/26/20 Blood Culture - Preliminary, Resulted No growth after 24 hours . All specim... 08/26/20 Respiratory Virus Panel (PCR) ([facility]) - Final, Complete GME ATTESTATION GME ATTESTATION My faculty preceptor for this patient encounter was physically present during the encounter and was fully available. All aspects of the patient interview, examination, medical decision making process, and medical care plan development were reviewed and approved by the faculty preceptor. The faculty preceptor is aware and concurs with the plan as stated in the body of this note and will attest to such by his/her cosignature. Flaco Cazares DO Aug 27, 2020 14:27
[2020-08-27] MEDS: cefTRIAXone SOD 1 GM in D5W MINI-BAG PLUS 50 ML IV SCH (17:00)
[2020-08-27] MEDS: CYANOCOBALAMIN 500 MCG TAB PO SCH (17:07)
[2020-08-27] MEDS ORDERED: ALBUTEROL SULFATE 2.5 MG/0.5 ML INH NEB SOLN NEB ONE (18:30)
[2020-08-27 21:00] VITALS: O2SAT 93
[2020-08-27] MEDS: LEVEMIR (INSULIN DETEMIR) 1 UNITS/0.01ML SC SCH (21:22)
[2020-08-27 22:00] VITALS: BP 136/62
[2020-08-28 06:00] VITALS: BP 143/70
[2020-08-28] MEDS: MIDODRINE 2.5 MG TAB PO SCH (06:00)
[2020-08-28] MEDS: HEPARIN SOD (PORCINE) 5000UNITS/ML 1ML VIAL/SYRINGE SC SCH (06:57)
[2020-08-28] MEDS: HumaLOG INSULIN (NovoLOG) PER UNIT SC SCH (08:16)
[2020-08-28] MEDS: LEVEMIR (INSULIN DETEMIR) 1 UNITS/0.01ML SC SCH (08:16)
[2020-08-28] MEDS: CYANOCOBALAMIN 500 MCG TAB PO SCH (08:16)
[2020-08-28] MEDS: PREGABALIN 100 MG CAP (LYRICA) PO SCH (08:17)
[2020-08-28] MEDS: TAMSULOSIN 0.4 MG CAP PO SCH (08:17)
[2020-08-28] MEDS: CLOPIDOGREL 75 MG TAB PO SCH (08:17)
[2020-08-28] MEDS: TORSEMIDE 10 MG TABLET PO SCH (08:17)
[2020-08-28] MEDS: ASPIRIN 81MG ENTERIC TABLET PO SCH (08:17)
[2020-08-28] MEDS: MULTIVITAMINS/MINERALS THERAP 1 TAB PO SCH (08:17)
[2020-08-28] MEDS: PANTOPRAZOLE 40MG TAB (PROTONIX) PO SCH (08:17)
[2020-08-28] MEDS: ATORVASTATIN 20 MG TAB PO SCH (08:18)
[2020-08-28] MEDS ORDERED: CEFD1CAP8 PO (08:40)
[2020-08-28 11:08] VITALS: O2SAT 94
--- NOTE | 2020-08-28 19:34 | DS.PDOC ---
Discharge Summary General Date of Admission Aug 26, 2020 at 13:08 Date of Discharge Aug 28, 2020 Discharge Summary PROCEDURES PERFORMED DURING STAY: None ADMITTING DIAGNOSES: 1. Generalized weakness 2. COPD on nocturnal O2 3. LINDA on CPAP 4. IDDM type 2 with neuropathy 5. Diastolic dysfunction grade 2 6. GERD 7. BPH 8. Morbid obesity DISCHARGE DIAGNOSES: 1. Generalized weakness 2/2 UTI 2. COPD on nocturnal O2 3. LINDA on CPAP 4. IDDM type 2 with neuropathy 5. Diastolic dysfunction grade 2 6. GERD 7. BPH 8. Morbid obesity COMPLICATIONS/CHIEF COMPLAINT: Chronic CHF, Diabetes Mellitus, General Weakness. HISTORY OF PRESENT ILLNESS: Coped from admitting physician's H&P " Sav is a pleasant 65yo male with notable PMHx of COPD on HS 2L O2, LINDA w/ CPAP, IDDM II w/ neuropathy, HLD, morbid obesity, chronic neck & back pain, and E. coli UTI 09/24/2019, who presented to the [facility] ED via EMS early in the morning on 08/26/20 with a chief complaint of significant generalized weakness. He reports that around 9 PM the evening before (08/25), he began to have shakes of both his right upper and right lower extremities. The shakes continued and limited his ability to fall asleep. Around 1 AM on 08/26, patient developed chills, got out of bed, and managed to walk to a chair with great difficulty. He remained sitting in the chair for another two hours due to the continued fatigue. Around 4 AM, patient called out for his , who attempted to assist the patient to standing position, but ultimately he was unable to stand. Patient's states home oral temperature around this time was 100.2. The patient's subsequently called EMS. Per report from the ED, EMS administered 300 mL of normal saline prior to bringing him to the ED. Upon presentation to the ED, patient was saturating at 92% on 3 L of nasal cannula and afebrile. He had a leukocytosis (WBC 12.2) and positive orthostatic vital signs per heart rate (went from 75 BPM supine to 105 BPM standing). Relevant lab results: serum creatinine 1.69 (baseline approximately 1.3-1.5); BNP 1336; ABG 7.36/PCO2 50.1/bicarbonate 29; lactic acid 1.8. A respiratory viral panel was negative, two blood cultures were obtained and are pending, a chest x-ray read potential for bibasilar atelectasis versus infiltrates but chest CT was negative for any acute abnormalities. Urinalysis was ordered but patient was having trouble voiding. A CT abdomen and pelvis was ordered to assess for any obstruction, which was not evident, but patient did have complex cysts in the kidneys. Ultimately patient was able to urinate and subsequent urinalysis revealed 1+ leukocyte esterase with 1+ urine bacteria and a reflex to culture was pending. " HOSPITAL COURSE: He was started on ceftriaxone for UTI. Patient improved the following day, and creatinine was trending downwards. Urine culture returned inconclusive. When I spoke with patient this morning, he felt well. He felt close to baseline and cleared physical therapy. Denies any fever, chest pain, dyspnea, or abdominal pain. He was afebrile and leukocytosis resolved. He felt ready for home and was subsequently discharged home. DISCHARGE MEDICATIONS: Please see below. ALLERGIES: Please see below. PHYSICAL EXAMINATION ON DISCHARGE: VITAL SIGNS: Please see below. GENERAL: Comfortable, in no apparent distress. HEENT: Head normocephalic/atraumatic, EOMI, sclera clear. NECK: Supple. RESPIRATORY: Limited by body habitus, but clear. CARDIOVASCULAR: Regular rate and rhythm. ABDOMEN: Soft, obese. Normal bowel sounds. MUSCLE SKELETAL: Muscle strength 5/5 in all extremities. NEUROLOGICAL: No focal deficits noted. PSYCHOLOGICAL: Normal mood and affect LABORATORY DATA: Please see below. IMAGING: Radiologist interpretation CXR Bibasilar atelectatic changes versus infiltrates. CT abd/pelvis without contrast 1. The kidneys demonstrate small rounded hypodense and isodense lesions which likely represent simple and complex cysts. Consider outpatient follow-up ultrasound for confirmation. There is no evidence for hydronephrosis. Bladder is unremarkable. Prostate is normal in size. 2. Scattered sigmoid diverticula without acute diverticulitis. 3. No further acute abdominopelvic pathology appreciated. CT chest without contrast Minimal chronic stable changes. No acute mediastinal or pleuroparenchymal process appreciated. PROGNOSIS: Good ACTIVITY: As tolerated. DIET: Carbohydrate consistent diet, 2gm sodium diet DISCHARGE PLAN: Home with home health services DISPOSITION: Home Health Service. DISCHARGE INSTRUCTIONS: 1. Follow up with PCP within 1 week 2. Complete antibiotic course for UTI ITEMS TO FOLLOWUP ON ON OUTPATIENT: 1. Radiology recommended outpatient US renal for renal lesions. See CT abd/pelvis above DISCHARGE CONDITION: Stable Total time spent on discharge planning, discharge summary, and medication reconciliation: 50 minutes Vital Signs/I&Os Vital Signs Date Time Temp Pulse Resp B/P (MAP) Pulse Ox O2 Delivery O2 Flow Rate FiO2 08/28/20 11:08 94 Nasal Cannula 3.0 08/28/20 06:00 97.9 74 17 143/70 (94) 08/27/20 10:00 93 I&O- Last 24 Hours up to 6 AM 08/28/20 06:00 Intake Total 1925 ml Output Total 750 ml Balance 1175 ml Laboratory Data Labs 24H Laboratory Tests 2 08/27/20 19:55: Bedside Glucose (Misc Panel) 289H 08/28/20 06:30: Bedside Glucose (Misc Panel) 256H 08/28/20 11:23: Bedside Glucose (Misc Panel) 390H FSBS Laboratory Tests Test 08/27/20 19:55 08/28/20 06:30 08/28/20 11:23 Range/Units Bedside Glucose (Misc Panel) 289 256 390 80-115 MG/DL Microbiology Microbiology 08/26/20 Urine Culture - Final, Complete 08/26/20 Blood Culture - Preliminary, Resulted No Growth after 48 hours. All Specime... 08/26/20 Blood Culture - Preliminary, Resulted No Growth after 48 hours. All Specime... 08/26/20 Respiratory Virus Panel (PCR) ([facility]) - Final, Complete Discharge Medications Scheduled Alfuzosin HCl (Alfuzosin HCl ER) 10 Mg Tab, 10 MG PO DAILY, (Reported) Aspirin (Aspirin EC) 81 Mg Tabec, 81 MG PO DAILY, (Reported) Atorvastatin Calcium (Atorvastatin Calcium) 80 Mg Tab, 80 MG PO DAILY, (Reported) Cefdinir (Cefdinir) 300 Mg Capsule, 300 MG PO BID Clopidogrel Bisulfate (Plavix) 75 Mg Tablet, 75 MG PO DAILY, (Reported) Fluticasone/Umeclidin/Vilanter (Trelegy Ellipta 100-62.5-25) 1 Each Blst.w.dev, 1 PUFF PO DAILY, (Reported) Glimepiride (Glimepiride) 2 Mg Tablet, 2 MG PO DAILY, (Reported) Insulin Glargine,Hum.rec.anlog (Lantus Solostar) 100 Unit/1 Ml Insuln.pen, 60 UNIT SC DAILY, (Reported) Insulin Human Lispro (Humalog) 100 Unit/1 Ml Vial, 1 DOSE SC ACHS, (Reported) PER SLIDING SCALE Magnesium Chloride (Mag64) 64 Mg Tablet.dr, 64 MG PO TID, (Reported) Midodrine HCl (Midodrine HCl) 2.5 Mg Tablet, 2.5 MG PO BID, (Reported) Pantoprazole Sodium (Protonix) 40 Mg Tablet.dr, 40 MG PO DAILY, (Reported) Pregabalin (Pregabalin) 200 Mg Capsule, 200 MG PO TID, (Reported) Semaglutide (Ozempic) 1 Mg/0.75 Ml Pen.injctr, 1 MG SC QWEEK, (Reported) SATURDAYS Torsemide (Torsemide) 10 Mg Tablet, 10 MG PO DAILY, (Reported) Scheduled PRN Acetaminophen (Acetaminophen) 325 Mg Tablet, 650 MG PO Q6H PRN for PAIN / FEVER, (Reported) Albuterol Sulf (Albuterol Sulfate) 2.5 Mg/3 Ml Vial.neb, 1 VIAL NEB Q4H PRN for SOB/WHEEZING, (Reported) Albuterol Sulfate (Proair Hfa) 8.5 Gm Hfa.aer.ad, 2 PUFF INH Q4H PRN for SOB/WHEEZING, (Reported) Ammonium Lactate (Ammonium Lactate) 12 % Cre, 1 DOSE TOP BID PRN for DRY SKIN, (Reported) APPLY TO LEGS Clobetasol Propionate/Emoll (Clobetasol Emollient 0.05% Crm) 0.05 % Cre, 1 APPLIC TOP BID PRN for PSORIASIS, (Reported) USES ON ARMS FOR PSORIASIS Hydrocodone/Acetaminophen (Hydrocodone-Acetamin 5-325 mg) 1 Each Tablet, 1 TAB PO Q6H PRN for PAIN, (Reported) Nitroglycerin (Nitrostat) 0.4 Mg Tab.subl, 0.4 MG SL NITRO PRN for CHEST PAIN, (Reported) Allergies Coded Allergies: gabapentin (Verified Adverse Reaction, Mild, Lowers Blood pressure, 05/07/19) LUZ PENNY DO Aug 28, 2020 19:34
== END 2020-08-28 11:52 | disposition home health service (06) | DRG 463 ==
LOC: M ED 05:55 → M ED INP 13:08 → M MSPAV 15:41
PROVIDERS: ADMIT Internal Medicine; ATTEND Internal Medicine
DX: N39.0 Urinary tract infection, site not specified (principal); E11.42 Type 2 diabetes mellitus with diabetic polyneuropathy; Z99.81 Dependence on supplemental oxygen; E11.65 Type 2 diabetes mellitus with hyperglycemia; E66.2 Morbid (severe) obesity with alveolar hypoventilation; N28.1 Cyst of kidney, acquired; Z68.42 Body mass index [BMI] 45.0-49.9, adult; E87.70 Fluid overload, unspecified; J44.9 Chronic obstructive pulmonary disease, unspecified; E78.5 Hyperlipidemia, unspecified; M54.2 Cervicalgia; M54.5 Low back pain; D72.829 Elevated white blood cell count, unspecified; N40.0 Benign prostatic hyperplasia without lower urinary tract symptoms; K21.9 Gastro-esophageal reflux disease without esophagitis; L40.9 Psoriasis, unspecified; R79.89 Other specified abnormal findings of blood chemistry; R25.2 Cramp and spasm; Z98.1 Arthrodesis status; Z79.82 Long term (current) use of aspirin; Z79.899 Other long term (current) drug therapy; Z79.01 Long term (current) use of anticoagulants; Z79.4 Long term (current) use of insulin; Z88.8 Allergy status to other drugs, medicaments and biological substances; I50.30 Unspecified diastolic (congestive) heart failure; I27.81 Cor pulmonale (chronic); R53.1 Weakness

== ENCOUNTER → 2020-09-09 | Outpatient (CLI) | payer BC, MEDICARE ==
[~2020-09-09] MED LIST changes: +CEFD1CAP8 PO; +MIDO2.5T PO; +OZEM2INJ2 SC; +PREG200C PO
--- NOTE | 2020-09-11 08:39 | REP ---
INDICATION: VISION CHANGES / RENAL CYSTS ABN IMAG CT COMPARISON: CT dated 08/26/2020 TECHNIQUE: Real time trejo scale ultrasound examination using curved array transducer. FINDINGS: Evaluation is significantly limited due to body habitus and technical factors. The suspected small simple and complex cysts noted on CT are incompletely evaluated by ultrasound. The kidneys demonstrate increased central sinus fat and cortical thinning consistent with chronic age-related renal disease. No hydronephrosis, nephrolithiasis, or obvious renal mass lesion. No perinephric fluid collection. Right kidney measures 11.6 x 5.1 x 4.9 cm. Left kidney measures 11.3 x 5.3 x 5.2 cm. IMPRESSION: 1. Chronic medical renal disease. No hydronephrosis. 2. Examination is nondiagnostic for evaluation of small cysts/lesions. Consider 6 month follow-up pre and postcontrast CT of the abdomen. <Electronically signed by Roger Miramontes > 09/11/20 [id number]
--- NOTE | 2020-09-11 08:42 | REP ---
INDICATION: VISION CHANGES COMPARISON: None. TECHNIQUE: Xiong scale and color Doppler evaluation using linear high frequency transducer Findings: FINDINGS: Two-dimensional xiong scale and color images demonstrate moderate amounts of mixed atheromatous plaquing with laminar flow and no appreciable narrowing. Color Doppler interrogation demonstrates normal arterial wave patterns and velocities with elements of spectral broadening. Normal flow direction is appreciated in the bilateral vertebral arteries. ICA peak systolic velocity: Right 94.8 cm/s; Left 89.9 cm/s ICA diastolic velocity: Right 39.3 cm/s; Left 44.1 cm/s ECA peak systolic velocity: Right 141.8 cm/s; Left 152.7 cm/s CCA peak systolic velocity: Right 102.8 cm/s; Left 105.8 cm/s ICA/CCA ratio: Right 0.92 cm/s; Left 0.85 cm/s IMPRESSION: No hemodynamically significant areas of narrowing or stenosis appreciated. Based on set standards narrowing falls within the less than 50% range. <Electronically signed by Roger Miramontes > 09/11/20 [id number]
== END ==
LOC: M RAD 13:22
PROVIDERS: ATTEND Nurse Practitioner Adult Health
DX: H53.9 Unspecified visual disturbance (principal); N28.1 Cyst of kidney, acquired; N28.9 Disorder of kidney and ureter, unspecified; I65.23 Occlusion and stenosis of bilateral carotid arteries

== ENCOUNTER → 2020-10-25 | Outpatient (REF) | payer BC, MEDICARE ==
[~2020-10-25] MED LIST changes: -CEFD1CAP8 PO; +CEFD300C41 PO; +FOLI1TAB11 PO; +KETO2CR TOP; +METH2.5T48 PO
== END ==
LOC: M LAB REF 15:59
PROVIDERS: ATTEND Nurse Practitioner Adult Health
DX: Z79.899 Other long term (current) drug therapy (principal)

== ENCOUNTER → 2021-02-01 | Outpatient (REF) | payer BC, MEDICARE ==
[~2021-02-01] MED LIST changes: +CEFD1CAP8 PO; -CEFD300C41 PO; -FOLI1TAB11 PO; -KETO2CR TOP; -METH2.5T48 PO
== END ==
LOC: M LAB REF 16:25
PROVIDERS: ATTEND Nurse Practitioner Adult Health
DX: J02.9 Acute pharyngitis, unspecified (principal)

== ENCOUNTER 2021-05-17 04:13 | Inpatient (IN) | payer BC, MEDICARE ==
[~2021-05-17] VITALS: Ht 177.8 cm; Wt 154.1 kg
[~2021-05-17 04:13] MED LIST changes: -CEFD1CAP8 PO; +CEFD300C41 PO
[2021-05-17] MEDS ORDERED: ACETAMINOPHEN TAB 650MG DOSE (2X325MG) PO ONE (04:45)
[2021-05-17] MEDS ORDERED: NS 1,000 ML IV ONE (04:50)
[2021-05-17 05:07] LABS: VENOUS HCO3 29.2 MEQ/L (23.0-27.0); VENOUS O2 SATURATION 48.4 % (60.0-80.0); VENOUS PARTIAL PRESSURE O2 27.2 mmHg (30.0-50.0); VENOUS PH 7.313 UNITS (7.330-7.430); VENOUS STANDARD HCO3 25.2 MEQ/L; VENOUS TOTAL CO2 31.1 MEQ/L (24.0-28.0)
[2021-05-17 05:13] LABS: BASO % 0.2 % (0.0-1.0); EOS % 0.1 % (0.0-3.0); HEMOGLOBIN 10.6 g/dl (13.5-17.5); LYMPH # 0.6 10^3/uL (1.5-5.0); LYMPH % 4.6 % (24.0-44.0); MEAN CORPUSCULAR HEMOGLOBIN 28.4 pg (27.0-33.0); MEAN CORPUSCULAR HGB CONC 31.2 g/dl (32.0-36.5); MEAN CORPUSCULAR VOLUME 91.2 fl (80.0-96.0); MONO # 0.6 10^3/uL (0.0-0.8); MONO % 4.5 % (2.0-8.0); NEUTROPHILS % 88.9 % (36.0-66.0); PLATELET COUNT, AUTOMATED 219 10^3/uL (150-450); RED BLOOD COUNT 3.73 10^6/uL (4.30-6.10); WHITE BLOOD COUNT 13.5 10^3/uL (4.0-10.0)
[2021-05-17 05:14] LABS: ACETONE/KETONE 0.55 MG/DL (<2.81); ALBUMIN 2.6 GM/DL (3.2-5.2); BILIRUBIN,DIRECT 0.5 MG/DL (0.0-0.2); BILIRUBIN,TOTAL 0.9 MG/DL (0.2-1.0); CREATININE FOR GFR 1.81 MG/DL (0.70-1.30); GLOMERULAR FILTRATION RATE 40.5 (>49); POTASSIUM SERUM 4.5 MEQ/L (3.5-5.1); TOTAL PROTEIN 6.1 GM/DL (6.4-8.2)
[2021-05-17] MEDS ORDERED: PIPERACILLIN/TAZOBACTAM SOD 3.375 GM in D5W MINI-BAG PLUS 50 ML IV ONE (06:00)
[2021-05-17] MEDS: HumaLOG INSULIN (NovoLOG) PER UNIT SC SCH ×4 (07:30→20:14)
[2021-05-17] MEDS: ALBUTEROL SULFATE 2.5 MG/0.5 ML INH NEB SOLN NEB SCH ×4 (08:00→20:10)
[2021-05-17] MEDS ORDERED: MOM 30ML SUSPENSION UDC PO PRN (08:05)
[2021-05-17] MEDS ORDERED: MAALOX 30 ML SUSP *UDC PO PRN (08:05)
[2021-05-17] MEDS ORDERED: ACETAMINOPHEN TAB 650MG DOSE (2X325MG) PO PRN (08:05)
[2021-05-17] MEDS ORDERED: HEPARIN SOD (PORCINE) 5000UNITS/ML 1ML VIAL/SYRINGE SC SCH (08:05)
[2021-05-17] MEDS ORDERED: VANCOMYCIN HCL 1,000 MG in IV FLUID PLACE HOLDER 1 EA IV SCH (08:15)
[2021-05-17] MEDS ORDERED: NS 1,000 ML IV SCH (08:15)
[2021-05-17] MEDS ORDERED: GLUCAGON INJ 1MG VIAL SC PRN (08:20)
[2021-05-17] MEDS ORDERED: DEXTROSE 50% 50 ML SYRINGE IV PRN (08:20)
[2021-05-17] MEDS ORDERED: GLUCOSE 4GM CHEW TABLET PO PRN (08:20)
[2021-05-17] MEDS: DOCUSATE SODIUM 100MG CAPSULE PO SCH ×2 (09:00→20:13)
[2021-05-17] MEDS: PANTOPRAZOLE 40MG TAB (PROTONIX) PO SCH (09:00)
[2021-05-17] MEDS: ATORVASTATIN 20 MG TAB PO SCH (09:00)
[2021-05-17] MEDS: FOLIC ACID 1 MG TAB PO SCH (09:00)
[2021-05-17] MEDS: TAMSULOSIN 0.4 MG CAP PO SCH (09:00)
[2021-05-17] MEDS ORDERED: FOLI1TAB11 PO (09:15)
[2021-05-17] MEDS ORDERED: KETO2CR TOP (09:15)
[2021-05-17] MEDS ORDERED: METH2.5T48 PO (09:15)
[2021-05-17] MEDS ORDERED: HOME MED LIST COMPLETE! XX SCH (09:20)
[2021-05-17] MEDS ORDERED: FUROSEMIDE 40MG/4ML VIAL (J1940) IV ONE (09:30)
[2021-05-17] MEDS: NORCO, ANEXSIA 5/325MG TABLET (HYDROcodone/ACETAMINOPHEN) PO PRN ×2 (10:28→16:52)
[2021-05-17 11:11] LABS: CREATININE FOR GFR 1.69 MG/DL (0.70-1.30); GLOMERULAR FILTRATION RATE 43.8 (>49)
[2021-05-17 11:22] LABS: FREE T4 1.34 NG/DL (0.76-1.46); PHOSPHORUS LEVEL 2.9 MG/DL (2.5-4.9); THYROID STIMULATING HORMONE 0.791 uIU/ML (0.358-3.740)
[2021-05-17 11:24] LABS: CK-MB VALUE MASS 8.7 NG/ML (<3.6); MB/CK RELATIVE INDEX 1.55 (< OR =4)
[2021-05-17] MEDS: MIDODRINE 2.5 MG TAB PO SCH ×2 (11:43→16:55)
[2021-05-17] MEDS ORDERED: cefTRIAXone SOD 1 GM in D5W MINI-BAG PLUS 50 ML IV SCH (12:00)
[2021-05-17] MEDS ORDERED: PIPERACILLIN/TAZOBACTAM SOD 4.5 GM in D5W MINI-BAG PLUS 50 ML IV SCH (12:00)
[2021-05-17] MEDS: ENOXAPARIN 150MG/ML SYRINGE (J1650 PER 10MG) SC SCH ×2 (14:07→20:14)
[2021-05-17] MEDS ORDERED: DOXYCYCLINE HYCLATE 100 MG in D5W MINI-BAG PLUS 100 ML IV SCH (17:00)
[2021-05-17 17:03] LABS: CK-MB VALUE MASS 8.2 NG/ML (<3.6); MB/CK RELATIVE INDEX 1.24 (< OR =4)
[2021-05-17] MEDS ORDERED: VANCOMYCIN HCL 1,000 MG, VIAL MATE ADAPTER 1 EACH in NS 250 ML IV SCH (17:45)
[2021-05-17] MEDS: PIPERACILLIN/TAZOBACTAM SOD 3.375 GM in D5W MINI-BAG PLUS 50 ML IV SCH ×2 (18:29→23:28)
[2021-05-17] MEDS ORDERED: VANCOMYCIN HCL 1,000 MG, VIAL MATE ADAPTER 1 EACH in NS 250 ML IV ONE ×2 (20:00→21:00)
[2021-05-17] MEDS: LEVEMIR (INSULIN DETEMIR) 1 UNITS/0.01ML SC SCH (20:14)
[2021-05-17] MEDS: NYSTATIN 100,000 UNITS/GM TOPICAL PWD 15 GM TOP SCH (20:18)
[2021-05-17] MEDS ORDERED: PREGABALIN 100 MG CAP (LYRICA) PO SCH (21:00)
[2021-05-18] VITALS: BP 111/56
[2021-05-18 00:41] LABS: MB/CK RELATIVE INDEX 1.03 (< OR =4)
[2021-05-18] MEDS: ALBUTEROL SULFATE 2.5 MG/0.5 ML INH NEB SOLN NEB SCH ×7 (00:42→23:57)
[2021-05-18 04:00] VITALS: BP 122/74
[2021-05-18] MEDS ORDERED: VANCOMYCIN HCL 750 MG, VIAL MATE ADAPTER 1 EACH in NS 250 ML IV SCH ×2 (04:00→05:00)
[2021-05-18 05:03] LABS: HEMATOCRIT 30.3 % (42.0-52.0); HEMOGLOBIN 9.6 g/dl (13.5-17.5); MEAN CORPUSCULAR HEMOGLOBIN 28.8 pg (27.0-33.0); MEAN CORPUSCULAR HGB CONC 31.7 g/dl (32.0-36.5); PLATELET COUNT, AUTOMATED 179 10^3/uL (150-450); RED BLOOD COUNT 3.33 10^6/uL (4.30-6.10); WHITE BLOOD COUNT 6.2 10^3/uL (4.0-10.0)
[2021-05-18 05:26] LABS: CALCIUM LEVEL 7.9 MG/DL (8.8-10.2); CREATININE FOR GFR 1.56 MG/DL (0.70-1.30); GLOMERULAR FILTRATION RATE 48.1 (>49); MAGNESIUM LEVEL 1.7 MG/DL (1.8-2.4); POTASSIUM SERUM 4.4 MEQ/L (3.5-5.1)
[2021-05-18] MEDS: NORCO, ANEXSIA 5/325MG TABLET (HYDROcodone/ACETAMINOPHEN) PO PRN ×2 (05:31→15:42)
[2021-05-18] MEDS: PIPERACILLIN/TAZOBACTAM SOD 3.375 GM in D5W MINI-BAG PLUS 50 ML IV SCH ×4 (06:11→23:28)
[2021-05-18] MEDS ORDERED: MAG SULF 1GM/100ML (MAG RUN) 1 GM in IV 1 EA IV ONE (08:00)
[2021-05-18 08:02] VITALS: BP 120/70
[2021-05-18] MEDS ORDERED: NICOTINE 21MG/24HR 1 EA TRANSDERMAL TD PRN (08:05)
[2021-05-18] MEDS ORDERED: FUROSEMIDE 40MG/4ML VIAL (J1940) IV ONE (08:10)
[2021-05-18] MEDS: DOCUSATE SODIUM 100MG CAPSULE PO SCH ×3 (09:00→21:28)
[2021-05-18] MEDS: TAMSULOSIN 0.4 MG CAP PO SCH (09:08)
[2021-05-18] MEDS: HumaLOG INSULIN (NovoLOG) PER UNIT SC SCH ×4 (09:08→20:56)
[2021-05-18] MEDS: ENOXAPARIN 150MG/ML SYRINGE (J1650 PER 10MG) SC SCH ×2 (09:08→21:27)
[2021-05-18] MEDS: ATORVASTATIN 20 MG TAB PO SCH (09:08)
[2021-05-18] MEDS: PANTOPRAZOLE 40MG TAB (PROTONIX) PO SCH (09:08)
[2021-05-18] MEDS: PREGABALIN 100 MG CAP (LYRICA) PO SCH ×3 (09:09→21:28)
[2021-05-18] MEDS: FOLIC ACID 1 MG TAB PO SCH (09:09)
[2021-05-18] MEDS: MIDODRINE 2.5 MG TAB PO SCH ×2 (09:09→15:43)
[2021-05-18] MEDS: NYSTATIN 100,000 UNITS/GM TOPICAL PWD 15 GM TOP SCH ×2 (09:10→21:29)
[2021-05-18 12:09] VITALS: BP 122/70
[2021-05-18 15:45] VITALS: BP 100/52
[2021-05-18 20:30] VITALS: BP 104/55
[2021-05-18] MEDS: LEVEMIR (INSULIN DETEMIR) 1 UNITS/0.01ML SC SCH (21:27)
[2021-05-19] MEDS: ALBUTEROL SULFATE 2.5 MG/0.5 ML INH NEB SOLN NEB SCH ×6 (04:00→23:19)
[2021-05-19 04:13] LABS: HEMATOCRIT 30.4 % (42.0-52.0); HEMOGLOBIN 9.6 g/dl (13.5-17.5); MEAN CORPUSCULAR HEMOGLOBIN 28.6 pg (27.0-33.0); MEAN CORPUSCULAR HGB CONC 31.6 g/dl (32.0-36.5); MEAN CORPUSCULAR VOLUME 90.5 fl (80.0-96.0); PLATELET COUNT, AUTOMATED 178 10^3/uL (150-450); RED BLOOD COUNT 3.36 10^6/uL (4.30-6.10); WHITE BLOOD COUNT 4.3 10^3/uL (4.0-10.0)
[2021-05-19 04:29] VITALS: BP_SYST 103; BP_SYST 129; BP_DIAS 58; BP_DIAS 69
[2021-05-19 04:34] LABS: HEMOGLOBIN A1c 10.8 %
[2021-05-19 04:47] LABS: CALCIUM LEVEL 8.1 MG/DL (8.8-10.2); CREATININE FOR GFR 1.48 MG/DL (0.70-1.30); GLOMERULAR FILTRATION RATE 51.1 (>49); POTASSIUM SERUM 4.4 MEQ/L (3.5-5.1)
[2021-05-19] MEDS: NORCO, ANEXSIA 5/325MG TABLET (HYDROcodone/ACETAMINOPHEN) PO PRN ×3 (04:52→17:58)
[2021-05-19] MEDS: PIPERACILLIN/TAZOBACTAM SOD 3.375 GM in D5W MINI-BAG PLUS 50 ML IV SCH (05:12)
[2021-05-19 08:00] VITALS: BP 96/55
[2021-05-19] MEDS: HumaLOG INSULIN (NovoLOG) PER UNIT SC SCH ×4 (08:41→22:37)
[2021-05-19] MEDS: ATORVASTATIN 20 MG TAB PO SCH (08:41)
[2021-05-19] MEDS: FOLIC ACID 1 MG TAB PO SCH (08:41)
[2021-05-19] MEDS: MIDODRINE 2.5 MG TAB PO SCH ×2 (08:41→16:06)
[2021-05-19] MEDS: PREGABALIN 100 MG CAP (LYRICA) PO SCH ×3 (08:41→22:39)
[2021-05-19] MEDS: DOCUSATE SODIUM 100MG CAPSULE PO SCH ×2 (08:42→21:00)
[2021-05-19] MEDS: TAMSULOSIN 0.4 MG CAP PO SCH (08:42)
[2021-05-19] MEDS: NYSTATIN 100,000 UNITS/GM TOPICAL PWD 15 GM TOP SCH ×2 (08:42→22:40)
[2021-05-19] MEDS: PANTOPRAZOLE 40MG TAB (PROTONIX) PO SCH (08:42)
[2021-05-19] MEDS: ENOXAPARIN 150MG/ML SYRINGE (J1650 PER 10MG) SC SCH ×2 (10:06→22:38)
[2021-05-19] MEDS: TORSEMIDE 10 MG TABLET PO SCH (10:06)
[2021-05-19 12:00] VITALS: BP 101/56
[2021-05-19] MEDS ORDERED: AUGMENTIN 875 MG TAB PO ONE (12:00)
[2021-05-19 16:00] VITALS: BP 107/66
[2021-05-19 20:00] VITALS: BP 115/55
[2021-05-19] MEDS: LEVEMIR (INSULIN DETEMIR) 1 UNITS/0.01ML SC SCH (22:37)
[2021-05-19] MEDS: AUGMENTIN 875 MG TAB PO SCH (22:39)
[2021-05-20] VITALS: BP 115/55
[2021-05-20] MEDS: NORCO, ANEXSIA 5/325MG TABLET (HYDROcodone/ACETAMINOPHEN) PO PRN ×2 (01:00→08:05)
[2021-05-20] MEDS: ALBUTEROL SULFATE 2.5 MG/0.5 ML INH NEB SOLN NEB SCH ×3 (03:35→11:25)
[2021-05-20 04:00] VITALS: BP 120/55
[2021-05-20 05:45] LABS: HEMATOCRIT 30.9 % (42.0-52.0); HEMOGLOBIN 9.7 g/dl (13.5-17.5); MEAN CORPUSCULAR HEMOGLOBIN 28.4 pg (27.0-33.0); MEAN CORPUSCULAR HGB CONC 31.4 g/dl (32.0-36.5); MEAN CORPUSCULAR VOLUME 90.6 fl (80.0-96.0); PLATELET COUNT, AUTOMATED 182 10^3/uL (150-450); RED BLOOD COUNT 3.41 10^6/uL (4.30-6.10); WHITE BLOOD COUNT 4.5 10^3/uL (4.0-10.0)
[2021-05-20 06:21] LABS: CALCIUM LEVEL 8.4 MG/DL (8.8-10.2); CREATININE FOR GFR 1.35 MG/DL (0.70-1.30); GLOMERULAR FILTRATION RATE 56.8 (>49); MAGNESIUM LEVEL 1.7 MG/DL (1.8-2.4)
[2021-05-20] MEDS ORDERED: MAG SULF 1GM/100ML (MAG RUN) 1 GM in IV 1 EA IV ONE (07:00)
[2021-05-20] MEDS: HumaLOG INSULIN (NovoLOG) PER UNIT SC SCH (07:46)
[2021-05-20 08:00] VITALS: BP 140/55
[2021-05-20] MEDS: AUGMENTIN 875 MG TAB PO SCH (08:03)
[2021-05-20] MEDS: ENOXAPARIN 150MG/ML SYRINGE (J1650 PER 10MG) SC SCH (08:03)
[2021-05-20] MEDS: ATORVASTATIN 20 MG TAB PO SCH (08:03)
[2021-05-20] MEDS: TORSEMIDE 10 MG TABLET PO SCH (08:04)
[2021-05-20] MEDS: PREGABALIN 100 MG CAP (LYRICA) PO SCH (08:04)
[2021-05-20] MEDS: TAMSULOSIN 0.4 MG CAP PO SCH (08:04)
[2021-05-20] MEDS: FOLIC ACID 1 MG TAB PO SCH (08:04)
[2021-05-20] MEDS: DOCUSATE SODIUM 100MG CAPSULE PO SCH (08:05)
[2021-05-20] MEDS: NYSTATIN 100,000 UNITS/GM TOPICAL PWD 15 GM TOP SCH (08:05)
[2021-05-20] MEDS: PANTOPRAZOLE 40MG TAB (PROTONIX) PO SCH (08:05)
[2021-05-20] MEDS: MIDODRINE 2.5 MG TAB PO SCH (08:05)
[2021-05-20] MEDS ORDERED: TORS20TA2 PO (09:58)
[2021-05-20] MEDS ORDERED: AMOX875T2 PO (09:58)
[2021-05-20] MEDS ORDERED: ENOX40IN3 SC (09:58)
== END 2021-05-20 11:37 | disposition home health service (06) | DRG 197 ==
LOC: M ED 04:13 → M ED INP 08:55 → ENRESERV 10:05 → M PCU 11:12
PROVIDERS: ADMIT Internal Medicine; ATTEND Internal Medicine
DX: E11.59 Type 2 diabetes mellitus with other circulatory complications (principal); J96.11 Chronic respiratory failure with hypoxia; I50.32 Chronic diastolic (congestive) heart failure; E11.42 Type 2 diabetes mellitus with diabetic polyneuropathy; E11.622 Type 2 diabetes mellitus with other skin ulcer; Z99.81 Dependence on supplemental oxygen; L97.909 Non-pressure chronic ulcer of unspecified part of unspecified lower leg with unspecified severity; E66.01 Morbid (severe) obesity due to excess calories; Z68.42 Body mass index [BMI] 45.0-49.9, adult; J44.9 Chronic obstructive pulmonary disease, unspecified; I48.91 Unspecified atrial fibrillation; E78.5 Hyperlipidemia, unspecified; M54.50 Low back pain, unspecified; K21.9 Gastro-esophageal reflux disease without esophagitis; N40.0 Benign prostatic hyperplasia without lower urinary tract symptoms; Z66 Do not resuscitate; Z20.822 Contact with and (suspected) exposure to COVID-19; Z98.1 Arthrodesis status; Z79.4 Long term (current) use of insulin; Z79.84 Long term (current) use of oral hypoglycemic drugs; Z79.899 Other long term (current) drug therapy; Z88.8 Allergy status to other drugs, medicaments and biological substances; I87.8 Other specified disorders of veins; L08.9 Local infection of the skin and subcutaneous tissue, unspecified; E11.51 Type 2 diabetes mellitus with diabetic peripheral angiopathy without gangrene

== ENCOUNTER → 2021-06-27 | Outpatient (REF) | payer BC, MEDICARE ==
[~2021-06-27] MED LIST changes: +AMOX875T2 PO; +ENOX40IN3 SC; +FOLI1TAB11 PO; +KETO2CR TOP; +METH2.5T48 PO
== END ==
LOC: M LAB REF 16:47
PROVIDERS: ATTEND Nurse Practitioner Adult Health
DX: R30.0 Dysuria (principal)

== ENCOUNTER 2021-10-20 22:44 | Inpatient (IN) | payer BC, MEDICARE ==
[~2021-10-20] VITALS: Ht 182.9 cm; Wt 148.1 kg
[~2021-10-20 22:44] MED LIST changes: +ALBU2.5V10 NEB; -ALBU83IN NEB
[2021-10-20 23:24] LABS: BASO % 0.3 % (0.0-1.0); EOS # 0.1 10^3/uL (0.0-0.5); EOS % 0.5 % (0.0-3.0); HEMATOCRIT 34.1 % (42.0-52.0); HEMOGLOBIN 10.8 g/dl (13.5-17.5); LYMPH # 0.5 10^3/uL (1.5-5.0); LYMPH % 3.8 % (24.0-44.0); MEAN CORPUSCULAR HEMOGLOBIN 28.3 pg (27.0-33.0); MEAN CORPUSCULAR HGB CONC 31.7 g/dl (32.0-36.5); MEAN CORPUSCULAR VOLUME 89.5 fl (80.0-96.0); MONO # 0.9 10^3/uL (0.0-0.8); MONO % 6.1 % (2.0-8.0); NEUTROPHILS # 12.7 10^3/uL (1.5-8.5); NEUTROPHILS % 88.5 % (36.0-66.0); PLATELET COUNT, AUTOMATED 142 10^3/uL (150-450); RED BLOOD COUNT 3.81 10^6/uL (4.30-6.10); WHITE BLOOD COUNT 14.3 10^3/uL (4.0-10.0)
[2021-10-20 23:56] LABS: ALBUMIN 2.7 GM/DL (3.2-5.2); BILIRUBIN,DIRECT 0.3 MG/DL (0.0-0.2); BILIRUBIN,TOTAL 0.6 MG/DL (0.2-1.0); CREATININE FOR GFR 1.52 MG/DL (0.70-1.30); GLOMERULAR FILTRATION RATE 49.4 (>49); TOTAL PROTEIN 5.8 GM/DL (6.4-8.2)
[2021-10-20 23:57] LABS: CK-MB VALUE MASS 1.7 NG/ML (<3.6); MB/CK RELATIVE INDEX 1.77 (< OR =4)
[2021-10-21] MEDS ORDERED: ACETAMINOPHEN 500 MG TAB PO ONE (02:20)
[2021-10-21 03:10] LABS: CK-MB VALUE MASS 2.3 NG/ML (<3.6); MB/CK RELATIVE INDEX 1.81 (< OR =4)
[2021-10-21] MEDS ORDERED: TORS10TA3 PO (05:58)
[2021-10-21] MEDS ORDERED: XARE20TA PO (05:58)
[2021-10-21] MEDS ORDERED: MED REC COMMENT (05:59)
[2021-10-21] MEDS ORDERED: HOME MED LIST COMPLETE! XX SCH (06:00)
[2021-10-21] MEDS ORDERED: GLUCAGON INJ 1MG VIAL SC PRN (06:40)
[2021-10-21] MEDS ORDERED: DEXTROSE 50% 50 ML SYRINGE IV PRN (06:40)
[2021-10-21] MEDS ORDERED: ACETAMINOPHEN TAB 650MG DOSE (2X325MG) PO PRN (06:40)
[2021-10-21] MEDS ORDERED: GLUCOSE 4GM CHEW TABLET PO PRN (06:40)
[2021-10-21] MEDS ORDERED: NS 500 ML IV ONE (07:10)
[2021-10-21] MEDS: INSULIN LISPRO (NovoLOG) PER UNIT SC SCH ×4 (07:30→20:39)
[2021-10-21] MEDS: IPRATROPIUM 0.5MG/ALBUTEROL 2.5MG INH SOL UD 3ML (DUONEB) NEB SCH ×3 (08:00→19:11)
[2021-10-21] MEDS: ALBUTEROL 90 MCG/ACT 8GM HFA INHALER INH PRN (08:21)
[2021-10-21] MEDS: PIPERACILLIN/TAZOBACTAM SOD 3.375 GM in D5W MINI-BAG PLUS 50 ML IV SCH ×3 (10:00→23:40)
[2021-10-21 11:15] VITALS: BP 101/54
[2021-10-21 12:00] VITALS: BP 96/68
[2021-10-21] MEDS ORDERED: NYSTATIN 100,000 UNITS/GM TOPICAL PWD 15 GM TOP PRN (13:15)
[2021-10-21 19:28] VITALS: BP 98/62
[2021-10-21] MEDS ORDERED: NITROGLYCERIN 0.4 MG SUBL TABLET SL PRN (19:40)
[2021-10-21] MEDS: RIVAROXABAN 20MG TAB (XARELTO) PO SCH (20:38)
[2021-10-21] MEDS: PREGABALIN 100 MG CAP (LYRICA) PO SCH (20:38)
[2021-10-21] MEDS: LEVEMIR (INSULIN DETEMIR) 1 UNITS/0.01ML SC SCH (20:39)
[2021-10-21] MEDS: MIDODRINE 2.5 MG TAB PO SCH (20:49)
[2021-10-21] MEDS: NORCO, ANEXSIA 5/325MG TABLET (HYDROcodone/ACETAMINOPHEN) PO PRN (21:01)
[2021-10-21] MEDS ORDERED: VANCOMYCIN HCL 2,000 MG, VIAL MATE ADAPTER 1 EACH in NS 250 ML IV SCH (21:05)
[2021-10-21] MEDS ORDERED: VANCOMYCIN HCL 1,000 MG, VIAL MATE ADAPTER 1 EACH in NS 250 ML IV ONE ×6 (23:00)
[2021-10-22] MEDS ORDERED: UNRESOLVED CLARIFICATION ENTRY XX SCH (00:01)
[2021-10-22] MEDS: IPRATROPIUM 0.5MG/ALBUTEROL 2.5MG INH SOL UD 3ML (DUONEB) NEB SCH ×4 (02:00→19:46)
[2021-10-22 03:57] VITALS: BP 107/56
[2021-10-22] MEDS: NORCO, ANEXSIA 5/325MG TABLET (HYDROcodone/ACETAMINOPHEN) PO PRN ×3 (04:01→18:00)
[2021-10-22] MEDS: PIPERACILLIN/TAZOBACTAM SOD 3.375 GM in D5W MINI-BAG PLUS 50 ML IV SCH ×4 (04:51→23:29)
[2021-10-22] MEDS: INSULIN LISPRO (NovoLOG) PER UNIT SC SCH ×4 (07:30→20:27)
[2021-10-22 07:32] LABS: HEMATOCRIT 31.1 % (42.0-52.0); HEMOGLOBIN 9.8 g/dl (13.5-17.5); MEAN CORPUSCULAR HEMOGLOBIN 28.2 pg (27.0-33.0); MEAN CORPUSCULAR HGB CONC 31.5 g/dl (32.0-36.5); MEAN CORPUSCULAR VOLUME 89.6 fl (80.0-96.0); PLATELET COUNT, AUTOMATED 137 10^3/uL (150-450); RED BLOOD COUNT 3.47 10^6/uL (4.30-6.10); WHITE BLOOD COUNT 10.9 10^3/uL (4.0-10.0)
[2021-10-22] MEDS: ALBUTEROL 90 MCG/ACT 8GM HFA INHALER INH PRN ×2 (07:36→14:50)
[2021-10-22 08:00] LABS: ALBUMIN 2.4 GM/DL (3.2-5.2); BILIRUBIN,TOTAL 0.7 MG/DL (0.2-1.0); CALCIUM LEVEL 7.3 MG/DL (8.8-10.2); CREATININE FOR GFR 1.56 MG/DL (0.70-1.30); GLOMERULAR FILTRATION RATE 47.9 (>49); POTASSIUM SERUM 3.7 MEQ/L (3.5-5.1); TOTAL PROTEIN 5.5 GM/DL (6.4-8.2)
[2021-10-22] MEDS: ATORVASTATIN 20 MG TAB PO SCH (08:55)
[2021-10-22] MEDS: MIDODRINE 2.5 MG TAB PO SCH ×2 (08:55→18:01)
[2021-10-22] MEDS: PREGABALIN 100 MG CAP (LYRICA) PO SCH ×3 (08:55→20:50)
[2021-10-22] MEDS: PANTOPRAZOLE 40MG TAB (PROTONIX) PO SCH (08:55)
[2021-10-22] MEDS: VANCOMYCIN HCL 750 MG, VIAL MATE ADAPTER 1 EACH in D5W 250 ML IV SCH ×4 (08:56→22:19)
[2021-10-22] MEDS: LEVEMIR (INSULIN DETEMIR) 1 UNITS/0.01ML SC SCH ×2 (09:00→20:51)
[2021-10-22 12:00] VITALS: BP 108/53
[2021-10-22] MEDS: RIVAROXABAN 20MG TAB (XARELTO) PO SCH (17:59)
[2021-10-22 19:44] VITALS: BP 115/56
[2021-10-23] MEDS: NORCO, ANEXSIA 5/325MG TABLET (HYDROcodone/ACETAMINOPHEN) PO PRN ×4 (00:11→18:33)
[2021-10-23] MEDS: IPRATROPIUM 0.5MG/ALBUTEROL 2.5MG INH SOL UD 3ML (DUONEB) NEB SCH ×4 (02:00→19:32)
[2021-10-23 04:04] VITALS: BP 120/58
[2021-10-23] MEDS: PIPERACILLIN/TAZOBACTAM SOD 3.375 GM in D5W MINI-BAG PLUS 50 ML IV SCH ×4 (05:06→21:54)
[2021-10-23 06:07] LABS: HEMATOCRIT 31.7 % (42.0-52.0); HEMOGLOBIN 9.9 g/dl (13.5-17.5); MEAN CORPUSCULAR HGB CONC 31.2 g/dl (32.0-36.5); MEAN CORPUSCULAR VOLUME 89.8 fl (80.0-96.0); PLATELET COUNT, AUTOMATED 146 10^3/uL (150-450); RED BLOOD COUNT 3.53 10^6/uL (4.30-6.10); WHITE BLOOD COUNT 5.6 10^3/uL (4.0-10.0)
[2021-10-23 06:29] LABS: ALBUMIN 2.3 GM/DL (3.2-5.2); BILIRUBIN,TOTAL 0.5 MG/DL (0.2-1.0); CALCIUM LEVEL 7.2 MG/DL (8.8-10.2); CREATININE FOR GFR 1.48 MG/DL (0.70-1.30); GLOMERULAR FILTRATION RATE 50.9 (>49); POTASSIUM SERUM 3.8 MEQ/L (3.5-5.1); TOTAL PROTEIN 5.6 GM/DL (6.4-8.2)
[2021-10-23] MEDS: ALBUTEROL 90 MCG/ACT 8GM HFA INHALER INH PRN ×3 (08:01→19:31)
[2021-10-23] MEDS: LEVEMIR (INSULIN DETEMIR) 1 UNITS/0.01ML SC SCH ×2 (09:23→21:54)
[2021-10-23] MEDS: INSULIN LISPRO (NovoLOG) PER UNIT SC SCH ×4 (09:23→21:50)
[2021-10-23] MEDS: MIDODRINE 2.5 MG TAB PO SCH ×2 (09:24→17:48)
[2021-10-23] MEDS: ATORVASTATIN 20 MG TAB PO SCH (09:24)
[2021-10-23] MEDS: PREGABALIN 100 MG CAP (LYRICA) PO SCH ×3 (09:24→21:53)
[2021-10-23] MEDS: PANTOPRAZOLE 40MG TAB (PROTONIX) PO SCH (09:24)
[2021-10-23 11:37] LABS: C REACTIVE PROTEIN QUANTITATIV 9.23 MG/DL (0.00-0.30)
[2021-10-23 12:00] VITALS: BP 131/62
[2021-10-23] MEDS: TORSEMIDE 10 MG TABLET PO SCH (17:15)
[2021-10-23] MEDS: RIVAROXABAN 20MG TAB (XARELTO) PO SCH (17:46)
[2021-10-23] MEDS ORDERED: SIMETHICONE 80MG CHEW TAB PO PRN (18:45)
[2021-10-23 20:00] VITALS: BP 115/59
[2021-10-24] MEDS: NORCO, ANEXSIA 5/325MG TABLET (HYDROcodone/ACETAMINOPHEN) PO PRN ×3 (00:37→13:32)
[2021-10-24] MEDS: IPRATROPIUM 0.5MG/ALBUTEROL 2.5MG INH SOL UD 3ML (DUONEB) NEB SCH ×2 (02:00→08:00)
[2021-10-24 04:00] VITALS: BP 119/60
[2021-10-24] MEDS: PIPERACILLIN/TAZOBACTAM SOD 3.375 GM in D5W MINI-BAG PLUS 50 ML IV SCH ×2 (04:25→09:44)
[2021-10-24 06:15] LABS: HEMATOCRIT 31.8 % (42.0-52.0); HEMOGLOBIN 9.8 g/dl (13.5-17.5); MEAN CORPUSCULAR HEMOGLOBIN 28.1 pg (27.0-33.0); MEAN CORPUSCULAR HGB CONC 30.8 g/dl (32.0-36.5); MEAN CORPUSCULAR VOLUME 91.1 fl (80.0-96.0); PLATELET COUNT, AUTOMATED 159 10^3/uL (150-450); RED BLOOD COUNT 3.49 10^6/uL (4.30-6.10); WHITE BLOOD COUNT 4.8 10^3/uL (4.0-10.0)
[2021-10-24 06:48] LABS: ALBUMIN 2.2 GM/DL (3.2-5.2); BILIRUBIN,TOTAL 0.4 MG/DL (0.2-1.0); CALCIUM LEVEL 7.6 MG/DL (8.8-10.2); CREATININE FOR GFR 1.3 MG/DL (0.70-1.30); GLOMERULAR FILTRATION RATE 59.2 (>49); POTASSIUM SERUM 3.9 MEQ/L (3.5-5.1); TOTAL PROTEIN 5.9 GM/DL (6.4-8.2)
[2021-10-24] MEDS: INSULIN LISPRO (NovoLOG) PER UNIT SC SCH ×2 (07:27→12:32)
[2021-10-24] MEDS: ALBUTEROL 90 MCG/ACT 8GM HFA INHALER INH PRN (07:45)
[2021-10-24] MEDS: TORSEMIDE 10 MG TABLET PO SCH (09:00)
[2021-10-24] MEDS ORDERED: FOLIC ACID 1 MG TAB PO SCH (09:00)
[2021-10-24] MEDS: ATORVASTATIN 20 MG TAB PO SCH (09:01)
[2021-10-24] MEDS: PREGABALIN 100 MG CAP (LYRICA) PO SCH (09:01)
[2021-10-24] MEDS: PANTOPRAZOLE 40MG TAB (PROTONIX) PO SCH (09:01)
[2021-10-24] MEDS: LEVEMIR (INSULIN DETEMIR) 1 UNITS/0.01ML SC SCH (09:02)
[2021-10-24] MEDS: MIDODRINE 2.5 MG TAB PO SCH (09:02)
[2021-10-24 12:00] VITALS: BP 114/55
[2021-10-24] MEDS ORDERED: AMOX875T2 PO (13:39)
[2021-10-24] MEDS ORDERED: ALBU8.5H INH (13:56)
[2021-10-24] MEDS ORDERED: PRED10TA2 PO (13:56)
== END 2021-10-24 14:23 | disposition home health service (06) | DRG 463 ==
LOC: EDBD 22:44 → M ED 22:44 → M ED INP 10-21 06:39 → ENRESERV 10-21 10:17 → M 4MAIN 10-21 11:15
PROVIDERS: ADMIT Internal Medicine; ATTEND Family Medicine
PROC: B246ZZZ Ultrasonography of Right and Left Heart (ICD-10-PCS; principal; 2021-10-23)
DX: N39.0 Urinary tract infection, site not specified (principal); G93.40 Encephalopathy, unspecified; J96.10 Chronic respiratory failure, unspecified whether with hypoxia or hypercapnia; I27.81 Cor pulmonale (chronic); I47.1 Supraventricular tachycardia; E11.9 Type 2 diabetes mellitus without complications; B95.1 Streptococcus, group B, as the cause of diseases classified elsewhere; L40.50 Arthropathic psoriasis, unspecified; I48.91 Unspecified atrial fibrillation; Z79.891 Long term (current) use of opiate analgesic; Z79.4 Long term (current) use of insulin; Z79.84 Long term (current) use of oral hypoglycemic drugs; Z79.899 Other long term (current) drug therapy; Z88.8 Allergy status to other drugs, medicaments and biological substances; K21.9 Gastro-esophageal reflux disease without esophagitis; J44.9 Chronic obstructive pulmonary disease, unspecified; G47.33 Obstructive sleep apnea (adult) (pediatric); F17.210 Nicotine dependence, cigarettes, uncomplicated; Z86.16 Personal history of COVID-19; B95.2 Enterococcus as the cause of diseases classified elsewhere; Z99.81 Dependence on supplemental oxygen

== ENCOUNTER 2023-06-06 04:28 | Inpatient (IN) | payer BC, MEDICARE ==
[~2023-06-06] VITALS: Ht 182.9 cm; Wt 134.7 kg
[~2023-06-06 04:28] MED LIST changes: +ALBU8.5H INH; +CEFD1CAP9 PO; -CEFD300C41 PO; +CLOP75TA99 PO; +DICL100G10 TOP; -DICL1GEL3 TOP; +MED REC COMMENT; -PLAV1TAB2 PO; +PRED10TA2 PO; -PREG200C PO; +PREG200C2 PO; +SIMV-254 PO; +XARE20TA PO; -ZOCO40TA PO
[2023-06-06] MEDS: ACETAMINOPHEN 325 MG TAB PO ONE (07:28)
[2023-06-06 07:40] LABS: BASO # 0.1 10^3/uL (0.0-0.2); BASO % 0.6 % (0.0-1.0); HEMATOCRIT 33.2 % (42.0-52.0); HEMOGLOBIN 10.9 g/dl (13.5-17.5); LYMPH # 0.6 10^3/uL (1.5-5.0); LYMPH % 7.3 % (24.0-44.0); MEAN CORPUSCULAR HEMOGLOBIN 31.4 pg (27.0-33.0); MEAN CORPUSCULAR HGB CONC 32.8 g/dl (32.0-36.5); MEAN CORPUSCULAR VOLUME 95.7 fl (80.0-96.0); MONO # 0.6 10^3/uL (0.0-0.8); MONO % 6.9 % (2.0-8.0); NEUTROPHILS # 6.7 10^3/uL (1.5-8.5); NEUTROPHILS % 84.4 % (36.0-66.0); PLATELET COUNT, AUTOMATED 168 10^3/uL (150-450); RED BLOOD COUNT 3.47 10^6/uL (4.30-6.10); WHITE BLOOD COUNT 7.9 10^3/uL (4.0-10.0)
[2023-06-06 08:12] LABS: ALBUMIN 2.1 G/DL (3.2-5.2); ALKALINE PHOSPHATASE 148 U/L (46-116); ALT/SGPT 15 U/L (7.0-40); AST/SGOT 19 U/L (<34); BILIRUBIN,DIRECT 0.6 MG/DL (<0.4); BILIRUBIN,TOTAL 0.9 MG/DL (0.3-1.2); BLOOD UREA NITROGEN 16 MG/DL (9-23); CALCIUM LEVEL 7.9 MG/DL (8.3-10.6); CARBON DIOXIDE LEVEL 35 MMOL/L (20-31); CHLORIDE LEVEL 102 MMOL/L (98-107); CREATININE FOR GFR 1.21 MG/DL (0.70-1.30); GLOMERULAR FILTRATION RATE > 60.0 (>49); GLUCOSE, FASTING 200 MG/DL (74-106); POTASSIUM SERUM 4.1 MMOL/L (3.5-5.1); SODIUM LEVEL 140 MMOL/L (136-145); TOTAL PROTEIN 5.4 G/DL (5.7-8.2)
[2023-06-06 08:55] LABS: ERYTHROCYTE SEDIMENTATION RATE 44 mm/hr (0-20)
[2023-06-06] MEDS: NORCO, ANEXSIA 5/325MG TABLET (HYDROcodone/ACETAMINOPHEN) PO ONE (09:50)
[2023-06-06] MEDS ORDERED: HYDR-4514 PO (10:12)
[2023-06-06] MEDS ORDERED: VENTAER INH (10:12)
[2023-06-06] MEDS ORDERED: MAGN400T33 PO (10:12)
[2023-06-06] MEDS ORDERED: MAGN400C2 PO (10:12)
[2023-06-06] MEDS ORDERED: HOME MED LIST COMPLETE! XX SCH (10:15)
[2023-06-06] MEDS: IBUPROFEN 600MG TAB PO ONE (16:21)
[2023-06-06] MEDS: MORPHINE 4 MG/ML 1ML VIAL IV ONE (17:54)
[2023-06-06] MEDS: ONDANSETRON 4MG 2ML VIAL IV ONE (17:54)
[2023-06-07] MEDS: MORPHINE 4 MG/ML 1ML VIAL IV ONE ×3 (05:50→14:35)
[2023-06-07] MEDS: NS 1,000 ML IV ONE ×2 (07:10→22:30)
[2023-06-07] MEDS: cefTRIAXone SOD 2 GM in D5W MINI-BAG PLUS 50 ML IV ONE (08:29)
[2023-06-07] MEDS: NS 4,090 ML in IV 1 EA IV ONE (08:29)
[2023-06-07 09:24] VITALS: BP 80/50; TEMP 98; O2SAT 96
[2023-06-07] MEDS: MIDAZOLAM INJ 2MG/2ML VIAL IV STA ×2 (09:51→14:34)
[2023-06-07] MEDS ORDERED: PROHANCE 279.3MG/ML 5ML VIAL As Ordered ONE (09:57)
[2023-06-07] MEDS ORDERED: PROHANCE 279.3MG/ML 15ML VIAL As Ordered ONE (09:57)
[2023-06-07 10:00] LABS: BASO % 0.3 % (0.0-1.0); HEMOGLOBIN 10.3 g/dl (13.5-17.5); LYMPH # 0.7 10^3/uL (1.5-5.0); LYMPH % 9.2 % (24.0-44.0); MEAN CORPUSCULAR HEMOGLOBIN 30.7 pg (27.0-33.0); MEAN CORPUSCULAR HGB CONC 32.2 g/dl (32.0-36.5); MEAN CORPUSCULAR VOLUME 95.2 fl (80.0-96.0); MONO # 0.7 10^3/uL (0.0-0.8); NEUTROPHILS # 5.9 10^3/uL (1.5-8.5); NEUTROPHILS % 79.4 % (36.0-66.0); PLATELET COUNT, AUTOMATED 136 10^3/uL (150-450); RED BLOOD COUNT 3.36 10^6/uL (4.30-6.10); WHITE BLOOD COUNT 7.4 10^3/uL (4.0-10.0)
[2023-06-07] MEDS: KETOROLAC 30 MG/ML 1ML VIAL IV ONE (10:35)
[2023-06-07] MEDS: FUROSEMIDE 20MG/2ML VIAL IV ONE (13:45)
[2023-06-07] MEDS: fentaNYL 100 MCG/2 ML INJECTION IV ONE (13:57)
[2023-06-07] MEDS: VANCOMYCIN HCL 1,000 MG, VIAL MATE ADAPTER 1 EACH in D5W 250 ML IV ONE (17:16)
[2023-06-07] MEDS ORDERED: NALOXONE INJ 0.4MG/1ML VIAL IV PRN (17:55)
[2023-06-07] MEDS: LEVALBUTEROL 1.25MG 0.5ML CONCENTRATE NEB INH PRN (19:34)
[2023-06-07] MEDS: RIVAROXABAN 20MG TAB (XARELTO) PO SCH (20:15)
[2023-06-07] MEDS: ANEXSIA, NORCO 7.5MG/325MG TABLET(HYDROCODONE/APAP) PO ONE (20:15)
[2023-06-07] MEDS: METOPROLOL TART 25 MG TABLET PO SCH (20:16)
[2023-06-07] MEDS: MAGNESIUM OXIDE 400MG TAB (MAG-OX) PO SCH (21:15)
[2023-06-07 21:24] VITALS: BP 80/50; TEMP 98; O2SAT 96
[2023-06-07] MEDS: LEVEMIR (INSULIN DETEMIR) 1 UNITS/0.01ML SC SCH (21:30)
[2023-06-07] MEDS: PREGABALIN 100 MG CAP (LYRICA) PO SCH (21:30)
[2023-06-07] MEDS: FOLIC ACID 1MG TAB PO SCH (21:30)
[2023-06-07] MEDS: MIDODRINE 2.5 MG TAB PO SCH (21:33)
[2023-06-07 21:41] LABS: RSV AMPLIFICATION NEGATIVE (NEGATIVE)
[2023-06-07] MEDS: VANCOMYCIN HCL 1,000 MG, VIAL MATE ADAPTER 1 EACH in D5W 250 ML IV SCH (22:06)
[2023-06-07 22:26] VITALS: BP 92/60
[2023-06-07 23:40] VITALS: BP 108/64; TEMP 98.3; O2SAT 94
[2023-06-08] VITALS (13 sets, daily range): BP systolic 92–116; BP diastolic 50–70; TEMP 97.4–98.6; O2SAT 77–97
[2023-06-08 05:53] LABS: BASO % 0.2 % (0.0-1.0); HEMATOCRIT 29.9 % (42.0-52.0); HEMOGLOBIN 9.6 g/dl (13.5-17.5); LYMPH # 0.5 10^3/uL (1.5-5.0); LYMPH % 3.7 % (24.0-44.0); MEAN CORPUSCULAR HGB CONC 32.1 g/dl (32.0-36.5); MEAN CORPUSCULAR VOLUME 96.5 fl (80.0-96.0); MONO % 8.4 % (2.0-8.0); NEUTROPHILS # 10.6 10^3/uL (1.5-8.5); NEUTROPHILS % 86.6 % (36.0-66.0); PLATELET COUNT, AUTOMATED 140 10^3/uL (150-450); WHITE BLOOD COUNT 12.3 10^3/uL (4.0-10.0)
[2023-06-08 06:29] LABS: BLOOD UREA NITROGEN 16 MG/DL (9-23); CALCIUM LEVEL 7.5 MG/DL (8.3-10.6); CARBON DIOXIDE LEVEL 32 MMOL/L (20-31); CHLORIDE LEVEL 104 MMOL/L (98-107); CHOLESTEROL LEVEL 60 MG/DL (<200); CHOLESTEROL RISK RATIO 3.63 (<5); CREATININE FOR GFR 1.04 MG/DL (0.70-1.30); GLOMERULAR FILTRATION RATE > 60.0 (>49); GLUCOSE, FASTING 204 MG/DL (74-106); HDL CHOLESTEROL 16.5 MG/DL (>40); LDL CHOLESTEROL 24.3 MG/DL (<100); MAGNESIUM LEVEL 1.7 MG/DL (1.8-2.4); NON-HDL-C 43.5 MG/DL; POTASSIUM SERUM 4.2 MMOL/L (3.5-5.1); SODIUM LEVEL 139 MMOL/L (136-145); TRIGLYCERIDES LEVEL 96 MG/DL (<150)
[2023-06-08 06:31] LABS: THYROID STIMULATING HORMONE 1.107 uIU/ML (0.55-4.78)
[2023-06-08] MEDS: ANEXSIA, NORCO 7.5MG/325MG TABLET(HYDROCODONE/APAP) PO PRN ×2 (06:50→20:34)
[2023-06-08] MEDS ORDERED: MORPHINE 4 MG/ML 1ML VIAL IV PRN (07:00)
[2023-06-08] MEDS: metOLazone 5 MG TAB PO ONE (08:19)
[2023-06-08] MEDS: ATORVASTATIN 20 MG TAB PO SCH (08:19)
[2023-06-08] MEDS: PANTOPRAZOLE 40MG TAB (PROTONIX) PO SCH (08:19)
[2023-06-08] MEDS: MIDODRINE 5 MG TAB PO SCH (08:19)
[2023-06-08] MEDS: cefTRIAXone SOD 2 GM in D5W MINI-BAG PLUS 50 ML IV SCH (08:20)
[2023-06-08] MEDS: FUROSEMIDE 40MG/4ML VIAL IV SCH (08:36)
[2023-06-08 08:41] LABS: HEMOGLOBIN A1c 10.3 % (4.0-6.0)
[2023-06-08] MEDS ORDERED: TORSEMIDE 20 MG TAB PO SCH ×2 (09:00)
[2023-06-08] MEDS: MAG SULF 1GM/100ML (MAG RUN) 1 GM in IV 1 EA IV ONE (09:49)
[2023-06-08] MEDS: METHOTREXATE 2.5MG TAB PO SCH (09:49)
[2023-06-08] MEDS: VANCOMYCIN HCL 1,000 MG, VIAL MATE ADAPTER 1 EACH in D5W 250 ML IV SCH (11:56)
[2023-06-08 15:32] LABS: ABG BASE EXCESS 3.4 (-2.0-2.0); ABG O2 SATURATION 93.2 % (95.0-99.0); ABG PARTIAL PRESSURE CO2 56.5 mmHg (35.0-45.0); ABG PARTIAL PRESSURE O2 73.1 mmHg (75.0-100.0); ABG STANDARD HCO3 27.4 MMOL/L. (22.0-26.0); ABG TOTAL CO2 31.7 MMOL/L (23.0-31.0); ABG pH (ARTERIAL) 7.343 UNITS (7.350-7.450)
[2023-06-08] MEDS: PREGABALIN 100 MG CAP (LYRICA) PO SCH (20:34)
[2023-06-08] MEDS: methylPREDNISolone 125MG 2ML VIAL IV ONE (20:34)
[2023-06-08] MEDS: BUDESONIDE 0.5 MG/2 ML INHALATION SUSPENSION NEB SCH (20:46)
[2023-06-08] MEDS: LEVALBUTEROL 1.25MG 0.5ML CONCENTRATE NEB INH SCH (20:46)
[2023-06-08] MEDS: IPRATROPIUM 0.02% SOLN 0.5MG 2.5ML NEB INH SCH (20:48)
[2023-06-08 21:06] LABS: ABG BASE EXCESS 3.4 (-2.0-2.0); ABG O2 SATURATION 98.8 % (95.0-99.0); ABG PARTIAL PRESSURE O2 194.7 mmHg (75.0-100.0); ABG STANDARD HCO3 27.6 MMOL/L. (22.0-26.0); ABG TOTAL CO2 31.7 MMOL/L (23.0-31.0); ABG pH (ARTERIAL) 7.347 UNITS (7.350-7.450)
[2023-06-08] MEDS: VANCOMYCIN HCL 500 MG in D5W MINI-BAG PLUS 100 ML IV SCH (22:18)
[2023-06-09] VITALS (23 sets, daily range): BP systolic 98–132; BP diastolic 54–68; TEMP 96.5–97.7; O2SAT 85–98
[2023-06-09] MEDS: methylPREDNISolone 125MG 2ML VIAL IV SCH (01:16)
[2023-06-09 08:29] LABS: BASO % 0.1 % (0.0-1.0); HEMATOCRIT 29.8 % (42.0-52.0); HEMOGLOBIN 9.8 g/dl (13.5-17.5); LYMPH # 0.3 10^3/uL (1.5-5.0); LYMPH % 2.6 % (24.0-44.0); MEAN CORPUSCULAR HEMOGLOBIN 31.1 pg (27.0-33.0); MEAN CORPUSCULAR HGB CONC 32.9 g/dl (32.0-36.5); MEAN CORPUSCULAR VOLUME 94.6 fl (80.0-96.0); MONO # 0.1 10^3/uL (0.0-0.8); NEUTROPHILS % 95.3 % (36.0-66.0); PLATELET COUNT, AUTOMATED 184 10^3/uL (150-450); RED BLOOD COUNT 3.15 10^6/uL (4.30-6.10); WHITE BLOOD COUNT 10.5 10^3/uL (4.0-10.0)
[2023-06-09] MEDS ORDERED: VANCOMYCIN HCL 750 MG, VIAL MATE ADAPTER 1 EACH in D5W 250 ML IV SCH ×2 (09:00→10:00)
[2023-06-09 09:17] LABS: BLOOD UREA NITROGEN 22 MG/DL (9-23); CALCIUM LEVEL 7.8 MG/DL (8.3-10.6); CARBON DIOXIDE LEVEL 31 MMOL/L (20-31); CHLORIDE LEVEL 100 MMOL/L (98-107); CREATININE FOR GFR 1.23 MG/DL (0.70-1.30); GLOMERULAR FILTRATION RATE > 60.0 (>49); GLUCOSE, FASTING 249 MG/DL (74-106); MAGNESIUM LEVEL 1.9 MG/DL (1.8-2.4); POTASSIUM SERUM 4.4 MMOL/L (3.5-5.1); SODIUM LEVEL 135 MMOL/L (136-145)
[2023-06-09] MEDS ORDERED: VANCOMYCIN INTERMITTENT/PULSE DOSING BY CLINICAL PHARMACIST PER DOSING PROTOCOL XX SCH (09:40)
[2023-06-09] MEDS: MAG SULF 1GM/100ML (MAG RUN) 1 GM in IV 1 EA IV ONE (11:06)
[2023-06-09] MEDS: guaiFENesin ER TABLET 600 MG TAB PO SCH (14:22)
[2023-06-10] VITALS (7 sets, daily range): BP systolic 96–133; BP diastolic 53–68; TEMP 97–97.8; O2SAT 92–95
[2023-06-10 05:36] LABS: BASO % 0.1 % (0.0-1.0); HEMATOCRIT 32.1 % (42.0-52.0); HEMOGLOBIN 10.5 g/dl (13.5-17.5); LYMPH # 0.2 10^3/uL (1.5-5.0); LYMPH % 2.2 % (24.0-44.0); MEAN CORPUSCULAR HEMOGLOBIN 30.7 pg (27.0-33.0); MEAN CORPUSCULAR HGB CONC 32.7 g/dl (32.0-36.5); MEAN CORPUSCULAR VOLUME 93.9 fl (80.0-96.0); MONO # 0.1 10^3/uL (0.0-0.8); MONO % 1.1 % (2.0-8.0); NEUTROPHILS # 10.7 10^3/uL (1.5-8.5); NEUTROPHILS % 96.1 % (36.0-66.0); PLATELET COUNT, AUTOMATED 237 10^3/uL (150-450); RED BLOOD COUNT 3.42 10^6/uL (4.30-6.10); WHITE BLOOD COUNT 11.1 10^3/uL (4.0-10.0)
[2023-06-10] MEDS: VANCOMYCIN HCL 1,000 MG, VIAL MATE ADAPTER 1 EACH in D5W 250 ML IV SCH (05:37)
[2023-06-10 06:03] LABS: CALCIUM LEVEL 8.1 MG/DL (8.3-10.6); CREATININE FOR GFR 1.45 MG/DL (0.70-1.30); GLOMERULAR FILTRATION RATE 51.8 (>49); MAGNESIUM LEVEL 2.2 MG/DL (1.8-2.4); POTASSIUM SERUM 3.6 MMOL/L (3.5-5.1)
[2023-06-10] MEDS ORDERED: GLUCAGON INJ 1MG VIAL SC PRN (07:40)
[2023-06-10] MEDS ORDERED: GLUCOSE 4GM CHEW TABLET PO PRN (07:40)
[2023-06-10] MEDS ORDERED: DEXTROSE 50% 50ML SYRINGE IV PRN (07:40)
[2023-06-10] MEDS: LEVEMIR (INSULIN DETEMIR) 1 UNITS/0.01ML SC ONE (07:44)
[2023-06-10] MEDS: INSULIN LISPRO (NovoLOG) PER UNIT SC STA ×2 (07:45→11:27)
[2023-06-10] MEDS: DIGOXIN INJ 0.5 MG/2 ML AMP IV STA (12:35)
[2023-06-10 13:08] LABS: CALCIUM LEVEL 8.3 MG/DL (8.3-10.6); CREATININE FOR GFR 1.49 MG/DL (0.70-1.30); GLOMERULAR FILTRATION RATE 50.2 (>49)
[2023-06-10 13:26] LABS: ALBUMIN 1.6 G/DL (3.2-5.2); MAGNESIUM LEVEL 2.1 MG/DL (1.8-2.4)
[2023-06-10 13:27] LABS: MB/CK RELATIVE INDEX 8.57 (< OR =4)
[2023-06-10] MEDS: INSULIN LISPRO (NovoLOG) PER UNIT SC SCH ×3 (13:38→19:57)
[2023-06-10] MEDS: CALCIUM GLUCONATE 1,000 MG in D5W MINI-BAG PLUS 100 ML IV ONE (13:39)
[2023-06-10] MEDS: POTASSIUM CHLORIDE 10MEQ SR TABLET PO SCH (15:38)
[2023-06-10] MEDS: KCL 10MEQ/100ML SWI (KRUN) 10 MEQ in IV 1 EA IV SCH (15:38)
[2023-06-10] MEDS: INSULIN LISPRO (NovoLOG) PER UNIT SC ONE ×2 (15:47→17:00)
[2023-06-10] MEDS: MAG SULF 1GM/100ML (MAG RUN) 1 GM in IV 1 EA IV ONE (16:14)
[2023-06-10] MEDS: DIGOXIN INJ 0.5 MG/2 ML AMP IV ONE (17:41)
[2023-06-10] MEDS: POTASSIUM CHLORIDE 10MEQ SR TABLET PO ONE (17:49)
[2023-06-10 19:28] LABS: ALBUMIN 1.6 G/DL (3.2-5.2); CALCIUM LEVEL 8.4 MG/DL (8.3-10.6); CREATININE FOR GFR 1.44 MG/DL (0.70-1.30); GLOMERULAR FILTRATION RATE 52.3 (>49); POTASSIUM SERUM 2.8 MMOL/L (3.5-5.1)
[2023-06-10] MEDS: POTASSIUM CHLORIDE 10MEQ SR TABLET PO STA (20:06)
[2023-06-10] MEDS: methylPREDNISolone 40MG 1ML VIAL IV SCH (20:06)
[2023-06-10] MEDS: LEVEMIR (INSULIN DETEMIR) 1 UNITS/0.01ML SC SCH (20:06)
[2023-06-10] MEDS: KCL 10MEQ/100ML SWI (KRUN) 100 ML IV SCH (20:07)
[2023-06-11] VITALS (12 sets, daily range): BP systolic 106–144; BP diastolic 50–64; TEMP 96.1–97.8; O2SAT 91–97
[2023-06-11 05:50] LABS: EOS % 0.2 % (0.0-3.0); HEMATOCRIT 31.1 % (42.0-52.0); HEMOGLOBIN 10.4 g/dl (13.5-17.5); LYMPH # 0.3 10^3/uL (1.5-5.0); MEAN CORPUSCULAR HEMOGLOBIN 30.7 pg (27.0-33.0); MEAN CORPUSCULAR HGB CONC 33.4 g/dl (32.0-36.5); MEAN CORPUSCULAR VOLUME 91.7 fl (80.0-96.0); MONO % 0.2 % (2.0-8.0); NEUTROPHILS # 12.9 10^3/uL (1.5-8.5); NEUTROPHILS % 97.1 % (36.0-66.0); PLATELET COUNT, AUTOMATED 266 10^3/uL (150-450); RED BLOOD COUNT 3.39 10^6/uL (4.30-6.10); WHITE BLOOD COUNT 13.3 10^3/uL (4.0-10.0)
[2023-06-11 06:27] LABS: CALCIUM LEVEL 8.7 MG/DL (8.3-10.6); CREATININE FOR GFR 1.43 MG/DL (0.70-1.30); DIGOXIN LEVEL 0.6 NG/ML (0.8-2.0); GLOMERULAR FILTRATION RATE 52.7 (>49); MAGNESIUM LEVEL 2.3 MG/DL (1.8-2.4); POTASSIUM SERUM 4.1 MMOL/L (3.5-5.1)
[2023-06-11] MEDS: VANCOMYCIN HCL 1,000 MG, VIAL MATE ADAPTER 1 EACH in D5W 250 ML IV SCH (10:09)
[2023-06-11 13:57] LABS: C REACTIVE PROTEIN QUANTITATIV 6.4 MG/DL (<1.0)
[2023-06-11] MEDS ORDERED: ISOVUE-370 76% 100ML VIAL As Ordered ONE (17:03)
[2023-06-11] MEDS: MIDODRINE 5 MG TAB PO SCH (17:15)
[2023-06-11] MEDS: INSULIN LISPRO (NovoLOG) PER UNIT SC SCH (20:36)
[2023-06-11] MEDS: LEVEMIR (INSULIN DETEMIR) 1 UNITS/0.01ML SC SCH (20:36)
[2023-06-12] VITALS (28 sets, daily range): BP systolic 96–156; BP diastolic 52–68; TEMP 97–97.6; O2SAT 76–99
[2023-06-12 05:44] LABS: BASO % 0.1 % (0.0-1.0); EOS % 0.1 % (0.0-3.0); HEMATOCRIT 30.6 % (42.0-52.0); HEMOGLOBIN 10.4 g/dl (13.5-17.5); LYMPH # 0.5 10^3/uL (1.5-5.0); LYMPH % 3.5 % (24.0-44.0); MEAN CORPUSCULAR VOLUME 91.1 fl (80.0-96.0); MONO # 0.1 10^3/uL (0.0-0.8); MONO % 0.7 % (2.0-8.0); NEUTROPHILS # 14.3 10^3/uL (1.5-8.5); NEUTROPHILS % 95.1 % (36.0-66.0); PLATELET COUNT, AUTOMATED 266 10^3/uL (150-450); RED BLOOD COUNT 3.36 10^6/uL (4.30-6.10); WHITE BLOOD COUNT 15.1 10^3/uL (4.0-10.0)
[2023-06-12 06:20] LABS: BILIRUBIN,TOTAL 0.4 MG/DL (0.3-1.2); CALCIUM LEVEL 8.6 MG/DL (8.3-10.6); CREATININE FOR GFR 1.36 MG/DL (0.70-1.30); GLOMERULAR FILTRATION RATE 55.8 (>49); MAGNESIUM LEVEL 2.4 MG/DL (1.8-2.4); POTASSIUM SERUM 3.5 MMOL/L (3.5-5.1); TOTAL PROTEIN 5.4 G/DL (5.7-8.2)
[2023-06-12] MEDS: INSULIN LISPRO (NovoLOG) PER UNIT SC SCH ×2 (07:30→08:57)
[2023-06-12] MEDS ORDERED: predniSONE 20 MG TAB PO SCH (09:00)
[2023-06-12] MEDS: LEVALBUTEROL 1.25MG 0.5ML CONCENTRATE NEB INH SCH (14:00)
[2023-06-12] MEDS: LACTOBACILLUS ACIDOPHILUS CAP (BACID) PO SCH (18:00)
[2023-06-12] MEDS ORDERED: METOPROLOL TART 50 MG TAB PO SCH (18:00)
[2023-06-12] MEDS ORDERED: PILL CUTTER 1 EACH XX ONE (20:37)
[2023-06-12] MEDS: ONDANSETRON 4MG 2ML VIAL IV ONE (20:38)
[2023-06-12] MEDS: K-PHOS NEUTRAL 250MG TABLET (SOD.PHOSPHATE/POT.PHOSPHATE) PO SCH (20:40)
[2023-06-12] MEDS: METOPROLOL TART 50 MG TAB PO SCH (20:40)
[2023-06-13] VITALS (23 sets, daily range): BP systolic 94–117; BP diastolic 51–62; TEMP 97.2–98; O2SAT 90–97
[2023-06-13 05:59] LABS: BASO % 0.1 % (0.0-1.0); EOS % 0.1 % (0.0-3.0); HEMATOCRIT 31.4 % (42.0-52.0); HEMOGLOBIN 10.3 g/dl (13.5-17.5); LYMPH # 0.8 10^3/uL (1.5-5.0); LYMPH % 5.9 % (24.0-44.0); MEAN CORPUSCULAR HEMOGLOBIN 30.9 pg (27.0-33.0); MEAN CORPUSCULAR HGB CONC 32.8 g/dl (32.0-36.5); MEAN CORPUSCULAR VOLUME 94.3 fl (80.0-96.0); MONO # 0.4 10^3/uL (0.0-0.8); MONO % 2.9 % (2.0-8.0); NEUTROPHILS # 12.2 10^3/uL (1.5-8.5); NEUTROPHILS % 89.6 % (36.0-66.0); PLATELET COUNT, AUTOMATED 221 10^3/uL (150-450); RED BLOOD COUNT 3.33 10^6/uL (4.30-6.10); WHITE BLOOD COUNT 13.6 10^3/uL (4.0-10.0)
[2023-06-13 06:32] LABS: ALBUMIN 1.9 G/DL (3.2-5.2); BILIRUBIN,TOTAL 0.5 MG/DL (0.3-1.2); CALCIUM LEVEL 8.2 MG/DL (8.3-10.6); CREATININE FOR GFR 1.37 MG/DL (0.70-1.30); GLOMERULAR FILTRATION RATE 55.3 (>49); MAGNESIUM LEVEL 2.2 MG/DL (1.8-2.4); POTASSIUM SERUM 3.6 MMOL/L (3.5-5.1); TOTAL PROTEIN 5.1 G/DL (5.7-8.2)
[2023-06-13] MEDS: LEVEMIR (INSULIN DETEMIR) 1 UNITS/0.01ML SC SCH ×2 (09:00→12:46)
[2023-06-13] MEDS: VANCOMYCIN HCL 750 MG, VIAL MATE ADAPTER 1 EACH in D5W 250 ML IV SCH (10:57)
[2023-06-13] MEDS: MIDODRINE 2.5 MG TAB PO ONE (12:46)
[2023-06-13] MEDS: predniSONE 10MG TAB PO SCH (12:53)
[2023-06-13 13:24] LABS: CK-MB VALUE MASS 3.9 NG/ML (<3.6); MB/CK RELATIVE INDEX 3.54 (< OR =4)
[2023-06-13 13:26] LABS: PHOSPHORUS LEVEL 3.4 MG/DL (2.4-5.1)
[2023-06-13 16:31] LABS: C REACTIVE PROTEIN QUANTITATIV 18.5 MG/DL (<1.0)
[2023-06-13] MEDS: MIDODRINE 2.5 MG TAB PO SCH (17:27)
[2023-06-14] VITALS (19 sets, daily range): BP systolic 102–147; BP diastolic 53–80; TEMP 97.4–97.9; O2SAT 93–100
[2023-06-14 09:36] LABS: BASO % 0.1 % (0.0-1.0); EOS % 0.1 % (0.0-3.0); HEMATOCRIT 30.9 % (42.0-52.0); HEMOGLOBIN 10.1 g/dl (13.5-17.5); LYMPH # 0.7 10^3/uL (1.5-5.0); LYMPH % 3.2 % (24.0-44.0); MEAN CORPUSCULAR HEMOGLOBIN 31.1 pg (27.0-33.0); MEAN CORPUSCULAR HGB CONC 32.7 g/dl (32.0-36.5); MEAN CORPUSCULAR VOLUME 95.1 fl (80.0-96.0); MONO # 0.6 10^3/uL (0.0-0.8); MONO % 3.1 % (2.0-8.0); NEUTROPHILS # 18.4 10^3/uL (1.5-8.5); NEUTROPHILS % 91.1 % (36.0-66.0); PLATELET COUNT, AUTOMATED 182 10^3/uL (150-450); RED BLOOD COUNT 3.25 10^6/uL (4.30-6.10); WHITE BLOOD COUNT 20.2 10^3/uL (4.0-10.0)
[2023-06-14 10:02] LABS: VANCOMYCIN LEVEL TROUGH 16.9 UG/ML (10.0-20.0)
[2023-06-14 10:17] LABS: ALBUMIN 1.6 G/DL (3.2-5.2); BILIRUBIN,TOTAL 0.6 MG/DL (0.3-1.2); CALCIUM LEVEL 7.8 MG/DL (8.3-10.6); CREATININE FOR GFR 1.41 MG/DL (0.70-1.30); GLOMERULAR FILTRATION RATE 53.5 (>49); MAGNESIUM LEVEL 2.4 MG/DL (1.8-2.4); POTASSIUM SERUM 3.6 MMOL/L (3.5-5.1); TOTAL PROTEIN 4.7 G/DL (5.7-8.2)
[2023-06-14] MEDS ORDERED: LIDOCAINE 1% MDV 20ML VIAL As Ordered ONE (11:20)
[2023-06-14] MEDS ORDERED: SODIUM CHLORIDE 0.9% INJ 10 ML SYR IV PRN (13:05)
[2023-06-14 13:58] LABS: PROCALCITONIN 0.29 ng/ml
[2023-06-14] MEDS: SODIUM CHLORIDE 0.9% INJ 10 ML SYR IV SCH (18:06)
[2023-06-15] VITALS (13 sets, daily range): BP systolic 115–137; BP diastolic 57–89; TEMP 97–98.1; O2SAT 84–96
[2023-06-15] MEDS: predniSONE 5 MG TAB PO SCH (08:07)
[2023-06-15 09:31] LABS: BASO # 0.1 10^3/uL (0.0-0.2); BASO % 0.2 % (0.0-1.0); EOS # 0.1 10^3/uL (0.0-0.5); EOS % 0.3 % (0.0-3.0); HEMATOCRIT 31.2 % (42.0-52.0); HEMOGLOBIN 10.3 g/dl (13.5-17.5); LYMPH # 0.6 10^3/uL (1.5-5.0); LYMPH % 2.8 % (24.0-44.0); MEAN CORPUSCULAR HEMOGLOBIN 30.7 pg (27.0-33.0); MEAN CORPUSCULAR VOLUME 93.1 fl (80.0-96.0); MONO # 0.7 10^3/uL (0.0-0.8); MONO % 3.2 % (2.0-8.0); NEUTROPHILS % 90.3 % (36.0-66.0); PLATELET COUNT, AUTOMATED 176 10^3/uL (150-450); RED BLOOD COUNT 3.35 10^6/uL (4.30-6.10); WHITE BLOOD COUNT 22.2 10^3/uL (4.0-10.0)
[2023-06-15] MEDS ORDERED: MIRALAX *UNIT DOSE* 17GM PACKET PO PRN (09:50)
[2023-06-15 10:04] LABS: ALBUMIN 1.6 G/DL (3.2-5.2); BILIRUBIN,TOTAL 0.5 MG/DL (0.3-1.2); CALCIUM LEVEL 7.9 MG/DL (8.3-10.6); CREATININE FOR GFR 1.53 MG/DL (0.70-1.30); GLOMERULAR FILTRATION RATE 48.7 (>49); POTASSIUM SERUM 3.5 MMOL/L (3.5-5.1); TOTAL PROTEIN 4.8 G/DL (5.7-8.2); VANCOMYCIN LEVEL TROUGH 17.5 UG/ML (10.0-20.0)
[2023-06-15] MEDS: DOCUSATE SODIUM 100MG CAPSULE PO SCH (10:13)
[2023-06-15] MEDS: SIMETHICONE 80MG CHEW TAB PO SCH (10:13)
[2023-06-15] MEDS: PROMETHAZINE 25MG/ML 1ML VIAL IV PRN (20:25)
[2023-06-15] MEDS: BISACODYL 10MG SUPP PR ONE (21:43)
[2023-06-15 22:37] LABS: VENOUS BASE EXCESS 4.5 (-2.0-2.0); VENOUS HCO3 33.4 MMOL/L (23.0-27.0); VENOUS O2 SATURATION 94.3 % (60.0-80.0); VENOUS PARTIAL PRESSURE CO2 74.4 mmHg (38.0-50.0); VENOUS PARTIAL PRESSURE O2 80.3 mmHg (30.0-50.0); VENOUS STANDARD HCO3 28.4 MMOL/L; VENOUS TOTAL CO2 35.7 MMOL/L (24.0-28.0)
[2023-06-15 22:43] LABS: HEMATOCRIT 32.7 % (42.0-52.0); HEMOGLOBIN 10.6 g/dl (13.5-17.5); MEAN CORPUSCULAR HEMOGLOBIN 30.6 pg (27.0-33.0); MEAN CORPUSCULAR HGB CONC 32.4 g/dl (32.0-36.5); MEAN CORPUSCULAR VOLUME 94.5 fl (80.0-96.0); PLATELET COUNT, AUTOMATED 187 10^3/uL (150-450); RED BLOOD COUNT 3.46 10^6/uL (4.30-6.10); WHITE BLOOD COUNT 26.7 10^3/uL (4.0-10.0)
[2023-06-15 23:06] LABS: CALCIUM LEVEL 8.1 MG/DL (8.3-10.6); CREATININE FOR GFR 1.74 MG/DL (0.70-1.30); POTASSIUM SERUM 3.5 MMOL/L (3.5-5.1)
[2023-06-15 23:18] LABS: PROCALCITONIN 0.31 ng/ml
[2023-06-16] VITALS (15 sets, daily range): BP systolic 94–138; BP diastolic 42–67; TEMP 97–97.5; O2SAT 80–98
[2023-06-16 00:10] LABS: ABG BASE EXCESS 3.3 (-2.0-2.0); ABG HCO3 30.3 MMOL/L (22.0-26.0); ABG PARTIAL PRESSURE CO2 58.2 mmHg (35.0-45.0); ABG PARTIAL PRESSURE O2 61.2 mmHg (75.0-100.0); ABG STANDARD HCO3 27.3 MMOL/L. (22.0-26.0); ABG TOTAL CO2 32.1 MMOL/L (23.0-31.0); ABG pH (ARTERIAL) 7.335 UNITS (7.350-7.450)
[2023-06-16 06:06] LABS: BASO % 0.1 % (0.0-1.0); EOS # 0.1 10^3/uL (0.0-0.5); EOS % 0.3 % (0.0-3.0); HEMATOCRIT 31.7 % (42.0-52.0); HEMOGLOBIN 10.5 g/dl (13.5-17.5); LYMPH # 0.8 10^3/uL (1.5-5.0); LYMPH % 3.2 % (24.0-44.0); MEAN CORPUSCULAR HEMOGLOBIN 30.9 pg (27.0-33.0); MEAN CORPUSCULAR HGB CONC 33.1 g/dl (32.0-36.5); MEAN CORPUSCULAR VOLUME 93.2 fl (80.0-96.0); MONO # 0.9 10^3/uL (0.0-0.8); MONO % 3.7 % (2.0-8.0); NEUTROPHILS # 22.5 10^3/uL (1.5-8.5); NEUTROPHILS % 89.3 % (36.0-66.0); PLATELET COUNT, AUTOMATED 184 10^3/uL (150-450); WHITE BLOOD COUNT 25.2 10^3/uL (4.0-10.0)
[2023-06-16 06:32] LABS: ALBUMIN 1.5 G/DL (3.2-5.2); BILIRUBIN,TOTAL 0.5 MG/DL (0.3-1.2); CALCIUM LEVEL 7.6 MG/DL (8.3-10.6); CREATININE FOR GFR 1.68 MG/DL (0.70-1.30); GLOMERULAR FILTRATION RATE 43.7 (>49); TOTAL PROTEIN 4.7 G/DL (5.7-8.2)
[2023-06-16] MEDS: TORSEMIDE 20 MG TAB PO SCH (09:31)
[2023-06-16] MEDS: SPIRONOLACTONE 12.5MG PER 1/2 TABLET PO SCH (09:31)
[2023-06-16] MEDS: BISACODYL 10MG SUPP PR SCH (09:31)
[2023-06-16 15:37] LABS: ABG O2 SATURATION 89.9 % (95.0-99.0)
[2023-06-16 15:38] LABS: ABG BASE EXCESS 6.3 (-2.0-2.0); ABG HCO3 33.8 MMOL/L (22.0-26.0); ABG TOTAL CO2 35.7 MMOL/L (23.0-31.0)
[2023-06-16] MEDS: FUROSEMIDE 100MG/10ML VIAL IV ONE (17:37)
[2023-06-16] MEDS: BUMETANIDE 1MG/4ML VIAL IV SCH (18:04)
[2023-06-16] MEDS: BUDESONIDE 0.5 MG/2 ML INHALATION SUSPENSION NEB SCH (19:04)
[2023-06-16] MEDS: IPRATROPIUM 0.5MG/ALBUTEROL 2.5MG INH SOL UD 3ML (DUONEB) NEB SCH (19:04)
[2023-06-16 19:32] LABS: ABG BASE EXCESS 6.5 (-2.0-2.0); ABG HCO3 33.9 MMOL/L (22.0-26.0); ABG O2 SATURATION 95.3 % (95.0-99.0); ABG PARTIAL PRESSURE O2 83.3 mmHg (75.0-100.0); ABG STANDARD HCO3 30.4 MMOL/L. (22.0-26.0); ABG TOTAL CO2 35.9 MMOL/L (23.0-31.0); ABG pH (ARTERIAL) 7.343 UNITS (7.350-7.450)
[2023-06-16 19:33] LABS: ABG PARTIAL PRESSURE CO2 63.9 mmHg (35.0-45.0)
[2023-06-16] MEDS: ALPRAZolam 0.25 MG TAB PO ONE (23:19)
[2023-06-17] VITALS: BP 117/57; TEMP 97.6; O2SAT 90
[2023-06-17 03:14] VITALS: O2SAT 92
[2023-06-17 04:00] VITALS: BP 117/57; TEMP 96.5; O2SAT 94
[2023-06-17 04:51] LABS: BASO % 0.1 % (0.0-1.0); EOS % 0.2 % (0.0-3.0); HEMATOCRIT 30.8 % (42.0-52.0); HEMOGLOBIN 10.2 g/dl (13.5-17.5); LYMPH # 0.6 10^3/uL (1.5-5.0); LYMPH % 2.8 % (24.0-44.0); MEAN CORPUSCULAR HEMOGLOBIN 30.7 pg (27.0-33.0); MEAN CORPUSCULAR HGB CONC 33.1 g/dl (32.0-36.5); MEAN CORPUSCULAR VOLUME 92.8 fl (80.0-96.0); MONO # 0.4 10^3/uL (0.0-0.8); MONO % 1.8 % (2.0-8.0); NEUTROPHILS # 20.4 10^3/uL (1.5-8.5); NEUTROPHILS % 93.4 % (36.0-66.0); PLATELET COUNT, AUTOMATED 202 10^3/uL (150-450); RED BLOOD COUNT 3.32 10^6/uL (4.30-6.10); WHITE BLOOD COUNT 21.8 10^3/uL (4.0-10.0)
[2023-06-17 05:15] VITALS: O2SAT 90
[2023-06-17 05:22] LABS: ABG BASE EXCESS 2.8 (-2.0-2.0); ABG HCO3 29.2 MMOL/L (22.0-26.0); ABG O2 SATURATION 90.1 % (95.0-99.0); ABG PARTIAL PRESSURE CO2 53.2 mmHg (35.0-45.0); ABG PARTIAL PRESSURE O2 63.4 mmHg (75.0-100.0); ABG STANDARD HCO3 26.8 MMOL/L. (22.0-26.0); ABG TOTAL CO2 30.8 MMOL/L (23.0-31.0); ABG pH (ARTERIAL) 7.357 UNITS (7.350-7.450)
[2023-06-17 05:50] LABS: ALBUMIN 1.6 G/DL (3.2-5.2); BILIRUBIN,TOTAL 0.5 MG/DL (0.3-1.2); CALCIUM LEVEL 7.6 MG/DL (8.3-10.6); CREATININE FOR GFR 1.69 MG/DL (0.70-1.30); GLOMERULAR FILTRATION RATE 43.4 (>49); POTASSIUM SERUM 3.8 MMOL/L (3.5-5.1); TOTAL PROTEIN 4.7 G/DL (5.7-8.2)
[2023-06-17 06:00] VITALS: BP 122/56; O2SAT 91
[2023-06-17] MEDS ORDERED: MORPHINE 4 MG/ML 1ML VIAL As Ordered ONE (07:35)
[2023-06-17] MEDS: MORPHINE 4 MG/ML 1ML VIAL IV ONE (07:44)
[2023-06-17] MEDS ORDERED: ONDANSETRON 4MG 2ML VIAL IV PRN (07:50)
[2023-06-17] MEDS ORDERED: SCOPOLAMINE 1MG TRANSDERMAL PATCH TOP PRN (07:50)
[2023-06-17] MEDS ORDERED: ATROPINE SULFATE 1% OPHTH SOLN 2ML BTL SL PRN (07:50)
[2023-06-17] MEDS: LORazepam 2 MG/ML 1ML VIAL IV PRN (08:15)
[2023-06-17] MEDS: predniSONE 2.5 MG TAB PO SCH (08:16)
[2023-06-17] MEDS ORDERED: HYDROCORTISONE 100MG/2ML VIAL IV SCH (09:00)
[2023-06-17] MEDS ORDERED: FLUDROCORTISONE ACETATE 0.1 MG TAB PO SCH (09:00)
[2023-06-17] MEDS: MORPHINE 2 MG/ML 1ML VIAL IV PRN (10:36)
== END 2023-06-17 17:30 | disposition expired | DRG 720 ==
LOC: EDBD 04:28 → M ED 04:28 → M ED INP 06-07 16:40 → M PCU 06-07 21:08 → M MSPAV 06-14 17:06 → M ICU 06-16 16:58 → M MS5PR 06-17 11:00
PROVIDERS: ADMIT General Practice; ATTEND Internal Medicine
PROC: 02HV33Z Insertion of Infusion Device into Superior Vena Cava, Percutaneous Approach (ICD-10-PCS; principal; 2023-06-14 11:00)
DX: A41.1 Sepsis due to other specified staphylococcus (principal); J96.21 Acute and chronic respiratory failure with hypoxia; I33.0 Acute and subacute infective endocarditis; I47.20 Ventricular tachycardia, unspecified; I50.33 Acute on chronic diastolic (congestive) heart failure; N17.9 Acute kidney failure, unspecified; E87.20 Acidosis, unspecified; E87.3 Alkalosis; R18.8 Other ascites; N18.30 Chronic kidney disease, stage 3 unspecified; I27.20 Pulmonary hypertension, unspecified; I13.0 Hypertensive heart and chronic kidney disease with heart failure and stage 1 through stage 4 chronic kidney disease, or unspecified chronic kidney disease; I48.20 Chronic atrial fibrillation, unspecified; K68.12 Psoas muscle abscess; E11.40 Type 2 diabetes mellitus with diabetic neuropathy, unspecified; Z99.81 Dependence on supplemental oxygen; E11.65 Type 2 diabetes mellitus with hyperglycemia; E66.2 Morbid (severe) obesity with alveolar hypoventilation; E87.1 Hypo-osmolality and hyponatremia; J44.1 Chronic obstructive pulmonary disease with (acute) exacerbation; Z68.41 Body mass index [BMI] 40.0-44.9, adult; E83.42 Hypomagnesemia; K76.0 Fatty (change of) liver, not elsewhere classified; N30.90 Cystitis, unspecified without hematuria; E87.6 Hypokalemia; J98.11 Atelectasis; G47.33 Obstructive sleep apnea (adult) (pediatric); Z91.119 Patient's noncompliance with dietary regimen due to unspecified reason; R26.89 Other abnormalities of gait and mobility; Z79.01 Long term (current) use of anticoagulants; I87.2 Venous insufficiency (chronic) (peripheral); M54.59 Other low back pain; Z79.899 Other long term (current) drug therapy; Z79.4 Long term (current) use of insulin; Z88.8 Allergy status to other drugs, medicaments and biological substances; M19.90 Unspecified osteoarthritis, unspecified site; Z51.5 Encounter for palliative care; D63.1 Anemia in chronic kidney disease